=== PATIENT | male | born 1960 | race Caucasian/White ===

== ENCOUNTER 2016-11-16 14:33 | Inpatient (IN) | payer OTHER ==
[~2016-11-16] VITALS: Ht 154.9 cm; Wt 107.9 kg
[2016-11-19] MEDS ORDERED: ALBUAER3 INH (14:12)
[2016-11-19] MEDS ORDERED: MULT1TAB84 PO (14:12)
[2016-11-19] MEDS ORDERED: SYMB160A INH (14:12)
[2016-11-19] MEDS ORDERED: BACL10TA PO (14:12)
[2016-11-19] MEDS ORDERED: LISI10TA3 PO (14:12)
[2016-11-19] MEDS ORDERED: MIRT30TA PO (14:12)
[2016-11-19] MEDS ORDERED: OMEP40CA2 PO (14:12)
[2016-12-13] MEDS ORDERED: SIME1CHW11 PO (17:46)
[2016-12-13] MEDS ORDERED: CREON24 PO (17:46)
[2016-12-13] MEDS ORDERED: DILA2TAB2 PO (17:46)
[2016-12-13] MEDS ORDERED: DILA100C PO (17:46)
[2017-01-08] MEDS ORDERED: INSULIN HUMAN REGULAR 1,000 UNITS/10 ML VIAL SQ PRN (05:45)
[2017-01-08] MEDS ORDERED: CHLORHEXIDINE GLUCONATE 2 % 1 PACK (2 CLOTHS) TOPICAL PRN (05:45)
[2017-01-08] MEDS ORDERED: VANCOMYCIN 1000 MG/NS 250 ML (for <70 kg) IV SCH ×2 (05:45)
[2017-01-08] MEDS ORDERED: CHLORHEXIDINE GLUCONATE 4% SOLN 120 ML BTL TOPICAL SCH (05:45)
[2017-01-08] MEDS ORDERED: METOPROLOL TARTRATE 25 MG TAB PO PRN (05:45)
[2017-01-08] MEDS ORDERED: SODIUM CHLORID 0.9% 500 ML IV PRN (05:45)
[2017-01-08] MEDS ORDERED: ceFAZolin 2 GM PREMIX 50 ML IV SCH (05:45)
[2017-01-08] MEDS ORDERED: LACTATED RINGER'S 1000 ML IV PRN (05:45)
[2017-01-08] MEDS ORDERED: POVIDONE IODINE 5% (ANTISEPSIS KIT) 4 APPLICATIONS EACH NARE PRN (05:45)
[2017-01-08] MEDS ORDERED: ACET-703 PO (06:30)
[2017-01-08 06:33] VITALS: BP 116/79; PULSE 100; RESP 18; TEMP 97.9; O2SAT 96
[2017-01-08] MEDS ORDERED: GENTAMICIN SULFATE 80 MG/2 ML VIAL ONE (06:53)
[2017-01-08] MEDS ORDERED: DEXAMETHASONE SOD PHOS 4 MG/ML VIAL ONE (07:04)
[2017-01-08] MEDS ORDERED: ACETAMINOPHEN 1000 MG/100 ML VIAL IV ONE (07:04)
[2017-01-08] MEDS ORDERED: MIDAZOLAM HCL 2 MG/2 ML VIAL ONE (07:04)
[2017-01-08] MEDS ORDERED: FAMOTIDINE 20 MG/2 ML VIAL ONE (07:05)
[2017-01-08] MEDS ORDERED: SODIUM CHLORIDE 0.9% IV SCH (07:30)
[2017-01-08] MEDS ORDERED: TRANEXAMIC ACID IV SCH (07:30)
[2017-01-08] MEDS ORDERED: EXPAREL PERI-ARTICULAR INJECTION (TOTAL VOL. 60 ML) P-ARTICULR SCH ×2 (07:30)
[2017-01-08] MEDS ORDERED: ceFAZolin INJ 1,000 MG VIAL IV ONE (07:35)
[2017-01-08] MEDS ORDERED: NALOXONE HCL 0.4 MG/ML AMP IV PRN (09:30)
[2017-01-08] MEDS ORDERED: ACETAMINOPHEN/HYDROcodone 325 MG/10 MG TAB PO PRN (09:30)
[2017-01-08] MEDS ORDERED: Post-op Orders (for Pharmacy) MISC XX ONE (09:30)
[2017-01-08] MEDS ORDERED: ONDANSETRON HCL 4 MG/2 ML VIAL IVP PRN (09:30)
--- NOTE | 2017-01-08 09:32 | PD.OP ---
cc: Yousuf Miranda MD Operative Report Date of Surgery: January 08, 2017 Preoperative Diagnosis: Severe left hip osteoarthritis Postoperative Diagnosis: Procedure: Left total hip arthroplasty via anterior approach Anesthesia: Gen. Surgeon: Yousuf Miranda Butcher All Round(s): TL Cisneros PA-C The surgical procedure was assisted by my physician assistant basketball coach. My P.A. presence was necessary throughout this case for the manipulation and positioning of the surgical extremity. My P.A. was assisting me throughout the duration of this procedure. The skill set of a physician assistant basketball coach was medically necessary to complete this procedure. During the surgical case the salesperson surgical appliances was working at the back table and the physician assistant basketball coach was directly assisting me. Operation and Findings: PLAN OF ACTIVITY Weight bear as tolerated. DRAINS: 7-mm JAYANT drain. IMPLANTS USED DePuy Corail size [14] standard stem with a size [54] Friendly Gription cup and a [36+5] ceramic Biolox ceramic head. DETAILS OF PROCEDURE: This patient has a long history of left hip pain. Patient was found to have severe osteoarthritis of his left hip. The patient had radiographic evidence of joint space narrowing with [id number] arthritis and osteophytes around the acetabulum as well as the femoral head. There was also some cystic changes. The patient failed conservative treatment with pain medications, anti-inflammatories , physical therapy, assistive devices including a cane, as well as therapeutic injection of the hip. Patient's hip arthritis was limiting his ability to ambulate and perform activities of daily living. The patient wished to proceed with surgery and informed consent was obtained. Operative site was marked. I discussed both posterior approach and anterior approach with the patient and decision was made for anterior approach. Patient was brought to OR and placed on OR table. IV sedation and general anesthesia was administered by anesthesiologist. Patient positioned on a Shaye table and was given IV antibiotics. Time-out procedure was performed. The hip and thigh were prepped with alcohol followed by Hibiclens. The thigh was draped in the usual sterile fashion. Clean Air Suite was used for this procedure. The procedure began with a 5-inch incision over the anterolateral thigh. Subcutaneous tissue was dissected with Bovie. The fascia over the tensa fasciae latae was incised. Care was taken to avoid injury to the lateral femoral cutaneous nerve. The tensor muscle was retracted laterally. Sartorius was retracted medially. Retractors were now placed. The reflected head of the rectus is now elevated. A capsulotomy was performed over the anterior head capsule. Sutures were placed to help retract the capsule. At this point the femoral head and neck were identified. With soft tissue protected, oscillating saw was used to make a cut through the femoral neck, the femoral head was now removed. At this point attention was turned to preparation of the acetabulum. The labrum was excised. The acetabulum was sequentially reamed up to size [54]. A Friendly cup was now placed. Fluoroscopy was used to aid in identification of appropriate version. Cup was fully impacted and found to have excellent fit. Hole eliminator was now placed. The liner was now impacted into the cup. At this point the hip was externally rotated. A hook was placed around the proximal femur. The capsule was released off the lateral and medial femur. The hip was now extended and adducted. Retractors were placed around the proximal femur to allow for exposure. A box osteotome was used to remove the lateral cortex of the femoral neck. A broach was used to help lateralize the prosthesis. Canal finder was used to create a path down the canal. Next, the canal was sequentially broached up to size [14]. This was found to be an excellent fit. Calcar planer was placed. A standard head was placed, and the hip was reduced. The hip was found to have excellent stability with good range of motion. The leg lengths were measured under fluoroscopy and found to be equal compared to preoperatively. Trial broach was removed. The Corail stem was opened. Stem was fully impacted into the proximal femur in appropriate version. The femoral head was placed. The hip was again reduced. Fluoroscopy confirmed excellent alignment of prosthesis. The wound was thoroughly irrigated and capsule was closed with #1 Vicryl. The fascia over the tensor fasciae muscle was closed with #1 Vicryl, subcutaneous tissue was closed with 3-0 Vicryl and the skin was closed with stuart and Dermabond skin closure. The capsule layers were injected with a mixture of saline and bupivicaine. Dressings were applied. The patient was transferred to Recovery Room in stable condition. Yousuf Miranda MD January 08, 2017 09:32
[2017-01-08] MEDS ORDERED: ALBUTEROL SULFATE 90 MCG/ACT HFA 18 GM INHALER INH PRN (10:00)
[2017-01-08] MEDS ORDERED: fentaNYL CITRATE 250 MCG/5 ML AMP ONE (10:05)
[2017-01-08] MEDS ORDERED: *morphine SULFATE 8 MG/ML PERIprocedure ONLY ONE ×3 (10:05→10:41)
[2017-01-08] MEDS ORDERED: *HYDROmorphone PF 1 MG VIAL PERIprocedural Use ONLY ONE ×3 (10:24→11:18)
[2017-01-08] MEDS: KETOROLAC TROMETHAMINE 30 MG/ML (IVP) VIAL IV PUSH SCH ×2 (10:34→23:48)
[2017-01-08] MEDS ORDERED: SODIUM CHLORIDE 0.9% FLUSH 10 ML FLUSH IV FLUSH PRN (11:00)
[2017-01-08] MEDS: LACTATED RINGER'S 1000 ML INJ 1,000 ML IV SCH (11:00)
--- NOTE | 2017-01-08 11:18 | RADRPT ---
EXAM DATE/TIME: 01/08/2017 10:09 [facility] COMPARISON: No previous studies available for comparison. INDICATIONS : Post op left hip MEDICAL HISTORY : None. SURGICAL HISTORY : left hip ENCOUNTER: Initial ACUITY: 1 day PAIN SCORE: 10/10 LOCATION: Left hip FINDINGS: 4 views of the pelvis and left hip following recent total hip arthroplasty demonstrates a metallic ac etabular and proximal femur hardware in place. Skin stuart are present and there is soft tissue air, as expected. There is also mild right hip joint osteoarthritis. CONCLUSION: Expected changes are visualized following recent left total hip arthroplasty. Donnie Julio MD on January 08, 2017 at 11:15 Board Certified Radiologist. This report was verified electronically.
[2017-01-08] MEDS: ACETAMINOPHEN/HYDROcodone 325 MG/10 MG TAB PO PRN ×3 (11:44→23:49)
[2017-01-08] MEDS ORDERED: DO NOT ADM ANY ANTICOAGULANT DRUGS PRN (11:45)
[2017-01-08] MEDS ORDERED: ONDANSETRON HCL 4 MG/2 ML VIAL IV PUSH ONE (12:00)
[2017-01-08] MEDS ORDERED: NEOSTIGMINE 3 MG/3 ML SYR IV ONE (12:00)
[2017-01-08] MEDS ORDERED: ePHEDrine/NS 25 MG/5 ML SYR IV ONE (12:00)
[2017-01-08] MEDS ORDERED: LACTATED RINGER'S 1000 ML INJ 1,000 ML IV ONE (12:00)
[2017-01-08] MEDS ORDERED: PROPOFOL 200 MG/20 ML AMP IV ONE (12:00)
[2017-01-08] MEDS ORDERED: NORMOSOL R INJ 1,000 ML IV ONE (12:00)
[2017-01-08] MEDS ORDERED: PHENYLEPH/NS 1000 MCG/10 ML SYR IV ONE (12:00)
[2017-01-08] MEDS ORDERED: *MEPERIDINE 25 MG INJ VIAL PERIprocedural Use ONLY ONE (13:19)
--- NOTE | 2017-01-08 13:48 | RADRPT ---
EXAM DATE/TIME: 01/08/2017 07:44 [facility] COMPARISON: No previous studies available for comparison. INDICATIONS : Left total hip replacement. MEDICAL HISTORY : None. SURGICAL HISTORY : None. ENCOUNTER: Initial ACUITY: 1 day PAIN SCORE: Non-responsive. LOCATION: Left hip. FINDINGS: 3 spot fluoroscopic images of the left hip demonstrate hardware related to total hip arthroplasty. Sk in stuart are present. No unexpected finding is seen. CONCLUSION: Images document left hip hardware in place. No acute finding is seen. Donnie Julio MD on January 08, 2017 at 13:33 Board Certified Radiologist. This report was verified electronically.
[2017-01-08] MEDS: ceFAZolin 2 GM PREMIX 50 ML IV SCH ×2 (14:00→20:09)
[2017-01-08 14:25] VITALS: BP 100/61; PULSE 97; RESP 18; TEMP 95.9; O2SAT 96
[2017-01-08] MEDS: MORPHINE SULFATE 4 MG/ML INJ IV PUSH PRN ×3 (15:02→21:33)
[2017-01-08] MEDS: BACLOFEN 10 MG TAB PO SCH ×2 (15:02→20:10)
[2017-01-08] MEDS: LIPASE/PROTEASE/AMYLASE (24,000/76,000/120,000) CAP PO SCH ×2 (15:05→20:10)
--- NOTE | 2017-01-08 15:42 | EKG ---
Date Performed: 01/08/2017 Time Performed: 06:28:54 PTAGE: 56 years EKG: Sinus rhythm NORMAL ECG Compared to prior tracing no significant change PREVIOUS TRACING : 12/10/2016 05.12 DOCTOR: Prabhakar Rodriguez Interpretating Date/Time 01/08/2017 15:41:43
[2017-01-08 16:00] VITALS: BP 98/56; PULSE 107; RESP 19; TEMP 96.4; O2SAT 97
[2017-01-08] MEDS: VANCOMYCIN INJ 1,000 MG in SODIUM CHLOR 0.9% 250 ML INJ 250 ML IV SCH (17:27)
[2017-01-08 18:15] VITALS: BP 98/64
[2017-01-08 19:02] VITALS: BP 87/53; PULSE 91; RESP 17; TEMP 97.6; O2SAT 96
[2017-01-08] MEDS: SODIUM CHLORIDE 0.9% FLUSH 10 ML FLUSH IV FLUSH SCH (20:10)
[2017-01-08] MEDS: PHENYTOIN SODIUM 100 MG CAP PO SCH (20:10)
[2017-01-08] MEDS: MIRTAZAPINE 15 MG TAB PO SCH (20:10)
[2017-01-08] MEDS: BUDESONIDE-FORMOTEROL 160/4.5 MCG INHALER INH SCH (20:11)
[2017-01-09] VITALS (8 sets, daily range): BP systolic 92–125; BP diastolic 57–70; PULSE 84–100; RESP 16–18; TEMP 97.3–98.8; O2SAT 94–97
[2017-01-09] MEDS: MORPHINE SULFATE 4 MG/ML INJ IV PUSH PRN ×7 (01:00→23:27)
[2017-01-09] MEDS: ceFAZolin 2 GM PREMIX 50 ML IV SCH (02:06)
[2017-01-09] MEDS: LACTATED RINGER'S 1000 ML INJ 1,000 ML IV SCH ×3 (02:50→23:40)
[2017-01-09] MEDS: ACETAMINOPHEN/HYDROcodone 325 MG/10 MG TAB PO PRN ×3 (06:05→18:11)
[2017-01-09] MEDS: VANCOMYCIN INJ 1,000 MG in SODIUM CHLOR 0.9% 250 ML INJ 250 ML IV SCH (06:13)
--- NOTE | 2017-01-09 06:48 | PD.ORT.PN ---
Subjective Subjective Remarks Pain control. No new complaints. States that he is homeless at this point. Objective Vitals Vital Signs Date Time Temp Pulse Resp B/P Pulse Ox O2 Delivery O2 Flow Rate FiO2 01/09/17 04:14 97.4 90 17 107/57 97 01/09/17 00:15 97.5 99 16 94/59 97 01/08/17 21:10 21 01/08/17 19:02 97.6 91 17 87/53 96 01/08/17 18:15 98/64 01/08/17 16:00 96.4 107 19 98/56 97 01/08/17 14:25 95.9 97 18 100/61 96 01/08/17 14:15 91 21 96/58 95 Room Air 01/08/17 13:00 101 21 94/57 99 Room Air 01/08/17 12:00 97.0 85 18 101/61 100 Room Air 01/08/17 11:34 26 01/08/17 11:34 26 01/08/17 11:30 84 14 104/69 99 Room Air 01/08/17 11:00 93 17 114/73 96 Nasal Cannula 2 01/08/17 10:45 102 23 115/77 100 Nasal Cannula 2 01/08/17 10:30 103 29 114/71 96 Nasal Cannula 2 01/08/17 10:15 95 26 103/65 98 Nasal Cannula 2 01/08/17 09:58 97.6 108 28 103/66 95 Nasal Cannula 2 I/O 01/08/17 01/08/17 01/08/17 01/09/17 01/09/17 01/09/17 07:00 15:00 23:00 07:00 15:00 23:00 Intake Total 2100 ml 840 ml 960 ml Output Total 540 ml 250 ml 275 ml Balance 1560 ml 590 ml 685 ml Intake Oral 840 ml 960 ml Other 2100 ml Output Urine Total 290 ml 250 ml 275 ml Estimated Blood Loss 250 ml # Bowel Movements 0 Imaging Last 24 hours Impressions Hip and Pelvis X-Ray 01/08/17 09 Signed Impressions: Service Date/Time: Sunday, January 08, 2017 10:09 - CONCLUSION: Expected changes are visualized following recent left total hip arthroplasty. Donnie Julio MD Objective Remarks Left lower extremity: Clean dry dressings intact. Compartments soft. No pain with knee or ankle range of motion. Distally intact sensation good capillary refills. Strong dorsiflexion plantar flexion of foot Assessment & Plan Assessment and Plan Left total hip arthroplasty POD 1 Physical therapy weightbearing as tolerated twice daily Daily dressing changes beginning POD 2 with Xeroform and Primapore Case management for rehabilitation placement Lovenox Incentive spirometry SCDs and John Wheatley Jr. January 09, 2017 06:48
[2017-01-09] MEDS ORDERED: HYDR-3366 PO (06:51)
[2017-01-09] MEDS ORDERED: XARE10TA PO (06:51)
[2017-01-09] MEDS ORDERED: ERGO1CAP30 PO (06:52)
[2017-01-09] MEDS ORDERED: CALC1TAB87 PO (06:52)
[2017-01-09 07:23] LABS: HEMATOCRIT 26.5 % (39.0-51.0); REVIEW FLAG FINAL
[2017-01-09] MEDS: KETOROLAC TROMETHAMINE 30 MG/ML (IVP) VIAL IV PUSH SCH ×2 (10:06→23:27)
[2017-01-09] MEDS: MULTIVITAMINS/MINERALS THERAPEUTIC TAB PO SCH (10:07)
[2017-01-09] MEDS: PANTOPRAZOLE SOD 40 MG DELAYED RELEASE TAB PO SCH (10:07)
[2017-01-09] MEDS: BACLOFEN 10 MG TAB PO SCH ×3 (10:07→16:25)
[2017-01-09] MEDS: LISINOPRIL 10 MG TAB PO SCH (10:07)
[2017-01-09] MEDS: ENOXAPARIN SODIUM 40 MG/0.4 ML SYRINGE SQ SCH (10:07)
[2017-01-09] MEDS: LIPASE/PROTEASE/AMYLASE (24,000/76,000/120,000) CAP PO SCH ×3 (10:07→16:25)
[2017-01-09] MEDS: SODIUM CHLORIDE 0.9% FLUSH 10 ML FLUSH IV FLUSH SCH ×2 (10:07→21:45)
[2017-01-09] MEDS: BUDESONIDE-FORMOTEROL 160/4.5 MCG INHALER INH SCH ×2 (11:29→21:46)
[2017-01-09] MEDS: PHENYTOIN SODIUM 100 MG CAP PO SCH (21:45)
[2017-01-09] MEDS: MIRTAZAPINE 15 MG TAB PO SCH (21:45)
[2017-01-09] MEDS: DOCUSATE SODIUM 100 MG CAP PO SCH (21:45)
[2017-01-10] VITALS: BP 116/62; PULSE 94; RESP 17; TEMP 98.7; O2SAT 95
[2017-01-10] MEDS: ACETAMINOPHEN/HYDROcodone 325 MG/10 MG TAB PO PRN ×4 (00:38→18:22)
[2017-01-10] MEDS: MORPHINE SULFATE 4 MG/ML INJ IV PUSH PRN ×6 (03:16→22:54)
--- NOTE | 2017-01-10 07:05 | PD.ORT.PN ---
Subjective Subjective Remarks Pain control. No new complaints. States that he is homeless at this point. Objective Vitals Vital Signs Date Time Temp Pulse Resp B/P Pulse Ox O2 Delivery O2 Flow Rate FiO2 01/10/17 03:33 18 01/10/17 01:52 18 01/10/17 00:40 18 01/10/17 00:00 98.7 94 17 116/62 95 01/09/17 20:00 98.3 95 18 113/67 96 01/09/17 18:05 21 01/09/17 16:00 97.3 90 18 108/69 96 01/09/17 13:47 95 21 01/09/17 12:15 125/69 01/09/17 11:49 98.8 100 18 92/61 94 01/09/17 07:46 98.2 84 18 110/70 94 I/O 01/09/17 01/09/17 01/09/17 01/10/17 01/10/17 01/10/17 07:00 15:00 23:00 07:00 15:00 23:00 Intake Total 960 ml 2566 ml 240 ml 240 ml Output Total 275 ml 800 ml 800 ml Balance 685 ml 2566 ml -560 ml -560 ml Intake Oral 960 ml 720 ml 240 ml 240 ml IV Total 1846 ml Output Urine Total 275 ml 800 ml 800 ml # Voids 4 # Bowel Movements 0 0 0 Result Diagram: 01/09/17 0625 Imaging Last 24 hours Impressions Hip and Pelvis X-Ray 01/08/17 09 Signed Impressions: Service Date/Time: Sunday, January 08, 2017 10:09 - CONCLUSION: Expected changes are visualized following recent left total hip arthroplasty. Donnie Julio MD Objective Remarks Left lower extremity: Clean dry dressings intact. Compartments soft. No pain with knee or ankle range of motion. Distally intact sensation good capillary refills. Strong dorsiflexion plantar flexion of foot Assessment & Plan Assessment and Plan Left total hip arthroplasty POD 2 Physical therapy weightbearing as tolerated twice daily Daily dressing changes beginning POD 2 with Xeroform and Primapore Case management for rehabilitation placement Lovenox Incentive spirometry SCDs and LEATHA hall Follow-up appointment with Dr. Miranda or PA in 2 weeks John Ramesh Jr. January 10, 2017 07:05
[2017-01-10 07:51] VITALS: BP 129/82; PULSE 86; RESP 18; TEMP 96.4; O2SAT 100
[2017-01-10] MEDS: SODIUM CHLORIDE 0.9% FLUSH 10 ML FLUSH IV FLUSH SCH ×2 (08:38→19:41)
[2017-01-10] MEDS: PANTOPRAZOLE SOD 40 MG DELAYED RELEASE TAB PO SCH (08:38)
[2017-01-10] MEDS: MULTIVITAMINS/MINERALS THERAPEUTIC TAB PO SCH (08:38)
[2017-01-10] MEDS: LISINOPRIL 10 MG TAB PO SCH (08:38)
[2017-01-10] MEDS: LIPASE/PROTEASE/AMYLASE (24,000/76,000/120,000) CAP PO SCH ×3 (08:38→18:21)
[2017-01-10] MEDS: ENOXAPARIN SODIUM 40 MG/0.4 ML SYRINGE SQ SCH (08:38)
[2017-01-10] MEDS: BACLOFEN 10 MG TAB PO SCH ×3 (08:38→18:21)
[2017-01-10] MEDS: DOCUSATE SODIUM 100 MG CAP PO SCH ×2 (08:38→19:40)
[2017-01-10] MEDS: BUDESONIDE-FORMOTEROL 160/4.5 MCG INHALER INH SCH ×2 (08:39→19:41)
[2017-01-10 12:00] VITALS: BP 128/77; PULSE 90; RESP 18; TEMP 96.4; O2SAT 97
[2017-01-10] MEDS: LACTATED RINGER'S 1000 ML INJ 1,000 ML IV SCH (13:00)
[2017-01-10 16:00] VITALS: BP 99/69; PULSE 88; RESP 18; TEMP 97.4; O2SAT 95
[2017-01-10] MEDS: MIRTAZAPINE 15 MG TAB PO SCH (19:40)
[2017-01-10] MEDS: PHENYTOIN SODIUM 100 MG CAP PO SCH (19:40)
[2017-01-10 20:05] VITALS: BP 109/72; PULSE 96; RESP 16; TEMP 99.1; O2SAT 95
[2017-01-11 00:05] VITALS: BP 117/72; PULSE 93; RESP 16; TEMP 97.2; O2SAT 97
[2017-01-11] MEDS: ACETAMINOPHEN/HYDROcodone 325 MG/10 MG TAB PO PRN ×4 (00:50→18:14)
[2017-01-11] MEDS: LACTATED RINGER'S 1000 ML INJ 1,000 ML IV SCH ×3 (01:30→20:57)
[2017-01-11] MEDS: MORPHINE SULFATE 4 MG/ML INJ IV PUSH PRN ×2 (02:07→05:14)
--- NOTE | 2017-01-11 06:37 | PD.ORT.PN ---
Subjective Subjective Remarks Pain control. No new complaints. States that he is homeless at this point. Objective Vitals Vital Signs Date Time Temp Pulse Resp B/P Pulse Ox O2 Delivery O2 Flow Rate FiO2 01/11/17 00:05 97.2 93 16 117/72 97 01/10/17 20:05 99.1 96 16 109/72 95 01/10/17 16:00 97.4 88 18 99/69 95 01/10/17 12:00 96.4 90 18 128/77 97 01/10/17 07:51 96.4 86 18 129/82 100 I/O 01/10/17 01/10/17 01/10/17 01/11/17 01/11/17 01/11/17 07:00 15:00 23:00 07:00 15:00 23:00 Intake Total 240 ml 720 ml 720 ml Output Total 800 ml 201 ml Balance -560 ml 519 ml 720 ml Intake Oral 240 ml 720 ml 720 ml Output Urine Total 800 ml 200 ml Stool Total 1 ml # Voids 4 1 # Bowel Movements 0 0 Result Diagram: 01/09/17 06 Imaging Last 24 hours Impressions Hip and Pelvis X-Ray 01/08/17925 Signed Impressions: Service Date/Time: Sunday, January 08, 2017 10:09 - CONCLUSION: Expected changes are visualized following recent left total hip arthroplasty. Donnie Julio MD Objective Remarks Left lower extremity: Clean dry dressings intact. Compartments soft. No pain with knee or ankle range of motion. Distally intact sensation good capillary refills. Strong dorsiflexion plantar flexion of foot Assessment & Plan Assessment and Plan Left total hip arthroplasty POD 3 Physical therapy weightbearing as tolerated twice daily Daily dressing changes with Xeroform and Primapore No showers Case management for rehabilitation placement - clear for discharge if bed is available If transferred to [facility] patient needs to be accepted by [facility] Lovenox Incentive spirometry SCDs and LEATHA hall Follow-up appointment with Dr. Miranda or PA in 2 weeks John Ramesh Jr. January 11, 2017 06:37
[2017-01-11 08:00] VITALS: BP 123/80; PULSE 88; RESP 18; TEMP 97.1; O2SAT 95
[2017-01-11] MEDS: ENOXAPARIN SODIUM 40 MG/0.4 ML SYRINGE SQ SCH (08:28)
[2017-01-11] MEDS: LISINOPRIL 10 MG TAB PO SCH (08:28)
[2017-01-11] MEDS: MULTIVITAMINS/MINERALS THERAPEUTIC TAB PO SCH (08:29)
[2017-01-11] MEDS: LIPASE/PROTEASE/AMYLASE (24,000/76,000/120,000) CAP PO SCH ×3 (08:29→18:13)
[2017-01-11] MEDS: BACLOFEN 10 MG TAB PO SCH ×3 (08:29→18:13)
[2017-01-11] MEDS: SODIUM CHLORIDE 0.9% FLUSH 10 ML FLUSH IV FLUSH SCH ×2 (08:29→20:57)
[2017-01-11] MEDS: PANTOPRAZOLE SOD 40 MG DELAYED RELEASE TAB PO SCH (08:29)
[2017-01-11] MEDS: DOCUSATE SODIUM 100 MG CAP PO SCH ×2 (08:29→20:57)
[2017-01-11] MEDS: BUDESONIDE-FORMOTEROL 160/4.5 MCG INHALER INH SCH ×2 (08:31→20:57)
[2017-01-11 12:00] VITALS: BP 121/78; PULSE 90; RESP 18; TEMP 97.9; O2SAT 97
[2017-01-11 12:13] VITALS: O2SAT 95
[2017-01-11 16:00] VITALS: BP 135/81; PULSE 86; RESP 18; TEMP 96; O2SAT 98
[2017-01-11 20:01] VITALS: BP 116/64; PULSE 78; RESP 18; TEMP 96.7; O2SAT 98
[2017-01-11] MEDS: PHENYTOIN SODIUM 100 MG CAP PO SCH (20:57)
[2017-01-11] MEDS: MIRTAZAPINE 15 MG TAB PO SCH (20:57)
[2017-01-12] VITALS (7 sets, daily range): BP systolic 108–129; BP diastolic 71–78; PULSE 80–88; RESP 18–19; TEMP 96.9–98.2; O2SAT 93–96
[2017-01-12] MEDS: ACETAMINOPHEN/HYDROcodone 325 MG/10 MG TAB PO PRN ×4 (00:19→18:03)
--- NOTE | 2017-01-12 08:16 | PD.ORT.PN ---
Subjective Post Op Day #: 4 Subjective Remarks Patient sitting upright in bed. Admits he has successfully walked with walker. Left hip pain controlled. Awaiting placement. Objective Vitals Vital Signs Date Time Temp Pulse Resp B/P Pulse Ox O2 Delivery O2 Flow Rate FiO2 01/12/17 00:30 97.0 88 18 118/77 96 01/11/17 20:01 96.7 78 18 116/64 98 01/11/17 16:00 96.0 86 18 135/81 98 01/11/17 12:13 95 01/11/17 12:00 97.9 90 18 121/78 97 I/O 01/11/17 01/11/17 01/11/17 01/12/17 01/12/17 01/12/17 07:00 15:00 23:00 07:00 15:00 23:00 Intake Total 480 ml 1440 ml 720 ml Output Total 1025 ml 1900 ml 1450 ml Balance -545 ml -460 ml -730 ml Intake Oral 480 ml 1440 ml 720 ml Output Urine Total 1025 ml 1900 ml 1450 ml # Voids 1 2 # Bowel Movements 0 1 0 Result Diagram: 01/09/17624 Imaging Last 24 hours Impressions Hip and Pelvis X-Ray 01/08/17925 Signed Impressions: Service Date/Time: Sunday, January 08, 2017 10:09 - CONCLUSION: Expected changes are visualized following recent left total hip arthroplasty. Donnie Julio MD Objective Remarks Left lower extremity: Clean dry dressings intact. Compartments soft. No pain with knee or ankle range of motion. Distally intact sensation good capillary refills. Strong dorsiflexion plantar flexion of foot Assessment & Plan Ortho Post Op Day #: 4 Problem List: (1) Status post left hip replacement (2) Hypertension (3) COPD (chronic obstructive pulmonary disease) (4) HTN (hypertension) (5) Seizure disorder (6) Tobacco abuse (7) Pancreatitis Assessment and Plan Left total hip arthroplasty POD 4 Physical therapy weightbearing as tolerated twice daily Daily dressing changes with Xeroform and Primapore No showers Case management for rehabilitation placement - clear for discharge if bed is available If transferred to [facility] patient needs [facility] be accepted by [facility] Lovenox Incentive spirometry SCDs and LEATHA hall Follow-up appointment with Dr. Miranda or PA in 2 weeks Melanie Zhao January 12, 2017 08:16
[2017-01-12] MEDS: DOCUSATE SODIUM 100 MG CAP PO SCH ×2 (08:20→20:03)
[2017-01-12] MEDS: PANTOPRAZOLE SOD 40 MG DELAYED RELEASE TAB PO SCH (08:20)
[2017-01-12] MEDS: MULTIVITAMINS/MINERALS THERAPEUTIC TAB PO SCH (08:21)
[2017-01-12] MEDS: LISINOPRIL 10 MG TAB PO SCH (08:21)
[2017-01-12] MEDS: LIPASE/PROTEASE/AMYLASE (24,000/76,000/120,000) CAP PO SCH ×3 (08:21→18:02)
[2017-01-12] MEDS: ENOXAPARIN SODIUM 40 MG/0.4 ML SYRINGE SQ SCH (08:21)
[2017-01-12] MEDS: BACLOFEN 10 MG TAB PO SCH ×3 (08:21→18:02)
[2017-01-12] MEDS: BUDESONIDE-FORMOTEROL 160/4.5 MCG INHALER INH SCH ×2 (09:00→20:05)
[2017-01-12] MEDS: SODIUM CHLORIDE 0.9% FLUSH 10 ML FLUSH IV FLUSH SCH ×2 (09:00→20:04)
[2017-01-12] MEDS: LACTATED RINGER'S 1000 ML INJ 1,000 ML IV SCH (15:00)
[2017-01-12] MEDS: MIRTAZAPINE 15 MG TAB PO SCH (20:03)
[2017-01-12] MEDS: PHENYTOIN SODIUM 100 MG CAP PO SCH (20:04)
[2017-01-13] MEDS: ACETAMINOPHEN/HYDROcodone 325 MG/10 MG TAB PO PRN ×5 (00:04→23:57)
[2017-01-13] MEDS: LACTATED RINGER'S 1000 ML INJ 1,000 ML IV SCH ×2 (03:30→16:00)
--- NOTE | 2017-01-13 06:45 | PD.ORT.PN ---
Subjective Post Op Day #: 5 Subjective Remarks Patient sitting upright in bed. Admits he has successfully walked with walker. Left hip pain controlled. Awaiting placement. Objective Vitals Vital Signs Date Time Temp Pulse Resp B/P Pulse Ox O2 Delivery O2 Flow Rate FiO2 01/12/17 23:25 96.9 80 18 108/72 93 01/12/17 19:57 98.0 85 19 114/71 94 01/12/17 15:36 98.2 85 18 129/78 93 01/12/17 11:29 97.5 87 18 127/73 95 01/12/17 09:05 94 21 01/12/17 07:54 98.0 84 18 119/75 94 I/O 01/12/17 01/12/17 01/12/17 01/13/17 01/13/17 01/13/17 07:00 15:00 23:00 07:00 15:00 23:00 Intake Total 720 ml 1200 ml 720 ml 720 ml Output Total 1450 ml 1000 ml 1200 ml Balance -730 ml 1200 ml -280 ml -480 ml Intake Oral 720 ml 1200 ml 720 ml 720 ml Output Urine Total 1450 ml 1000 ml 1200 ml # Voids 6 # Bowel Movements 0 1 0 0 Result Diagram: 01/09/17 06 Imaging Last 24 hours Impressions Hip and Pelvis X-Ray 01/08/17925 Signed Impressions: Service Date/Time: Sunday, January 08, 2017 10:09 - CONCLUSION: Expected changes are visualized following recent left total hip arthroplasty. Donnie Julio MD Objective Remarks Left lower extremity: Clean dry dressings intact. Compartments soft. No pain with knee or ankle range of motion. Distally intact sensation good capillary refills. Strong dorsiflexion plantar flexion of foot Assessment & Plan Ortho Post Op Day #: 5 Problem List: (1) Status post left hip replacement (2) Hypertension (3) COPD (chronic obstructive pulmonary disease) (4) HTN (hypertension) (5) Seizure disorder (6) Tobacco abuse (7) Pancreatitis Assessment and Plan Left total hip arthroplasty POD 5 Physical therapy weightbearing as tolerated twice daily Daily dressing changes with Xeroform and Primapore No showers Case management for rehabilitation placement - clear for discharge if bed is available If transferred to [facility] patient needs to be accepted by [facility] Lovenox Incentive spirometry SCDs and LEATHA hall Follow-up appointment with Dr. Miranda or PA in 2 weeks Melanie Zhao January 13, 2017 06:45
[2017-01-13] MEDS: LIPASE/PROTEASE/AMYLASE (24,000/76,000/120,000) CAP PO SCH ×3 (07:15→18:00)
[2017-01-13] MEDS: LISINOPRIL 10 MG TAB PO SCH (07:15)
[2017-01-13] MEDS: BACLOFEN 10 MG TAB PO SCH ×3 (07:15→18:00)
[2017-01-13] MEDS: MULTIVITAMINS/MINERALS THERAPEUTIC TAB PO SCH (07:15)
[2017-01-13] MEDS: ENOXAPARIN SODIUM 40 MG/0.4 ML SYRINGE SQ SCH (07:16)
[2017-01-13] MEDS: DOCUSATE SODIUM 100 MG CAP PO SCH ×2 (07:16→20:27)
[2017-01-13] MEDS: PANTOPRAZOLE SOD 40 MG DELAYED RELEASE TAB PO SCH (07:16)
[2017-01-13 07:39] VITALS: BP 128/81; PULSE 82; RESP 18; TEMP 97; O2SAT 95
[2017-01-13] MEDS: BUDESONIDE-FORMOTEROL 160/4.5 MCG INHALER INH SCH ×2 (09:00→20:28)
[2017-01-13] MEDS: SODIUM CHLORIDE 0.9% FLUSH 10 ML FLUSH IV FLUSH SCH ×2 (09:00→20:28)
[2017-01-13 10:15] VITALS: O2SAT 93
[2017-01-13 11:40] VITALS: BP 121/65; PULSE 90; RESP 18; TEMP 97.8; O2SAT 96
[2017-01-13 15:44] VITALS: BP 125/85; PULSE 18; RESP 18; TEMP 96.8; O2SAT 95
[2017-01-13 19:00] VITALS: BP 120/71; PULSE 84; RESP 19; TEMP 97.7; O2SAT 93
[2017-01-13] MEDS: MIRTAZAPINE 15 MG TAB PO SCH (20:27)
[2017-01-13] MEDS: PHENYTOIN SODIUM 100 MG CAP PO SCH (20:27)
[2017-01-13] MEDS: MAGNESIUM HYDROXIDE SUSP 30 ML CUP PO SCH (20:29)
[2017-01-14] VITALS (7 sets, daily range): BP systolic 109–122; BP diastolic 65–81; PULSE 79–96; RESP 16–21; TEMP 96–97.8; O2SAT 93–97
[2017-01-14] MEDS: LACTATED RINGER'S 1000 ML INJ 1,000 ML IV SCH ×2 (04:30→17:00)
[2017-01-14] MEDS: ACETAMINOPHEN/HYDROcodone 325 MG/10 MG TAB PO PRN ×3 (06:04→18:16)
[2017-01-14] MEDS: SODIUM CHLORIDE 0.9% FLUSH 10 ML FLUSH IV FLUSH SCH ×2 (09:00→21:34)
[2017-01-14] MEDS: MAGNESIUM HYDROXIDE SUSP 30 ML CUP PO SCH ×2 (09:00→21:30)
[2017-01-14] MEDS: PANTOPRAZOLE SOD 40 MG DELAYED RELEASE TAB PO SCH (10:23)
[2017-01-14] MEDS: BACLOFEN 10 MG TAB PO SCH ×3 (10:23→18:15)
[2017-01-14] MEDS: LIPASE/PROTEASE/AMYLASE (24,000/76,000/120,000) CAP PO SCH ×3 (10:23→18:15)
[2017-01-14] MEDS: ENOXAPARIN SODIUM 40 MG/0.4 ML SYRINGE SQ SCH (10:24)
[2017-01-14] MEDS: DOCUSATE SODIUM 100 MG CAP PO SCH ×2 (10:24→21:33)
[2017-01-14] MEDS: MULTIVITAMINS/MINERALS THERAPEUTIC TAB PO SCH (10:24)
[2017-01-14] MEDS: LISINOPRIL 10 MG TAB PO SCH (10:24)
[2017-01-14] MEDS: BUDESONIDE-FORMOTEROL 160/4.5 MCG INHALER INH SCH ×2 (10:26→21:29)
[2017-01-14] MEDS: PHENYTOIN SODIUM 100 MG CAP PO SCH (21:33)
[2017-01-14] MEDS: MIRTAZAPINE 15 MG TAB PO SCH (21:34)
[2017-01-15] MEDS: ACETAMINOPHEN/HYDROcodone 325 MG/10 MG TAB PO PRN ×4 (00:10→18:01)
[2017-01-15] MEDS: LACTATED RINGER'S 1000 ML INJ 1,000 ML IV SCH ×2 (05:30→18:00)
--- NOTE | 2017-01-15 07:05 | PD.ORT.PN ---
Subjective Subjective Remarks Pain control. No new complaints. States that he is homeless at this point. Awaiting approval from [place] for rehabilitation options Objective Vitals Vital Signs Date Time Temp Pulse Resp B/P Pulse Ox O2 Delivery O2 Flow Rate FiO2 01/14/17 23:17 97.8 92 18 120/81 93 01/14/17 19:19 97.6 96 19 117/72 95 01/14/17 15:55 97.6 95 17 119/68 94 01/14/17 11:31 96.5 83 17 121/71 97 01/14/17 07:36 96.7 79 18 122/65 94 I/O 01/14/17 01/14/17 01/14/17 01/15/17 01/15/17 01/15/17 07:00 15:00 23:00 07:00 15:00 23:00 Intake Total 480 ml 500 ml 480 ml 720 ml Output Total 600 ml 600 ml 1100 ml Balance -120 ml 500 ml -120 ml -380 ml Intake Oral 480 ml 500 ml 480 ml 720 ml Output Urine Total 600 ml 600 ml 1100 ml # Voids 5 # Bowel Movements 0 0 0 Imaging Last 24 hours Impressions Hip and Pelvis X-Ray 01/08/17 09 Signed Impressions: Service Date/Time: Sunday, January 08, 2017 10:09 - CONCLUSION: Expected changes are visualized following recent left total hip arthroplasty. Donnie Julio MD Objective Remarks Left lower extremity: Clean dry dressings intact. Compartments soft. No pain with knee or ankle range of motion. Distally intact sensation good capillary refills. Strong dorsiflexion plantar flexion of foot Assessment & Plan Problem List: (1) Status post left hip replacement (2) Hypertension (3) COPD (chronic obstructive pulmonary disease) (4) HTN (hypertension) (5) Seizure disorder (6) Tobacco abuse (7) Pancreatitis Assessment and Plan Left total hip arthroplasty POD 7 Physical therapy weightbearing as tolerated twice daily Daily dressing changes with Xeroform and Primapore No showers Case management for rehabilitation placement - clear for discharge if bed is available If transferred to [facility] patient needs to be accepted by [facility] Lovenox Incentive spirometry SCDs and LEATHA hall Follow-up appointment with Dr. Miranda or PA in 2 weeks John Ramesh Jr. January 15, 2017 07:04
[2017-01-15 08:00] VITALS: BP 120/73; PULSE 75; RESP 16; TEMP 97.1; O2SAT 95
[2017-01-15] MEDS: LIPASE/PROTEASE/AMYLASE (24,000/76,000/120,000) CAP PO SCH ×3 (09:55→18:01)
[2017-01-15] MEDS: ENOXAPARIN SODIUM 40 MG/0.4 ML SYRINGE SQ SCH (09:55)
[2017-01-15] MEDS: DOCUSATE SODIUM 100 MG CAP PO SCH ×2 (09:56→20:20)
[2017-01-15] MEDS: LISINOPRIL 10 MG TAB PO SCH (09:56)
[2017-01-15] MEDS: SODIUM CHLORIDE 0.9% FLUSH 10 ML FLUSH IV FLUSH SCH ×2 (09:56→20:18)
[2017-01-15] MEDS: MULTIVITAMINS/MINERALS THERAPEUTIC TAB PO SCH (09:56)
[2017-01-15] MEDS: MAGNESIUM HYDROXIDE SUSP 30 ML CUP PO SCH ×2 (09:56→20:19)
[2017-01-15] MEDS: PANTOPRAZOLE SOD 40 MG DELAYED RELEASE TAB PO SCH (09:56)
[2017-01-15] MEDS: BACLOFEN 10 MG TAB PO SCH ×3 (09:56→18:01)
[2017-01-15] MEDS: BUDESONIDE-FORMOTEROL 160/4.5 MCG INHALER INH SCH ×2 (09:57→20:18)
[2017-01-15 11:53] VITALS: BP 117/71; PULSE 83; RESP 16; TEMP 97; O2SAT 96
[2017-01-15 16:00] VITALS: BP 111/76; PULSE 79; RESP 16; TEMP 97.5; O2SAT 98
[2017-01-15] MEDS: PHENYTOIN SODIUM 100 MG CAP PO SCH (20:18)
[2017-01-15] MEDS: MIRTAZAPINE 15 MG TAB PO SCH (20:20)
[2017-01-15 20:25] VITALS: BP 105/64; PULSE 88; RESP 17; TEMP 97.2; O2SAT 93
[2017-01-16] MEDS: ACETAMINOPHEN/HYDROcodone 325 MG/10 MG TAB PO PRN ×4 (00:20→18:22)
[2017-01-16 00:25] VITALS: BP 111/82; PULSE 84; RESP 16; TEMP 96.9; O2SAT 95
[2017-01-16 04:25] VITALS: BP 130/66; PULSE 106; RESP 16; TEMP 100.1; O2SAT 95
[2017-01-16] MEDS: LACTATED RINGER'S 1000 ML INJ 1,000 ML IV SCH ×2 (06:30→19:00)
--- NOTE | 2017-01-16 07:05 | PD.ORT.PN ---
Subjective Subjective Remarks Pain control. No new complaints. States that he is homeless at this point. Awaiting approval from [place] for rehabilitation options Objective Vitals Vital Signs Date Time Temp Pulse Resp B/P Pulse Ox O2 Delivery O2 Flow Rate FiO2 01/16/17 04:25 01/16/17 00:25 96.9 84 16 111/82 95 01/15/17 20:25 97.2 88 17 105/64 93 01/15/17 19:00 16 01/15/17 16:00 97.5 79 16 111/76 98 01/15/17 11:53 97.0 83 16 117/71 96 01/15/17 08:00 97.1 75 16 120/73 95 I/O 01/15/17 01/15/17 01/15/17 01/16/17 01/16/17 01/16/17 07:00 15:00 23:00 07:00 15:00 23:00 Intake Total 720 ml 480 ml 480 ml Output Total 1100 ml 1750 ml Balance -380 ml -1270 ml 480 ml Intake Oral 720 ml 480 ml 480 ml Output Urine Total 1100 ml 1750 ml # Voids 1 # Bowel Movements 0 1 0 Imaging Last 24 hours Impressions Hip and Pelvis X-Ray 01/08/17 0926 Signed Impressions: Service Date/Time: Sunday, January 08, 2017 10:09 - CONCLUSION: Expected changes are visualized following recent left total hip arthroplasty. Donnie Julio MD Objective Remarks Left lower extremity: Clean dry dressings intact. Compartments soft. No pain with knee or ankle range of motion. Distally intact sensation good capillary refills. Strong dorsiflexion plantar flexion of foot Assessment & Plan Problem List: (1) Status post left hip replacement (2) Hypertension (3) COPD (chronic obstructive pulmonary disease) (4) HTN (hypertension) (5) Seizure disorder (6) Tobacco abuse (7) Pancreatitis Assessment and Plan Left total hip arthroplasty POD 8 Physical therapy weightbearing as tolerated twice daily Daily dressing changes with Xeroform and Primapore No showers Transfer to [facility] to be accepted by [facility], we will plan on discharge from [facility] in approximately 10 days once incision is completely healed and patient is deemed safe by physical therapy Lovenox Incentive spirometry SCDs and LEATHA hall Follow-up appointment with Dr. Miranda or PA in 2 weeks John Ramesh Jr. January 16, 2017 07:05
[2017-01-16 08:22] VITALS: BP 109/69; PULSE 84; RESP 18; TEMP 97.4; O2SAT 96
[2017-01-16] MEDS: MULTIVITAMINS/MINERALS THERAPEUTIC TAB PO SCH (08:51)
[2017-01-16] MEDS: DOCUSATE SODIUM 100 MG CAP PO SCH ×2 (08:51→20:35)
[2017-01-16] MEDS: LIPASE/PROTEASE/AMYLASE (24,000/76,000/120,000) CAP PO SCH ×3 (08:51→18:22)
[2017-01-16] MEDS: PANTOPRAZOLE SOD 40 MG DELAYED RELEASE TAB PO SCH (08:51)
[2017-01-16] MEDS: LISINOPRIL 10 MG TAB PO SCH (08:52)
[2017-01-16] MEDS: SODIUM CHLORIDE 0.9% FLUSH 10 ML FLUSH IV FLUSH SCH ×2 (08:52→20:36)
[2017-01-16] MEDS: MAGNESIUM HYDROXIDE SUSP 30 ML CUP PO SCH ×2 (08:52→20:35)
[2017-01-16] MEDS: BACLOFEN 10 MG TAB PO SCH ×3 (08:52→18:23)
[2017-01-16] MEDS: ENOXAPARIN SODIUM 40 MG/0.4 ML SYRINGE SQ SCH (08:53)
[2017-01-16] MEDS: BUDESONIDE-FORMOTEROL 160/4.5 MCG INHALER INH SCH ×2 (08:53→20:34)
[2017-01-16 12:00] VITALS: BP 120/71; PULSE 80; RESP 16; TEMP 97.5; O2SAT 95
[2017-01-16 20:00] VITALS: BP 118/83; PULSE 85; RESP 19; TEMP 97.1; O2SAT 95
[2017-01-16] MEDS: MIRTAZAPINE 15 MG TAB PO SCH (20:35)
[2017-01-16] MEDS: PHENYTOIN SODIUM 100 MG CAP PO SCH (20:35)
[2017-01-17] MEDS: ACETAMINOPHEN/HYDROcodone 325 MG/10 MG TAB PO PRN ×4 (00:21→18:34)
[2017-01-17] MEDS: LACTATED RINGER'S 1000 ML INJ 1,000 ML IV SCH (07:30)
[2017-01-17 08:23] VITALS: BP 122/76; PULSE 110; RESP 18; TEMP 99; O2SAT 91
[2017-01-17] MEDS: SODIUM CHLORIDE 0.9% FLUSH 10 ML FLUSH IV FLUSH SCH (09:00)
[2017-01-17] MEDS: LIPASE/PROTEASE/AMYLASE (24,000/76,000/120,000) CAP PO SCH ×3 (09:24→16:30)
[2017-01-17] MEDS: PANTOPRAZOLE SOD 40 MG DELAYED RELEASE TAB PO SCH (09:24)
[2017-01-17] MEDS: DOCUSATE SODIUM 100 MG CAP PO SCH ×2 (09:24→20:59)
[2017-01-17] MEDS: LISINOPRIL 10 MG TAB PO SCH (09:24)
[2017-01-17] MEDS: MULTIVITAMINS/MINERALS THERAPEUTIC TAB PO SCH (09:24)
[2017-01-17] MEDS: ENOXAPARIN SODIUM 40 MG/0.4 ML SYRINGE SQ SCH (09:24)
[2017-01-17] MEDS: BACLOFEN 10 MG TAB PO SCH ×3 (09:24→16:30)
[2017-01-17] MEDS: MAGNESIUM HYDROXIDE SUSP 30 ML CUP PO SCH ×2 (09:24→20:57)
[2017-01-17] MEDS: BUDESONIDE-FORMOTEROL 160/4.5 MCG INHALER INH SCH ×2 (09:25→20:56)
--- NOTE | 2017-01-17 11:14 | HHI.PR ---
Subjective Remarks Follow-up for left total hip arthroplasty. Took over care of patient from orthopedics. Patient is apparently homeless and was unable to be discharged. Patient asks if his pain medication can be every 4 hours rather than 6, but I informed the patient we need to wean him off of pain medication. Denies any shortness of breath. Objective Vitals Vital Signs Date Time Temp Pulse Resp B/P Pulse Ox O2 Delivery O2 Flow Rate FiO2 01/17/17 08:23 99.0 110 18 122/76 91 01/16/17 20:00 97.1 85 19 118/83 95 01/16/17 13:48 16 01/16/17 12:00 97.5 80 16 120/71 95 I/O 01/16/17 01/16/17 01/16/17 01/17/17 01/17/17 01/17/17 07:00 15:00 23:00 07:00 15:00 23:00 Intake Total 480 ml 360 ml 240 ml 100 ml Balance 480 ml 360 ml 240 ml 100 ml Intake Oral 480 ml 360 ml 240 ml 100 ml # Voids 2 3 2 # Bowel Movements 0 Imaging Last Impressions Hip and Pelvis X-Ray 01/08/17 0926 Signed Impressions: Service Date/Time: Sunday, January 08, 2017 10:09 - CONCLUSION: Expected changes are visualized following recent left total hip arthroplasty. Donnie Julio MD Hip X-Ray 01/08/17 0000 Signed Impressions: Service Date/Time: Sunday, January 08, 2017 07:44 - CONCLUSION: Images document left hip hardware in place. No acute finding is seen. Donnie Julio MD Objective Remarks GENERAL: Well-nourished, well-developed patient in no apparent distress. SKIN: Warm and dry. Bandage to left hip. No surrounding erythema. CARDIOVASCULAR: Regular rate and rhythm. RESPIRATORY: No accessory muscle use. Clear to auscultation. Breath sounds equal bilaterally. MUSCULOSKELETAL: 2+ DP pulses bilaterally. Trace edema over the left ankle. NEUROLOGICAL: Awake and alert. Motor grossly within normal limits. Normal speech. PSYCHIATRIC: Appropriate mood and affect; insight and judgment normal. Procedures 01/08/17: Left total hip arthroplasty via anterior approach Urinary Catheter: No Vascular Central Line Catheter: No A/P Assessment and Plan Left total hip arthroplasty: surgery 5/23 -Ortho following -PT weightbearing as tolerated twice daily -Daily dressing changes with Xeroform and Primapore -No showers -Per ortho plan on discharge in approximately 10 days once incision is completely healed and patient is deemed safe by physical therapy -Incentive spirometry -Follow-up appointment with Dr. Miranda or PA in 2 weeks Chronic medical problems include COPD, HTN, pancreatitis, and seizures: Continue home medications. DVT: Lovenox, TEDs/SCDs Discharge Planning Patient homeless; will discharge when cleared by ortho and PT Ann Chino Jan 17, 2017 11:14
[2017-01-17 20:00] VITALS: BP 100/76; PULSE 89; RESP 22; TEMP 96.8; O2SAT 94
[2017-01-17] MEDS: MIRTAZAPINE 15 MG TAB PO SCH (20:58)
[2017-01-17] MEDS: PHENYTOIN SODIUM 100 MG CAP PO SCH (21:00)
[2017-01-18] MEDS: ACETAMINOPHEN/HYDROcodone 325 MG/10 MG TAB PO PRN ×3 (00:36→13:09)
[2017-01-18 08:00] VITALS: BP 105/75; PULSE 78; RESP 20; TEMP 97.2; O2SAT 96
[2017-01-18] MEDS: DOCUSATE SODIUM 100 MG CAP PO SCH ×2 (09:15→20:08)
[2017-01-18] MEDS: PANTOPRAZOLE SOD 40 MG DELAYED RELEASE TAB PO SCH (09:15)
[2017-01-18] MEDS: BACLOFEN 10 MG TAB PO SCH ×3 (09:15→17:37)
[2017-01-18] MEDS: LIPASE/PROTEASE/AMYLASE (24,000/76,000/120,000) CAP PO SCH ×3 (09:15→17:37)
[2017-01-18] MEDS: MAGNESIUM HYDROXIDE SUSP 30 ML CUP PO SCH ×2 (09:15→20:09)
[2017-01-18] MEDS: LISINOPRIL 10 MG TAB PO SCH (09:15)
[2017-01-18] MEDS: ENOXAPARIN SODIUM 40 MG/0.4 ML SYRINGE SQ SCH (09:16)
[2017-01-18] MEDS: MULTIVITAMINS/MINERALS THERAPEUTIC TAB PO SCH (09:24)
[2017-01-18] MEDS: BUDESONIDE-FORMOTEROL 160/4.5 MCG INHALER INH SCH ×2 (09:27→21:24)
--- NOTE | 2017-01-18 11:06 | HHI.PR ---
Subjective Remarks Follow-up for left total hip arthroplasty. Patient has pain in his left hip, but also reports pain in his left lower leg which is new. Last BM was last night. Objective Vitals Vital Signs Date Time Temp Pulse Resp B/P Pulse Ox O2 Delivery O2 Flow Rate FiO2 01/18/17 08:00 97.2 78 20 105/75 96 01/17/17 20:00 96.8 89 22 100/76 94 I/O 01/17/17 01/17/17 01/17/17 01/18/17 01/18/17 01/18/17 07:00 15:00 23:00 07:00 15:00 23:00 Intake Total 240 ml 100 ml 1380 ml 480 ml Balance 240 ml 100 ml 1380 ml 480 ml Intake Oral 240 ml 100 ml 1380 ml 480 ml # Voids 2 6 2 # Bowel Movements 1 0 Objective Remarks GENERAL: Well-nourished, well-developed patient in no apparent distress. SKIN: Warm and dry. Bandage to left hip. No surrounding erythema. CARDIOVASCULAR: Regular rate and rhythm. RESPIRATORY: No accessory muscle use. Clear to auscultation. Breath sounds equal bilaterally. GASTROINTESTINAL: Abdomen soft, non-tender, non-distended. MUSCULOSKELETAL: "Sore" to palpation over Left lateral hip. No swelling of the L calf. Pitting edema medial left ankle. Tender over anterior left lower leg, muscles lateral to tibia. Left calf and popliteal area are non-tender. Negative Steven's sign on the left. 2+ DP pulses bilaterally. NEUROLOGICAL: Awake and alert. Motor grossly within normal limits. Normal speech. PSYCHIATRIC: Appropriate mood and affect; insight and judgment normal. Procedures 01/08/17: Left total hip arthroplasty via anterior approach Urinary Catheter: No Vascular Central Line Catheter: No A/P Assessment and Plan Aside from hemoglobin level on 01/09 patient has had no other labs since 12/25, labs reviewed in physical chart. Will obtain CBC as patient was anemic on 01/09. Will obtain BMP to check Cr level as patient is on Lovenox. Will check Dilantin level as patient has not had this performed during hospitalization. Left total hip arthroplasty: surgery 01/08 -Ortho following -PT weightbearing as tolerated twice daily -Daily dressing changes with Xeroform and Primapore -No showers -Per ortho plan on discharge in approximately 10 days once incision is completely healed and patient is deemed safe by physical therapy -Incentive spirometry -Follow-up appointment with Dr. Miranda or PA in 2 weeks -01/18: Patient has left lower leg pain today but it is anterior and muscular in nature. Already on Lovenox. Pitting dependent edema to left ankle. Patient advised to elevate the leg. Anemia: 8.9 on 01/09, likely related to surgery. Improved to 11.4 today. Chronic medical problems include COPD, HTN, pancreatitis, and seizures: Continue home medications. Dilantin level low today at 7.5. Discussed with Dr. Edward who advises administering 200 mg dose of Dilantin now; will repeat Dilantin level on 01/21/17. DVT: Cr normal. Continue Lovenox. TEDs/SCDs Discharge Planning Patient homeless; will discharge when cleared by ortho and PT Ann Chino Jan 18, 2017 11:06
[2017-01-18 11:37] LABS: HEMATOCRIT 32.7 % (39.0-51.0); MEAN CELL VOLUME 89.8 FL (80.0-100.0); MEAN CORPUSCULAR HEMOGLOBIN 31.3 PG (27.0-34.0); MEAN CORPUSCULAR HGB CONC 34.9 % (32.0-36.0); PLATELET COUNT 393 TH/MM3 (150-450); RED BLOOD COUNT 3.64 MIL/MM3 (4.50-5.90); RED CELL DISTRIBUTION WIDTH 13.7 % (11.6-17.2); REVIEW FLAG FINAL; WHITE BLOOD COUNT 9.6 TH/MM3 (4.0-11.0)
[2017-01-18 11:45] LABS: POTASSIUM 4.3 MEQ/L (3.5-5.1)
[2017-01-18 11:48] LABS: BICARBONATE 28.5 MEQ/L (21.0-32.0)
[2017-01-18] MEDS ORDERED: PHENYTOIN SODIUM 100 MG CAP PO ONE (16:45)
[2017-01-18 20:00] VITALS: BP 99/69; PULSE 82; RESP 18; TEMP 97.2; O2SAT 93
[2017-01-18] MEDS: PHENYTOIN SODIUM 100 MG CAP PO SCH (21:24)
[2017-01-18] MEDS: ACETAMINOPHEN/HYDROcodone 325 MG/7.5 MG TAB PO PRN (21:24)
[2017-01-18] MEDS: MIRTAZAPINE 15 MG TAB PO SCH (21:24)
[2017-01-19] MEDS: ACETAMINOPHEN/HYDROcodone 325 MG/7.5 MG TAB PO PRN (04:04)
[2017-01-19 08:00] VITALS: BP 111/84; PULSE 73; RESP 16; TEMP 97.2; O2SAT 97
[2017-01-19] MEDS: MAGNESIUM HYDROXIDE SUSP 30 ML CUP PO SCH ×2 (09:00→21:34)
[2017-01-19] MEDS: LIPASE/PROTEASE/AMYLASE (24,000/76,000/120,000) CAP PO SCH ×3 (09:17→17:23)
[2017-01-19] MEDS: ENOXAPARIN SODIUM 40 MG/0.4 ML SYRINGE SQ SCH (09:17)
[2017-01-19] MEDS: PANTOPRAZOLE SOD 40 MG DELAYED RELEASE TAB PO SCH (09:17)
[2017-01-19] MEDS: DOCUSATE SODIUM 100 MG CAP PO SCH ×2 (09:17→21:34)
[2017-01-19] MEDS: BACLOFEN 10 MG TAB PO SCH ×3 (09:17→17:23)
[2017-01-19] MEDS: MULTIVITAMINS/MINERALS THERAPEUTIC TAB PO SCH (09:17)
[2017-01-19] MEDS: LISINOPRIL 10 MG TAB PO SCH (09:17)
[2017-01-19] MEDS: BUDESONIDE-FORMOTEROL 160/4.5 MCG INHALER INH SCH ×2 (09:18→21:34)
[2017-01-19] MEDS: ACETAMINOPHEN/HYDROcodone 325 MG/10 MG TAB PO PRN ×3 (09:20→21:35)
--- NOTE | 2017-01-19 11:32 | HHI.PR ---
Subjective Remarks Follow-up status post left hip arthroplasty. Patient states his pain is a 5.5/ 10. Still admits to having pain in the left lower leg. Objective Vitals Vital Signs Date Time Temp Pulse Resp B/P Pulse Ox O2 Delivery O2 Flow Rate FiO2 01/19/17 08:00 97.2 73 16 111/84 97 01/19/17 08:00 97.2 73 16 111/84 97 01/19/17 05:04 18 01/18/17 20:00 97.2 82 18 99/69 93 I/O 01/18/17 01/18/17 01/18/17 01/19/17 01/19/17 01/19/17 07:00 15:00 23:00 07:00 15:00 23:00 Intake Total 480 ml 850 ml 480 ml 480 ml 200 ml Output Total 725 ml 550 ml Balance 480 ml 125 ml -70 ml 480 ml 200 ml Intake Oral 480 ml 850 ml 480 ml 480 ml 200 ml IV Total 0 ml Output Urine Total 725 ml 550 ml # Voids 2 2 2 # Bowel Movements 0 0 0 Result Diagram: 01/18/17 1110 01/18/17 1110 Objective Remarks GENERAL: Well-nourished, well-developed patient in no apparent distress. SKIN: Warm and dry. Bandage to left hip. No surrounding erythema. CARDIOVASCULAR: Regular rate and rhythm. RESPIRATORY: No accessory muscle use. Clear to auscultation. Breath sounds equal bilaterally. GASTROINTESTINAL: Abdomen soft, non-tender, non-distended. MUSCULOSKELETAL: Mildly tender to palpation over Left lateral hip. Pitting edema medial left ankle. Tender over anterior left lower leg, muscles lateral to tibia. Left calf and popliteal area are non-tender. Negative Steven's sign on the left. 2+ Left DP pulse. NEUROLOGICAL: Awake and alert. 5/5 plantar flexion and dorsiflexion bilaterally. Sensation grossly intact over bilateral lower legs. Normal speech. PSYCHIATRIC: Appropriate mood and affect; insight and judgment normal. Procedures 01/08/17: Left total hip arthroplasty via anterior approach Urinary Catheter: No Vascular Central Line Catheter: No A/P Assessment and Plan Left total hip arthroplasty: surgery 01/08 -Ortho following -PT weightbearing as tolerated twice daily -Daily dressing changes with Xeroform and Primapore -No showers -Per ortho plan on discharge in approximately 10 days once incision is completely healed and patient is deemed safe by physical therapy -Incentive spirometry -Follow-up appointment with Dr. Miranda or PA in 2 weeks -Patient has left lower leg pain but it is anterior and muscular in nature. L lower leg appears slightly larger than R and there is pitting edema to L ankle but no posterior lower leg pain present; likely all normal post-surgical changes. Already on prophylactic Lovenox. Patient advised to elevate the leg. Anemia: 8.9 on 01/09, likely related to surgery. Improved to 11.4 on 01/18. Chronic medical problems include COPD, HTN, pancreatitis, and seizures: Continue home medications. 01/18 Dilantin level low at 7.5. Administered extra 200 mg dose. Repeat Dilantin level on 01/21/17. DVT: Continue Lovenox. TEDs/SCDs Discharge Planning Patient homeless; will discharge when cleared by ortho and PT Ann Chino Jan 19, 2017 11:32
[2017-01-19 20:00] VITALS: BP 107/79; PULSE 81; RESP 19; TEMP 98.2; O2SAT 94
[2017-01-19] MEDS: PHENYTOIN SODIUM 100 MG CAP PO SCH (21:34)
[2017-01-19] MEDS: MIRTAZAPINE 15 MG TAB PO SCH (21:34)
[2017-01-20] MEDS: ACETAMINOPHEN/HYDROcodone 325 MG/10 MG TAB PO PRN ×4 (04:46→23:02)
[2017-01-20 08:00] VITALS: BP 123/84; PULSE 77; RESP 18; TEMP 97.7; O2SAT 95
[2017-01-20] MEDS: PANTOPRAZOLE SOD 40 MG DELAYED RELEASE TAB PO SCH (09:42)
[2017-01-20] MEDS: BACLOFEN 10 MG TAB PO SCH ×3 (09:42→16:59)
[2017-01-20] MEDS: ENOXAPARIN SODIUM 40 MG/0.4 ML SYRINGE SQ SCH (09:42)
[2017-01-20] MEDS: LIPASE/PROTEASE/AMYLASE (24,000/76,000/120,000) CAP PO SCH ×3 (09:42→16:59)
[2017-01-20] MEDS: MULTIVITAMINS/MINERALS THERAPEUTIC TAB PO SCH (09:42)
[2017-01-20] MEDS: LISINOPRIL 10 MG TAB PO SCH (09:42)
[2017-01-20] MEDS: MAGNESIUM HYDROXIDE SUSP 30 ML CUP PO SCH ×2 (09:42→21:51)
[2017-01-20] MEDS: DOCUSATE SODIUM 100 MG CAP PO SCH ×2 (09:43→21:50)
[2017-01-20] MEDS: BUDESONIDE-FORMOTEROL 160/4.5 MCG INHALER INH SCH ×2 (09:43→21:49)
--- NOTE | 2017-01-20 10:25 | HHI.PR ---
Subjective Remarks Follow-up status post left total hip arthroplasty. Left hip pain is a 5/10 currently. Again complains of pain over lateral aspect of anterior left lower leg. Patient had blood work yesterday and I informed him the anemia is likely related to his recent surgery, but [facility] prior to the [facility]. Labs in chart from 12/25/16 with a mildly decreased hemoglobin of 12.5. The patient states he is tired and this has been ongoing even prior to surgery. He denies any dizziness or shortness of breath. Denies fevers or chills. Objective Vitals Vital Signs Date Time Temp Pulse Resp B/P Pulse Ox O2 Delivery O2 Flow Rate FiO2 01/19/17 20:00 98.2 81 19 107/79 94 01/19/17 16:14 18 I/O 01/19/17 01/19/17 01/19/17 01/20/17 01/20/17 01/20/17 07:00 15:00 23:00 07:00 15:00 23:00 Intake Total 480 ml 700 ml 240 ml 360 ml Output Total 250 ml Balance 480 ml 450 ml 240 ml 360 ml Intake Oral 480 ml 700 ml 240 ml 360 ml Output Urine Total 250 ml # Voids 2 2 3 # Bowel Movements 0 Result Diagram: 01/18/17 1110 01/18/17 1110 Objective Remarks GENERAL: Well-nourished, well-developed patient in no apparent distress. SKIN: Warm and dry. Bandage to left hip; no surrounding erythema. CARDIOVASCULAR: Regular rate and rhythm. RESPIRATORY: No accessory muscle use. Clear to auscultation. Breath sounds equal bilaterally. GASTROINTESTINAL: Abdomen soft, non-tender, non-distended. MUSCULOSKELETAL: Pitting edema medial left ankle. Left calf is non-tender. 2+ B/ L DP pulses. NEUROLOGICAL: Awake and alert. 5/5 plantar flexion and dorsiflexion bilaterally. Sensation grossly intact over bilateral lower legs. Normal speech. PSYCHIATRIC: Appropriate mood and affect; insight and judgment normal. Procedures 01/08/17: Left total hip arthroplasty via anterior approach Urinary Catheter: No Vascular Central Line Catheter: No A/P Assessment and Plan Left total hip arthroplasty: surgery 01/08 -Ortho following -PT weightbearing as tolerated twice daily -Daily dressing changes with Xeroform and Primapore -No showers -Per ortho plan on discharge in approximately 10 days once incision is completely healed and patient is deemed safe by physical therapy -Incentive spirometry -Follow-up appointment with Dr. Miranda or PA in 2 weeks -Patient has left lower leg pain but it is anterior and extends from hip, likely related to the hip. Patient advised to elevate the leg. No left calf pain. -Pain control: Need to wean every few days prior to discharge. (Last adjusted on 01/18/17) [place] 15 mg q6h prn pain 6-10 [place] 7.5 mg q6h prn pain 3-5 Anemia: 8.9-->11.4. Hemoglobin 12.5 on 12/25/16. Patient admits to fatigue even prior to surgery. -Anemia panel ordered and reviewed by myself and Dr. Edward. Iron is mildly low at 55 but TIBC and ferritin are normal inconsistent with true iron deficiency. No need for supplementation. Anemia likely related to inflammation from recent surgery. Chronic medical problems include COPD, HTN, pancreatitis, and seizures: Continue home medications. 01/18 Dilantin level low at 7.5. Administered extra 200 mg dose. Repeat Dilantin level on 01/21/17. DVT: Continue Lovenox. TEDs/SCDs Discharge Planning Patient homeless; will discharge when cleared by ortho and PT Ann Chino Jan 20, 2017 10:25
[2017-01-20 12:11] LABS: TRANSFERRIN IRON PROFILE 213 MG/DL (200-360)
[2017-01-20 12:14] LABS: FERRITIN 132 NG/ML (26-388)
[2017-01-20 20:00] VITALS: BP 112/80; PULSE 83; RESP 19; TEMP 97.3; O2SAT 95
[2017-01-20] MEDS: PHENYTOIN SODIUM 100 MG CAP PO SCH (21:50)
[2017-01-20] MEDS: MIRTAZAPINE 15 MG TAB PO SCH (21:50)
[2017-01-21] MEDS: ACETAMINOPHEN/HYDROcodone 325 MG/10 MG TAB PO PRN ×4 (05:06→23:16)
--- NOTE | 2017-01-21 08:38 | RADHPO ---
EXAM DATE/TIME: 01/21/2017 07:56 [facility] COMPARISON: HIP LEFT LATERAL ONLY W AP PELVIS, January 08, 2017, 10:09. INDICATIONS : Left hip pain MEDICAL HISTORY : None. SURGICAL HISTORY : Left total hip replacement ENCOUNTER: Subsequent ACUITY: 2 weeks PAIN SCORE: 8/10 LOCATION: Left Hip FINDINGS: The patient is post left hip arthroplasty. Orthopedic hardware is in excellent position. There degenerative changes within the right hip. The osseous structures are otherwise intact. CONCLUSION: 1. Arthroplasty on the left. Hardware appears well-positioned. Rip Andrade MD on January 21, 2017 at 8:35 Board Certified Radiologist. This report was verified electronically.
[2017-01-21 08:55] VITALS: BP 123/88; PULSE 70; RESP 19; TEMP 97.7; O2SAT 95
[2017-01-21] MEDS: LIPASE/PROTEASE/AMYLASE (24,000/76,000/120,000) CAP PO SCH ×3 (09:00→17:22)
[2017-01-21] MEDS: BACLOFEN 10 MG TAB PO SCH ×3 (09:30→17:22)
[2017-01-21] MEDS: MULTIVITAMINS/MINERALS THERAPEUTIC TAB PO SCH (09:30)
[2017-01-21] MEDS: BUDESONIDE-FORMOTEROL 160/4.5 MCG INHALER INH SCH ×2 (09:30→20:42)
[2017-01-21] MEDS: DOCUSATE SODIUM 100 MG CAP PO SCH ×2 (09:30→20:41)
[2017-01-21] MEDS: PANTOPRAZOLE SOD 40 MG DELAYED RELEASE TAB PO SCH (09:30)
[2017-01-21] MEDS: MAGNESIUM HYDROXIDE SUSP 30 ML CUP PO SCH ×2 (09:30→20:40)
[2017-01-21] MEDS: LISINOPRIL 10 MG TAB PO SCH (09:30)
[2017-01-21] MEDS: ENOXAPARIN SODIUM 40 MG/0.4 ML SYRINGE SQ SCH (09:31)
--- NOTE | 2017-01-21 10:50 | HHI.PR ---
Subjective Remarks Follow-up status post left total hip arthroplasty. Still has pain in the anterior left lower leg. Denies SOB. Objective Vitals Vital Signs Date Time Temp Pulse Resp B/P Pulse Ox O2 Delivery O2 Flow Rate FiO2 01/21/17 08:55 97.7 70 19 123/88 95 01/20/17 20:00 97.3 83 19 112/80 95 I/O 01/20/17 01/20/17 01/20/17 01/21/17 01/21/17 01/21/17 07:00 15:00 23:00 07:00 15:00 23:00 Intake Total 360 ml 840 ml 240 ml 100 ml Balance 360 ml 840 ml 240 ml 100 ml Intake Oral 360 ml 840 ml 240 ml 100 ml # Voids 3 5 2 Result Diagram: 01/18/17 1110 01/18/17 1110 Objective Remarks GENERAL: Well-nourished, well-developed patient in no apparent distress. CARDIOVASCULAR: Regular rate and rhythm. RESPIRATORY: No accessory muscle use. Clear to auscultation. Breath sounds equal bilaterally. MUSCULOSKELETAL: 2+ B/L DP pulses. Edema has improved over L ankle, only trace at most. No left calf pain. NEUROLOGICAL: Awake and alert. 5/5 plantar flexion and dorsiflexion bilaterally. Normal speech. PSYCHIATRIC: Appropriate mood and affect; insight and judgment normal. Procedures 01/08/17: Left total hip arthroplasty via anterior approach Urinary Catheter: No Vascular Central Line Catheter: No A/P Assessment and Plan Left total hip arthroplasty: surgery 01/08 -Ortho following -PT weightbearing as tolerated twice daily -Daily dressing changes with Xeroform and Primapore -No showers -Per ortho plan on discharge in approximately 10 days once incision is completely healed and patient is deemed safe by physical therapy -Incentive spirometry -Follow-up appointment with Dr. Miranda or PA in 2 weeks -Pain control: Need to wean every few days prior to discharge. (Last adjusted on 01/18/17) [place] 15 mg q6h prn pain 6-10 [place] 7.5 mg q6h prn pain 3-5 -6/5: Ortho ordered new hip/pelvis x-rays today. Patient continues to have left lower leg pain but it is anterior and extends from hip, likely related to the hip. No left calf pain. Left ankle swelling has improved. Anemia: 8.9-->11.4. Hemoglobin 12.5 on 12/25/16. Patient admits to fatigue even prior to surgery. -Anemia panel reviewed. Discussed with Dr. Edward. Iron is mildly low at 55 but TIBC and ferritin are normal inconsistent with true iron deficiency. No need for supplementation. Anemia likely related to inflammation from recent surgery. Chronic medical problems include COPD, HTN, pancreatitis, and seizures: Continue home medications. 01/18 Dilantin level low at 7.5. Administered extra 200 mg dose. Repeat Dilantin level on 01/21/17. DVT: Continue Lovenox. TEDs/SCDs Discharge Planning Patient homeless; will discharge when cleared by ortho and PT Ann Chino Jan 21, 2017 10:50
[2017-01-21 20:00] VITALS: BP 111/72; PULSE 86; RESP 18; TEMP 96.2; O2SAT 95
[2017-01-21] MEDS: MIRTAZAPINE 15 MG TAB PO SCH (20:40)
[2017-01-21] MEDS: PHENYTOIN SODIUM 100 MG CAP PO SCH (20:40)
[2017-01-22] MEDS: ACETAMINOPHEN/HYDROcodone 325 MG/10 MG TAB PO PRN ×2 (05:24→11:47)
[2017-01-22 08:00] VITALS: BP 116/84; PULSE 80; RESP 18; TEMP 98; O2SAT 96
[2017-01-22] MEDS: MAGNESIUM HYDROXIDE SUSP 30 ML CUP PO SCH ×2 (09:00→20:28)
[2017-01-22] MEDS: DOCUSATE SODIUM 100 MG CAP PO SCH ×2 (09:33→20:27)
[2017-01-22] MEDS: ENOXAPARIN SODIUM 40 MG/0.4 ML SYRINGE SQ SCH (09:34)
[2017-01-22] MEDS: LIPASE/PROTEASE/AMYLASE (24,000/76,000/120,000) CAP PO SCH ×3 (09:34→15:57)
[2017-01-22] MEDS: LISINOPRIL 10 MG TAB PO SCH (09:34)
[2017-01-22] MEDS: MULTIVITAMINS/MINERALS THERAPEUTIC TAB PO SCH (09:34)
[2017-01-22] MEDS: BACLOFEN 10 MG TAB PO SCH ×3 (09:34→15:57)
[2017-01-22] MEDS: PANTOPRAZOLE SOD 40 MG DELAYED RELEASE TAB PO SCH (09:34)
[2017-01-22] MEDS: BUDESONIDE-FORMOTEROL 160/4.5 MCG INHALER INH SCH ×2 (09:36→20:25)
--- NOTE | 2017-01-22 13:38 | PD.ORT.PN ---
Subjective Subjective Remarks POD 14 s/p left Anterior TRINA doing well. pain controlled. improving. ambulating with therapy and walker Objective Vitals Vital Signs Date Time Temp Pulse Resp B/P Pulse Ox O2 Delivery O2 Flow Rate FiO2 01/22/17 08:00 98.0 80 18 116/84 96 01/21/17 20:00 96.2 86 18 111/72 95 I/O 01/21/17 01/21/17 01/21/17 01/22/17 01/22/17 01/22/17 07:00 15:00 23:00 07:00 15:00 23:00 Intake Total 240 ml 100 ml 480 ml 480 ml Balance 240 ml 100 ml 480 ml 480 ml Intake Oral 240 ml 100 ml 480 ml 480 ml # Voids 2 2 2 # Bowel Movements 0 0 Result Diagram: 01/18/17 1110 01/18/17 1110 Imaging Last 24 hours Impressions Hip and Pelvis X-Ray 01/08/17 0926 Signed Impressions: Service Date/Time: Sunday, January 08, 2017 10:09 - CONCLUSION: Expected changes are visualized following recent left total hip arthroplasty. Donnie Julio MD Objective Remarks Left lower extremity: Clean dry dressings intact. incision visualized. clean and dry. mild erythema and staple irritation. no drainage. no purulence. neg mary. NVI distally Assessment & Plan Problem List: (1) Status post left hip replacement (2) Hypertension (3) COPD (chronic obstructive pulmonary disease) (4) HTN (hypertension) (5) Seizure disorder (6) Tobacco abuse (7) Pancreatitis Assessment and Plan 1) Left total hip arthroplasty POD 14 Physical therapy weightbearing as tolerated twice daily Daily dressing changes with Xeroform and Primapore DC stuart left hip today no showers keep dry and covered x 4 days, then open to air Ortho clear for discharge home in 4 days once incision completely healed f/u with Ben or VANNESSA in 2-3 weeks Mynor Donahue Jan 22, 2017 13:38
--- NOTE | 2017-01-22 14:24 | HHI.PR ---
Subjective Remarks Patient seen and examined for follow-up on left hip replacement. Patient originally presented to hospital for elective left hip replacement. Prior to surgery he did not inform the orthopedic physician that he is now homeless. Patient was transferred to [place] for continued management. Patient does live in [facility] and safety of wound infection was a concern. Patient did have stuart removed today. And could plan discharge as early as Saturday if incision is healed. This was discussed with orthopedic Objective Vitals Vital Signs Date Time Temp Pulse Resp B/P Pulse Ox O2 Delivery O2 Flow Rate FiO2 01/22/17 08:00 98.0 80 18 116/84 96 01/21/17 20:00 96.2 86 18 111/72 95 I/O 01/21/17 01/21/17 01/21/17 01/22/17 01/22/17 01/22/17 07:00 15:00 23:00 07:00 15:00 23:00 Intake Total 240 ml 100 ml 480 ml 480 ml Balance 240 ml 100 ml 480 ml 480 ml Intake Oral 240 ml 100 ml 480 ml 480 ml # Voids 2 2 2 # Bowel Movements 0 0 Result Diagram: 01/18/17 1110 01/18/17 1110 Objective Remarks GENERAL: Well-developed, well-nourished, in no acute distress. alert and orientated HEENT: Head is normocephalic without any lesions or masses noted. Facial features are symmetric. Eyes: Extraocular muscles are intact. Conjunctivae were clear. NECK: Supple without any masses. Trachea midline no deviation. No JVD, CARDIAC: Regular rhythm, regular rate. S1/S2 are heard. No murmurs gallops or rubs. LUNGS: Clear to auscultation bilaterally. No wheeze, rhonchi or rales. No use of accessory muscles on inspiration or expiration. ABDOMEN: Soft, nontender. Nondistended. Bowel sounds heard in all 4 quadrants. No organomegaly or masses. Negative rebound, negative guarding EXTREMITIES: No edema, pulses are equal bilaterally. No cyanosis or clubbing NEUROLOGY: Mood and affect appear appropriate. Cranial nerves II through XII grossly intact. Moving all extremities, speech is clear Procedures 01/08/17: Left total hip arthroplasty via anterior approach Urinary Catheter: No Vascular Central Line Catheter: No A/P Assessment and Plan Left total hip arthroplasty, elective: surgery 01/08 Orthopedic following the patient and recommended removal of stuart today PT weightbearing as tolerated twice daily Follow-up appointment with Dr. Miranda or PA in 2 weeks Pain control: Need to wean every few days prior to discharge. [place] 7.5 mg q6h prn pain 6-10 [place] 5 mg q6h prn pain 3-5 Anemia: Hemoglobin was low on initial testing, however improved without transfusion, could have been laboratory error Iron studies show mild decrease iron level, however normal ferritin History of seizures Dilantin level 8.5 We'll need to continue follow Dilantin level, ordered albumin/total protein for corrected Dilantin level History of pancreatitis Pancreatic enzymes have been continued Chronic obstructive pulmonary disease Ventolin inhaler has been continued Symbicort inhaler has been continued Hypertension Blood pressure stable DVT: Continue Lovenox. TEDs/SCDs Discharge Planning Discharge home per case management, orthopedic said patient can possibly discharge as early as 01/26/17 Shin Mcghee Jan 22, 2017 14:24
[2017-01-22] MEDS: ACETAMINOPHEN/HYDROcodone 325 MG/7.5 MG TAB PO PRN ×2 (18:06→23:59)
[2017-01-22 20:00] VITALS: BP_SYST 78; PULSE 87; RESP 18; TEMP 97.8; O2SAT 96
[2017-01-22] MEDS: MIRTAZAPINE 15 MG TAB PO SCH (20:26)
[2017-01-22] MEDS: PHENYTOIN SODIUM 100 MG CAP PO SCH (20:28)
[2017-01-23 05:56] LABS: CHLORIDE 105 MEQ/L (98-107); POTASSIUM 4.1 MEQ/L (3.5-5.1); SODIUM (NA) 139 MEQ/L (136-145)
[2017-01-23] MEDS: ACETAMINOPHEN/HYDROcodone 325 MG/7.5 MG TAB PO PRN ×2 (06:04→17:29)
[2017-01-23 06:05] LABS: ANION GAP 7 MEQ/L (5-15); BICARBONATE 26.8 MEQ/L (21.0-32.0); BLOOD UREA NITROGEN 15 MG/DL (7-18)
[2017-01-23 06:08] LABS: ALT (GPT) 31 U/L (12-78); AST (GOT) 17 U/L (15-37); GLOMERULAR FILTRATION RATE 137 ML/MIN (>89); TOTAL BILIRUBIN ADULT 0.1 MG/DL (0.2-1.0)
[2017-01-23 06:11] LABS: ALKALINE PHOSPHATASE 157 U/L (45-117)
[2017-01-23 08:44] VITALS: BP 126/86; PULSE 79; RESP 18; TEMP 96.4; O2SAT 97
[2017-01-23] MEDS: MAGNESIUM HYDROXIDE SUSP 30 ML CUP PO SCH ×2 (09:00→20:22)
[2017-01-23] MEDS: BUDESONIDE-FORMOTEROL 160/4.5 MCG INHALER INH SCH ×2 (09:13→20:21)
[2017-01-23] MEDS: LIPASE/PROTEASE/AMYLASE (24,000/76,000/120,000) CAP PO SCH ×3 (09:14→17:28)
[2017-01-23] MEDS: DOCUSATE SODIUM 100 MG CAP PO SCH ×2 (09:14→20:22)
[2017-01-23] MEDS: BACLOFEN 10 MG TAB PO SCH ×3 (09:14→17:28)
[2017-01-23] MEDS: LISINOPRIL 10 MG TAB PO SCH (09:15)
[2017-01-23] MEDS: PANTOPRAZOLE SOD 40 MG DELAYED RELEASE TAB PO SCH (09:15)
[2017-01-23] MEDS: MULTIVITAMINS/MINERALS THERAPEUTIC TAB PO SCH (09:15)
[2017-01-23] MEDS: ENOXAPARIN SODIUM 40 MG/0.4 ML SYRINGE SQ SCH (09:15)
--- NOTE | 2017-01-23 11:25 | HHI.PR ---
Subjective Remarks Patient seen and examined today for follow-up on hip replacement. Patient resting carefully in bed. Denies any new complaints. Objective Vitals Vital Signs Date Time Temp Pulse Resp B/P Pulse Ox O2 Delivery O2 Flow Rate FiO2 01/23/17 08:44 96.4 79 18 126/86 97 01/23/17 00:59 16 01/22/17 20:00 97.8 87 18 78/ 96 I/O 01/22/17 01/22/17 01/22/17 01/23/17 01/23/17 01/23/17 07:00 15:00 23:00 07:00 15:00 23:00 Intake Total 480 ml 480 ml 480 ml Output Total 500 ml Balance 480 ml -500 ml 480 ml 480 ml Intake Oral 480 ml 480 ml 480 ml Output Urine Total 500 ml # Voids 2 2 2 # Bowel Movements 0 0 0 Result Diagram: 01/23/17 0513 Objective Remarks GENERAL: Well-developed, well-nourished, in no acute distress. alert and orientated HEENT: Head is normocephalic without any lesions or masses noted. Facial features are symmetric. Eyes: Extraocular muscles are intact. Conjunctivae were clear. NECK: Supple without any masses. Trachea midline no deviation. No JVD, CARDIAC: Regular rhythm, regular rate. S1/S2 are heard. No murmurs gallops or rubs. LUNGS: Clear to auscultation bilaterally. No wheeze, rhonchi or rales. No use of accessory muscles on inspiration or expiration. ABDOMEN: Soft, nontender. Nondistended. Bowel sounds heard in all 4 quadrants. No organomegaly or masses. Negative rebound, negative guarding EXTREMITIES: No edema, pulses are equal bilaterally. No cyanosis or clubbing NEUROLOGY: Mood and affect appear appropriate. Cranial nerves II through XII grossly intact. Moving all extremities, speech is clear Procedures 01/08/17: Left total hip arthroplasty via anterior approach Urinary Catheter: No Vascular Central Line Catheter: No A/P Assessment and Plan Left total hip arthroplasty, elective: surgery 01/08 Orthopedic following the patient and recommended removal of stuart today and possible discharge as early as 01/26/17 PT weightbearing as tolerated twice daily Follow-up appointment with Dr. Miranda or PA in 2 weeks Pain control: Need to wean every few days prior to discharge. [place] 7.5 mg q6h prn pain 6-10 [place] 5 mg q6h prn pain 3-5 Anemia: Hemoglobin was low on initial testing, however improved without transfusion, could have been laboratory error Iron studies show mild decrease iron level, however normal ferritin History of seizures Dilantin level 8.5 We'll need to continue follow Dilantin level, ordered albumin/total protein for corrected Dilantin level History of pancreatitis Pancreatic enzymes have been continued Chronic obstructive pulmonary disease Ventolin inhaler has been continued Symbicort inhaler has been continued Hypertension Blood pressure stable DVT: Continue Lovenox. TEDs/SCDs Discharge Planning Discharge home per case management, orthopedic said patient can possibly discharge as early as 01/26/17 Shin Mcghee Jan 23, 2017 11:25
[2017-01-23] MEDS: oxyCODONE/ACETAMINOPHEN 5 MG/325 MG TAB PO PRN (12:23)
[2017-01-23 20:00] VITALS: BP 108/74; PULSE 88; RESP 21; TEMP 97.6; O2SAT 94
[2017-01-23] MEDS: PHENYTOIN SODIUM 100 MG CAP PO SCH (20:21)
[2017-01-23] MEDS: MIRTAZAPINE 15 MG TAB PO SCH (20:22)
[2017-01-24] MEDS: ACETAMINOPHEN/HYDROcodone 325 MG/7.5 MG TAB PO PRN ×2 (00:48→06:39)
[2017-01-24 08:00] VITALS: BP 121/87; PULSE 82; RESP 18; TEMP 97.2; O2SAT 96
[2017-01-24] MEDS: BACLOFEN 10 MG TAB PO SCH ×3 (08:44→18:26)
[2017-01-24] MEDS: LIPASE/PROTEASE/AMYLASE (24,000/76,000/120,000) CAP PO SCH ×3 (08:44→18:26)
[2017-01-24] MEDS: BUDESONIDE-FORMOTEROL 160/4.5 MCG INHALER INH SCH ×2 (08:44→20:20)
[2017-01-24] MEDS: DOCUSATE SODIUM 100 MG CAP PO SCH ×2 (08:44→20:17)
[2017-01-24] MEDS: LISINOPRIL 10 MG TAB PO SCH (08:45)
[2017-01-24] MEDS: PANTOPRAZOLE SOD 40 MG DELAYED RELEASE TAB PO SCH (08:45)
[2017-01-24] MEDS: MAGNESIUM HYDROXIDE SUSP 30 ML CUP PO SCH (08:45)
[2017-01-24] MEDS: ENOXAPARIN SODIUM 40 MG/0.4 ML SYRINGE SQ SCH (08:45)
[2017-01-24] MEDS: MULTIVITAMINS/MINERALS THERAPEUTIC TAB PO SCH (08:45)
--- NOTE | 2017-01-24 10:09 | HHI.PR ---
Subjective Remarks Patient seen and examined today on left hip replacement. Patient is doing well today. Patient denies any new complaints. No change in clinical status. Objective Vitals Vital Signs Date Time Temp Pulse Resp B/P Pulse Ox O2 Delivery O2 Flow Rate FiO2 01/24/17 08:00 97.2 82 18 121/87 96 01/24/17 07:40 18 01/23/17 20:00 97.6 88 21 108/74 94 I/O 01/23/17 01/23/17 01/23/17 01/24/17 01/24/17 01/24/17 07:00 15:00 23:00 07:00 15:00 23:00 Intake Total 480 ml 990 ml 240 ml Balance 480 ml 990 ml 240 ml Intake Oral 480 ml 990 ml 240 ml # Voids 2 5 2 # Bowel Movements 0 1 Result Diagram: 01/23/17 0513 Objective Remarks GENERAL: Well-developed, well-nourished, in no acute distress. alert and orientated HEENT: Head is normocephalic without any lesions or masses noted. Facial features are symmetric. Eyes: Extraocular muscles are intact. Conjunctivae were clear. NECK: Supple without any masses. Trachea midline no deviation. No JVD, CARDIAC: Regular rhythm, regular rate. S1/S2 are heard. No murmurs gallops or rubs. LUNGS: Clear to auscultation bilaterally. No wheeze, rhonchi or rales. No use of accessory muscles on inspiration or expiration. ABDOMEN: Soft, nontender. Nondistended. Bowel sounds heard in all 4 quadrants. No organomegaly or masses. Negative rebound, negative guarding EXTREMITIES: No edema, pulses are equal bilaterally. No cyanosis or clubbing NEUROLOGY: Mood and affect appear appropriate. Cranial nerves II through XII grossly intact. Moving all extremities, speech is clear Procedures 01/08/17: Left total hip arthroplasty via anterior approach Urinary Catheter: No Vascular Central Line Catheter: No A/P Assessment and Plan Left total hip arthroplasty, elective: surgery 01/08 Orthopedic following patient and recommended removal of tsuart today and possible discharge as early as 01/26/17 PT weightbearing as tolerated twice daily Follow-up appointment with Dr. Miranda or PA in 2 weeks Pain control: Need to wean every few days prior to discharge. [place] 5 mg q6h prn pain Anemia: Stable Hemoglobin was low on initial testing, however improved without transfusion, could have been laboratory error Iron studies show mild decrease iron level, however normal ferritin History of seizures Dilantin level 9.9, protein corrected Dilantin level 12.7 History of pancreatitis Pancreatic enzymes have been continued Chronic obstructive pulmonary disease Ventolin inhaler has been continued Symbicort inhaler has been continued Hypertension Blood pressure stable DVT: Continue Lovenox. TEDs/SCDs Discharge Planning Discharge planning per case management, orthopedic said patient can possibly discharge as early as 01/26/17. Shin Mcghee Jan 24, 2017 10:08
[2017-01-24] MEDS ORDERED: ONDANSETRON ODT 4 MG TAB PO PRN (10:15)
[2017-01-24] MEDS ORDERED: MAGNESIUM HYDROXIDE SUSP 30 ML CUP PO PRN (10:15)
[2017-01-24] MEDS ORDERED: ACETAMINOPHEN 325 MG TAB PO PRN (10:15)
[2017-01-24] MEDS: oxyCODONE/ACETAMINOPHEN 5 MG/325 MG TAB PO PRN ×2 (12:22→18:26)
[2017-01-24 20:00] VITALS: BP 99/71; PULSE 82; RESP 18; TEMP 97.4; O2SAT 93
[2017-01-24] MEDS: MIRTAZAPINE 15 MG TAB PO SCH (20:17)
[2017-01-24] MEDS: PHENYTOIN SODIUM 100 MG CAP PO SCH (20:20)
[2017-01-25] MEDS: oxyCODONE/ACETAMINOPHEN 5 MG/325 MG TAB PO PRN ×4 (00:08→18:52)
[2017-01-25 08:00] VITALS: BP 126/86; PULSE 86; RESP 16; TEMP 96.9; O2SAT 97
--- NOTE | 2017-01-25 09:14 | HHI.PR ---
Subjective Remarks Patient seen and examined today. He states that he still has some mild numbness around his incision site. Patient was counseled that this is likely normal and feeling may return 6-12 months. If continues to worsen patient will need to follow-up with orthopedic for further evaluation. Objective Vitals Vital Signs Date Time Temp Pulse Resp B/P Pulse Ox O2 Delivery O2 Flow Rate FiO2 01/25/17 01:08 16 01/24/17 20:00 97.4 82 18 99/71 93 I/O 01/24/17 01/24/17 01/24/17 01/25/17 01/25/17 01/25/17 07:00 15:00 23:00 07:00 15:00 23:00 Intake Total 640 ml 480 ml 460 ml Balance 640 ml 480 ml 460 ml Intake Oral 640 ml 480 ml 460 ml # Voids 4 2 2 # Bowel Movements 0 0 Result Diagram: 01/23/17 0513 Objective Remarks GENERAL: Well-developed, well-nourished, in no acute distress. alert and orientated HEENT: Head is normocephalic without any lesions or masses noted. Facial features are symmetric. Eyes: Extraocular muscles are intact. Conjunctivae were clear. NECK: Supple without any masses. Trachea midline no deviation. No JVD, CARDIAC: Regular rhythm, regular rate. S1/S2 are heard. No murmurs gallops or rubs. LUNGS: Clear to auscultation bilaterally. No wheeze, rhonchi or rales. No use of accessory muscles on inspiration or expiration. ABDOMEN: Soft, nontender. Nondistended. Bowel sounds heard in all 4 quadrants. No organomegaly or masses. Negative rebound, negative guarding EXTREMITIES: No edema, pulses are equal bilaterally. No cyanosis or clubbing NEUROLOGY: Mood and affect appear appropriate. Cranial nerves II through XII grossly intact. Moving all extremities, speech is clear LEFT HIP. Incision site is healing fine and there are no open areas or signs of infection. Incision has completely adhesed Procedures 01/08/17: Left total hip arthroplasty via anterior approach Urinary Catheter: No Vascular Central Line Catheter: No A/P Assessment and Plan Left total hip arthroplasty, elective: surgery 01/08 Orthopedic following patient and recommended removal of stuart today and possible discharge as early as 01/26/17 PT weightbearing as tolerated twice daily Follow-up appointment with Dr. Miranda or PA in 2 weeks Pain control: Need to wean every few days prior to discharge. [place] 5 mg q6h prn pain Anemia: Stable Hemoglobin was low on initial testing, however improved without transfusion, could have been laboratory error Iron studies show mild decrease iron level, however normal ferritin History of seizures Dilantin level 9.9, protein corrected Dilantin level 12.7 History of pancreatitis Pancreatic enzymes have been continued Chronic obstructive pulmonary disease Ventolin inhaler has been continued Symbicort inhaler has been continued Hypertension Blood pressure stable DVT: Continue Lovenox. TEDs/SCDs Discharge Planning Discharge planning per case management, orthopedic said patient can possibly discharge as early as 01/26/17. Shin Mcghee Jan 25, 2017 09:14
--- NOTE | 2017-01-25 09:22 | HHI.DCPOC ---
Discharge Care Plan Diagnosis: (1) Status post left hip replacement Goals to Promote Your Health * To prevent worsening of your condition and complications * To maintain your health at the optimal level Directions to Meet Your Goals Take your medications as prescribed Follow your dietary instruction Follow activity as directed Keep your appointments as scheduled Take your immunizations and boosters as scheduled If your symptoms worsen call your PCP, if no PCP go to Urgent Care Center or Emergency Room Smoking is Dangerous to Your Health. Avoid second hand smoke Call the 24-hour hour crisis hotline for domestic abuse at Shin Mcghee Jan 25, 2017 09:22
[2017-01-25] MEDS: PANTOPRAZOLE SOD 40 MG DELAYED RELEASE TAB PO SCH (09:45)
[2017-01-25] MEDS: LIPASE/PROTEASE/AMYLASE (24,000/76,000/120,000) CAP PO SCH ×3 (09:45→18:47)
[2017-01-25] MEDS: LISINOPRIL 10 MG TAB PO SCH (09:45)
[2017-01-25] MEDS: BUDESONIDE-FORMOTEROL 160/4.5 MCG INHALER INH SCH ×2 (09:45→23:48)
[2017-01-25] MEDS: DOCUSATE SODIUM 100 MG CAP PO SCH ×2 (09:45→23:47)
[2017-01-25] MEDS: BACLOFEN 10 MG TAB PO SCH ×3 (09:46→18:47)
[2017-01-25] MEDS: MULTIVITAMINS/MINERALS THERAPEUTIC TAB PO SCH (09:46)
[2017-01-25] MEDS: ENOXAPARIN SODIUM 40 MG/0.4 ML SYRINGE SQ SCH (09:48)
[2017-01-25 20:00] VITALS: BP 119/75; PULSE 90; RESP 19; TEMP 97.4; O2SAT 97
[2017-01-25] MEDS: MIRTAZAPINE 15 MG TAB PO SCH (23:47)
[2017-01-25] MEDS: PHENYTOIN SODIUM 100 MG CAP PO SCH (23:48)
[2017-01-26] MEDS: oxyCODONE/ACETAMINOPHEN 5 MG/325 MG TAB PO PRN ×3 (00:38→12:32)
[2017-01-26 08:00] VITALS: BP 119/86; PULSE 84; RESP 20; TEMP 97.2; O2SAT 94
[2017-01-26] MEDS: LIPASE/PROTEASE/AMYLASE (24,000/76,000/120,000) CAP PO SCH ×2 (08:27→12:31)
[2017-01-26] MEDS: MULTIVITAMINS/MINERALS THERAPEUTIC TAB PO SCH (08:28)
[2017-01-26] MEDS: PANTOPRAZOLE SOD 40 MG DELAYED RELEASE TAB PO SCH (08:28)
[2017-01-26] MEDS: LISINOPRIL 10 MG TAB PO SCH (08:28)
[2017-01-26] MEDS: BACLOFEN 10 MG TAB PO SCH ×2 (08:28→12:31)
[2017-01-26] MEDS: DOCUSATE SODIUM 100 MG CAP PO SCH (08:28)
[2017-01-26] MEDS: BUDESONIDE-FORMOTEROL 160/4.5 MCG INHALER INH SCH (08:28)
[2017-01-26] MEDS: ENOXAPARIN SODIUM 40 MG/0.4 ML SYRINGE SQ SCH (08:30)
--- NOTE | 2017-01-26 09:04 | HHI.DS ---
Discharge Summary Admission Date January 08, 2017 at 05:23 Discharge Date: Jan 26, 2017 Admitting Diagnosis Left hip pain, degenerative changes (1) Status post left hip replacement ICD Code: Z96.642 (2) Hypertension ICD Code: I10 (3) HTN (hypertension) ICD Code: I10 (4) Seizure disorder ICD Code: G40.909 Procedures 01/08/17: Left total hip arthroplasty via anterior approach Brief History - From Admission 56 year-old male who originally admitted under orthopedic service for elective left hip replacement CBC/BMP: 01/23/17 0513 Imaging Last Impressions Hip and Pelvis X-Ray 01/21/17 0000 Signed Impressions: Service Date/Time: Saturday, January 21, 2017 07:56 - CONCLUSION: 1. Arthroplasty on the left. Hardware appears well-positioned. Rip Andrade MD Hip X-Ray 01/08/17 0000 Signed Impressions: Service Date/Time: Sunday, January 08, 2017 07:44 - CONCLUSION: Images document left hip hardware in place. No acute finding is seen. Donnie Julio MD PE at Discharge GENERAL: Well-developed, well-nourished, in no acute distress. alert and orientated HEENT: Head is normocephalic without any lesions or masses noted. Facial features are symmetric. Eyes: Extraocular muscles are intact. Conjunctivae were clear. NECK: Supple without any masses. Trachea midline no deviation. No JVD, CARDIAC: Regular rhythm, regular rate. S1/S2 are heard. No murmurs gallops or rubs. LUNGS: Clear to auscultation bilaterally. No wheeze, rhonchi or rales. No use of accessory muscles on inspiration or expiration. ABDOMEN: Soft, nontender. Nondistended. Bowel sounds heard in all 4 quadrants. No organomegaly or masses. Negative rebound, negative guarding EXTREMITIES: No edema, pulses are equal bilaterally. No cyanosis or clubbing NEUROLOGY: Mood and affect appear appropriate. Cranial nerves II through XII grossly intact. Moving all extremities, speech is clear LEFT HIP. Incision site is healing fine and there are no open areas or signs of infection. Incision has completely adhesed Hospital Course 56 year-old male who originally came in to the hospital for elective left hip replacement. Apparently immediately prior to procedure, patient became homeless and did not have a safe discharge after procedure. Patient was monitored in the hospital with physical therapy, orthopedic, anticoagulation. Orthopedic want patients stay in the hospital until wound was completely closed and healed. Patient is doing well at this time, wound has completely healed without any signs of opening or infection. Orthopedic has indicated patient is safe for discharge. Will plan discharge accordingly. Pt Condition on Discharge: Stable Discharge Disposition: Discharge Home Discharge Time: > 30 minutes Discharge Instructions DIET: Follow Instructions for: As Tolerated, No Restrictions Activities you can perform: Regular-No Restrictions Follow up Referrals: Orthopedics - 2 Weeks @ [facility] with Yousuf Contreras MD New Medications: Calcium Carbonate-Cholecalciferol (Calcium 600 with Vitamin D) 600-400 mg-Unit Tab 1 TAB PO DAILY Calcium Supplement #60 Ref 2 TAB Ergocalciferol (Ergocalciferol) 50,000 Unit Cap 57388 UNITS PO Q7D Nutritional Supplement #7 Ref 0 CAP Hydrocodone-Acetaminophen ([place]) 10-325 Mg Tab 1 TAB PO Q4H PRN PAIN #40 Ref 0 TAB Rivaroxaban (Xarelto) 10 Mg Tab 10 MG PO DAILY Blood Clot Prevention #21 Ref 0 TAB Walker with Front Wheels (Walker with Front Wheels) 1 Mis Mis 1 EA .ROUTE DIRECTED #1 Ref 0 EA Continued Medications: Acetaminophen (Tylenol Extra Strength) 500 Mg Tab 1000 MG PO Q6H PRN PAIN SCALE 1 TO 10 Ref 0 TAB Albuterol 8.5 GM Inh (Proair Hfa 8.5 GM Inh) 90 Mcg/Act Aer 2 PUFF INH Q6H 108 mcg/actuation PRN SHORTNESS OF BREATH #1 Ref 0 INHALER Baclofen (Baclofen) 10 Mg Tab 10 MG PO TID Muscle Spasm Ref 0 TAB Budesonide-Formoterol Inh (Symbicort Inh) 160-4.5 Mcg/Act Aero 2 PUFF INH Q12HR #1 Ref 0 INHALER Lisinopril (Lisinopril) 10 Mg Tab 10 MG PO DAILY #30 Ref 0 TAB Mirtazapine (Mirtazapine) 30 Mg Tab 30 MG PO HS Depression Control #30 Ref 0 TAB Multiple Vitamins W/ Minerals (Multivitamin Adults) 1 Tab 1 TAB PO DAILY Nutritional Supplement Ref 0 TAB Omeprazole (Omeprazole) 40 Mg Cap 40 MG PO DAILY #30 Ref 0 CAP Pancrelipase (Creon) 24,000-76,000-120,000 Units Cap 1 CAP PO TID pancreatic enzymes #93 CAP Phenytoin Extended (Dilantin) 100 Mg Cap 500 MG PO HS Control Seizures #30 CAP Shin Mcghee Jan 26, 2017 09:04
[2017-01-26] MEDS ORDERED: WALKER WHEELS/F1 MIS (10:20)
== END 2017-01-26 13:45 | disposition home or self-care (01) | DRG 470 ==
LOC: HSDI 01-08 05:23 → N06A 01-08 14:53 → PH5A 01-16 17:30
PROVIDERS: ADMIT Internal Medicine; ATTEND Internal Medicine
PROC: 0SRB04Z Replacement of Left Hip Joint with Ceramic on Polyethylene Synthetic Substitute, Open Approach (ICD-10-PCS; principal; 2017-01-08 07:16)
DX: M16.12 Unilateral primary osteoarthritis, left hip (principal); K86.1 Other chronic pancreatitis; I10 Essential (primary) hypertension; J44.9 Chronic obstructive pulmonary disease, unspecified; G40.909 Epilepsy, unspecified, not intractable, without status epilepticus; K21.9 Gastro-esophageal reflux disease without esophagitis; D64.9 Anemia, unspecified; R60.0 Localized edema; F32.9 Major depressive disorder, single episode, unspecified; Z59.0 Homelessness; Z72.0 Tobacco use
CPT/HCPCS: 73501; 73502; 76000; 80048; 80053; 80185; 82728; 83540; 83550; 85014; 85018; 85027; 86850; 86900; 86901; 93005; C1776; C9290; J0131; J0690; J1100; J1170; J1580; J1650; J1885; J2175; J2250; J2270; J2370; J2405; J2710; J3010; J3370; J7050; J7120

== ENCOUNTER → 2016-11-19 | Outpatient (CLI) | payer OTHER ==
[~2016-11-19] MED LIST: ACET-703 PO; ALBU8I INH; ALBUAER3 INH; BACL10TA PO; CALC1TAB87 PO; CEFT500T3 PO; CLEO300C2 PO; CREON24 PO; DILA100C PO; DILA2TAB2 PO; ERGO1CAP30 PO; FOLI1 PO; FOLI1TAB4 PO; HYDR-3366 PO; LISI-360 PO; LISI10TA3 PO; MIRT30TA PO; MULT1TAB84 PO; NAPR500T PO; OMEP40CA2 PO; PHEN100 PO; PRIL40CA PO; SIME1CHW11 PO; SYMB160A INH; THERM PO; THIA100T PO; TRAZ50TA4 PO; WALKER WHEELS/F1 MIS; XARE10TA PO
== END ==
LOC: CPRE 09:01
PROVIDERS: ATTEND Orthopaedic Surgery Orthopaedic Trauma
DX: M79.609 Pain in unspecified limb (principal)

== ENCOUNTER 2016-12-05 08:39 | Inpatient (IN) | payer OTHER ==
[~2016-12-05] VITALS: Ht 185.4 cm; Wt 110.0 kg
[~2016-12-05 08:39] MED LIST changes: -ACET-703 PO; -ALBU8I INH; -CALC1TAB87 PO; -CEFT500T3 PO; -CLEO300C2 PO; -CREON24 PO; -DILA2TAB2 PO; -ERGO1CAP30 PO; -FOLI1 PO; -HYDR-3366 PO; -LISI-360 PO; -NAPR500T PO; -PHEN100 PO; -PRIL40CA PO; -SIME1CHW11 PO; -THERM PO; -TRAZ50TA4 PO; -WALKER WHEELS/F1 MIS; -XARE10TA PO
[2016-12-05 08:47] VITALS: BP 132/82; PULSE 104; RESP 20; TEMP 98.6; O2SAT 96
[2016-12-05] MEDS ORDERED: SODIUM CHLOR 0.9% 1000 ML INJ 1,000 ML IV SCH (08:58)
[2016-12-05] MEDS ORDERED: SODIUM CHLORIDE 0.9% FLUSH 10 ML FLUSH IV FLUSH PRN ×2 (09:00→13:00)
[2016-12-05] MEDS ORDERED: MORPHINE SULFATE 4 MG/ML INJ IV PUSH ONE ×2 (09:00→13:00)
[2016-12-05] MEDS ORDERED: ONDANSETRON HCL 4 MG/2 ML VIAL IVP ONE (09:00)
[2016-12-05] MEDS ORDERED: FAMOTIDINE 20 MG/2 ML VIAL IV PUSH ONE (09:00)
[2016-12-05 09:25] LABS: AUTOMATED NEUTROPHIL # 13.3 TH/MM3 (1.8-7.7); BASOPHIL % 0.2 % (0.0-2.0); EOSINOPHIL # 0.1 TH/MM3 (0-0.4); EOSINOPHIL % 0.5 % (0.0-4.0); HEMO FLAGS DIFF FINAL; LYMPHOCYTE # 0.9 TH/MM3 (1.0-4.8); MEAN CELL VOLUME 90.2 FL (80.0-100.0); MEAN CORPUSCULAR HEMOGLOBIN 31.1 PG (27.0-34.0); MEAN CORPUSCULAR HGB CONC 34.5 % (32.0-36.0); MONO % 7.8 % (0.0-8.0); NEUT % 85.5 % (16.0-70.0); PLATELET COUNT 251 TH/MM3 (150-450); RED BLOOD COUNT 4.21 MIL/MM3 (4.50-5.90); RED CELL DISTRIBUTION WIDTH 13.5 % (11.6-17.2); WHITE BLOOD COUNT 15.6 TH/MM3 (4.0-11.0)
[2016-12-05 09:32] LABS: PROTHROMBIN TIME - PATIENT 10.6 SEC (9.8-11.6)
--- NOTE | 2016-12-05 09:34 | PD ---
HPI Chief Complaint: Abdominal Pain Time Seen by Provider: 08:49 Travel History International Travel<30 days: No Contact w/Intl Traveler<30days: No Traveled to known affect area: No History of Present Illness HPI Patient is a 56-year-old male who presents to emergency room with complaints of abdominal pain. Patient reports that he has been having increased abdominal pain since yesterday morning, reports that the pain is in his epigastrium, reports that he is having increased nausea, vomiting and diarrhea with symptoms. Patient reports that he had history of pancreatitis about 3 years ago , reports that his symptoms feel exactly the same as when he was diagnosed and hospitalized with pancreatitis for a few days. Patient reports that he does use alcohol, reports that he has not used alcohol in a week. Patient endorsed to nursing that he drinks " a few beers per day." Patient is unsure why he was diagnosed with pancreatitis 3 years ago. Patient with no fevers or chills. Patient with no chest pain or shortness breath at this time. PFSH Past Medical History Anxiety: Yes Cancer: No Cardiovascular Problems: Yes COPD: Yes Diabetes: No Diminished Hearing: Yes ([place] RIGHT EAR) Endocrine: No Gastrointestinal Disorders: Yes Genitourinary: No Hepatitis: Yes (HEP C NOT ACTIVE PER PT) Hiatal Hernia: No Hypertension: Yes Immune Disorder: No Implanted Vascular Access Dvce: Yes Musculoskeletal: No Neurologic: Yes Psychiatric: Yes Reproductive: No Respiratory: Yes (COPD) Seizures: Yes Thyroid Disease: No Ulcer: Yes Past Surgical History AICD: No Body Medical Devices: CLIPS IN BRAIN Joint Replacement: No Neurologic Surgery: Yes (CLIP IN R SIDE HEAD FOR ANEURYSM) Pacemaker: No Other Surgery: Yes (BRAIN SURGERY) Social History Alcohol Use: Yes ("A FEW BEERS DAILY") Tobacco Use: Yes (1 PPD) Substance Use: No Allergies-Medications (Allergen,Severity, Reaction): Coded Allergies: MRI PRECAUTION (Verified Adverse Reaction, Severe, ANEURYSM CLIP, 11/19/16) DR HENRY VERIFIED ANEURYSM CLIP Reported Meds & Prescriptions Reported Meds & Active Scripts Active Reported Mirtazapine 30 Mg Tab 30 Mg PO HS Dilantin (Phenytoin Extended) 100 Mg Cap 400 Mg PO HS Omeprazole 40 Mg Cap 40 Mg PO DAILY Multivitamin Adults (Multiple Vitamins W/ Minerals) 1 Tab 1 Tab PO DAILY Lisinopril 10 Mg Tab 10 Mg PO DAILY Symbicort Inh (Budesonide/Formoterol Fumarate) 160-4.5 Mcg/Act Aero 2 Puff INH Q12HR Baclofen 10 Mg Tab 5 Mg PO TID Proair Hfa 8.5 GM Inh (Albuterol Sulfate) 90 Mcg/Act Aer 2 Puff INH Q6H PRN 108 mcg/actuation Review of Systems General / Constitutional: No: Fever, Chills Eyes: No: Visual changes HENT: No: Headaches Cardiovascular: No: Chest Pain or Discomfort Respiratory: No: Shortness of Breath Gastrointestinal: Positive: Nausea, Vomiting, Diarrhea, Abdominal Pain Genitourinary: No: Dysuria Musculoskeletal: No: Pain Skin: No Rash Neurologic: No: Weakness Psychiatric: No: Depression Endocrine: No: Polydipsia Hematologic/Lymphatic: No: Easy Bruising Physical Exam Narrative GENERAL: Moderate distress SKIN: Focused skin assessment warm/dry. HEAD: Atraumatic. Normocephalic. EYES: Pupils equal and round. No scleral icterus. No injection or drainage. ENT: No nasal bleeding or discharge. Mucous membranes pink and moist. NECK: Trachea midline. No JVD. CARDIOVASCULAR: Regular rate and rhythm. No murmur appreciated. RESPIRATORY: No accessory muscle use. Clear to auscultation. Breath sounds equal bilaterally. GASTROINTESTINAL: Abdomen soft, patient with increased tenderness in the epigastrium, patient has rebound and guarding on exam MUSCULOSKELETAL: No obvious deformities. No clubbing. No cyanosis. No edema. NEUROLOGICAL: Awake and alert. . Normal speech. PSYCHIATRIC: Appropriate mood and affect; insight and judgment normal. Data Data Last Documented VS Vital Signs Date Time Temp Pulse Resp B/P Pulse Ox O2 Delivery O2 Flow Rate FiO2 12/05/16 08:47 98.6 104 20 132/82 96 Orders Complete Blood Count With Diff (12/05/16 08:58) Comprehensive Metabolic Panel (12/05/16 08:58) Lipase (12/05/16 08:58) Prothrombin Time / Inr (Pt) (12/05/16 08:58) Act Partial Throm Time (Ptt) (12/05/16 08:58) Urinalysis - C+S If Indicated (12/05/16 08:58) Iv Access Insert/Monitor (12/05/16 08:58) Ecg Monitoring (12/05/16 08:58) Oximetry (12/05/16 08:58) NPO (12/05/16 08:58) Morphine Inj (Morphine Inj) (12/05/16 09:00) Ondansetron Inj (Zofran Inj) (12/05/16 09:00) Sodium Chlor 0.9% 1000 Ml Inj (Ns 1000 M (12/05/16 08:58) Sodium Chloride 0.9% Flush (Ns Flush) (12/05/16 09:00) Chest, Single Ap (12/05/16 08:58) Famotidine Inj (Pepcid Inj) (12/05/16 09:00) Valproic Acid (Depakene) (12/05/16 08:58) Ct Abd/Pel W Iv Contrast(Rout) (12/05/16 10:46) Iohexol 350 Inj (Omnipaque 350 Inj) (12/05/16 11:51) Baclofen (Lioresal) (12/05/16 13:00) Budeson-Formot 160-4.5 Mg Inh (Symbicort (12/05/16 21:00) Lisinopril (Prinivil) (12/06/16 09:00) Mirtazapine (Remeron) (12/05/16 21:00) Phenytoin (Dilantin) (12/05/16 21:00) Admit Order (Ed Use Only) (12/05/16 12:57) Morphine Inj (Morphine Inj) (12/05/16 13:00) Labs Laboratory Tests Test 12/05/16 12/05/16 09:05 10:45 White Blood Count 15.6 TH/MM3 Red Blood Count 4.21 MIL/MM3 Hemoglobin 13.1 GM/DL Hematocrit 38.0 % Mean Corpuscular Volume 90.2 FL Mean Corpuscular Hemoglobin 31.1 PG Mean Corpuscular Hemoglobin 34.5 % Concent Red Cell Distribution Width 13.5 % Platelet Count 251 TH/MM3 Mean Platelet Volume 9.3 FL Neutrophils (%) (Auto) 85.5 % Lymphocytes (%) (Auto) 6.0 % Monocytes (%) (Auto) 7.8 % Eosinophils (%) (Auto) 0.5 % Basophils (%) (Auto) 0.2 % Neutrophils # (Auto) 13.3 TH/MM3 Lymphocytes # (Auto) 0.9 TH/MM3 Monocytes # (Auto) 1.2 TH/MM3 Eosinophils # (Auto) 0.1 TH/MM3 Basophils # (Auto) 0.0 TH/MM3 CBC Comment DIFF FINAL Differential Comment Prothrombin Time 10.6 SEC Prothromb Time International 1.0 RATIO Ratio Activated Partial 31.4 SEC Thromboplast Time Sodium Level 131 MEQ/L Potassium Level 4.2 MEQ/L Chloride Level 99 MEQ/L Carbon Dioxide Level 23.0 MEQ/L Anion Gap 9 MEQ/L Blood Urea Nitrogen 7 MG/DL Creatinine 0.71 MG/DL Estimat Glomerular Filtration 115 ML/MIN Rate Random Glucose 105 MG/DL Calcium Level 9.0 MG/DL Total Bilirubin 0.5 MG/DL Aspartate Amino Transf 16 U/L (AST/SGOT) Alanine Aminotransferase 22 U/L (ALT/SGPT) Alkaline Phosphatase 136 U/L Total Protein 7.4 GM/DL Albumin 3.6 GM/DL Lipase 457 U/L Valproic Acid (Depakene) Level 5 MCG/ML Urine Color YELLOW Urine Turbidity CLEAR Urine pH 6.5 Urine Specific [place] 1.024 Urine Protein NEG mg/dL Urine Glucose (UA) NEG mg/dL Urine Ketones TRACE mg/dL Urine Occult Blood NEG Urine Nitrite NEG Urine Bilirubin NEG Urine Urobilinogen LESS THAN 2.0 MG/DL Urine Leukocyte Esterase NEG Urine RBC LESS THAN 1 /hpf Urine WBC LESS THAN 1 /hpf Urine Squamous Epithelial <1 /hpf Cells Urine Hyaline Casts 1 /lpf Microscopic Urinalysis Comment CULT NOT INDICATED MDM Medical Decision Making Medical Screen Exam Complete: Yes Emergency Medical Condition: Yes Interpretation(s) Vital Signs Date Time Temp Pulse Resp B/P Pulse Ox O2 Delivery O2 Flow Rate FiO2 12/05/16 08:47 98.6 104 20 132/82 96 Differential Diagnosis Acute pancreatitis, cholecystitis, gastroenteritis, gastritis, ACS Narrative Course Patient is a 56-year-old male who presents to emergency room with complaints of abdominal pain. Patient has had history of pancreatitis and was diagnosed with a 3 years ago, patient reports that symptoms feel exactly the same as in the past when he was diagnosed with this. On exam, patient is tender to his epigastrium. Plan to obtain labs including lipase, CT of the abdomen and pelvis ordered to evaluate the pancreas. We'll hydrate patient and administer IV pain medications. Laboratory Tests Test 12/05/16 12/05/16 09:05 10:45 White Blood Count 15.6 TH/MM3 (4.0-11.0) Red Blood Count 4.21 MIL/MM3 (4.50-5.90) Hemoglobin 13.1 GM/DL (13.0-17.0) Hematocrit 38.0 % (39.0-51.0) Mean Corpuscular Volume 90.2 FL (80.0-100.0) Mean Corpuscular Hemoglobin 31.1 PG (27.0-34.0) Mean Corpuscular Hemoglobin 34.5 % Concent (32.0-36.0) Red Cell Distribution Width 13.5 % (11.6-17.2) Platelet Count 251 TH/MM3 (150-450) Mean Platelet Volume 9.3 FL (7.0-11.0) Neutrophils (%) (Auto) 85.5 % (16.0-70.0) Lymphocytes (%) (Auto) 6.0 % (9.0-44.0) Monocytes (%) (Auto) 7.8 % (0.0-8.0) Eosinophils (%) (Auto) 0.5 % (0.0-4.0) Basophils (%) (Auto) 0.2 % (0.0-2.0) Neutrophils # (Auto) 13.3 TH/MM3 (1.8-7.7) Lymphocytes # (Auto) 0.9 TH/MM3 (1.0-4.8) Monocytes # (Auto) 1.2 TH/MM3 (0-0.9) Eosinophils # (Auto) 0.1 TH/MM3 (0-0.4) Basophils # (Auto) 0.0 TH/MM3 (0-0.2) CBC Comment DIFF FINAL Differential Comment Prothrombin Time 10.6 SEC (9.8-11.6) Prothromb Time International 1.0 RATIO Ratio Activated Partial 31.4 SEC Thromboplast Time (24.3-30.1) Sodium Level 131 MEQ/L (136-145) Potassium Level 4.2 MEQ/L (3.5-5.1) Chloride Level 99 MEQ/L (98-107) Carbon Dioxide Level 23.0 MEQ/L (21.0-32.0) Anion Gap 9 MEQ/L (5-15) Blood Urea Nitrogen 7 MG/DL (7-18) Creatinine 0.71 MG/DL (0.60-1.30) Estimat Glomerular Filtration 115 ML/MIN Rate (>89) Random Glucose 105 MG/DL (74-106) Calcium Level 9.0 MG/DL (8.5-10.1) Total Bilirubin 0.5 MG/DL (0.2-1.0) Aspartate Amino Transf 16 U/L (15-37) (AST/SGOT) Alanine Aminotransferase 22 U/L (12-78) (ALT/SGPT) Alkaline Phosphatase 136 U/L (45-117) Total Protein 7.4 GM/DL (6.4-8.2) Albumin 3.6 GM/DL (3.4-5.0) Lipase 457 U/L (73-393) Valproic Acid (Depakene) Level 5 MCG/ML (50-100) Urine Color YELLOW (YELLW/STRAW) Urine Turbidity CLEAR (CLEAR) Urine pH 6.5 (5.0-8.5) Urine Specific [place] 1.024 (1.002-1.035) Urine Protein NEG mg/dL (NEG-TRACE) Urine Glucose (UA) NEG mg/dL (NEG) Urine Ketones TRACE mg/dL (NEG) Urine Occult Blood NEG (NEG) Urine Nitrite NEG (NEG) Urine Bilirubin NEG (NEG) Urine Urobilinogen LESS THAN 2.0 MG/DL (LESS THAN 2.0) Urine Leukocyte Esterase NEG (NEG) Urine RBC LESS THAN 1 /hpf (0-3) Urine WBC LESS THAN 1 /hpf (0-5) Urine Squamous Epithelial <1 /hpf (0-5) Cells Urine Hyaline Casts 1 /lpf (RARE) Microscopic Urinalysis Comment CULT NOT INDICATED Last Impressions Abdomen/Pelvis CT 12/05/16 1046 Signed Impressions: Service Date/Time: Monday, December 05, 2016 11:33 - CONCLUSION: 1. CT findings characteristic of chronic pancreatitis with multiple pancreatic head calcifications and prominence of the pancreatic duct. 2. In addition, there are peripancreatic inflammatory changes around the tail of the pancreas extending up towards the gastric fundus characteristic of a superimposed acute pancreatitis. 3. A 2.9 cm left inguinal hernia which only contains fat. 4. Appendix is identified and is radiographically normal. 5. Bibasilar atelectasis/fibrosis. Jayy Hyatt MD Chest X-Ray 12/05/16 [id number] Signed Impressions: Service Date/Time: Monday, December 05, 2016 09:32 - CONCLUSION: Minimal new air space disease right base. Pranay Andrade MD FACR all studies and findings were reviewed with patient in detail. Patient reports severe pain - will remedicate. Case reviewed with Dr. Hernandez who accepts pt to service Diagnosis Primary Impression: Pancreatitis Qualified Code: K85.90 - Acute pancreatitis, unspecified complication status, unspecified pancreatitis type Additional Impressions: Hyponatremia Subtherapeutic serum dilantin level Admitting Information Admitting Physician Requests: Observation Gi Abreu DO Dec 05, 2016 09:34
[2016-12-05 09:35] LABS: APTT (PATIENT) 31.4 SEC (24.3-30.1)
--- NOTE | 2016-12-05 10:05 | RADRPT ---
EXAM DATE/TIME: 12/05/2016 09:32 [facility] COMPARISON: CHEST SINGLE AP, June 25, 2015, 14:00. INDICATIONS : Abdomen pain. MEDICAL HISTORY : Pancreatitis. Chronic obstructive pulmonary disease. SURGICAL HISTORY : None. ENCOUNTER: Initial ACUITY: 1 day PAIN SCORE: Non-responsive. LOCATION: Bilateral cranial FINDINGS: Minimal new air space disease is present in the right base. The left lung is clear. The heart and pu lmonary vascularity are normal. The portion of the bony skeleton visualized is unremarkable. CONCLUSION: Minimal new air space disease right base. Pranay Andrade MD FACR on December 05, 2016 at 9:56 Board Certified Radiologist. This report was verified electronically.
[2016-12-05 10:14] LABS: ALKALINE PHOSPHATASE 136 U/L (45-117); ALT (GPT) 22 U/L (12-78); ANION GAP 9 MEQ/L (5-15); AST (GOT) 16 U/L (15-37); BLOOD UREA NITROGEN 7 MG/DL (7-18); CHLORIDE 99 MEQ/L (98-107); GLOMERULAR FILTRATION RATE 115 ML/MIN (>89); SODIUM (NA) 131 MEQ/L (136-145); TOTAL BILIRUBIN ADULT 0.5 MG/DL (0.2-1.0)
[2016-12-05 10:18] LABS: POTASSIUM 4.2 MEQ/L (3.5-5.1)
[2016-12-05 11:11] LABS: BLOOD, URINE NEG (NEG); GLUCOSE,URINE NEG (NEG); HYALINE CAST, URINE 1 /lpf (RARE); KETONE, URINE TRACE mg/dL (NEG); NITRITE,URINE NEG (NEG); PH, URINE 6.5 (5.0-8.5); SQUAMOUS EPITHELIAL CELL URINE <1 /hpf (0-5); URINE COLOR YELLOW (YELLW/STRAW)
[2016-12-05 11:12] LABS: COMMENT (UR) CULT NOT INDICATED; CULTURE IF INDICATED CULT NOT INDICATED
[2016-12-05] MEDS ORDERED: IOHEXOL 350 MG/ML 10 ML VIAL (for RAD DIAG) IV ONE (11:51)
--- NOTE | 2016-12-05 12:24 | RADRPT ---
EXAM DATE/TIME: 12/05/2016 11:33 [facility] COMPARISON: CT ABDOMEN & PELVIS W CONTRAST, October 29, 2014, 2:25. INDICATIONS : Epigastric pain starting yesterday. IV CONTRAST: 95 cc Omnipaque 350 (iohexol) IV ORAL CONTRAST: No oral contrast ingested. RADIATION DOSE: 12.99 CTDIvol (mGy) MEDICAL HISTORY : Cardiovascular disease. Pancreatitis. Hypertension.Hep c SURGICAL HISTORY : Craniotomy. ENCOUNTER: Initial ACUITY: 1 day PAIN SCALE: 9/10 LOCATION: Abdomen TECHNIQUE: Volumetric scanning of the abdomen and pelvis was performed. Using automated exposure control and ad justment of the mA and/or kV according to patient size, radiation dose was kept as low as reasonably achievable to obtain optimal diagnostic quality images. FINDINGS: LOWER LUNGS: Bibasilar atelectasis/scarring. No confluent infiltrate LIVER: Stable punctate hyperdensity in the right hepatic lobe is nonspecific but probably represents a cyst. There is no dilation of the biliary tree. No calcified gallstones. SPLEEN: Normal size without lesion. PANCREAS: Calcifications of the pancreatic head are characteristic of chronic pancreatitis. There is also promi nence of the pancreatic duct measuring 8 mm in diameter. There is some peripancreatic inflammatory ch anges predominantly around the tail and extending up the along the fundus of the stomach suggesting a n acute component. KIDNEYS: Normal in size and shape. There is no mass, stone or hydronephrosis. ADRENAL GLANDS: Within normal limits. VASCULAR: There is no aortic aneurysm. BOWEL/MESENTERY: The stomach, small bowel, and colon demonstrate no acute abnormality. There is no free intraperitone al air or fluid. Appendix is identified and is radiographically normal. ABDOMINAL WALL: Within normal limits. RETROPERITONEUM: There is no lymphadenopathy. BLADDER: No wall thickening or mass. REPRODUCTIVE: Within normal limits. INGUINAL: 2.9 cm left inguinal hernia only contains fat. MUSCULOSKELETAL: Dextrorotoscoliosis of the thoracolumbar spine. CONCLUSION: 1. CT findings characteristic of chronic pancreatitis with multiple pancreatic head calcifications an d prominence of the pancreatic duct. 2. In addition, there are peripancreatic inflammatory changes around the tail of the pancreas extendi ng up towards the gastric fundus characteristic of a superimposed acute pancreatitis. 3. A 2.9 cm left inguinal hernia which only contains fat. 4. Appendix is identified and is radiographically normal. 5. Bibasilar atelectasis/fibrosis. Jayy Hyatt MD on December 05, 2016 at 12:15 Board Certified Radiologist. This report was verified electronically.
[2016-12-05] MEDS ORDERED: ENOXAPARIN SODIUM 40 MG/0.4 ML SYRINGE SQ SCH (13:00)
[2016-12-05] MEDS ORDERED: ACETAMINOPHEN 325 MG TAB PO PRN (13:00)
[2016-12-05] MEDS ORDERED: BISACODYL 10 MG SUPP RECTAL PRN (13:00)
[2016-12-05] MEDS ORDERED: NALOXONE HCL 0.4 MG/ML AMP IV PRN (13:00)
--- NOTE | 2016-12-05 13:10 | HHI.HP ---
[facility] Service [facility] Primary Care Physician [facility] Admission Diagnosis acute pancreatitis Diagnoses: Chief Complaint: Abdominal pain Travel History International Travel<30 Days: No Contact w/Intl Traveler <30 Da: No Traveled to Known Affected Are: No History of Present Illness This is a pleasant 56 y/o Male who came to ER with Abdominal pain, that started transactional attorney yesterday, started on Epigastric area associated with nausea, and vomit and diarrhea, He had pancreatitis 3 years ago , the symptoms exactly like on that moment, recent admission with the same diagnosis some days ago, she abuse alcohol, but states is not been using alcohol for the last one week, Patient endorsed to nursing that he drinks " a few beers per day." Patient is unsure why he was diagnosed with pancreatitis 3 years ago. Patient with no fevers or chills. Patient with no chest pain or shortness breath at this time. the patient has Seizure disorder Depression, Hypertension, history of Brain aneurysm, COPD, Recurrent Pancreatitis. He started with Epigastric pain yesterday morning, radiated to the back, 8/10 in intensity, like Stabbing sensation, associated with Nausea and vomit. Review of Systems Gastrointestinal: COMPLAINS OF: Abdominal pain, Nausea, Vomiting Past Family Social History Past Medical History Anxiety CAD COPD Right ear Hypoacusis Hepatitis C no active as per PCP Hypertension Seizure disorder GERD Past Surgical History Clips in the Brain due to aneurysm Brain surgery Reported Medications Reported Meds & Active Scripts Active Reported Mirtazapine 30 Mg Tab 30 Mg PO HS Dilantin (Phenytoin Extended) 100 Mg Cap 400 Mg PO HS Omeprazole 40 Mg Cap 40 Mg PO DAILY Multivitamin Adults (Multiple Vitamins W/ Minerals) 1 Tab 1 Tab PO DAILY Lisinopril 10 Mg Tab 10 Mg PO DAILY Symbicort Inh (Budesonide/Formoterol Fumarate) 160-4.5 Mcg/Act Aero 2 Puff INH Q12HR Baclofen 10 Mg Tab 5 Mg PO TID Proair Hfa 8.5 GM Inh (Albuterol Sulfate) 90 Mcg/Act Aer 2 Puff INH Q6H PRN 108 mcg/actuation Allergies: Coded Allergies: MRI PRECAUTION (Verified Adverse Reaction, Severe, ANEURYSM CLIP, 11/19/16) DR HENRY VERIFIED ANEURYSM CLIP Active Ordered Medications Current Medications Medications (Trade) Dose Ordered Sig/Mariya Route Start Time Stop Time Status Last Admin (NS Flush) 2 ml UNSCH PRN IV FLUSH 12/05/16 09:00 Family History Mother- passed from lung cancer Dad- diabetes and heart issues Social History Lives alone Beer on daily basis Tobacco dependence one Pack per day. Physical Exam Vital Signs Vital Signs Date Time Temp Pulse Resp B/P Pulse Ox O2 Delivery O2 Flow Rate FiO2 12/05/16 08:47 98.6 104 20 132/82 96 Physical Exam GENERAL: No acute distress. SKIN: Focused skin assessment warm/dry. HEAD: Atraumatic. Normocephalic. EYES: Pupils equal and round. No scleral icterus. No injection or drainage. ENT: No nasal bleeding or discharge. Mucous membranes pink and moist. NECK: Trachea midline. No JVD. CARDIOVASCULAR: Regular rate and rhythm. No murmur appreciated. RESPIRATORY: No accessory muscle use. Clear to auscultation. Breath sounds equal bilaterally. GASTROINTESTINAL: Abdomen soft, patient with increased tenderness in the epigastrium, No rebound tenderness MUSCULOSKELETAL: No obvious deformities. No clubbing. No cyanosis. No edema. NEUROLOGICAL: Awake and alert. . Normal speech. PSYCHIATRIC: Appropriate mood and affect; insight and judgment normal. Laboratory Laboratory Tests Test 12/05/16 12/05/16 09:05 10:45 White Blood Count 15.6 Red Blood Count 4.21 Hemoglobin 13.1 Hematocrit 38.0 Mean Corpuscular Volume 90.2 Mean Corpuscular Hemoglobin 31.1 Mean Corpuscular Hemoglobin 34.5 Concent Red Cell Distribution Width 13.5 Platelet Count 251 Mean Platelet Volume 9.3 Neutrophils (%) (Auto) 85.5 Lymphocytes (%) (Auto) 6.0 Monocytes (%) (Auto) 7.8 Eosinophils (%) (Auto) 0.5 Basophils (%) (Auto) 0.2 Neutrophils # (Auto) 13.3 Lymphocytes # (Auto) 0.9 Monocytes # (Auto) 1.2 Eosinophils # (Auto) 0.1 Basophils # (Auto) 0.0 CBC Comment DIFF FINAL Differential Comment Prothrombin Time 10.6 Prothromb Time International 1.0 Ratio Activated Partial 31.4 Thromboplast Time Sodium Level 131 Potassium Level 4.2 Chloride Level 99 Carbon Dioxide Level 23.0 Anion Gap 9 Blood Urea Nitrogen 7 Creatinine 0.71 Estimat Glomerular Filtration 115 Rate Random Glucose 105 Calcium Level 9.0 Total Bilirubin 0.5 Aspartate Amino Transf 16 (AST/SGOT) Alanine Aminotransferase 22 (ALT/SGPT) Alkaline Phosphatase 136 Total Protein 7.4 Albumin 3.6 Lipase 457 Valproic Acid (Depakene) Level 5 Urine Color YELLOW Urine Turbidity CLEAR Urine pH 6.5 Urine Specific [place] 1.024 Urine Protein NEG Urine Glucose (UA) NEG Urine Ketones TRACE Urine Occult Blood NEG Urine Nitrite NEG Urine Bilirubin NEG Urine Urobilinogen LESS THAN 2.0 Urine Leukocyte Esterase NEG Urine RBC LESS THAN 1 Urine WBC LESS THAN 1 Urine Squamous Epithelial <1 Cells Urine Hyaline Casts 1 Microscopic Urinalysis Comment CULT NOT INDICATED Result Diagram: 12/05/1690412/05/16904 Imaging Last Impressions Abdomen/Pelvis CT 12/05/16 1046 Signed Impressions: Service Date/Time: Monday, December 05, 2016 11:33 - CONCLUSION: 1. CT findings characteristic of chronic pancreatitis with multiple pancreatic head calcifications and prominence of the pancreatic duct. 2. In addition, there are peripancreatic inflammatory changes around the tail of the pancreas extending up towards the gastric fundus characteristic of a superimposed acute pancreatitis. 3. A 2.9 cm left inguinal hernia which only contains fat. 4. Appendix is identified and is radiographically normal. 5. Bibasilar atelectasis/fibrosis. Jayy Hyatt MD Chest X-Ray 12/05/16 0858 Signed Impressions: Service Date/Time: Monday, December 05, 2016 09:32 - CONCLUSION: Minimal new air space disease right base. Pranay Andrade MD FACR Assessment and Plan Assessment and Plan 1. Recurrent pancreatitis following Lipase levels, Gastric protection, GI specialist consult 2. Seizure disorder, Subtherapeutic Dilantin level, continue Ativan PRN for Seizures, Telemetry, Continue Dilantin 400 mg daily 3. Hyponatremia probable [place] 4. Hypertension to continue home medicines 5. COPD to continue Bronchodilator, Mucolytic and incentive spirometry 6. Tobacco dependence strongly recommended to stop smoking 7. Alcohol abuse the patient states he is not drinking beer from the last one week. 8. Hepatitis C by history not on any medicine. DVT prophylaxis: bilat SCDs Discussed with Emergency Medicine specialist Doctor Gi Abreu Code Status Full Code. Discussed Condition With Patient and ER specialist. Physician Certification 2 Midnight Certification Type: Admission for Inpatient Services Order for Inpatient Services The services are ordered in accordance with Medicare regulations or non- Medicare payer requirements, as applicable. In the case of services not specified as inpatient-only, they are appropriately provided as inpatient services in accordance with the 2-midnight benchmark. Estimated LOS (days): 3 days is the estimated time the patient will need to remain in the hospital, assuming treatment plan goals are met and no additional complications. Post-Hospital Plan: Not yet determined Jermaine Mora MD Dec 05, 2016 13:10
[2016-12-05] MEDS ORDERED: HYDROmorphone HCL PF 1 MG/ML VIAL IV PUSH PRN (14:00)
[2016-12-05 14:19] VITALS: BP 139/75; PULSE 94; RESP 18; O2SAT 94
[2016-12-05] MEDS: SODIUM CHLOR 0.9% 1000 ML INJ 1,000 ML IV SCH ×2 (14:35→21:53)
[2016-12-05] MEDS: DOCUSATE SODIUM 100 MG CAP PO SCH ×2 (14:36→20:01)
[2016-12-05] MEDS: BACLOFEN 10 MG TAB PO SCH ×2 (14:36→16:00)
[2016-12-05] MEDS: PANTOPRAZOLE SODIUM 40 MG VIAL IV PUSH SCH (14:37)
[2016-12-05 15:00] VITALS: BP 140/95; PULSE 94; RESP 20; TEMP 97.8; O2SAT 97
[2016-12-05] MEDS: RESP: ALBUTEROL 2.5 MG/IPRATROPIUM 0.5 MG NEB (SCH) NEB ×2 (15:50→19:12)
[2016-12-05 16:56] LABS: CREATINE KINASE 60 U/L (39-308)
--- NOTE | 2016-12-05 16:59 | PD.CONS ---
HPI History of Present Illness This is a 56 year old male patient with a hx of pancreatitis who came to the ER for evaluation of abdominal pain, nausea, vomiting. He has had one prior episode of pancreatitis back in October of 2014. The etiology at that time was unclear and he underwent evaluation ERCP with sphincterotomy, balloon extraction and biopsy (11/01/14)----> gastritis, thickened duodenal fold, bulging ampulla, dilated common bile duct. Pathology with duodenal mucosa with no significant histopathologic abnormalities, ampulla with cauterized mucosa with hypervascularity and mild vascular congestion of the lamina propria. Adenomatous change is not identified. He reports that since that time, he has had a few minor episodes at home where he thought he was coming down with pancreatitis again, but he was able to take clear liquids and his symptoms would improve. He reports that about 2 days ago, he started having severe epigastric pain described as a sharp pain that radiated to his umbilicus, bilateral sides, and around to his back. The pain has been constant, but varies in intensity. He has associated nausea and vomiting with bilious material and reports that he had a couple of liquid stools a few days ago, but no melena and has not had any further episodes. He does drink ETOH, usually 1- 2 beers a week, but states he has not had any for 1.5 weeks. He denies any new medications or herbal supplements. He has a hx of an aneurysm that he had clipped and therefore cannot have an MRI. However, lfts are normal other than elevated alkaline phosphatase at 136. His lipase is 457. Abdomen/Pelvis CT ()----> 1. CT findings characteristic of chronic pancreatitis with multiple pancreatic head calcifications and prominence of the pancreatic duct. 2. In addition, there are peripancreatic inflammatory changes around the tail of the pancreas extending up towards the gastric fundus characteristic of a superimposed acute pancreatitis. 3. A 2.9 cm left inguinal hernia which only contains fat. 4. Appendix is identified and is radiographically normal. 5. Bibasilar atelectasis/fibrosis. He denies any liver disease and states that at one point, someone thought he had hepatitis c, but then he was told that he did not actually have an active infection. (Nelda Liu) PFSH Past Medical History Anxiety CAD COPD Pancreatitis Hypertension Seizure disorder GERD Gastritis Past Surgical History Clips in the Brain due to aneurysm Brain surgery ERCP with sphincterotomy, balloon extraction, biopsy (Nelda Liu) Coded Allergies: MRI PRECAUTION (Verified Adverse Reaction, Severe, ANEURYSM CLIP, 11/19/16) DR HENRY VERIFIED ANEURYSM CLIP Medications Allergies Coded Allergies Type Severity Reaction Last Updated Verified MRI PRECAUTION Adverse Reaction Severe ANEURYSM CLIP 11/19/16 Yes Active Scripts Medications Dose Route/Sig Days Date Category Dose Instructions Mirtazapine 30 Mg Tab 30 Mg PO HS 11/19/16 Reported Dilantin (Phenytoin Extended) 100 Mg Cap 400 Mg PO HS 11/19/16 Reported Omeprazole 40 Mg Cap 40 Mg PO DAILY 11/19/16 Reported Multivitamin Adults (Multiple Vitamins W/ Minerals) 1 Tab 1 Tab PO DAILY 11/19/16 Reported Lisinopril 10 Mg Tab 10 Mg PO DAILY 11/19/16 Reported Symbicort Inh (Budesonide/Formoterol Fumarate) 160-4.5 Mcg/Act Aero 2 Puff INH Q12HR 11/19/16 Reported Baclofen 10 Mg Tab 5 Mg PO TID 11/19/16 Reported Proair Hfa 8.5 GM Inh (Albuterol Sulfate) 90 Mcg/Act Aer 2 Puff INH Q6H PRN 11/19/16 Reported 108 mcg/actuation Family History Mother- passed from lung cancer Dad- diabetes and heart issues Social History According to EMR, beer on daily basis. Pt tells me he takes 1-2 beers per day, none x 1.5 weeks. Smokes 1PPD. (Nelda Liu) Review of Systems Constitutional: COMPLAINS OF: Fatigue, DENIES: Fever, Chills Respiratory: DENIES: Cough Cardiovascular: DENIES: Chest pain Gastrointestinal: COMPLAINS OF: Abdominal pain, Diarrhea (one or two liquid stools a few days ago), Nausea, Vomiting, Heartburn, DENIES: Black stools, Bloody stools, Constipation, Hematemesis Musculoskeletal: COMPLAINS OF: Back pain Integumentary: DENIES: Abnormal pigmentation, Jaundice Hematologic/lymphatic: DENIES: Bruising Neurologic: DENIES: Headache Psychiatric: DENIES: Confusion (Nelda Liu) GI Exam Vitals I&O Vital Signs Date Time Temp Pulse Resp B/P Pulse Ox O2 Delivery O2 Flow Rate FiO2 12/05/16 15:00 97.8 94 20 140/95 97 12/05/16 14:19 94 18 139/75 94 Room Air 12/05/16 08:47 98.6 104 20 132/82 96 Imaging Last Impressions Abdomen/Pelvis CT 12/05/16 1046 Signed Impressions: Service Date/Time: Monday, December 05, 2016 11:33 - CONCLUSION: 1. CT findings characteristic of chronic pancreatitis with multiple pancreatic head calcifications and prominence of the pancreatic duct. 2. In addition, there are peripancreatic inflammatory changes around the tail of the pancreas extending up towards the gastric fundus characteristic of a superimposed acute pancreatitis. 3. A 2.9 cm left inguinal hernia which only contains fat. 4. Appendix is identified and is radiographically normal. 5. Bibasilar atelectasis/fibrosis. Jayy Hyatt MD Chest X-Ray 12/05/16 0858 Signed Impressions: Service Date/Time: Monday, December 05, 2016 09:32 - CONCLUSION: Minimal new air space disease right base. Pranay Andrade MD FACR Laboratory Test 12/05/16 12/05/16 09:05 10:45 White Blood Count 15.6 TH/MM3 Red Blood Count 4.21 MIL/MM3 Hemoglobin 13.1 GM/DL Hematocrit 38.0 % Mean Corpuscular Volume 90.2 FL Mean Corpuscular Hemoglobin 31.1 PG Mean Corpuscular Hemoglobin 34.5 % Concent Red Cell Distribution Width 13.5 % Platelet Count 251 TH/MM3 Mean Platelet Volume 9.3 FL Neutrophils (%) (Auto) 85.5 % Lymphocytes (%) (Auto) 6.0 % Monocytes (%) (Auto) 7.8 % Eosinophils (%) (Auto) 0.5 % Basophils (%) (Auto) 0.2 % Neutrophils # (Auto) 13.3 TH/MM3 Lymphocytes # (Auto) 0.9 TH/MM3 Monocytes # (Auto) 1.2 TH/MM3 Eosinophils # (Auto) 0.1 TH/MM3 Basophils # (Auto) 0.0 TH/MM3 CBC Comment DIFF FINAL Differential Comment Prothrombin Time 10.6 SEC Prothromb Time International 1.0 RATIO Ratio Activated Partial 31.4 SEC Thromboplast Time Sodium Level 131 MEQ/L Potassium Level 4.2 MEQ/L Chloride Level 99 MEQ/L Carbon Dioxide Level 23.0 MEQ/L Anion Gap 9 MEQ/L Blood Urea Nitrogen 7 MG/DL Creatinine 0.71 MG/DL Estimat Glomerular Filtration 115 ML/MIN Rate Random Glucose 105 MG/DL Calcium Level 9.0 MG/DL Total Bilirubin 0.5 MG/DL Aspartate Amino Transf 16 U/L (AST/SGOT) Alanine Aminotransferase 22 U/L (ALT/SGPT) Alkaline Phosphatase 136 U/L Total Protein 7.4 GM/DL Albumin 3.6 GM/DL Lipase 457 U/L Valproic Acid (Depakene) Level 5 MCG/ML Urine Color YELLOW Urine Turbidity CLEAR Urine pH 6.5 Urine Specific [place] 1.024 Urine Protein NEG mg/dL Urine Glucose (UA) NEG mg/dL Urine Ketones TRACE mg/dL Urine Occult Blood NEG Urine Nitrite NEG Urine Bilirubin NEG Urine Urobilinogen LESS THAN 2.0 MG/DL Urine Leukocyte Esterase NEG Urine RBC LESS THAN 1 /hpf Urine WBC LESS THAN 1 /hpf Urine Squamous Epithelial <1 /hpf Cells Urine Hyaline Casts 1 /lpf Microscopic Urinalysis Comment CULT NOT INDICATED Physical Examination HEENT: Normocephalic; atraumatic; no jaundice. CHEST: CTA CARDIAC: RRR. ABDOMEN: Soft, nondistended, mid/epigastric/ruq/luq tenderness; no hepatosplenomegaly; bowel sounds are present in all four quadrants. EXTREMITIES: No clubbing, cyanosis, or edema. SKIN: Normal; no rash; no jaundice. FLOWER PICKER: No focal deficits; alert and oriented times three. (Nelda Liu [place]) Assessment and Plan Plan ASSESSMENT: - Acute on chronic pancreatitis. One prior episode of pancreatitis in 2014, unclear etiology at that time. 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 S/P ERCP with sphincterotomy, balloon extraction and biopsy (11/01/14)----> gastritis, thickened duodenal fold, bulging ampulla, dilated common bile duct. Pathology with duodenal mucosa with no significant histopathologic abnormalities, ampulla with cauterized mucosa with hypervascularity and mild vascular congestion of the lamina propria. Adenomatous change is not identified. He reports that since that time, he has had a few minor episodes at home where he thought he was coming down with pancreatitis again, but he was able to take clear liquids and his symptoms would improve. Abdominal pain with n/v began 2 days ago. He does drink ETOH, usually 1-2 beers a week, but states he has not had any for 1.5 weeks. Of note, in EMR, it states he is a daily drinker. He denies any new medications or herbal supplements. Of note, he is on lisinopril. Lipase is 457. T. Bili 0.5, AST 16, ALT 22, Alk Phosph 136. Abdomen/Pelvis CT (12/05/16)---- > 1. CT findings characteristic of chronic pancreatitis with multiple pancreatic head calcifications and prominence of the pancreatic duct. 2. In addition, there are peripancreatic inflammatory changes around the tail of the pancreas extending up towards the gastric fundus characteristic of a superimposed acute pancreatitis. 3. A 2.9 cm left inguinal hernia which only contains fat. 4. Appendix is identified and is radiographically normal. 5. Bibasilar atelectasis/fibrosis. NPO. IVF. PPI. Suspect this may be related to ETOH. Consider IgG 4 level depending on how he does over the next day. - Leukocytosis. Likely related to above. WBC 15.6. - Hyponatremia. Na+ 131. ? More etoh use than he admits to. - CAD, COPD, HTN, Sz d/o per primary PLAN: - NPO except ice chips - Protonix - IVF - Monitor labs - Supportive care - Of note, unable to have MRCP secondary to aneurysm clipping - Further recommendations to follow based on results of above - Pt seen and examined by Dr. Villela and myself and this note is written on his behalf (Nelda Liu) Physician Comments agree with above (Lulú Villela MD) Nelda Liu Dec 05, 2016 16:59 Lulú Villela MD Dec 05, 2016 18:38
[2016-12-05] MEDS: NICOTINE 14 MG/24 HR PATCH T-DERMAL SCH (19:01)
[2016-12-05] MEDS: HYDROmorphone HCL PF 1 MG/ML VIAL IV PUSH PRN ×2 (19:01→21:53)
[2016-12-05 20:00] VITALS: BP 134/75; PULSE 100; RESP 18; TEMP 98.8; O2SAT 94
[2016-12-05] MEDS: guaiFENesin E.R. 600 MG TAB PO SCH (20:05)
[2016-12-05] MEDS: PHENYTOIN SODIUM 100 MG CAP PO SCH (20:05)
[2016-12-05] MEDS: MIRTAZAPINE 15 MG TAB PO SCH (20:05)
[2016-12-05] MEDS: SODIUM CHLORIDE 0.9% FLUSH 10 ML FLUSH IV FLUSH SCH (20:05)
[2016-12-05] MEDS: REMOVE OLD PATCH T-DERMAL SCH (20:07)
[2016-12-05] MEDS: BUDESONIDE-FORMOTEROL 160/4.5 MCG INHALER INH SCH (20:21)
[2016-12-06] MEDS: ONDANSETRON HCL 4 MG/2 ML VIAL IVP PRN ×2 (00:38→23:14)
[2016-12-06] MEDS: HYDROmorphone HCL PF 1 MG/ML VIAL IV PUSH PRN ×7 (00:38→23:19)
[2016-12-06 00:40] VITALS: BP 148/83; PULSE 107; RESP 18; TEMP 99.3; O2SAT 94
[2016-12-06] MEDS: RESP: ALBUTEROL 2.5 MG/IPRATROPIUM 0.5 MG NEB (SCH) NEB ×6 (02:28→19:55)
[2016-12-06] MEDS: SODIUM CHLOR 0.9% 1000 ML INJ 1,000 ML IV SCH ×2 (03:56→21:52)
[2016-12-06 04:00] VITALS: BP 139/80; PULSE 106; RESP 18; TEMP 98.9; O2SAT 96
[2016-12-06 08:00] VITALS: BP 140/75; PULSE 79; RESP 16; TEMP 99.8; O2SAT 94
[2016-12-06 08:53] LABS: AUTOMATED NEUTROPHIL # 12.7 TH/MM3 (1.8-7.7); BASOPHIL # 0.1 TH/MM3 (0-0.2); BASOPHIL % 0.5 % (0.0-2.0); EOSINOPHIL % 0.1 % (0.0-4.0); HEMATOCRIT 32.5 % (39.0-51.0); HEMO FLAGS DIFF FINAL; LYMPHOCYTE # 1.2 TH/MM3 (1.0-4.8); MEAN CELL VOLUME 90.9 FL (80.0-100.0); MEAN CORPUSCULAR HEMOGLOBIN 31.2 PG (27.0-34.0); MEAN CORPUSCULAR HGB CONC 34.3 % (32.0-36.0); NEUT % 83.4 % (16.0-70.0); PLATELET COUNT 234 TH/MM3 (150-450); RED BLOOD COUNT 3.57 MIL/MM3 (4.50-5.90); RED CELL DISTRIBUTION WIDTH 13.6 % (11.6-17.2); WHITE BLOOD COUNT 15.2 TH/MM3 (4.0-11.0)
[2016-12-06] MEDS: SODIUM CHLORIDE 0.9% FLUSH 10 ML FLUSH IV FLUSH SCH ×2 (09:00→20:01)
[2016-12-06 09:19] LABS: ALKALINE PHOSPHATASE 109 U/L (45-117); ALT (GPT) 15 U/L (12-78); ANION GAP 10 MEQ/L (5-15); AST (GOT) 9 U/L (15-37); BICARBONATE 24.6 MEQ/L (21.0-32.0); BLOOD UREA NITROGEN 7 MG/DL (7-18); CHLORIDE 98 MEQ/L (98-107); GLOMERULAR FILTRATION RATE 113 ML/MIN (>89); POTASSIUM 3.6 MEQ/L (3.5-5.1); SODIUM (NA) 133 MEQ/L (136-145); TOTAL BILIRUBIN ADULT 0.5 MG/DL (0.2-1.0)
[2016-12-06] MEDS: guaiFENesin E.R. 600 MG TAB PO SCH ×2 (10:21→20:01)
[2016-12-06] MEDS: DOCUSATE SODIUM 100 MG CAP PO SCH ×2 (10:22→20:01)
[2016-12-06] MEDS: BACLOFEN 10 MG TAB PO SCH ×4 (10:22→17:09)
[2016-12-06] MEDS: LISINOPRIL 10 MG TAB PO SCH (10:22)
[2016-12-06] MEDS: NICOTINE 14 MG/24 HR PATCH T-DERMAL SCH (10:38)
[2016-12-06] MEDS: PANTOPRAZOLE SODIUM 40 MG VIAL IV PUSH SCH (10:38)
[2016-12-06] MEDS: BUDESONIDE-FORMOTEROL 160/4.5 MCG INHALER INH SCH ×2 (10:40→21:00)
[2016-12-06 12:00] VITALS: BP 104/65; PULSE 105; RESP 16; TEMP 99.5; O2SAT 95
--- NOTE | 2016-12-06 13:07 | HHI.PR ---
Subjective Remarks This is a pleasant 56 y/o Male who came to ER with Abdominal pain, that started bi tester yesterday, started on Epigastric area associated with nausea, and vomit and diarrhea, He had pancreatitis 3 years ago , the symptoms exactly like on that moment, recent admission with the same diagnosis some days ago, she abuse alcohol, but states is not been using alcohol for the last one week, Patient endorsed to nursing that he drinks " a few beers per day." Patient is unsure why he was diagnosed with pancreatitis 3 years ago. Patient with no fevers or chills. Patient with no chest pain or shortness breath at this time. the patient has Seizure disorder Depression, Hypertension, history of Brain aneurysm, COPD, Recurrent Pancreatitis. He started with Epigastric pain yesterday morning, radiated to the back, 8/10 in intensity, like Stabbing sensation, associated with Nausea and vomit. 12/06: Seen in his bedroom and discussed with nurse Miss Ruth whyte, also discussed with GI [employer]ER [employer] VICE PRESIDENT Miss Nelda Liu No Nausea, vomit or diarrhea, continue with abdominal pain. Objective Vital Signs Date Time Temp Pulse Resp B/P Pulse Ox O2 Delivery O2 Flow Rate FiO2 12/06/16 08:00 99.8 79 16 140/75 94 12/06/16 04:00 98.9 106 18 139/80 96 12/06/16 00:40 99.3 107 18 148/83 94 12/05/16 20:00 98.8 100 18 134/75 94 12/05/16 15:00 97.8 94 20 140/95 97 12/05/16 14:19 94 18 139/75 94 Room Air I/O 12/05/16 12/05/16 12/05/16 12/06/16 12/06/16 12/06/16 07:00 15:00 23:00 07:00 15:00 23:00 Output Total 500 ml 200 ml Balance -500 ml -200 ml Output Urine Total 500 ml 200 ml Result Diagram: 12/06/16 0745 12/06/16 0745 Imaging Last Impressions Abdomen/Pelvis CT 12/05/16 1046 Signed Impressions: Service Date/Time: Monday, December 05, 2016 11:33 - CONCLUSION: 1. CT findings characteristic of chronic pancreatitis with multiple pancreatic head calcifications and prominence of the pancreatic duct. 2. In addition, there are peripancreatic inflammatory changes around the tail of the pancreas extending up towards the gastric fundus characteristic of a superimposed acute pancreatitis. 3. A 2.9 cm left inguinal hernia which only contains fat. 4. Appendix is identified and is radiographically normal. 5. Bibasilar atelectasis/fibrosis. Jayy Hyatt MD Chest X-Ray 12/05/16 0858 Signed Impressions: Service Date/Time: Monday, December 05, 2016 09:32 - CONCLUSION: Minimal new air space disease right base. Pranay Andrade MD FACR Procedures No procedures done Other Results Laboratory Tests Test 12/05/16 12/05/16 12/06/16 09:05 10:45 07:45 Prothrombin Time 10.6 SEC Prothromb Time International 1.0 RATIO Ratio Activated Partial 31.4 SEC Thromboplast Time Total Creatine Kinase 60 U/L Troponin I LESS THAN 0.02 NG/ML Valproic Acid (Depakene) Level 5 MCG/ML Urine Color YELLOW Urine Turbidity CLEAR Urine pH 6.5 Urine Specific [place] 1.024 Urine Protein NEG mg/dL Urine Glucose (UA) NEG mg/dL Urine Ketones TRACE mg/dL Urine Occult Blood NEG Urine Nitrite NEG Urine Bilirubin NEG Urine Urobilinogen LESS THAN 2.0 MG/DL Urine Leukocyte Esterase NEG Urine RBC LESS THAN 1 /hpf Urine WBC LESS THAN 1 /hpf Urine Squamous Epithelial <1 /hpf Cells Urine Hyaline Casts 1 /lpf Microscopic Urinalysis Comment CULT NOT INDICATED White Blood Count 15.2 TH/MM3 Red Blood Count 3.57 MIL/MM3 Hemoglobin 11.1 GM/DL Hematocrit 32.5 % Mean Corpuscular Volume 90.9 FL Mean Corpuscular Hemoglobin 31.2 PG Mean Corpuscular Hemoglobin 34.3 % Concent Red Cell Distribution Width 13.6 % Platelet Count 234 TH/MM3 Mean Platelet Volume 9.3 FL Neutrophils (%) (Auto) 83.4 % Lymphocytes (%) (Auto) 8.0 % Monocytes (%) (Auto) 8.0 % Eosinophils (%) (Auto) 0.1 % Basophils (%) (Auto) 0.5 % Neutrophils # (Auto) 12.7 TH/MM3 Lymphocytes # (Auto) 1.2 TH/MM3 Monocytes # (Auto) 1.2 TH/MM3 Eosinophils # (Auto) 0.0 TH/MM3 Basophils # (Auto) 0.1 TH/MM3 CBC Comment DIFF FINAL Differential Comment Sodium Level 133 MEQ/L Potassium Level 3.6 MEQ/L Chloride Level 98 MEQ/L Carbon Dioxide Level 24.6 MEQ/L Anion Gap 10 MEQ/L Blood Urea Nitrogen 7 MG/DL Creatinine 0.72 MG/DL Estimat Glomerular Filtration 113 ML/MIN Rate Random Glucose 112 MG/DL Calcium Level 8.4 MG/DL Total Bilirubin 0.5 MG/DL Aspartate Amino Transf 9 U/L (AST/SGOT) Alanine Aminotransferase 15 U/L (ALT/SGPT) Alkaline Phosphatase 109 U/L Total Protein 6.6 GM/DL Albumin 2.9 GM/DL Lipase 260 U/L Objective Remarks GENERAL: No acute distress. SKIN: Focused skin assessment warm/dry. HEAD: Atraumatic. Normocephalic. EYES: Pupils equal and round. No scleral icterus. No injection or drainage. ENT: No nasal bleeding or discharge. Mucous membranes pink and moist. NECK: Trachea midline. No JVD. CARDIOVASCULAR: Regular rate and rhythm. No murmur appreciated. RESPIRATORY: No accessory muscle use. Clear to auscultation. Breath sounds equal bilaterally. GASTROINTESTINAL: Abdomen soft, patient with increased tenderness in the epigastrium, No rebound tenderness MUSCULOSKELETAL: No obvious deformities. No clubbing. No cyanosis. No edema. NEUROLOGICAL: Awake and alert. . Normal speech. PSYCHIATRIC: Appropriate mood and affect; insight and judgment normal. Medications and IVs Current Medications Medications (Trade) Dose Ordered Sig/Mariya Route Start Time Stop Time Status Last Admin (Lioresal) 5 mg TID PO 12/05/16 13:00 12/06/16 10:22 (Symbicort 160-4.5 Inh) 2 puff Q12HR INH 12/05/16 21:00 12/06/16 10:40 (Prinivil) 10 mg DAILY PO 12/06/16 09:00 12/06/16 10:22 (Remeron) 30 mg HS PO 12/05/16 21:00 12/05/16 20:05 Phenytoin 400 mg 400 mg HS PO 12/05/16 21:00 12/05/16 20:05 (NS 1000 ml Inj) 1,000 ml @ 125 mls/hr Q8H IV 12/05/16 12:55 12/06/16 03:56 (NS Flush) 2 ml UNSCH PRN IV FLUSH 12/05/16 13:00 (NS Flush) 2 ml BID IV FLUSH 12/05/16 21:00 (Tylenol) 650 mg Q4H PRN PO 12/05/16 13:00 (Zofran Inj) 4 mg Q6H PRN IVP 12/05/16 13:00 12/06/16 00:38 (Dulcolax Supp) 10 mg DAILY PRN RECTAL 12/05/16 13:00 (Colace) 100 mg Q12HR PO 12/05/16 13:00 12/06/16 10:22 (Narcan Inj) 0.4 mg UNSCH PRN IV 12/05/16 13:00 (Protonix Inj) 40 mg DAILY IV PUSH 12/05/16 13:30 12/06/16 10:38 (Mucinex Er) 600 mg BID PO 12/05/16 21:00 12/06/16 10:21 (Dilaudid Pf Inj) 0.5 mg Q3H PRN IV PUSH 12/05/16 19:00 12/06/16 10:21 (Habitrol 14 Mg Patch.24 Hr) 1 patch DAILY T-DERMAL 12/05/16 18:00 12/06/16 10:38 Miscellaneous Information 1 HS T-DERMAL 12/05/16 21:00 12/05/16 20:07 A/P Assessment and Plan 1. Recurrent pancreatitis following Lipase levels, Gastric protection, GI specialist following recommended to start liquid diet, continue present care with IV fluids, pain medicine. Improving condition. 2. Seizure disorder, Subtherapeutic Dilantin level, continue Ativan PRN for Seizures, Telemetry, Continue Dilantin 400 mg daily 3. Hyponatremia probable [place] 4. Hypertension to continue home medicines 5. COPD to continue Bronchodilator, Mucolytic and incentive spirometry 6. Tobacco dependence strongly recommended to stop smoking 7. Alcohol abuse the patient states he is not drinking beer from the last one week. 8. Hepatitis C by history not on any medicine. DVT prophylaxis: bilat SCDs Code Status Full Code. Discussed Condition With Patient, Nurse Miss Miranda and GI specialist [employer] SE[employer] VICE PRESIDENT Miss Nelda Liu Discharge Planning Expected in one to two days. Jermaine Mora MD Dec 06, 2016 13:06
--- NOTE | 2016-12-06 13:52 | HHI.GIFU ---
Subjective Remarks Resting in bed. Continues to have abdominal pain, feels more bloated and feels like he could move his bowels or pass some flatus, his abdominal pain would improve. Tolerating ice chips. Objective Vitals I&O Vital Signs Date Time Temp Pulse Resp B/P Pulse Ox O2 Delivery O2 Flow Rate FiO2 12/06/16 08:00 99.8 79 16 140/75 94 12/06/16 04:00 98.9 106 18 139/80 96 12/06/16 00:40 99.3 107 18 148/83 94 12/05/16 20:00 98.8 100 18 134/75 94 12/05/16 15:00 97.8 94 20 140/95 97 12/05/16 14:19 94 18 139/75 94 Room Air I/O 12/05/16 12/05/16 12/05/16 12/06/16 12/06/16 12/06/16 07:00 15:00 23:00 07:00 15:00 23:00 Output Total 500 ml 200 ml Balance -500 ml -200 ml Output Urine Total 500 ml 200 ml Laboratory Laboratory Tests Test 12/06/16 07:45 White Blood Count 15.2 Red Blood Count 3.57 Hemoglobin 11.1 Hematocrit 32.5 Mean Corpuscular Volume 90.9 Mean Corpuscular Hemoglobin 31.2 Mean Corpuscular Hemoglobin 34.3 Concent Red Cell Distribution Width 13.6 Platelet Count 234 Mean Platelet Volume 9.3 Neutrophils (%) (Auto) 83.4 Lymphocytes (%) (Auto) 8.0 Monocytes (%) (Auto) 8.0 Eosinophils (%) (Auto) 0.1 Basophils (%) (Auto) 0.5 Neutrophils # (Auto) 12.7 Lymphocytes # (Auto) 1.2 Monocytes # (Auto) 1.2 Eosinophils # (Auto) 0.0 Basophils # (Auto) 0.1 CBC Comment DIFF FINAL Differential Comment Sodium Level 133 Potassium Level 3.6 Chloride Level 98 Carbon Dioxide Level 24.6 Anion Gap 10 Blood Urea Nitrogen 7 Creatinine 0.72 Estimat Glomerular Filtration 113 Rate Random Glucose 112 Calcium Level 8.4 Total Bilirubin 0.5 Aspartate Amino Transf 9 (AST/SGOT) Alanine Aminotransferase 15 (ALT/SGPT) Alkaline Phosphatase 109 Total Protein 6.6 Albumin 2.9 Lipase 260 Imaging Last Impressions Abdomen/Pelvis CT 12/05/16 1046 Signed Impressions: Service Date/Time: Monday, December 05, 2016 11:33 - CONCLUSION: 1. CT findings characteristic of chronic pancreatitis with multiple pancreatic head calcifications and prominence of the pancreatic duct. 2. In addition, there are peripancreatic inflammatory changes around the tail of the pancreas extending up towards the gastric fundus characteristic of a superimposed acute pancreatitis. 3. A 2.9 cm left inguinal hernia which only contains fat. 4. Appendix is identified and is radiographically normal. 5. Bibasilar atelectasis/fibrosis. Jayy Hyatt MD Chest X-Ray 12/05/16 0858 Signed Impressions: Service Date/Time: Monday, December 05, 2016 09:32 - CONCLUSION: Minimal new air space disease right base. Pranay Andrade MD FACR Physical Exam HEENT: Normocephalic; atraumatic; no jaundice. CHEST: CTA CARDIAC: RRR ABDOMEN: Soft, bloated, mild diffuse tenderness; no hepatosplenomegaly; bowel sounds are present in all four quadrants. EXTREMITIES: No clubbing, cyanosis, or edema. SKIN: Normal; no rash; no jaundice. [place]: No focal deficits; alert and oriented times three. Assessment and Plan Plan ASSESSMENT: - Acute on chronic pancreatitis. One prior episode of pancreatitis in 2014, unclear etiology at that time. 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 S/P ERCP with sphincterotomy, balloon extraction and biopsy (11/01/14)----> gastritis, thickened duodenal fold, bulging ampulla, dilated common bile duct. Pathology with duodenal mucosa with no significant histopathologic abnormalities, ampulla with cauterized mucosa with hypervascularity and mild vascular congestion of the lamina propria. Adenomatous change is not identified. He reports that since that time, he has had a few minor episodes at home where he thought he was coming down with pancreatitis again, but he was able to take clear liquids and his symptoms would improve. Abdominal pain with n/v began 2 days ago. He does drink ETOH, usually 1-2 beers a week, but states he has not had any for 1.5 weeks. Of note, in EMR, it states he is a daily drinker. He denies any new medications or herbal supplements. Of note, he is on lisinopril. Abdomen/Pelvis CT (12/05/16)----> 1. CT findings characteristic of chronic pancreatitis with multiple pancreatic head calcifications and prominence of the pancreatic duct. 2. In addition, there are peripancreatic inflammatory changes around the tail of the pancreas extending up towards the gastric fundus characteristic of a superimposed acute pancreatitis. 3. A 2.9 cm left inguinal hernia which only contains fat. 4. Appendix is identified and is radiographically normal. 5. Bibasilar atelectasis/fibrosis. Suspect this may be related to ETOH. Lipase 260. LFTs stable. Continues to have bloating/abdominal pain, but feels this is more related to the bloating and that if he could pass flatus or move his bowels, he feels that his abdominal pain would improve. Tolerating ice chips. Will advance to clear liquids. Trial of simethicone, Lactulose. - Constipation, bloating. Lactulose. - Leukocytosis. Likely related to above. WBC 15.2. - Hyponatremia. Na+ 133. ? More etoh use than he admits to. - CAD, COPD, HTN, Sz d/o per primary PLAN: - Clear liquids - Protonix - IVF - Add Simethicone - Add Lactulose - Monitor labs - Supportive care - Of note, unable to have MRCP secondary to aneurysm clipping - Further recommendations to follow based on results of above - Pt seen and examined by Dr. Villela and myself and this note is written on his behalf Nelda Liu Dec 06, 2016 13:52
[2016-12-06] MEDS: SIMETHICONE 125 MG CHEWABLE TAB PO SCH ×2 (14:00→18:53)
[2016-12-06] MEDS ORDERED: POTASSIUM CHLOR 20 MEQ PREMIX 100 ML IV ONE (15:15)
[2016-12-06 16:00] VITALS: BP 114/70; PULSE 103; RESP 16; TEMP 99.7; O2SAT 93
[2016-12-06] MEDS: LACTULOSE SYRUP 20 GM/30 ML CUP PO SCH (17:08)
[2016-12-06] MEDS ORDERED: LIPASE/PROTEASE/AMYLASE (24,000/76,000/120,000) CAP PO ONE (18:30)
[2016-12-06] MEDS ORDERED: MAGNESIUM HYDROXIDE SUSP 30 ML CUP PO ONE (18:30)
[2016-12-06 20:00] VITALS: BP 126/82; PULSE 104; RESP 20; TEMP 98.2; O2SAT 95
[2016-12-06] MEDS: MIRTAZAPINE 15 MG TAB PO SCH (20:02)
[2016-12-06] MEDS: PHENYTOIN SODIUM 100 MG CAP PO SCH (20:02)
[2016-12-06] MEDS: REMOVE OLD PATCH T-DERMAL SCH (21:00)
[2016-12-07] VITALS (8 sets, daily range): BP systolic 107–126; BP diastolic 70–86; PULSE 99–112; RESP 16–20; TEMP 98.7–101.4; O2SAT 93–95
[2016-12-07] MEDS: HYDROmorphone HCL PF 1 MG/ML VIAL IV PUSH PRN ×6 (02:23→21:00)
[2016-12-07] MEDS: RESP: ALBUTEROL 2.5 MG/IPRATROPIUM 0.5 MG NEB (SCH) NEB ×6 (04:00→20:00)
[2016-12-07] MEDS: SIMETHICONE 125 MG CHEWABLE TAB PO SCH ×3 (05:39→22:00)
[2016-12-07] MEDS: SODIUM CHLOR 0.9% 1000 ML INJ 1,000 ML IV SCH ×3 (08:59→20:55)
[2016-12-07] MEDS: BUDESONIDE-FORMOTEROL 160/4.5 MCG INHALER INH SCH (09:00)
[2016-12-07] MEDS: guaiFENesin E.R. 600 MG TAB PO SCH ×2 (09:00→21:00)
[2016-12-07] MEDS: SODIUM CHLORIDE 0.9% FLUSH 10 ML FLUSH IV FLUSH SCH ×2 (09:00→21:05)
--- NOTE | 2016-12-07 09:45 | HHI.GIFU ---
Subjective Remarks Resting in bed. States that he had worsening pain, more in RUQ last night. He did have a bowel movement, but states this was just black liquid. His bloating has improved, but he does not want to eat anything because he states he is afraid that his pain will return. Never had an endoscopy. Objective Vitals I&O Vital Signs Date Time Temp Pulse Resp B/P Pulse Ox O2 Delivery O2 Flow Rate FiO2 12/07/16 06:34 20 12/07/16 05:00 99.5 100 18 107/70 93 12/07/16 02:00 19 12/07/16 01:47 99.4 12/07/16 00:30 101.4 12/07/16 00:00 101.3 112 20 122/74 93 12/06/16 20:00 98.2 104 20 126/82 95 12/06/16 16:00 99.7 103 16 114/70 93 12/06/16 16:00 99.7 103 16 114/70 93 12/06/16 12:00 99.5 105 16 104/65 95 I/O 12/06/16 12/06/16 12/06/16 12/07/16 12/07/16 12/07/16 07:00 15:00 23:00 07:00 15:00 23:00 Intake Total 0 ml 880 ml 1193 ml Output Total 200 ml 300 ml 200 ml 1260 ml Balance -200 ml -300 ml 680 ml -67 ml Intake Oral 0 ml 480 ml IV Total 880 ml 713 ml Output Urine Total 200 ml 300 ml 200 ml 1260 ml # Bowel Movements 0 1 Imaging Last Impressions Abdomen/Pelvis CT 12/05/16 1046 Signed Impressions: Service Date/Time: Monday, December 05, 2016 11:33 - CONCLUSION: 1. CT findings characteristic of chronic pancreatitis with multiple pancreatic head calcifications and prominence of the pancreatic duct. 2. In addition, there are peripancreatic inflammatory changes around the tail of the pancreas extending up towards the gastric fundus characteristic of a superimposed acute pancreatitis. 3. A 2.9 cm left inguinal hernia which only contains fat. 4. Appendix is identified and is radiographically normal. 5. Bibasilar atelectasis/fibrosis. Jayy Hyatt MD Chest X-Ray 12/05/16 0858 Signed Impressions: Service Date/Time: Monday, December 05, 2016 09:32 - CONCLUSION: Minimal new air space disease right base. Pranay Andrade MD FACR Physical Exam HEENT: Normocephalic; atraumatic; no jaundice. CHEST: CTA CARDIAC: RRR ABDOMEN: Soft, bloated, moderate RUQ tenderness; no hepatosplenomegaly; bowel sounds are present in all four quadrants. EXTREMITIES: No clubbing, cyanosis, or edema. SKIN: Normal; no rash; no jaundice. MANAGER GREEN: No focal deficits; alert and oriented times three. Assessment and Plan Plan ASSESSMENT: - Acute on chronic pancreatitis. One prior episode of pancreatitis in 2014, unclear etiology at that time. 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 S/P ERCP with sphincterotomy, balloon extraction and biopsy (11/01/14)----> gastritis, thickened duodenal fold, bulging ampulla, dilated common bile duct. Pathology with duodenal mucosa with no significant histopathologic abnormalities, ampulla with cauterized mucosa with hypervascularity and mild vascular congestion of the lamina propria. Adenomatous change is not identified. He reports that since that time, he has had a few minor episodes at home where he thought he was coming down with pancreatitis again, but he was able to take clear liquids and his symptoms would improve. Abdominal pain with n/v began 2 days ago. He does drink ETOH, usually 1-2 beers a week, but states he has not had any for 1.5 weeks. Of note, in EMR, it states he is a daily drinker. He denies any new medications or herbal supplements. Of note, he is on lisinopril. Abdomen/Pelvis CT (12/05/16)----> 1. CT findings characteristic of chronic pancreatitis with multiple pancreatic head calcifications and prominence of the pancreatic duct. 2. In addition, there are peripancreatic inflammatory changes around the tail of the pancreas extending up towards the gastric fundus characteristic of a superimposed acute pancreatitis. 3. A 2.9 cm left inguinal hernia which only contains fat. 4. Appendix is identified and is radiographically normal. 5. Bibasilar atelectasis/fibrosis. Suspect this may be related to ETOH. He had worsening pain last night after taking laxative and states that he passed a large amount of black liquid. He is now afraid to eat, because he states the pain was so bad last night. Will get lipase, cbc, cmp and schedule for EGD/HIDA today. - Constipation, bloating. Lactulose. + BM - Leukocytosis. Likely related to above. - Hyponatremia. ? More etoh use than he admits to. - CAD, COPD, HTN, Sz d/o per primary PLAN: - Plan for egd today - Obtain consents - NPO - CBC, CMP, Lipase - HIDA scan - Protonix - IVF - Cont. Simethicone - Cont. Lactulose - Monitor labs - Supportive care - Of note, unable to have MRCP secondary to aneurysm clipping - Further recommendations to follow based on results of above - Pt seen and examined by Dr. Villela and myself and this note is written on his behalf Nelda Liu Dec 07, 2016 09:45
[2016-12-07] MEDS: NICOTINE 14 MG/24 HR PATCH T-DERMAL SCH (11:42)
[2016-12-07] MEDS: LACTULOSE SYRUP 20 GM/30 ML CUP PO SCH (11:42)
[2016-12-07] MEDS: LISINOPRIL 10 MG TAB PO SCH (11:43)
[2016-12-07] MEDS: DOCUSATE SODIUM 100 MG CAP PO SCH ×2 (11:43→21:00)
[2016-12-07] MEDS: BACLOFEN 10 MG TAB PO SCH ×3 (11:43→17:54)
[2016-12-07] MEDS: PANTOPRAZOLE SODIUM 40 MG VIAL IV PUSH SCH (11:44)
[2016-12-07 12:35] LABS: AUTOMATED NEUTROPHIL # 10.1 TH/MM3 (1.8-7.7); BASOPHIL # 0.1 TH/MM3 (0-0.2); BASOPHIL % 0.8 % (0.0-2.0); EOSINOPHIL # 0.1 TH/MM3 (0-0.4); EOSINOPHIL % 0.7 % (0.0-4.0); HEMATOCRIT 33.5 % (39.0-51.0); HEMO FLAGS DIFF FINAL; LYMPH % 10.8 % (9.0-44.0); LYMPHOCYTE # 1.4 TH/MM3 (1.0-4.8); MEAN CELL VOLUME 92.6 FL (80.0-100.0); MEAN CORPUSCULAR HEMOGLOBIN 30.7 PG (27.0-34.0); MEAN CORPUSCULAR HGB CONC 33.2 % (32.0-36.0); MONO % 7.8 % (0.0-8.0); NEUT % 79.9 % (16.0-70.0); PLATELET COUNT 207 TH/MM3 (150-450); RED BLOOD COUNT 3.62 MIL/MM3 (4.50-5.90); RED CELL DISTRIBUTION WIDTH 13.6 % (11.6-17.2); WHITE BLOOD COUNT 12.6 TH/MM3 (4.0-11.0)
--- NOTE | 2016-12-07 13:04 | RADRPT ---
EXAM DATE/TIME: 12/07/2016 10:10 [place] COMPARISON: No previous studies available for comparison. INDICATIONS : Abdominal pain. Pancreatitis. DOSE: 4.2 mCi Tc99m Mebrofenin IV MEDICAL HISTORY : Hypertension. Chronic obstructive pulmonary disease. SURGICAL HISTORY : Clip in right side of head. ENCOUNTER: Initial ACUITY: 1 day PAIN SCALE: 2/10 LOCATION: Bilateral Abdomen. TECHNIQUE: Following the intravenous administration of radiotracer, dynamic sequential images were performed wit h continuous acquisition. FINDINGS: HEPATIC KINETICS: There is prompt uptake of radiotracer in the liver. No focal defects are seen. There is normal rate of washout from the hepatic parenchyma. BILIARY CLEARANCE: Activity is first seen in the extrahepatic biliary system at 15 minutes. There is normal excretion i nto the small bowel. GALLBLADDER: Activity is first seen in the gallbladder at 30 minutes. Common bile duct kinetics are normal and th ere is no evidence of biliary obstruction. BILIARY ENTRIC REFLUX: Single episode identified. CONCLUSION: 1. Single episode of biliary enteric reflux. 2. Otherwise negative with no scintigraphic evidence of acute cholecystitis. Jayy Hyatt MD on December 07, 2016 at 12:58 Board Certified Radiologist. This report was verified electronically.
[2016-12-07 13:07] LABS: ALKALINE PHOSPHATASE 110 U/L (45-117); ALT (GPT) 15 U/L (12-78); ANION GAP 7 MEQ/L (5-15); AST (GOT) 8 U/L (15-37); BICARBONATE 25.7 MEQ/L (21.0-32.0); BLOOD UREA NITROGEN 5 MG/DL (7-18); CHLORIDE 99 MEQ/L (98-107); GLOMERULAR FILTRATION RATE 132 ML/MIN (>89); POTASSIUM 3.5 MEQ/L (3.5-5.1); SODIUM (NA) 132 MEQ/L (136-145); TOTAL BILIRUBIN ADULT 0.5 MG/DL (0.2-1.0)
[2016-12-07] MEDS ORDERED: PROPOFOL 200 MG/20 ML AMP IV ONE (14:02)
--- NOTE | 2016-12-07 14:09 | GIPROC ---
[facility] [address] [facility]. [facility], [address] EGD PROCEDURE REPORT EXAM DATE: 12/07/2016 PATIENT NAME: Frankie Elam MR #: [id number] BIRTHDATE: 1960 ATTENDING: Lulú Villela MD ORDER #: [id number] POWER MANAGER: Eduardo Valentin and Mich Evangelista STATUS: inpatient INDICATIONS: The patient is a 56 yr old male here for an EGD due to abdominal pain, nausea, melena PROCEDURE PERFORMED: EGD w/ biopsy MEDICATIONS: None and Per Anesthesia. TOPICAL ANESTHETIC: none CONSENT: The patient understands the risks and benefits of the procedure and understands that these risks include, but are not limited to: sedation, allergic reaction, infection, perforation and/or bleeding. Alternative means of evaluation and treatment include, among others: physical exam, x-rays, and/or surgical intervention. The patient elects to proceed with this endoscopic procedure. medical equipment was checked for proper function. Hand hygiene and appropriate measures for infection prevention was taken. After the risks, benefits and alternatives of the procedure were thoroughly explained, Informed consent was verified, confirmed and timeout was successfully executed by the treatment team. The patient was anesthetized with topical anesthesia and the Pentax EG-[id number] endoscope was introduced through the mouth and advanced to the second portion of the duodenum. Retroflexed views revealed no abnormalities The gastroscope was then slowly withdrawn and removed. Gastritis antrum-biopsy external compression stomach fundus. ADVERSE EVENTS: There were no complications. IMPRESSIONS: 1. Gastritis antrum-biopsy external compression stomach fundus 2. Retroflexed views revealed no abnormalities RECOMMENDATIONS: 1. Await biopsy results. Biopsy results will not be ready for 7-10 days. If you don't hear from us in two weeks, call our office for biopsy results. 2. Anti-reflux regimen 3. Start PPI 4. Avoid NSAIDS PATIENT CONDITION: stable DISPOSITION: Inpatient REPEAT EXAM: EGD pending biopsy results Lulú Villela MD eSigned: Lulú Villela MD 12/07/2016 2:08 PM cc: PATIENT NAME: Frankie Elam MR#: [id number]
[2016-12-07] MEDS ORDERED: *RESP: ALBUTEROL 2.5 MG/3 ML NEB (PRN) PERIprocedural Use ONLY NEB ONE (14:28)
[2016-12-07] MEDS ORDERED: DO NOT ADM ANY ANTICOAGULANT DRUGS PRN (14:28)
[2016-12-07] MEDS ORDERED: *morphine SULFATE 8 MG/ML PERIprocedure ONLY ONE (14:29)
[2016-12-07] MEDS ORDERED: fentaNYL CITRATE 250 MCG/5 ML AMP ONE (15:39)
[2016-12-07] MEDS ORDERED: MORPHINE SULFATE 4 MG/ML INJ ONE (15:40)
--- NOTE | 2016-12-07 17:15 | HHI.PR ---
Subjective Remarks This is a pleasant 56 y/o Male who came to ER with Abdominal pain, that started massage coordinator yesterday, started on Epigastric area associated with nausea, and vomit and diarrhea, He had pancreatitis 3 years ago , the symptoms exactly like on that moment, recent admission with the same diagnosis some days ago, she abuse alcohol, but states is not been using alcohol for the last one week, Patient endorsed to nursing that he drinks " a few beers per day." Patient is unsure why he was diagnosed with pancreatitis 3 years ago. Patient with no fevers or chills. Patient with no chest pain or shortness breath at this time. the patient has Seizure disorder Depression, Hypertension, history of Brain aneurysm, COPD, Recurrent Pancreatitis. He started with Epigastric pain yesterday morning, radiated to the back, 8/10 in intensity, like Stabbing sensation, associated with Nausea and vomit. 12/06: Seen in his bedroom and discussed with nurse Miss Ruth whyte, also discussed with GI ELECTRICIAN BUS Miss Nelda Liu No Nausea, vomit or diarrhea, continue with abdominal pain. 12/07: Status post EGD, in his bedroom, no nausea, vomit or diarrhea, improving condition, will need to continue PPIs. Objective Vital Signs Date Time Temp Pulse Resp B/P Pulse Ox O2 Delivery O2 Flow Rate FiO2 12/07/16 14:47 106 16 122/79 93 Nasal Cannula 2 12/07/16 14:30 104 16 122/85 96 Nasal Cannula 2 12/07/16 14:20 99.9 101 18 122/81 94 Nasal Cannula 4 12/07/16 12:00 98.7 99 16 126/86 95 12/07/16 08:00 98.9 103 16 125/86 94 12/07/16 06:34 20 12/07/16 05:00 99.5 100 18 107/70 93 12/07/16 02:00 19 12/07/16 01:47 99.4 12/07/16 00:30 101.4 12/07/16 00:00 101.3 112 20 122/74 93 12/06/16 20:00 98.2 104 20 126/82 95 I/O 12/06/16 12/06/16 12/06/16 12/07/16 12/07/16 12/07/16 07:00 15:00 23:00 07:00 15:00 23:00 Intake Total 0 ml 880 ml 1193 ml 900 ml 125 ml Output Total 200 ml 300 ml 200 ml 1260 ml 0 ml Balance -200 ml -300 ml 680 ml -67 ml 900 ml 125 ml Intake Oral 0 ml 480 ml IV Total 880 ml 713 ml 125 ml Other 900 ml Output Urine Total 200 ml 300 ml 200 ml 1260 ml 0 ml Estimated Blood Loss 0 ml # Bowel Movements 0 1 Result Diagram: 12/07/16 1210 12/07/16 1210 Imaging Last Impressions Hepatobiliary Scan Nuclear Medicine 12/07/16 0000 Signed Impressions: Service Date/Time: Wednesday, December 07, 2016 10:10 - CONCLUSION: 1. Single episode of biliary enteric reflux. 2. Otherwise negative with no scintigraphic evidence of acute cholecystitis. Jayy Hyatt MD Abdomen/Pelvis CT 12/05/16 1046 Signed Impressions: Service Date/Time: Monday, December 05, 2016 11:33 - CONCLUSION: 1. CT findings characteristic of chronic pancreatitis with multiple pancreatic head calcifications and prominence of the pancreatic duct. 2. In addition, there are peripancreatic inflammatory changes around the tail of the pancreas extending up towards the gastric fundus characteristic of a superimposed acute pancreatitis. 3. A 2.9 cm left inguinal hernia which only contains fat. 4. Appendix is identified and is radiographically normal. 5. Bibasilar atelectasis/fibrosis. Jayy Hyatt MD Chest X-Ray 12/05/16 0858 Signed Impressions: Service Date/Time: Monday, December 05, 2016 09:32 - CONCLUSION: Minimal new air space disease right base. Pranay Andrade MD FACR Procedures No procedures done Other Results Laboratory Tests Test 12/05/16 12/05/16 12/07/16 09:05 10:45 12:10 Prothrombin Time 10.6 SEC Prothromb Time International 1.0 RATIO Ratio Activated Partial 31.4 SEC Thromboplast Time Total Creatine Kinase 60 U/L Troponin I LESS THAN 0.02 NG/ML Valproic Acid (Depakene) Level 5 MCG/ML Urine Color YELLOW Urine Turbidity CLEAR Urine pH 6.5 Urine Specific [place] 1.024 Urine Protein NEG mg/dL Urine Glucose (UA) NEG mg/dL Urine Ketones TRACE mg/dL Urine Occult Blood NEG Urine Nitrite NEG Urine Bilirubin NEG Urine Urobilinogen LESS THAN 2.0 MG/DL Urine Leukocyte Esterase NEG Urine RBC LESS THAN 1 /hpf Urine WBC LESS THAN 1 /hpf Urine Squamous Epithelial <1 /hpf Cells Urine Hyaline Casts 1 /lpf Microscopic Urinalysis Comment CULT NOT INDICATED White Blood Count 12.6 TH/MM3 Red Blood Count 3.62 MIL/MM3 Hemoglobin 11.1 GM/DL Hematocrit 33.5 % Mean Corpuscular Volume 92.6 FL Mean Corpuscular Hemoglobin 30.7 PG Mean Corpuscular Hemoglobin 33.2 % Concent Red Cell Distribution Width 13.6 % Platelet Count 207 TH/MM3 Mean Platelet Volume 9.0 FL Neutrophils (%) (Auto) 79.9 % Lymphocytes (%) (Auto) 10.8 % Monocytes (%) (Auto) 7.8 % Eosinophils (%) (Auto) 0.7 % Basophils (%) (Auto) 0.8 % Neutrophils # (Auto) 10.1 TH/MM3 Lymphocytes # (Auto) 1.4 TH/MM3 Monocytes # (Auto) 1.0 TH/MM3 Eosinophils # (Auto) 0.1 TH/MM3 Basophils # (Auto) 0.1 TH/MM3 CBC Comment DIFF FINAL Differential Comment Sodium Level 132 MEQ/L Potassium Level 3.5 MEQ/L Chloride Level 99 MEQ/L Carbon Dioxide Level 25.7 MEQ/L Anion Gap 7 MEQ/L Blood Urea Nitrogen 5 MG/DL Creatinine 0.63 MG/DL Estimat Glomerular Filtration 132 ML/MIN Rate Random Glucose 110 MG/DL Calcium Level 8.7 MG/DL Total Bilirubin 0.5 MG/DL Aspartate Amino Transf 8 U/L (AST/SGOT) Alanine Aminotransferase 15 U/L (ALT/SGPT) Alkaline Phosphatase 110 U/L Total Protein 7.0 GM/DL Albumin 2.9 GM/DL Lipase 300 U/L Objective Remarks GENERAL: No acute distress. SKIN: Focused skin assessment warm/dry. HEAD: Atraumatic. Normocephalic. EYES: Pupils equal and round. No scleral icterus. No injection or drainage. ENT: No nasal bleeding or discharge. Mucous membranes pink and moist. NECK: Trachea midline. No JVD. CARDIOVASCULAR: Regular rate and rhythm. No murmur appreciated. RESPIRATORY: No accessory muscle use. Clear to auscultation. Breath sounds equal bilaterally. GASTROINTESTINAL: Abdomen soft, patient with increased tenderness in the epigastrium, No rebound tenderness MUSCULOSKELETAL: No obvious deformities. No clubbing. No cyanosis. No edema. NEUROLOGICAL: Awake and alert. . Normal speech. PSYCHIATRIC: Appropriate mood and affect; insight and judgment normal. Medications and IVs Current Medications Medications (Trade) Dose Ordered Sig/Mariya Route Start Time Stop Time Status Last Admin (Lioresal) 5 mg TID PO 12/05/16 13:00 12/07/16 11:43 (Symbicort 160-4.5 Inh) 2 puff Q12HR INH 12/05/16 21:00 12/07/16 09:00 (Prinivil) 10 mg DAILY PO 12/06/16 09:00 12/07/16 11:43 (Remeron) 30 mg HS PO 12/05/16 21:00 12/06/16 20:02 Phenytoin 400 mg 400 mg HS PO 12/05/16 21:00 12/06/16 20:02 (NS 1000 ml Inj) 1,000 ml @ 125 mls/hr Q8H IV 12/05/16 12:55 12/07/16 08:59 (NS Flush) 2 ml UNSCH PRN IV FLUSH 12/05/16 13:00 (NS Flush) 2 ml BID IV FLUSH 12/05/16 21:00 12/06/16 20:01 (Tylenol) 650 mg Q4H PRN PO 12/05/16 13:00 12/07/16 00:29 (Zofran Inj) 4 mg Q6H PRN IVP 12/05/16 13:00 12/06/16 23:14 (Dulcolax Supp) 10 mg DAILY PRN RECTAL 12/05/16 13:00 (Colace) 100 mg Q12HR PO 12/05/16 13:00 12/07/16 11:43 (Narcan Inj) 0.4 mg UNSCH PRN IV 12/05/16 13:00 (Protonix Inj) 40 mg DAILY IV PUSH 12/05/16 13:30 12/07/16 11:44 (Mucinex Er) 600 mg BID PO 12/05/16 21:00 12/06/16 20:01 (Dilaudid Pf Inj) 0.5 mg Q3H PRN IV PUSH 12/05/16 19:00 12/07/16 15:09 (Habitrol 14 Mg Patch.24 Hr) 1 patch DAILY T-DERMAL 12/05/16 18:00 12/07/16 11:42 Miscellaneous Information 1 HS T-DERMAL 12/05/16 21:00 12/06/16 21:00 (Lactulose Liq) 30 ml DAILY PO 12/06/16 14:00 12/07/16 11:42 (Phazyme Chew) 125 mg Q8HR PO 12/06/16 14:00 12/06/16 18:53 Miscellaneous Information ALL NURSING DEPARTME... UNSCH PRN .XX 12/07/16 14:28 12/08/16 14:27 A/P Assessment and Plan 1. Recurrent pancreatitis following Lipase levels, Gastric protection, GI specialist following recommended to start liquid diet, continue present care with IV fluids, pain medicine. Improving condition. status post EGD and found Gastritis. 2. Seizure disorder, Subtherapeutic Dilantin level, continue Ativan PRN for Seizures, Telemetry, Continue Dilantin 400 mg daily 3. Hyponatremia probable [place]. 4. Hypertension to continue home medicines 5. COPD to continue Bronchodilator, Mucolytic and incentive spirometry 6. Tobacco dependence strongly recommended to stop smoking 7. Alcohol abuse the patient states he is not drinking beer from the last one week. 8. Hepatitis C by history not on any medicine. 9. hypokalemia replaced and following. DVT prophylaxis: bilat SCDs Code Status Full Code. Discussed Condition With Patient Discharge Planning Expected for tomorrow. Jermaine Mora MD Dec 07, 2016 17:15
[2016-12-07] MEDS ORDERED: POTASSIUM CHLORIDE 20 MEQ CONTROLLED RELEASE TAB PO ONE (18:00)
[2016-12-07] MEDS: REMOVE OLD PATCH T-DERMAL SCH (21:00)
[2016-12-07] MEDS: PHENYTOIN SODIUM 100 MG CAP PO SCH (21:02)
[2016-12-07] MEDS: MIRTAZAPINE 15 MG TAB PO SCH (21:03)
[2016-12-08] VITALS (7 sets, daily range): BP systolic 106–139; BP diastolic 74–86; PULSE 88–107; RESP 16–19; TEMP 96.2–99.8; O2SAT 92–97
[2016-12-08] MEDS: RESP: ALBUTEROL 2.5 MG/IPRATROPIUM 0.5 MG NEB (SCH) NEB ×6 (00:08→20:56)
[2016-12-08] MEDS: HYDROmorphone HCL PF 1 MG/ML VIAL IV PUSH PRN ×8 (00:12→22:31)
[2016-12-08] MEDS: BUDESONIDE-FORMOTEROL 160/4.5 MCG INHALER INH SCH ×3 (00:14→20:43)
[2016-12-08] MEDS: SIMETHICONE 125 MG CHEWABLE TAB PO SCH ×3 (07:41→22:00)
[2016-12-08 08:08] LABS: POTASSIUM 3.4 MEQ/L (3.5-5.1)
--- NOTE | 2016-12-08 08:30 | HHI.PR ---
Subjective Remarks This is a pleasant 56 y/o Male who came to ER with Abdominal pain, that started polarity tester yesterday, started on Epigastric area associated with nausea, and vomit and diarrhea, He had pancreatitis 3 years ago , the symptoms exactly like on that moment, recent admission with the same diagnosis some days ago, she abuse alcohol, but states is not been using alcohol for the last one week, Patient endorsed to nursing that he drinks " a few beers per day." Patient is unsure why he was diagnosed with pancreatitis 3 years ago. Patient with no fevers or chills. Patient with no chest pain or shortness breath at this time. the patient has Seizure disorder Depression, Hypertension, history of Brain aneurysm, COPD, Recurrent Pancreatitis. He started with Epigastric pain yesterday morning, radiated to the back, 8/10 in intensity, like Stabbing sensation, associated with Nausea and vomit. 12/06: Seen in his bedroom and discussed with nurse Miss Ruth whyte, also discussed with GI [employer] MANAGER Miss Nelda Liu No Nausea, vomit or diarrhea, continue with abdominal pain. 12/07: Status post EGD, in his bedroom, no nausea, vomit or diarrhea, improving condition, will need to continue PPIs. 12/08: has low grade fever, no Nausea, vomit or diarrhea, continue with abdominal discomfort, added broad spectrum antibiotics. the only source positive until now for fever is a probable pulmonary infiltrate asked for new CXR found pathology on both bases. Objective Vital Signs Date Time Temp Pulse Resp B/P Pulse Ox O2 Delivery O2 Flow Rate FiO2 12/08/16 07:50 19 12/08/16 05:00 99.7 92 18 106/75 93 12/08/16 01:00 98.9 88 17 126/79 93 12/07/16 20:00 100.0 105 18 116/72 93 12/07/16 16:00 100.1 103 16 117/76 93 12/07/16 14:47 106 16 122/79 93 Nasal Cannula 2 12/07/16 14:30 104 16 122/85 96 Nasal Cannula 2 12/07/16 14:20 99.9 101 18 122/81 94 Nasal Cannula 4 12/07/16 12:00 98.7 99 16 126/86 95 I/O 12/07/16 12/07/16 12/07/16 12/08/16 4/22/17 4/22/17 07:00 15:00 23:00 07:00 15:00 23:00 Intake Total 1193 ml 900 ml 365 ml 2362 ml Output Total 1260 ml 0 ml Balance -67 ml 900 ml 365 ml 2362 ml Intake Oral 480 ml 240 ml IV Total 713 ml 125 ml 2362 ml Other 900 ml Output Urine Total 1260 ml 0 ml Estimated Blood Loss 0 ml # Bowel Movements 1 Result Diagram: 12/07/16 1210 12/08/16 0705 Imaging Last Impressions Hepatobiliary Scan Nuclear Medicine 12/07/16 0000 Signed Impressions: Service Date/Time: Wednesday, December 07, 2016 10:10 - CONCLUSION: 1. Single episode of biliary enteric reflux. 2. Otherwise negative with no scintigraphic evidence of acute cholecystitis. Jayy Hyatt MD Abdomen/Pelvis CT 12/05/16 1046 Signed Impressions: Service Date/Time: Monday, December 05, 2016 11:33 - CONCLUSION: 1. CT findings characteristic of chronic pancreatitis with multiple pancreatic head calcifications and prominence of the pancreatic duct. 2. In addition, there are peripancreatic inflammatory changes around the tail of the pancreas extending up towards the gastric fundus characteristic of a superimposed acute pancreatitis. 3. A 2.9 cm left inguinal hernia which only contains fat. 4. Appendix is identified and is radiographically normal. 5. Bibasilar atelectasis/fibrosis. Jayy Hyatt MD Chest X-Ray 12/05/16 0858 Signed Impressions: Service Date/Time: Monday, December 05, 2016 09:32 - CONCLUSION: Minimal new air space disease right base. Pranay Andrade MD FACR Procedures No procedures done Other Results Laboratory Tests Test 12/05/16 12/05/16 12/07/16 12/08/16 09:05 10:45 12:10 07:05 Prothrombin Time 10.6 SEC Prothromb Time International 1.0 RATIO Ratio Activated Partial 31.4 SEC Thromboplast Time Total Creatine Kinase 60 U/L Troponin I LESS THAN 0.02 NG/ML Valproic Acid (Depakene) Level 5 MCG/ML Urine Color YELLOW Urine Turbidity CLEAR Urine pH 6.5 Urine Specific [place] 1.024 Urine Protein NEG mg/dL Urine Glucose (UA) NEG mg/dL Urine Ketones TRACE mg/dL Urine Occult Blood NEG Urine Nitrite NEG Urine Bilirubin NEG Urine Urobilinogen LESS THAN 2.0 MG/DL Urine Leukocyte Esterase NEG Urine RBC LESS THAN 1 /hpf Urine WBC LESS THAN 1 /hpf Urine Squamous Epithelial <1 /hpf Cells Urine Hyaline Casts 1 /lpf Microscopic Urinalysis Comment CULT NOT INDICATED White Blood Count 12.6 TH/MM3 Red Blood Count 3.62 MIL/MM3 Hemoglobin 11.1 GM/DL Hematocrit 33.5 % Mean Corpuscular Volume 92.6 FL Mean Corpuscular Hemoglobin 30.7 PG Mean Corpuscular Hemoglobin 33.2 % Concent Red Cell Distribution Width 13.6 % Platelet Count 207 TH/MM3 Mean Platelet Volume 9.0 FL Neutrophils (%) (Auto) 79.9 % Lymphocytes (%) (Auto) 10.8 % Monocytes (%) (Auto) 7.8 % Eosinophils (%) (Auto) 0.7 % Basophils (%) (Auto) 0.8 % Neutrophils # (Auto) 10.1 TH/MM3 Lymphocytes # (Auto) 1.4 TH/MM3 Monocytes # (Auto) 1.0 TH/MM3 Eosinophils # (Auto) 0.1 TH/MM3 Basophils # (Auto) 0.1 TH/MM3 CBC Comment DIFF FINAL Differential Comment Sodium Level 132 MEQ/L Chloride Level 99 MEQ/L Carbon Dioxide Level 25.7 MEQ/L Anion Gap 7 MEQ/L Blood Urea Nitrogen 5 MG/DL Creatinine 0.63 MG/DL Estimat Glomerular Filtration 132 ML/MIN Rate Random Glucose 110 MG/DL Calcium Level 8.7 MG/DL Total Bilirubin 0.5 MG/DL Aspartate Amino Transf 8 U/L (AST/SGOT) Alanine Aminotransferase 15 U/L (ALT/SGPT) Alkaline Phosphatase 110 U/L Total Protein 7.0 GM/DL Albumin 2.9 GM/DL Lipase 300 U/L Potassium Level 3.4 MEQ/L Magnesium Level 2.0 MG/DL Objective Remarks GENERAL: No acute distress. SKIN: Focused skin assessment warm/dry. HEAD: Atraumatic. Normocephalic. EYES: Pupils equal and round. No scleral icterus. No injection or drainage. ENT: No nasal bleeding or discharge. Mucous membranes pink and moist. NECK: Trachea midline. No JVD. CARDIOVASCULAR: Regular rate and rhythm. No murmur appreciated. RESPIRATORY: No accessory muscle use. Clear to auscultation. Breath sounds equal bilaterally. GASTROINTESTINAL: Abdomen soft, patient with increased tenderness in the epigastrium, No rebound tenderness MUSCULOSKELETAL: No obvious deformities. No clubbing. No cyanosis. No edema. NEUROLOGICAL: Awake and alert. . Normal speech. PSYCHIATRIC: Appropriate mood and affect; insight and judgment normal. Medications and IVs Current Medications Medications (Trade) Dose Ordered Sig/Mariya Route Start Time Stop Time Status Last Admin (Lioresal) 5 mg TID PO 12/05/16 13:00 12/07/16 17:54 (Symbicort 160-4.5 Inh) 2 puff Q12HR INH 12/05/16 21:00 12/08/16 00:14 (Prinivil) 10 mg DAILY PO 12/06/16 09:00 12/07/16 11:43 (Remeron) 30 mg HS PO 12/05/16 21:00 12/07/16 21:03 Phenytoin 400 mg 400 mg HS PO 12/05/16 21:00 12/07/16 21:02 (NS 1000 ml Inj) 1,000 ml @ 125 mls/hr Q8H IV 12/05/16 12:55 12/07/16 20:55 (NS Flush) 2 ml UNSCH PRN IV FLUSH 12/05/16 13:00 (NS Flush) 2 ml BID IV FLUSH 12/05/16 21:00 12/07/16 21:05 (Tylenol) 650 mg Q4H PRN PO 12/05/16 13:00 12/07/16 00:29 (Zofran Inj) 4 mg Q6H PRN IVP 12/05/16 13:00 12/06/16 23:14 (Dulcolax Supp) 10 mg DAILY PRN RECTAL 12/05/16 13:00 (Colace) 100 mg Q12HR PO 12/05/16 13:00 12/07/16 11:43 (Narcan Inj) 0.4 mg UNSCH PRN IV 12/05/16 13:00 (Protonix Inj) 40 mg DAILY IV PUSH 12/05/16 13:30 12/07/16 11:44 (Mucinex Er) 600 mg BID PO 12/05/16 21:00 12/06/16 20:01 (Dilaudid Pf Inj) 0.5 mg Q3H PRN IV PUSH 12/05/16 19:00 12/08/16 06:09 (Habitrol 14 Mg Patch.24 Hr) 1 patch DAILY T-DERMAL 12/05/16 18:00 12/07/16 11:42 Miscellaneous Information 1 HS T-DERMAL 12/05/16 21:00 12/07/16 21:00 (Lactulose Liq) 30 ml DAILY PO 12/06/16 14:00 12/07/16 11:42 (Phazyme Chew) 125 mg Q8HR PO 12/06/16 14:00 12/06/16 18:53 Miscellaneous Information ALL NURSING DEPARTME... UNSCH PRN .XX 12/07/16 14:28 12/08/16 14:27 (Creon [id number]) 1 cap TID PO 12/08/16 09:00 A/P Assessment and Plan 1. Recurrent pancreatitis following Lipase levels, Gastric protection, GI specialist following recommended to start liquid diet, continue present care with IV fluids, pain medicine. Improving condition. status post EGD and found Gastritis. 2. Seizure disorder, Subtherapeutic Dilantin level, continue Ativan PRN for Seizures, Telemetry, Continue Dilantin 400 mg daily 3. Hyponatremia probable Potomania. 4. Hypertension to continue home medicines 5. COPD to continue Bronchodilator, Mucolytic and incentive spirometry 6. Tobacco dependence strongly recommended to stop smoking 7. Alcohol abuse the patient states he is not drinking beer from the last one week. 8. Hepatitis C by history not on any medicine. 9. hypokalemia replaced and following. 10. Fever added Empiric management with Ceftriaxone and Azithromycin he came with bilateral infiltrate but his WBC is been stable, new CXR showed persistent bases infiltrate following blood cultures. DVT prophylaxis: bilat SCDs Code Status Full Code. Discussed Condition With Patient Discharge Planning Expected on the next two to three days. Jemraine Mora MD Dec 08, 2016 08:30
--- NOTE | 2016-12-08 09:09 | RADRPT ---
EXAM DATE/TIME: 12/08/2016 08:55 [facility] COMPARISON: CHEST PA & LAT, December 06, 2014, 16:18. INDICATIONS : Evaluate for pneumonia. Patient complains of cough and shortness of breath. MEDICAL HISTORY : Chronic obstructive pulmonary disease. SURGICAL HISTORY : None. ENCOUNTER: Subsequent ACUITY: 4 - 6 days PAIN SCORE: 0/10 LOCATION: chest FINDINGS: The heart size is normal. There is some mild increased interstitial markings at the bases. The aerati on of the lungs is improving when compared to the prior exam. No significant effusion is seen. There is a healed left rib fracture. CONCLUSION: Persistent but improving interstitial disease at the bases. Donnie Macias MD on December 08, 2016 at 9:02 Board Certified Radiologist. This report was verified electronically.
[2016-12-08] MEDS: DOCUSATE SODIUM 100 MG CAP PO SCH ×2 (09:15→20:43)
[2016-12-08] MEDS: LISINOPRIL 10 MG TAB PO SCH (09:24)
[2016-12-08] MEDS: BACLOFEN 10 MG TAB PO SCH ×3 (09:24→18:17)
[2016-12-08] MEDS: guaiFENesin E.R. 600 MG TAB PO SCH ×2 (09:24→20:42)
[2016-12-08] MEDS: LACTULOSE SYRUP 20 GM/30 ML CUP PO SCH (09:25)
[2016-12-08] MEDS: NICOTINE 14 MG/24 HR PATCH T-DERMAL SCH (09:26)
[2016-12-08] MEDS: PANTOPRAZOLE SODIUM 40 MG VIAL IV PUSH SCH (09:26)
[2016-12-08] MEDS: SODIUM CHLORIDE 0.9% FLUSH 10 ML FLUSH IV FLUSH SCH ×2 (09:26→20:40)
[2016-12-08] MEDS: LIPASE/PROTEASE/AMYLASE (24,000/76,000/120,000) CAP PO SCH ×3 (09:30→18:17)
[2016-12-08] MEDS: AZITHROMYCIN INJ 500 MG in SODIUM CHLOR 0.9% 250 ML INJ 250 ML IV SCH (09:40)
[2016-12-08] MEDS ORDERED: cefTRIAXone INJ 1,000 MG in SODIUM CHLORIDE 0.9% INJ 100 ML IV SCH (10:00)
[2016-12-08] MEDS ORDERED: POTASSIUM CHLORIDE 20 MEQ CONTROLLED RELEASE TAB PO ONE ×2 (13:45→16:00)
--- NOTE | 2016-12-08 15:41 | HHI.GIFU ---
GI Follow-up Note Consult Follow-up Subjective: Patient laying in bed comfortably, loose stools-he was taking laxatives.Pain better, would like diet advanced.EGD results discussed with him - will need eus next week. Objective: PHYSICAL EXAMINATION: Vitals signs stable No fever Vital Signs Date Time Temp Pulse Resp B/P Pulse Ox O2 Delivery O2 Flow Rate FiO2 12/08/16 12:00 97.4 107 16 129/81 92 12/08/16 08:39 94 21 12/08/16 08:00 99.8 95 16 135/85 95 12/08/16 07:50 19 HEENT: Pupils round and reactive to light; normocephalic; atraumatic; no jaundice. Throat is clear. NECK: Neck is supple, no JVD, no lymphadenopathy. CHEST: Chest is clear to auscultation and percussion. CARDIAC: Regular rate and rhythm with no murmur gallop or rubs. ABDOMEN: Soft, nondistended, nontender; no hepatosplenomegaly; bowel sounds are present in all four quadrants. EXTREMITIES: No clubbing, cyanosis, or edema. SKIN: Normal; no rash; no jaundice. SATURATION DIVER: No focal deficits; alert and oriented times three. Available Data (labs, X- Rays, Procedues) : Laboratory Tests Test 12/07/16 12/08/16 12/08/16 12:10 07:05 09:56 White Blood Count 12.6 TH/MM3 Red Blood Count 3.62 MIL/MM3 Hemoglobin 11.1 GM/DL Hematocrit 33.5 % Mean Corpuscular Volume 92.6 FL Mean Corpuscular Hemoglobin 30.7 PG Mean Corpuscular Hemoglobin 33.2 % Concent Red Cell Distribution Width 13.6 % Platelet Count 207 TH/MM3 Mean Platelet Volume 9.0 FL Neutrophils (%) (Auto) 79.9 % Lymphocytes (%) (Auto) 10.8 % Monocytes (%) (Auto) 7.8 % Eosinophils (%) (Auto) 0.7 % Basophils (%) (Auto) 0.8 % Neutrophils # (Auto) 10.1 TH/MM3 Lymphocytes # (Auto) 1.4 TH/MM3 Monocytes # (Auto) 1.0 TH/MM3 Eosinophils # (Auto) 0.1 TH/MM3 Basophils # (Auto) 0.1 TH/MM3 CBC Comment DIFF FINAL Differential Comment Sodium Level 132 MEQ/L Potassium Level 3.5 MEQ/L 3.4 MEQ/L Chloride Level 99 MEQ/L Carbon Dioxide Level 25.7 MEQ/L Anion Gap 7 MEQ/L Blood Urea Nitrogen 5 MG/DL Creatinine 0.63 MG/DL Estimat Glomerular Filtration 132 ML/MIN Rate Random Glucose 110 MG/DL Calcium Level 8.7 MG/DL Total Bilirubin 0.5 MG/DL Aspartate Amino Transf 8 U/L (AST/SGOT) Alanine Aminotransferase 15 U/L (ALT/SGPT) Alkaline Phosphatase 110 U/L Total Protein 7.0 GM/DL Albumin 2.9 GM/DL Lipase 300 U/L Magnesium Level 2.0 MG/DL Carcinoembryonic Antigen 2.5 NG/ML CA 19-9 Antigen 1.6 U/ML ASSESSMENT/PLAN: acute exacerbation of chronic pancreatitis abnormal looking pancreas, pancreatic duct , external compression in stomach- will need eus loose stools-patient on lactulose/stool softener-we will stop lactulose low grade fever Recommendations start Creon with meals low fat diet eus next week stool c diff avoid etoh It was a pleasure seeing Frankie Elam. Thank you for this consult. Entered by: Lulú Haro MD Dec 08, 2016 15:41
[2016-12-08] MEDS: SODIUM CHLOR 0.9% 1000 ML INJ 1,000 ML IV SCH ×2 (16:01→21:00)
[2016-12-08] MEDS: MIRTAZAPINE 15 MG TAB PO SCH (20:40)
[2016-12-08] MEDS: PHENYTOIN SODIUM 100 MG CAP PO SCH (20:40)
[2016-12-08] MEDS: REMOVE OLD PATCH T-DERMAL SCH (20:44)
[2016-12-09] VITALS: BP 155/87; PULSE 84; RESP 18; TEMP 96.7; O2SAT 97
[2016-12-09] MEDS: HYDROmorphone HCL PF 1 MG/ML VIAL IV PUSH PRN ×4 (01:38→11:48)
[2016-12-09 04:00] VITALS: BP 138/91; PULSE 81; RESP 18; TEMP 96.8; O2SAT 97
[2016-12-09] MEDS: SIMETHICONE 125 MG CHEWABLE TAB PO SCH ×3 (05:17→22:06)
[2016-12-09 07:24] LABS: BASOPHIL # 0.1 TH/MM3 (0-0.2); BASOPHIL % 0.7 % (0.0-2.0); EOSINOPHIL # 0.4 TH/MM3 (0-0.4); EOSINOPHIL % 5.1 % (0.0-4.0); HEMATOCRIT 27.7 % (39.0-51.0); HEMO FLAGS DIFF FINAL; LYMPH % 14.5 % (9.0-44.0); LYMPHOCYTE # 1.1 TH/MM3 (1.0-4.8); MEAN CELL VOLUME 91.6 FL (80.0-100.0); MEAN CORPUSCULAR HGB CONC 34.9 % (32.0-36.0); MONO % 11.1 % (0.0-8.0); NEUT % 68.6 % (16.0-70.0); PLATELET COUNT 258 TH/MM3 (150-450); RED BLOOD COUNT 3.03 MIL/MM3 (4.50-5.90); WHITE BLOOD COUNT 7.3 TH/MM3 (4.0-11.0)
[2016-12-09 07:50] LABS: BICARBONATE 22.6 MEQ/L (21.0-32.0); MAGNESIUM 2.1 MG/DL (1.5-2.5); POTASSIUM 3.6 MEQ/L (3.5-5.1)
[2016-12-09 08:00] VITALS: BP 163/94; PULSE 91; RESP 16; TEMP 97.4; O2SAT 95
[2016-12-09] MEDS: RESP: ALBUTEROL 2.5 MG/IPRATROPIUM 0.5 MG NEB (SCH) NEB ×4 (08:00→15:56)
[2016-12-09] MEDS: LIPASE/PROTEASE/AMYLASE (24,000/76,000/120,000) CAP PO SCH ×3 (08:11→17:20)
[2016-12-09] MEDS: guaiFENesin E.R. 600 MG TAB PO SCH ×2 (08:11→22:05)
[2016-12-09] MEDS: BACLOFEN 10 MG TAB PO SCH ×3 (08:11→17:21)
[2016-12-09] MEDS: DOCUSATE SODIUM 100 MG CAP PO SCH ×2 (08:11→21:00)
[2016-12-09] MEDS: LISINOPRIL 10 MG TAB PO SCH (08:11)
[2016-12-09] MEDS: NICOTINE 14 MG/24 HR PATCH T-DERMAL SCH (08:11)
[2016-12-09] MEDS: AZITHROMYCIN INJ 500 MG in SODIUM CHLOR 0.9% 250 ML INJ 250 ML IV SCH (08:12)
[2016-12-09] MEDS: PANTOPRAZOLE SODIUM 40 MG VIAL IV PUSH SCH (08:12)
[2016-12-09] MEDS: SODIUM CHLORIDE 0.9% FLUSH 10 ML FLUSH IV FLUSH SCH ×2 (08:19→22:07)
[2016-12-09] MEDS: BUDESONIDE-FORMOTEROL 160/4.5 MCG INHALER INH SCH ×2 (08:19→22:07)
--- NOTE | 2016-12-09 08:32 | HHI.PR ---
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 Patient with no fevers or chills. Patient with no chest pain or shortness breath at this time. the patient has Seizure disorder Depression, Hypertension, history of Brain aneurysm, COPD, Recurrent Pancreatitis. He started with Epigastric pain yesterday morning, radiated to the back, 8/10 in intensity, like Stabbing sensation, associated with Nausea and vomit. 12/06: Seen in his bedroom and discussed with nurse Miss Ruth whyte, also discussed with GI COLOR BLENDER Miss Nelda Liu. 12/07: Status post EGD, in his bedroom, will need to continue PPIs. 12/08: Low grade fever, started on Empiric antibiotics, he only probable source may be related to lung infiltrates, new CXR found pathology on Both bases. 12/09: Stable No nausea, vomit or diarrhea, he states had some loose stools, as per GI specialist recommended to get a C Diff test at this time he is improving and formed stool now but sample taken, in standing position, continue with Abdominal discomfort. Objective Vital Signs Date Time Temp Pulse Resp B/P Pulse Ox O2 Delivery O2 Flow Rate FiO2 12/09/16 05:27 19 12/09/16 04:00 96.8 81 18 138/91 97 12/09/16 00:00 96.7 84 18 155/87 97 12/08/16 20:00 96.2 93 19 139/74 97 12/08/16 16:00 98.6 104 18 139/86 93 12/08/16 12:00 97.4 107 16 129/81 92 12/08/16 08:39 94 21 I/O 12/08/16 12/08/16 12/08/16 12/09/16 12/09/16 12/09/16 07:00 15:00 23:00 07:00 15:00 23:00 Intake Total 2362 ml 1754 ml 1435 ml 480 ml Output Total 600 ml Balance 2362 ml 1754 ml 1435 ml -120 ml Intake Oral 840 ml 480 ml 480 ml IV Total 2362 ml 914 ml 955 ml Output Urine Total 600 ml # Voids 2 2 # Bowel Movements 1 0 0 Result Diagram: 12/09/16 0625 12/09/16 0625 Imaging Last Impressions Chest X-Ray 12/08/16 0000 Signed Impressions: Service Date/Time: Thursday, December 08, 2016 08:55 - CONCLUSION: Persistent but improving interstitial disease at the bases. Donnie Macias MD Hepatobiliary Scan Nuclear Medicine 12/07/16 0000 Signed Impressions: Service Date/Time: Wednesday, December 07, 2016 10:10 - CONCLUSION: 1. Single episode of biliary enteric reflux. 2. Otherwise negative with no scintigraphic evidence of acute cholecystitis. Jayy Hyatt MD Abdomen/Pelvis CT 12/05/16 1046 Signed Impressions: Service Date/Time: Monday, December 05, 2016 11:33 - CONCLUSION: 1. CT findings characteristic of chronic pancreatitis with multiple pancreatic head calcifications and prominence of the pancreatic duct. 2. In addition, there are peripancreatic inflammatory changes around the tail of the pancreas extending up towards the gastric fundus characteristic of a superimposed acute pancreatitis. 3. A 2.9 cm left inguinal hernia which only contains fat. 4. Appendix is identified and is radiographically normal. 5. Bibasilar atelectasis/fibrosis. Jayy Hyatt MD Procedures No procedures done Other Results Laboratory Tests Test 12/05/16 12/05/16 12/07/16 12/08/16 09:05 10:45 12:10 09:56 Prothrombin Time 10.6 SEC Prothromb Time International 1.0 RATIO Ratio Activated Partial 31.4 SEC Thromboplast Time Total Creatine Kinase 60 U/L Troponin I LESS THAN 0.02 NG/ML Valproic Acid (Depakene) Level 5 MCG/ML Urine Color YELLOW Urine Turbidity CLEAR Urine pH 6.5 Urine Specific [place] 1.024 Urine Protein NEG mg/dL Urine Glucose (UA) NEG mg/dL Urine Ketones TRACE mg/dL Urine Occult Blood NEG Urine Nitrite NEG Urine Bilirubin NEG Urine Urobilinogen LESS THAN 2.0 MG/DL Urine Leukocyte Esterase NEG Urine RBC LESS THAN 1 /hpf Urine WBC LESS THAN 1 /hpf Urine Squamous Epithelial <1 /hpf Cells Urine Hyaline Casts 1 /lpf Microscopic Urinalysis Comment CULT NOT INDICATED Total Bilirubin 0.5 MG/DL Aspartate Amino Transf 8 U/L (AST/SGOT) Alanine Aminotransferase 15 U/L (ALT/SGPT) Alkaline Phosphatase 110 U/L Total Protein 7.0 GM/DL Albumin 2.9 GM/DL Lipase 300 U/L Carcinoembryonic Antigen 2.5 NG/ML CA 19-9 Antigen 1.6 U/ML Test 12/09/16 06:25 White Blood Count 7.3 TH/MM3 Red Blood Count 3.03 MIL/MM3 Hemoglobin 9.7 GM/DL Hematocrit 27.7 % Mean Corpuscular Volume 91.6 FL Mean Corpuscular Hemoglobin 32.0 PG Mean Corpuscular Hemoglobin 34.9 % Concent Red Cell Distribution Width 14.0 % Platelet Count 258 TH/MM3 Mean Platelet Volume 9.0 FL Neutrophils (%) (Auto) 68.6 % Lymphocytes (%) (Auto) 14.5 % Monocytes (%) (Auto) 11.1 % Eosinophils (%) (Auto) 5.1 % Basophils (%) (Auto) 0.7 % Neutrophils # (Auto) 5.0 TH/MM3 Lymphocytes # (Auto) 1.1 TH/MM3 Monocytes # (Auto) 0.8 TH/MM3 Eosinophils # (Auto) 0.4 TH/MM3 Basophils # (Auto) 0.1 TH/MM3 CBC Comment DIFF FINAL Differential Comment Sodium Level 138 MEQ/L Potassium Level 3.6 MEQ/L Chloride Level 107 MEQ/L Carbon Dioxide Level 22.6 MEQ/L Anion Gap 8 MEQ/L Blood Urea Nitrogen 3 MG/DL Creatinine 0.58 MG/DL Estimat Glomerular Filtration 145 ML/MIN Rate Random Glucose 107 MG/DL Calcium Level 8.4 MG/DL Phosphorus Level 2.9 MG/DL Magnesium Level 2.1 MG/DL Objective Remarks GENERAL: No acute distress. SKIN: Focused skin assessment warm/dry. HEAD: Atraumatic. Normocephalic. EYES: Pupils equal and round. No scleral icterus. No injection or drainage. ENT: No nasal bleeding or discharge. Mucous membranes pink and moist. NECK: Trachea midline. No JVD. CARDIOVASCULAR: Regular rate and rhythm. No murmur appreciated. RESPIRATORY: No accessory muscle use. Clear to auscultation. Breath sounds equal bilaterally. GASTROINTESTINAL: Abdomen soft, patient with increased tenderness in the epigastrium, No rebound tenderness MUSCULOSKELETAL: No obvious deformities. No clubbing. No cyanosis. No edema. NEUROLOGICAL: Awake and alert. . Normal speech. PSYCHIATRIC: Appropriate mood and affect; insight and judgment normal. Medications and IVs Current Medications Medications (Trade) Dose Ordered Sig/Mariya Route Start Time Stop Time Status Last Admin (Lioresal) 5 mg TID PO 12/05/16 13:00 12/09/16 08:11 (Symbicort 160-4.5 Inh) 2 puff Q12HR INH 12/05/16 21:00 12/09/16 08:19 (Prinivil) 10 mg DAILY PO 12/06/16 09:00 12/09/16 08:11 (Remeron) 30 mg HS PO 12/05/16 21:00 12/08/16 20:40 Phenytoin 400 mg 400 mg HS PO 12/05/16 21:00 12/08/16 20:40 (NS 1000 ml Inj) 1,000 ml @ 125 mls/hr Q8H IV 12/05/16 12:55 12/08/16 21:00 (NS Flush) 2 ml UNSCH PRN IV FLUSH 12/05/16 13:00 (NS Flush) 2 ml BID IV FLUSH 12/05/16 21:00 12/08/16 20:40 (Tylenol) 650 mg Q4H PRN PO 12/05/16 13:00 12/07/16 00:29 (Zofran Inj) 4 mg Q6H PRN IVP 12/05/16 13:00 12/06/16 23:14 (Dulcolax Supp) 10 mg DAILY PRN RECTAL 12/05/16 13:00 (Colace) 100 mg Q12HR PO 12/05/16 13:00 12/09/16 08:11 (Narcan Inj) 0.4 mg UNSCH PRN IV 12/05/16 13:00 (Protonix Inj) 40 mg DAILY IV PUSH 12/05/16 13:30 12/09/16 08:12 (Mucinex Er) 600 mg BID PO 12/05/16 21:00 12/09/16 08:11 (Dilaudid Pf Inj) 0.5 mg Q3H PRN IV PUSH 12/05/16 19:00 12/09/16 08:12 (Habitrol 14 Mg Patch.24 Hr) 1 patch DAILY T-DERMAL 12/05/16 18:00 12/09/16 08:11 Miscellaneous Information 1 HS T-DERMAL 12/05/16 21:00 12/08/16 20:44 (Phazyme Chew) 125 mg Q8HR PO 12/06/16 14:00 12/08/16 12:53 Amylase/Lipase/ Protease 1 cap 1 cap TID PO 12/08/16 09:00 12/09/16 08:11 Azithromycin 500 mg/Sodium Chloride 250 ml @ 250 mls/hr Q24H IV 12/08/16 09:00 12/09/16 08:12 (Rocephin Inj/NS Inj) 100 ml @ 200 mls/hr Q24H IV 12/09/16 13:00 A/P Assessment and Plan 1. Recurrent pancreatitis following Lipase levels, Gastric protection, GI specialist following recommended to start liquid diet, continue present care with IV fluids, pain medicine. Improving condition. status post EGD and found Gastritis. 2. Seizure disorder, Subtherapeutic Dilantin level, continue Ativan PRN for Seizures, Telemetry, Continue Dilantin 400 mg daily 3. Hyponatremia probable Potomania. Improved 4. Hypertension to continue home medicines 5. COPD to continue Bronchodilator, Mucolytic and incentive spirometry 6. Tobacco dependence strongly recommended to stop smoking 7. Alcohol abuse the patient states he is not drinking beer from the last one week. 8. Hepatitis C by history not on any medicine. 9. hypokalemia replaced 10. Fever added Empiric management with Ceftriaxone and Azithromycin he came with bilateral infiltrate but his WBC is been stable, new CXR showed persistent bases infiltrate following blood cultures. Improved Leukocytosis improved. DVT prophylaxis: bilat SCDs Pain medicines to by mouth Code Status Full Code. Discussed Condition With Patient Discharge Planning Expected for tomorrow in am Jermaine Mora MD Dec 09, 2016 08:32
[2016-12-09] MEDS ORDERED: POTASSIUM CHLORIDE 20 MEQ CONTROLLED RELEASE TAB PO ONE (09:00)
[2016-12-09] MEDS: SODIUM CHLOR 0.9% 1000 ML INJ 1,000 ML IV SCH ×2 (11:45→22:06)
[2016-12-09 12:00] VITALS: BP 139/86; PULSE 86; RESP 18; TEMP 98; O2SAT 94
[2016-12-09] MEDS: cefTRIAXone INJ 1,000 MG in SODIUM CHLORIDE 0.9% INJ 100 ML IV SCH (12:00)
--- NOTE | 2016-12-09 12:49 | HHI.GIFU ---
Subjective Remarks Pt reports that his abdominal pain is improving. He is tolerating soft diet and would like to advance. He had a BM this morning which was loose/mushy brown stool (Gi Issa ) Objective Vitals I&O Vital Signs Date Time Temp Pulse Resp B/P Pulse Ox O2 Delivery O2 Flow Rate FiO2 12/09/16 08:00 97.4 91 16 163/94 95 12/09/16 05:27 19 12/09/16 04:00 96.8 81 18 138/91 97 12/09/16 00:00 96.7 84 18 155/87 97 12/08/16 20:00 96.2 93 19 139/74 97 12/08/16 16:00 98.6 104 18 139/86 93 I/O 12/08/16 12/08/16 12/08/16 12/09/16 12/09/16 12/09/16 07:00 15:00 23:00 07:00 15:00 23:00 Intake Total 2362 ml 1754 ml 1435 ml 480 ml 240 ml Output Total 600 ml Balance 2362 ml 1754 ml 1435 ml -120 ml 240 ml Intake Oral 840 ml 480 ml 480 ml 240 ml IV Total 2362 ml 914 ml 955 ml Output Urine Total 600 ml # Voids 2 2 # Bowel Movements 1 0 0 Laboratory Laboratory Tests Test 12/09/16 06:25 White Blood Count 7.3 Red Blood Count 3.03 Hemoglobin 9.7 Hematocrit 27.7 Mean Corpuscular Volume 91.6 Mean Corpuscular Hemoglobin 32.0 Mean Corpuscular Hemoglobin 34.9 Concent Red Cell Distribution Width 14.0 Platelet Count 258 Mean Platelet Volume 9.0 Neutrophils (%) (Auto) 68.6 Lymphocytes (%) (Auto) 14.5 Monocytes (%) (Auto) 11.1 Eosinophils (%) (Auto) 5.1 Basophils (%) (Auto) 0.7 Neutrophils # (Auto) 5.0 Lymphocytes # (Auto) 1.1 Monocytes # (Auto) 0.8 Eosinophils # (Auto) 0.4 Basophils # (Auto) 0.1 CBC Comment DIFF FINAL Differential Comment Sodium Level 138 Potassium Level 3.6 Chloride Level 107 Carbon Dioxide Level 22.6 Anion Gap 8 Blood Urea Nitrogen 3 Creatinine 0.58 Estimat Glomerular Filtration 145 Rate Random Glucose 107 Calcium Level 8.4 Phosphorus Level 2.9 Magnesium Level 2.1 Date/Time Procedure Status Source Growth 12/08/16 10:00 Aerobic Blood Culture - Preliminary Resulted Blood Peripheral NO GROWTH IN 1 DAY 12/08/16 10:00 Anaerobic Blood Culture - Preliminary Resulted Blood Peripheral NO GROWTH IN 1 DAY Imaging Last Impressions Chest X-Ray 12/08/16 0000 Signed Impressions: Service Date/Time: Thursday, December 08, 2016 08:55 - CONCLUSION: Persistent but improving interstitial disease at the bases. Donnie Macias MD Hepatobiliary Scan Nuclear Medicine 12/07/16 0000 Signed Impressions: Service Date/Time: Wednesday, December 07, 2016 10:10 - CONCLUSION: 1. Single episode of biliary enteric reflux. 2. Otherwise negative with no scintigraphic evidence of acute cholecystitis. Jayy Hyatt MD Abdomen/Pelvis CT 12/05/16 1046 Signed Impressions: Service Date/Time: Monday, December 05, 2016 11:33 - CONCLUSION: 1. CT findings characteristic of chronic pancreatitis with multiple pancreatic head calcifications and prominence of the pancreatic duct. 2. In addition, there are peripancreatic inflammatory changes around the tail of the pancreas extending up towards the gastric fundus characteristic of a superimposed acute pancreatitis. 3. A 2.9 cm left inguinal hernia which only contains fat. 4. Appendix is identified and is radiographically normal. 5. Bibasilar atelectasis/fibrosis. Jayy Hyatt MD Physical Exam HEENT: Normocephalic; atraumatic; no jaundice. CHEST: CTA CARDIAC: RRR ABDOMEN: +BS, soft, bloated, mild RUQ tenderness EXTREMITIES: No clubbing, cyanosis, or edema. SKIN: Normal; no rash; no jaundice. LEATHER SCRAPER: No focal deficits; alert and oriented times three. (Gi Issa) Assessment and Plan Plan ASSESSMENT: - Acute on chronic pancreatitis. One prior episode of pancreatitis in 2014, unclear etiology at that time. 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 S/P ERCP with sphincterotomy, balloon extraction and biopsy (11/01/14)----> gastritis, thickened duodenal fold, bulging ampulla, dilated common bile duct. Pathology with duodenal mucosa with no significant histopathologic abnormalities, ampulla with cauterized mucosa with hypervascularity and mild vascular congestion of the lamina propria. Adenomatous change is not identified. He reports that since that time, he has had a few minor episodes at home where he thought he was coming down with pancreatitis again, but he was able to take clear liquids and his symptoms would improve. Abdominal pain with n/v began 2 days ago. He does drink ETOH, usually 1-2 beers a week, but states he has not had any for 1.5 weeks. Of note, in EMR, it states he is a daily drinker. He denies any new medications or herbal supplements. Of note, he is on lisinopril. Abdomen/Pelvis CT (12/05/16)----> 1. CT findings characteristic of chronic pancreatitis with multiple pancreatic head calcifications and prominence of the pancreatic duct. 2. In addition, there are peripancreatic inflammatory changes around the tail of the pancreas extending up towards the gastric fundus characteristic of a superimposed acute pancreatitis. 3. A 2.9 cm left inguinal hernia which only contains fat. 4. Appendix is identified and is radiographically normal. 5. Bibasilar atelectasis/fibrosis. Suspect this may be related to ETOH. EGD on 12/07/16 -- > Gastritis and external compression stomach fundus. HIDA Scan (12/07/16) --> Single episode of biliary enteric reflux. Otherwise negative with no scintigraphic evidence of acute cholecystitis. - Constipation, bloating. Resolved. - Leukocytosis. Likely related to above. - Hyponatremia. ? More etoh use than he admits to. - CAD, COPD, HTN, Sz d/o per primary PLAN: - Pt will need evaluation with EGD/EUS for further investigation of external compression of the stomach noted on EGD, we will plan for this for tomorrow - Advance to low fat diet as tolerated - NPO after MN except meds - Protonix - Cont. 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 Villela and myself and this note is written on her behalf (Gi Issa) Physician Comments seen, examined agree with above (Lulú Villela MD) Gi Issa Dec 09, 2016 12:49 Lulú Villela MD Dec 09, 2016 15:24
[2016-12-09 12:50] LABS: C. DIFF EPI 027 PRESUMPTIVE NEGATIVE (NEGATIVE); C. DIFF TOXIN PCR NEGATIVE (NEGATIVE)
[2016-12-09 16:00] VITALS: BP 138/93; PULSE 91; RESP 16; TEMP 97.6; O2SAT 95
[2016-12-09 19:33] VITALS: BP 153/96; PULSE 97; RESP 16; TEMP 99.1; O2SAT 98
[2016-12-09] MEDS: MIRTAZAPINE 15 MG TAB PO SCH (22:05)
[2016-12-09] MEDS: PHENYTOIN SODIUM 100 MG CAP PO SCH (22:05)
[2016-12-09] MEDS: REMOVE OLD PATCH T-DERMAL SCH (22:08)
[2016-12-10] VITALS (7 sets, daily range): BP systolic 132–166; BP diastolic 77–97; PULSE 83–88; RESP 18–20; TEMP 97–98.8; O2SAT 94–96
[2016-12-10] MEDS ORDERED: LACTATED RINGER'S 1000 ML IV PRN (02:45)
[2016-12-10] MEDS ORDERED: CHLORHEXIDINE GLUCONATE 2 % 1 PACK (2 CLOTHS) TOPICAL PRN (02:45)
[2016-12-10] MEDS ORDERED: POVIDONE IODINE 5% (ANTISEPSIS KIT) 4 APPLICATIONS EACH NARE PRN (02:45)
[2016-12-10] MEDS: SIMETHICONE 125 MG CHEWABLE TAB PO SCH ×3 (06:00→22:00)
[2016-12-10] MEDS: LIPASE/PROTEASE/AMYLASE (24,000/76,000/120,000) CAP PO SCH ×3 (07:46→17:46)
[2016-12-10] MEDS: NICOTINE 14 MG/24 HR PATCH T-DERMAL SCH (08:46)
[2016-12-10] MEDS: guaiFENesin E.R. 600 MG TAB PO SCH ×2 (09:00→22:28)
[2016-12-10 09:28] LABS: AUTOMATED NEUTROPHIL # 6.6 TH/MM3 (1.8-7.7); BASOPHIL # 0.1 TH/MM3 (0-0.2); BASOPHIL % 1.2 % (0.0-2.0); EOSINOPHIL # 0.4 TH/MM3 (0-0.4); HEMATOCRIT 30.7 % (39.0-51.0); HEMO FLAGS DIFF FINAL; LYMPHOCYTE # 1.5 TH/MM3 (1.0-4.8); MEAN CELL VOLUME 90.5 FL (80.0-100.0); MEAN CORPUSCULAR HEMOGLOBIN 31.7 PG (27.0-34.0); MONO % 9.9 % (0.0-8.0); NEUT % 68.9 % (16.0-70.0); PLATELET COUNT 325 TH/MM3 (150-450); RED BLOOD COUNT 3.39 MIL/MM3 (4.50-5.90); RED CELL DISTRIBUTION WIDTH 13.7 % (11.6-17.2); WHITE BLOOD COUNT 9.6 TH/MM3 (4.0-11.0)
[2016-12-10] MEDS: BUDESONIDE-FORMOTEROL 160/4.5 MCG INHALER INH SCH ×2 (09:41→22:34)
[2016-12-10] MEDS: PANTOPRAZOLE SODIUM 40 MG VIAL IV PUSH SCH (09:43)
[2016-12-10] MEDS: LISINOPRIL 10 MG TAB PO SCH (09:44)
[2016-12-10] MEDS: DOCUSATE SODIUM 100 MG CAP PO SCH ×2 (09:44→22:28)
[2016-12-10] MEDS: BACLOFEN 10 MG TAB PO SCH ×4 (09:44→20:02)
[2016-12-10] MEDS: AZITHROMYCIN INJ 500 MG in SODIUM CHLOR 0.9% 250 ML INJ 250 ML IV SCH (09:45)
[2016-12-10] MEDS: SODIUM CHLORIDE 0.9% FLUSH 10 ML FLUSH IV FLUSH SCH ×2 (09:49→22:36)
[2016-12-10] MEDS: SODIUM CHLOR 0.9% 1000 ML INJ 1,000 ML IV SCH ×2 (09:50→18:49)
[2016-12-10 10:07] LABS: MAGNESIUM 2.1 MG/DL (1.5-2.5); POTASSIUM 3.6 MEQ/L (3.5-5.1)
[2016-12-10] MEDS ORDERED: ePHEDrine/NS 25 MG/5 ML SYR IV ONE (12:00)
[2016-12-10] MEDS ORDERED: ONDANSETRON HCL 4 MG/2 ML VIAL IV PUSH ONE (12:00)
[2016-12-10] MEDS ORDERED: NEOSTIGMINE 3 MG/3 ML SYR IV ONE (12:00)
[2016-12-10] MEDS ORDERED: HYDROmorphone HCL 2 MG TAB PO PRN (12:15)
[2016-12-10] MEDS ORDERED: HYDROmorphone HCL PF 1 MG/ML VIAL IV PUSH ONE (12:15)
[2016-12-10] MEDS: HYDROmorphone HCL 4 MG TAB PO PRN ×3 (12:33→20:01)
[2016-12-10] MEDS: cefTRIAXone INJ 1,000 MG in SODIUM CHLORIDE 0.9% INJ 100 ML IV SCH (12:33)
--- NOTE | 2016-12-10 14:28 | EKG ---
Date Performed: 12/10/2016 Time Performed: 05:12:06 PTAGE: 56 years EKG: Sinus rhythm , rate 93 Normal ECG Compared to prior tracing no significant change PREVIOUS TRACING : 06/25/2015 14.06 DOCTOR: Clayton Farias Interpretating Date/Time 12/10/2016 14:25:18
--- NOTE | 2016-12-10 18:13 | HHI.PR ---
Subjective Remarks Patient seen this morning around 11 AM. He says that abdominal pain is worsened , not controlled on current by mouth regimen. Denies any chest pain or shortness of breath. Objective Vital Signs Date Time Temp Pulse Resp B/P Pulse Ox O2 Delivery O2 Flow Rate FiO2 12/10/16 16:00 98.8 83 18 160/90 95 12/10/16 12:00 98.2 88 18 149/94 94 12/10/16 08:00 98.4 86 18 157/91 94 12/10/16 04:37 97.9 88 18 166/97 94 12/10/16 00:00 98.6 86 18 132/77 94 12/09/16 19:33 99.1 97 16 153/96 98 I/O 12/09/16 12/09/16 12/09/16 12/10/16 12/10/16 12/10/16 07:00 15:00 23:00 07:00 15:00 23:00 Intake Total 480 ml 2544 ml 240 ml 1465 ml 250 ml Output Total 600 ml Balance -120 ml 2544 ml 240 ml 1465 ml 250 ml Intake Oral 480 ml 1200 ml 240 ml IV Total 1344 ml 1465 ml 250 ml Output Urine Total 600 ml # Voids 4 2 # Bowel Movements 0 1 0 Result Diagram: 12/10/16 0903 12/10/16902 Objective Remarks GENERAL: patient lying in bed. Appears uncomfortable. Alert and oriented 3. SKIN: Warm and dry. HEAD: Normocephalic. EYES: No scleral icterus. No injection or drainage. NECK: Supple, trachea midline. No JVD. CARDIOVASCULAR: Regular rate and rhythm without murmurs, gallops, or rubs. RESPIRATORY: Breath sounds equal bilaterally. No accessory muscle use. GASTROINTESTINAL: Abdomen soft, epigastric tenderness. No rebound or guarding. MUSCULOSKELETAL: No cyanosis, or edema. BACK: Nontender without obvious deformity. No CVA tenderness. A/P Assessment and Plan //Recurrent pancreatitis following Lipase levels, Gastric protection, GI specialist following recommended to start liquid diet, continue present care with IV fluids, pain medicine. Improving condition. status post EGD and found Gastritis. -12/10. Pain worsened. Increase by mouth pain regimen. Continue supportive care. Appreciate GI assistance. //Seizure disorder -Patient is on Dilantin, however valproic acid level was checked and low on admission continue Ativan PRN for Seizures, -Telemetry, Continue Dilantin 400 mg daily //Hyponatremia probable Potomania. Improved. Continue to monitor. //Hypertension. Blood pressure acceptable. Continue to monitor. //COPD -cont Bronchodilator, Mucolytic and incentive spirometry //Tobacco dependence- -cessation counseling provided. Strongly recommend discontinuation. //Alcohol abuse -Has not been drinking since last week. 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 Monitor.. -Consult case hardener from all discharge plan. //Hepatitis C by history. Not on treatment. GI following. Appreciate assistance. //hypokalemia. Improved after replacement. Monitor. //Fever added Empiric management with Ceftriaxone and Azithromycin he came with bilateral infiltrate but his WBC is been stable, new CXR showed persistent bases infiltrate following blood cultures. Improved Leukocytosis improved. DVT prophylaxis: bilat SCDs Discharge Planning continued pain. Patient will need GI clearance Anish Leslie MD Dec 10, 2016 18:12
[2016-12-10] MEDS ORDERED: DO NOT ADM ANY ANTICOAGULANT DRUGS PRN (18:40)
[2016-12-10] MEDS ORDERED: fentaNYL CITRATE 250 MCG/5 ML AMP ONE (18:49)
[2016-12-10] MEDS ORDERED: PROPOFOL 200 MG/20 ML AMP IV ONE (19:05)
--- NOTE | 2016-12-10 19:05 | PD.PROCEDR ---
GI Procedure REFERRING PHYSICIAN Dr. Hernandez PROCEDURE PERFORMED EUS with FNA INDICATION FOR PROCEDURE Abnormal pancreas PROCEDURE: The procedure, risks and benefits were discussed with Mr. Elam and informed consent was obtained. Anesthesia sedated him with Diprivan. He was placed in the left lateral decubitus position. EUS: The Pentax videoscope was introduced through the oropharynx and advanced to the second portion of the duodenum under direct visualization. FINDINGS: Initially I used the radial endoscopic ultrasound then the linear the patient was noted to have a developing pseudocyst in the tail of the pancreas the pancreatic body appeared to be unremarkable overall with a normal pancreatic duct the pancreatic head appeared to be somewhat irregular isoechoic with calcifications but slightly inhomogeneous and so the linear EUS was used for FNA of the pancreatic head with good tissue return no lymphadenopathy was noted no distinct mass was seen in the common bile duct was unremarkable and free of filling defects ESTIMATED BLOOD LOSS: None SPECIMENS REMOVED: Pancreatic head COMPLICATIONS: None IMPRESSION: Irregular pancreatic head Developing pseudocyst at the tail the pancreas PLAN: Await FNA Continue supportive care Bernardino Bull MD Dec 10, 2016 19:05
[2016-12-10] MEDS ORDERED: *morphine SULFATE 8 MG/ML PERIprocedure ONLY ONE (19:23)
[2016-12-10] MEDS: PHENYTOIN SODIUM 100 MG CAP PO SCH (22:28)
[2016-12-10] MEDS: MIRTAZAPINE 15 MG TAB PO SCH (22:29)
[2016-12-10] MEDS: REMOVE OLD PATCH T-DERMAL SCH (22:36)
[2016-12-11] VITALS (7 sets, daily range): BP systolic 126–157; BP diastolic 80–99; PULSE 90–103; RESP 16–18; TEMP 97–99.3; O2SAT 93–96
[2016-12-11] MEDS: HYDROmorphone HCL 4 MG TAB PO PRN ×6 (00:08→20:24)
[2016-12-11] MEDS: SODIUM CHLOR 0.9% 1000 ML INJ 1,000 ML IV SCH ×2 (03:05→14:41)
[2016-12-11] MEDS: SIMETHICONE 125 MG CHEWABLE TAB PO SCH ×3 (05:50→21:43)
[2016-12-11 07:23] LABS: HEMATOCRIT 31.9 % (39.0-51.0); MEAN CELL VOLUME 91.2 FL (80.0-100.0); MEAN CORPUSCULAR HEMOGLOBIN 30.6 PG (27.0-34.0); MEAN CORPUSCULAR HGB CONC 33.5 % (32.0-36.0); PLATELET COUNT 307 TH/MM3 (150-450); REVIEW FLAG FINAL
[2016-12-11 07:56] LABS: ALT (GPT) 50 U/L (12-78); ANION GAP 8 MEQ/L (5-15); AST (GOT) 22 U/L (15-37); BICARBONATE 25.9 MEQ/L (21.0-32.0); BLOOD UREA NITROGEN 5 MG/DL (7-18); CHLORIDE 100 MEQ/L (98-107); GLOMERULAR FILTRATION RATE 154 ML/MIN (>89); POTASSIUM 3.6 MEQ/L (3.5-5.1); SODIUM (NA) 134 MEQ/L (136-145)
[2016-12-11 07:58] LABS: ALKALINE PHOSPHATASE 100 U/L (45-117); TOTAL BILIRUBIN ADULT 0.3 MG/DL (0.2-1.0)
[2016-12-11] MEDS: BUDESONIDE-FORMOTEROL 160/4.5 MCG INHALER INH SCH ×2 (08:39→20:26)
[2016-12-11] MEDS: DOCUSATE SODIUM 100 MG CAP PO SCH ×2 (08:40→20:25)
[2016-12-11] MEDS: BACLOFEN 10 MG TAB PO SCH ×3 (08:40→16:54)
[2016-12-11] MEDS: NICOTINE 14 MG/24 HR PATCH T-DERMAL SCH (08:41)
[2016-12-11] MEDS: LISINOPRIL 10 MG TAB PO SCH (08:41)
[2016-12-11] MEDS: PANTOPRAZOLE SODIUM 40 MG VIAL IV PUSH SCH (08:43)
[2016-12-11] MEDS: AZITHROMYCIN INJ 500 MG in SODIUM CHLOR 0.9% 250 ML INJ 250 ML IV SCH (08:43)
[2016-12-11] MEDS: LIPASE/PROTEASE/AMYLASE (24,000/76,000/120,000) CAP PO SCH ×3 (09:00→18:00)
[2016-12-11] MEDS: guaiFENesin E.R. 600 MG TAB PO SCH ×2 (09:00→20:24)
[2016-12-11] MEDS: SODIUM CHLORIDE 0.9% FLUSH 10 ML FLUSH IV FLUSH SCH ×2 (09:00→20:26)
[2016-12-11] MEDS: cefTRIAXone INJ 1,000 MG in SODIUM CHLORIDE 0.9% INJ 100 ML IV SCH (12:40)
--- NOTE | 2016-12-11 14:42 | HHI.PR ---
Subjective Remarks Patient seen this morning around 10 AM. He says that pain continues unchanged. No nausea this morning. Reports constipation. Objective Vital Signs Date Time Temp Pulse Resp B/P Pulse Ox O2 Delivery O2 Flow Rate FiO2 12/11/16 12:00 97.3 90 18 156/96 95 12/11/16 08:50 95 12/11/16 08:00 97.8 92 18 154/95 95 12/11/16 04:00 97.0 97 18 138/90 94 12/11/16 00:00 99.0 95 18 151/94 93 12/10/16 21:42 96 Nasal Cannula 2.00 12/10/16 20:00 97.0 88 20 152/95 96 12/10/16 19:30 97.1 78 18 171/98 95 Nasal Cannula 2 12/10/16 19:15 82 18 179/87 97 Nasal Cannula 2 12/10/16 19:00 80 18 170/97 95 Nasal Cannula 2 12/10/16 18:45 76 18 153/92 95 Nasal Cannula 2 12/10/16 18:40 98.0 86 18 162/93 93 Nasal Cannula 2 12/10/16 16:00 98.8 83 18 160/90 95 I/O 12/10/16 12/10/16 12/10/16 12/11/16 12/11/16 12/11/16 07:00 15:00 23:00 07:00 15:00 23:00 Intake Total 1465 ml 250 ml 1485 ml 480 ml 480 ml Output Total 400 ml Balance 1465 ml 250 ml 1485 ml 80 ml 480 ml Intake Oral 0 ml 480 ml 480 ml IV Total 1465 ml 250 ml 485 ml Other 1000 ml Output Urine Total 400 ml # Voids 4 3 Result Diagram: 12/11/1618 12/11/1618 Objective Remarks GENERAL: patient lying in bed. Appears uncomfortable again. Alert and oriented 3. SKIN: Warm and dry. HEAD: Normocephalic. EYES: No scleral icterus. No injection or drainage. NECK: Supple, trachea midline. No JVD. CARDIOVASCULAR: Regular rate and rhythm without murmurs, gallops, or rubs. RESPIRATORY: Breath sounds equal bilaterally. No accessory muscle use. GASTROINTESTINAL: Abdomen soft. Epigastric tenderness has resolved. Resonant abdomen. No rebound or guarding. MUSCULOSKELETAL: No cyanosis, or edema. BACK: Nontender without obvious deformity. No CVA tenderness. A/P Assessment and Plan //Recurrent pancreatitis following Lipase levels, Gastric protection, GI specialist following recommended to start liquid diet, continue present care with IV fluids, pain medicine. Improving condition. status post EGD and found Gastritis. -12/10. Pain worsened. Increase by mouth pain regimen. Continue supportive care. Appreciate GI assistance. -12/11 status post fine-needle aspiration of pancreatic pseudocyst. Await results. Appreciate GI assistance. //Seizure disorder -Patient is on Dilantin, however valproic acid level was checked and low on admission continue Ativan PRN for Seizures, -12/11. Dilantin level 5. Continue Dilantin 400 mg daily and continue to monitor closely. //Hyponatremia probable Potomania. Improved. Continue to monitor. //Hypertension. Blood pressure acceptable. Continue to monitor. //COPD -cont Bronchodilator, Mucolytic and incentive spirometry //Tobacco dependence- -cessation counseling provided. Strongly recommend discontinuation. //Alcohol abuse -Has not been drinking since last week. 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 Monitor.. -Consult caseworker intake from all discharge plan. //Hepatitis C by history. Not on treatment. GI following. Appreciate assistance. //hypokalemia. Improved after replacement. Monitor. //Sepsis on admission. Fever. Tachycardia. Chest x-ray with airspace disease in the right lung. Improving. //Pneumonia on admission. Improving. Continue antibiotics for pneumonia,started on 12/08.. -Consider that this could be aspiration pneumonia and urinary recent vomiting, however clinically improving, and Repeat chest x-ray improved. DVT prophylaxis: bilat SCDs Discharge Planning continued pain. Patient will need GI clearance Anish Leslie MD Dec 11, 2016 14:42
--- NOTE | 2016-12-11 14:57 | HHI.GIFU ---
Subjective Remarks Pt laying in bed. C/o of pain right side like when he came in, says is unchanged from before and 03/28. No n/v, diarrhea. (Ana Lilia Hull) Objective Vitals I&O Vital Signs Date Time Temp Pulse Resp B/P Pulse Ox O2 Delivery O2 Flow Rate FiO2 12/11/16 12:00 97.3 90 18 156/96 95 12/11/16 08:50 95 12/11/16 08:00 97.8 92 18 154/95 95 12/11/16 04:00 97.0 97 18 138/90 94 12/11/16 00:00 99.0 95 18 151/94 93 12/10/16 21:42 96 Nasal Cannula 2.00 12/10/16 20:00 97.0 88 20 152/95 96 12/10/16 19:30 97.1 78 18 171/98 95 Nasal Cannula 2 12/10/16 19:15 82 18 179/87 97 Nasal Cannula 2 12/10/16 19:00 80 18 170/97 95 Nasal Cannula 2 12/10/16 18:45 76 18 153/92 95 Nasal Cannula 2 12/10/16 18:40 98.0 86 18 162/93 93 Nasal Cannula 2 12/10/16 16:00 98.8 83 18 160/90 95 I/O 12/10/16 12/10/16 12/10/16 12/11/16 12/11/16 12/11/16 07:00 15:00 23:00 07:00 15:00 23:00 Intake Total 1465 ml 250 ml 1485 ml 480 ml 480 ml Output Total 400 ml Balance 1465 ml 250 ml 1485 ml 80 ml 480 ml Intake Oral 0 ml 480 ml 480 ml IV Total 1465 ml 250 ml 485 ml Other 1000 ml Output Urine Total 400 ml # Voids 4 3 Laboratory Laboratory Tests Test 12/11/16 06:18 White Blood Count 11.0 Red Blood Count 3.50 Hemoglobin 10.7 Hematocrit 31.9 Mean Corpuscular Volume 91.2 Mean Corpuscular Hemoglobin 30.6 Mean Corpuscular Hemoglobin 33.5 Concent Red Cell Distribution Width 14.0 Platelet Count 307 Mean Platelet Volume 9.0 Sodium Level 134 Potassium Level 3.6 Chloride Level 100 Carbon Dioxide Level 25.9 Anion Gap 8 Blood Urea Nitrogen 5 Creatinine 0.55 Estimat Glomerular Filtration 154 Rate Random Glucose 114 Calcium Level 8.9 Total Bilirubin 0.3 Aspartate Amino Transf 22 (AST/SGOT) Alanine Aminotransferase 50 (ALT/SGPT) Alkaline Phosphatase 100 Total Protein 6.7 Albumin 2.6 Date/Time Procedure Status Source Growth 12/08/16 10:00 Aerobic Blood Culture - Preliminary Resulted Blood Peripheral NO GROWTH IN 3 DAYS 12/08/16 10:00 Anaerobic Blood Culture - Preliminary Resulted Blood Peripheral NO GROWTH IN 3 DAYS Imaging Last Impressions Chest X-Ray 12/08/16 0000 Signed Impressions: Service Date/Time: Thursday, December 08, 2016 08:55 - CONCLUSION: Persistent but improving interstitial disease at the bases. Donnie Macias MD Hepatobiliary Scan Nuclear Medicine 12/07/16 0000 Signed Impressions: Service Date/Time: Wednesday, December 07, 2016 10:10 - CONCLUSION: 1. Single episode of biliary enteric reflux. 2. Otherwise negative with no scintigraphic evidence of acute cholecystitis. Jayy Hyatt MD Abdomen/Pelvis CT 12/05/16 1046 Signed Impressions: Service Date/Time: Monday, December 05, 2016 11:33 - CONCLUSION: 1. CT findings characteristic of chronic pancreatitis with multiple pancreatic head calcifications and prominence of the pancreatic duct. 2. In addition, there are peripancreatic inflammatory changes around the tail of the pancreas extending up towards the gastric fundus characteristic of a superimposed acute pancreatitis. 3. A 2.9 cm left inguinal hernia which only contains fat. 4. Appendix is identified and is radiographically normal. 5. Bibasilar atelectasis/fibrosis. Jayy Hyatt MD Physical Exam HEENT: Normocephalic; atraumatic; no jaundice. CHEST: CTA CARDIAC: RRR ABDOMEN: +BS, soft, bloated, diffuse TTP EXTREMITIES: No clubbing, cyanosis, or edema. SKIN: Normal; no rash; no jaundice. [employer] SUPERINTENDENT: No focal deficits; alert and oriented times three. (Ana Lilia Hull MANAGER APPLICATION) Assessment and Plan Plan ASSESSMENT: - Acute on chronic pancreatitis. One prior episode of pancreatitis in 2014, unclear etiology at that time. 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 S/P ERCP with sphincterotomy, balloon extraction and biopsy (11/01/14)----> gastritis, thickened duodenal fold, bulging ampulla, dilated common bile duct. Pathology with duodenal mucosa with no significant histopathologic abnormalities, ampulla with cauterized mucosa with hypervascularity and mild vascular congestion of the lamina propria. Adenomatous change is not identified. He reports that since that time, he has had a few minor episodes at home where he thought he was coming down with pancreatitis again, but he was able to take clear liquids and his symptoms would improve. Abdominal pain with n/v began 2 days ago. He does drink ETOH, usually 1-2 beers a week, but states he has not had any for 1.5 weeks. Of note, in EMR, it states he is a daily drinker. He denies any new medications or herbal supplements. Of note, he is on lisinopril. Abdomen/Pelvis CT (12/05/16)----> 1. CT findings characteristic of chronic pancreatitis with multiple pancreatic head calcifications and prominence of the pancreatic duct. 2. In addition, there are peripancreatic inflammatory changes around the tail of the pancreas extending up towards the gastric fundus characteristic of a superimposed acute pancreatitis. 3. A 2.9 cm left inguinal hernia which only contains fat. 4. Appendix is identified and is radiographically normal. 5. Bibasilar atelectasis/fibrosis. Suspect this may be related to ETOH. EGD on 12/07/16 -- > Gastritis and external compression stomach fundus. HIDA Scan (12/07/16) --> Single episode of biliary enteric reflux. Otherwise negative with no scintigraphic evidence of acute cholecystitis. EUS W/ FNA (12/10/16) irregular pancreatic head, developing psuedocyst at the tail of pancreas. FNA pending - Constipation, bloating. Resolved. - Leukocytosis. Likely related to above. - Hyponatremia. ? More etoh use than he admits to. - CAD, COPD, HTN, Sz d/o per primary PLAN: - clear liquids for now - await results FNA pancreatic head - Protonix - Cont. 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 Bull and myself and this note is written on his behalf (Ana Lilia Hull MANAGER APPLICATION) Physician Comments Patient seen and examined Agree with above Continue with current supportive care Monitor labs Await pathology (Bernardino Bull MD) Ana Lilia Hull Dec 11, 2016 14:57 Bernardino Bull MD Dec 11, 2016 21:08
[2016-12-11] MEDS: ONDANSETRON HCL 4 MG/2 ML VIAL IVP PRN (16:35)
[2016-12-11] MEDS: PHENYTOIN SODIUM 100 MG CAP PO SCH (20:25)
[2016-12-11] MEDS: MIRTAZAPINE 15 MG TAB PO SCH (20:25)
[2016-12-11] MEDS: REMOVE OLD PATCH T-DERMAL SCH (20:27)
[2016-12-11] MEDS: DOCUSATE SODIUM 50 MG/SENNA 8.6 MG TAB PO PRN (20:31)
[2016-12-12] VITALS (7 sets, daily range): BP systolic 114–154; BP diastolic 69–93; PULSE 91–109; RESP 15–18; TEMP 97.5–100; O2SAT 92–95
[2016-12-12] MEDS: HYDROmorphone HCL 4 MG TAB PO PRN ×6 (00:29→20:20)
[2016-12-12] MEDS: SODIUM CHLOR 0.9% 1000 ML INJ 1,000 ML IV SCH ×3 (00:30→20:33)
[2016-12-12] MEDS: ONDANSETRON HCL 4 MG/2 ML VIAL IVP PRN ×2 (00:34→07:27)
[2016-12-12] MEDS ORDERED: ALBUTEROL SULFATE 90 MCG/ACT HFA 18 GM INHALER INH PRN (05:00)
[2016-12-12] MEDS: SIMETHICONE 125 MG CHEWABLE TAB PO SCH ×3 (05:26→20:19)
[2016-12-12] MEDS: BACLOFEN 10 MG TAB PO SCH ×3 (08:21→17:36)
[2016-12-12] MEDS: PANTOPRAZOLE SODIUM 40 MG VIAL IV PUSH SCH (08:21)
[2016-12-12] MEDS: DOCUSATE SODIUM 50 MG/SENNA 8.6 MG TAB PO PRN (08:21)
[2016-12-12] MEDS: NICOTINE 14 MG/24 HR PATCH T-DERMAL SCH (08:21)
[2016-12-12] MEDS: DOCUSATE SODIUM 100 MG CAP PO SCH ×2 (08:21→20:19)
[2016-12-12] MEDS: LISINOPRIL 10 MG TAB PO SCH (08:21)
[2016-12-12] MEDS: BUDESONIDE-FORMOTEROL 160/4.5 MCG INHALER INH SCH ×2 (08:22→20:32)
[2016-12-12] MEDS: AZITHROMYCIN INJ 500 MG in SODIUM CHLOR 0.9% 250 ML INJ 250 ML IV SCH (08:22)
[2016-12-12] MEDS: SODIUM CHLORIDE 0.9% FLUSH 10 ML FLUSH IV FLUSH SCH ×2 (08:24→20:21)
[2016-12-12] MEDS: LIPASE/PROTEASE/AMYLASE (24,000/76,000/120,000) CAP PO SCH ×3 (08:40→17:36)
[2016-12-12] MEDS: guaiFENesin E.R. 600 MG TAB PO SCH ×2 (08:41→20:25)
[2016-12-12] MEDS: METOCLOPRAMIDE HCL 10 MG/2 ML VIAL IV PUSH PRN ×2 (11:56→20:18)
[2016-12-12] MEDS: LACTULOSE SYRUP 20 GM/30 ML CUP PO PRN (11:56)
[2016-12-12] MEDS: cefTRIAXone INJ 1,000 MG in SODIUM CHLORIDE 0.9% INJ 100 ML IV SCH (11:57)
[2016-12-12] MEDS ORDERED: PHENYTOIN SODIUM 100 MG CAP PO STA (15:50)
--- NOTE | 2016-12-12 16:05 | HHI.GIFU ---
Subjective Remarks Pt laying in bed. Pain 8/10, unchanged. Said he had 1 x scant BM this morning. Said he is having nausea. NO vomiting. (Ana Lilia Hull) Objective Vitals I&O Vital Signs Date Time Temp Pulse Resp B/P Pulse Ox O2 Delivery O2 Flow Rate FiO2 12/12/16 12:00 99.4 91 18 114/69 92 12/12/16 08:16 95 21 12/12/16 08:00 98.6 100 15 132/85 93 12/12/16 04:00 99.5 101 18 150/90 94 12/12/16 00:00 99.6 102 18 154/93 95 12/11/16 20:00 99.3 94 16 126/80 96 I/O 12/11/16 12/11/16 12/11/16 12/12/16 12/12/16 12/12/16 07:00 15:00 23:00 07:00 15:00 23:00 Intake Total 480 ml 930 ml 1540 ml 610 ml 250 ml 720 ml Output Total 400 ml 700 ml 1175 ml Balance 80 ml 930 ml 840 ml -565 ml 250 ml 720 ml Intake Oral 480 ml 930 ml 0 ml 720 ml IV Total 1540 ml 610 ml 250 ml Output Urine Total 400 ml 700 ml 1175 ml # Voids 9 6 # Bowel Movements 0 1 Laboratory Laboratory Tests Test 12/12/16 05:46 Phenytoin (Dilantin) Level 4.8 Date/Time Procedure Status Source Growth 12/08/16 10:00 Aerobic Blood Culture - Preliminary Resulted Blood Peripheral NO GROWTH IN 4 DAYS 12/08/16 10:00 Anaerobic Blood Culture - Preliminary Resulted Blood Peripheral NO GROWTH IN 4 DAYS Imaging Last Impressions Chest X-Ray 12/08/16 0000 Signed Impressions: Service Date/Time: Thursday, December 08, 2016 08:55 - CONCLUSION: Persistent but improving interstitial disease at the bases. Donnie Macias MD Hepatobiliary Scan Nuclear Medicine 12/07/16 0000 Signed Impressions: Service Date/Time: Wednesday, December 07, 2016 10:10 - CONCLUSION: 1. Single episode of biliary enteric reflux. 2. Otherwise negative with no scintigraphic evidence of acute cholecystitis. Jayy Hyatt MD Abdomen/Pelvis CT 12/05/16 1046 Signed Impressions: Service Date/Time: Monday, December 05, 2016 11:33 - CONCLUSION: 1. CT findings characteristic of chronic pancreatitis with multiple pancreatic head calcifications and prominence of the pancreatic duct. 2. In addition, there are peripancreatic inflammatory changes around the tail of the pancreas extending up towards the gastric fundus characteristic of a superimposed acute pancreatitis. 3. A 2.9 cm left inguinal hernia which only contains fat. 4. Appendix is identified and is radiographically normal. 5. Bibasilar atelectasis/fibrosis. Jayy Hyatt MD Physical Exam HEENT: Normocephalic; atraumatic; no jaundice. CHEST: CTA CARDIAC: tachycardic, no murmurs or gallops ABDOMEN: +BS, soft, bloated, diffuse TTP EXTREMITIES: No clubbing, cyanosis, or edema. SKIN: Normal; no rash; no jaundice. DIRECTOR CPG: No focal deficits; alert and oriented times three. (Ana Lilia Hull [facility]) Assessment and Plan Plan ASSESSMENT: - Acute on chronic pancreatitis. One prior episode of pancreatitis in 2014, unclear etiology at that time. 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 S/P ERCP with sphincterotomy, balloon extraction and biopsy (11/01/14)----> gastritis, thickened duodenal fold, bulging ampulla, dilated common bile duct. Pathology with duodenal mucosa with no significant histopathologic abnormalities, ampulla with cauterized mucosa with hypervascularity and mild vascular congestion of the lamina propria. Adenomatous change is not identified. He reports that since that time, he has had a few minor episodes at home where he thought he was coming down with pancreatitis again, but he was able to take clear liquids and his symptoms would improve. Abdominal pain with n/v began 2 days ago. He does drink ETOH, usually 1-2 beers a week, but states he has not had any for 1.5 weeks. Of note, in EMR, it states he is a daily drinker. He denies any new medications or herbal supplements. Of note, he is on lisinopril. Abdomen/Pelvis CT (12/05/16)----> 1. CT findings characteristic of chronic pancreatitis with multiple pancreatic head calcifications and prominence of the pancreatic duct. 2. In addition, there are peripancreatic inflammatory changes around the tail of the pancreas extending up towards the gastric fundus characteristic of a superimposed acute pancreatitis. 3. A 2.9 cm left inguinal hernia which only contains fat. 4. Appendix is identified and is radiographically normal. 5. Bibasilar atelectasis/fibrosis. Suspect this may be related to ETOH. EGD on 12/07/16 -- > Gastritis and external compression stomach fundus. HIDA Scan (12/07/16) --> Single episode of biliary enteric reflux. Otherwise negative with no scintigraphic evidence of acute cholecystitis. EUS W/ FNA (12/10/16) irregular pancreatic head, developing psuedocyst at the tail of pancreas. FNA pending - Constipation, bloating. lactulose, stool softeners - Leukocytosis. Likely related to above. - Hyponatremia. ? More etoh use than he admits to. - CAD, COPD, HTN, Sz d/o per primary PLAN: - clear liquids for now - await results FNA pancreatic head - Protonix - Cont. 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 Bull and myself and this note is written on his behalf (Ana Lilia Hull) Physician Comments Patient seen and examined Agree with above Continue with current supportive care Monitor labs Await pathology (Bernardino Bull MD) Ana Lilia Hull Dec 12, 2016 16:05 Bernardino Bull MD Dec 12, 2016 21:46
--- NOTE | 2016-12-12 16:13 | HHI.PR ---
Subjective Remarks Follow-up pancreatitis. Improving pain scale of 8 out of 10. Still with nausea. Small bowel movement today. Discussed with RN Objective Vitals Vital Signs Date Time Temp Pulse Resp B/P Pulse Ox O2 Delivery O2 Flow Rate FiO2 12/12/16 16:00 97.5 109 18 148/80 95 12/12/16 12:00 99.4 91 18 114/69 92 12/12/16 08:16 95 21 12/12/16 08:00 98.6 100 15 132/85 93 12/12/16 04:00 99.5 101 18 150/90 94 12/12/16 00:00 99.6 102 18 154/93 95 12/11/16 20:00 99.3 94 16 126/80 96 I/O 12/11/16 12/11/16 12/11/16 12/12/16 12/12/16 12/12/16 07:00 15:00 23:00 07:00 15:00 23:00 Intake Total 480 ml 930 ml 1540 ml 610 ml 250 ml 720 ml Output Total 400 ml 700 ml 1175 ml Balance 80 ml 930 ml 840 ml -565 ml 250 ml 720 ml Intake Oral 480 ml 930 ml 0 ml 720 ml IV Total 1540 ml 610 ml 250 ml Output Urine Total 400 ml 700 ml 1175 ml # Voids 9 6 # Bowel Movements 0 1 Result Diagram: 12/11/16 0618 12/11/16 0618 Imaging Last Impressions Chest X-Ray 12/08/16 0000 Signed Impressions: Service Date/Time: Thursday, December 08, 2016 08:55 - CONCLUSION: Persistent but improving interstitial disease at the bases. Donnie Macias MD Hepatobiliary Scan Nuclear Medicine 12/07/16 0000 Signed Impressions: Service Date/Time: Wednesday, December 07, 2016 10:10 - CONCLUSION: 1. Single episode of biliary enteric reflux. 2. Otherwise negative with no scintigraphic evidence of acute cholecystitis. Jayy Hyatt MD Abdomen/Pelvis CT 12/05/16 1046 Signed Impressions: Service Date/Time: Monday, December 05, 2016 11:33 - CONCLUSION: 1. CT findings characteristic of chronic pancreatitis with multiple pancreatic head calcifications and prominence of the pancreatic duct. 2. In addition, there are peripancreatic inflammatory changes around the tail of the pancreas extending up towards the gastric fundus characteristic of a superimposed acute pancreatitis. 3. A 2.9 cm left inguinal hernia which only contains fat. 4. Appendix is identified and is radiographically normal. 5. Bibasilar atelectasis/fibrosis. Jayy Hyatt MD Objective Remarks GENERAL: patient lying in bed. Alert and oriented 3. SKIN: Warm and dry. HEAD: Normocephalic. EYES: No scleral icterus. No injection or drainage. NECK: Supple, trachea midline. No JVD. CARDIOVASCULAR: Regular rate and rhythm without murmurs, gallops, or rubs. RESPIRATORY: Breath sounds equal bilaterally. No accessory muscle use. GASTROINTESTINAL: Abdomen soft. Epigastric tenderness mild. No rebound or guarding. MUSCULOSKELETAL: No cyanosis, or edema. BACK: Nontender without obvious deformity. No CVA tenderness. Procedures EUS with FNA A/P Problem List: (1) Pancreatitis ICD Code: K85.90 Status: Acute Assessment and Plan //Recurrent pancreatitis following Lipase levels, Gastric protection, GI specialist following recommended to start liquid diet, continue present care with IV fluids, pain medicine. Improving condition. status post EGD and found Gastritis. -12/11 status post fine-needle aspiration of pancreatic pseudocyst. Await results. Appreciate GI assistance. //Seizure disorder -Patient is on Dilantin, however subtherapeutic. Reload with 100 mg and repeat level tomorrow continue Ativan PRN for Seizures, //Hyponatremia probable Potomania. Improved. Continue to monitor. //Hypertension. Blood pressure acceptable. Continue to monitor. //COPD -cont Bronchodilator, Mucolytic and incentive spirometry //Tobacco dependence- -cessation counseling provided. Strongly recommend discontinuation. //Alcohol abuse -Has not been drinking since last week. 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 Monitor. -Consult family caseworker from all discharge plan. //Hepatitis C by history. Not on treatment. GI following. Appreciate assistance. //hypokalemia. Improved after replacement. Monitor. //Sepsis on admission. Fever. Tachycardia. Chest x-ray with airspace disease in the right lung. Improving. //Pneumonia on admission. Improving. Continue antibiotics for pneumonia,started on 12/08. Discontinue Zithromax and consider switching to by mouth Ceftin in the morning. -Consider that this could be aspiration pneumonia and urinary recent vomiting, however clinically improving, and Repeat chest x-ray improved. DVT prophylaxis: bilat SCDs Problem Qualifiers (1) Pancreatitis: Qualified Code: K85.90 - Acute pancreatitis, unspecified complication status, unspecified pancreatitis type Roge Jimenez MD Dec 12, 2016 16:13
[2016-12-12] MEDS: MIRTAZAPINE 15 MG TAB PO SCH (20:19)
[2016-12-12] MEDS: PHENYTOIN SODIUM 100 MG CAP PO SCH (20:20)
[2016-12-12] MEDS: REMOVE OLD PATCH T-DERMAL SCH (20:26)
[2016-12-13] VITALS (8 sets, daily range): BP systolic 95–147; BP diastolic 55–90; PULSE 87–104; RESP 16–22; TEMP 97.4–100.4; O2SAT 92–99
[2016-12-13] MEDS: HYDROmorphone HCL 4 MG TAB PO PRN ×6 (00:22→21:22)
[2016-12-13] MEDS: SIMETHICONE 125 MG CHEWABLE TAB PO SCH ×3 (04:24→22:54)
[2016-12-13] MEDS: SODIUM CHLOR 0.9% 1000 ML INJ 1,000 ML IV SCH ×2 (04:34→17:20)
[2016-12-13] MEDS: BUDESONIDE-FORMOTEROL 160/4.5 MCG INHALER INH SCH ×2 (09:00→21:00)
[2016-12-13] MEDS: LISINOPRIL 10 MG TAB PO SCH (09:13)
[2016-12-13] MEDS: LIPASE/PROTEASE/AMYLASE (24,000/76,000/120,000) CAP PO SCH ×3 (09:13→17:15)
[2016-12-13] MEDS: PANTOPRAZOLE SODIUM 40 MG VIAL IV PUSH SCH (09:13)
[2016-12-13] MEDS: DOCUSATE SODIUM 50 MG/SENNA 8.6 MG TAB PO PRN (09:13)
[2016-12-13] MEDS: guaiFENesin E.R. 600 MG TAB PO SCH ×2 (09:13→21:00)
[2016-12-13] MEDS: DOCUSATE SODIUM 100 MG CAP PO SCH ×2 (09:13→21:00)
[2016-12-13] MEDS: BACLOFEN 10 MG TAB PO SCH ×3 (09:14→17:16)
[2016-12-13] MEDS: SODIUM CHLORIDE 0.9% FLUSH 10 ML FLUSH IV FLUSH SCH ×2 (09:14→21:23)
[2016-12-13] MEDS: NICOTINE 14 MG/24 HR PATCH T-DERMAL SCH (09:14)
[2016-12-13] MEDS ORDERED: PHENYTOIN SODIUM 100 MG CAP PO ONE (09:30)
[2016-12-13] MEDS: cefTRIAXone INJ 1,000 MG in SODIUM CHLORIDE 0.9% INJ 100 ML IV SCH (13:13)
[2016-12-13] MEDS: LACTULOSE SYRUP 20 GM/30 ML CUP PO PRN (13:18)
--- NOTE | 2016-12-13 17:42 | HHI.PR ---
Subjective Remarks Follow-up pancreatitis. Improving pain. He is passing gas no BM still on liquid diet. Discussed with RN Objective Vitals Vital Signs Date Time Temp Pulse Resp B/P Pulse Ox O2 Delivery O2 Flow Rate FiO2 12/13/16 17:14 99.4 12/13/16 16:49 100.4 91 16 138/85 93 12/13/16 12:52 99.2 87 16 134/82 94 12/13/16 08:13 99.1 90 16 122/83 92 12/13/16 05:28 16 12/13/16 05:19 97.8 97 16 137/79 94 12/13/16 02:26 100.1 97 18 147/90 93 12/12/16 20:27 100.0 102 18 140/83 92 I/O 12/12/16 12/12/16 12/12/16 12/13/16 12/13/16 12/13/16 07:00 15:00 23:00 07:00 15:00 23:00 Intake Total 610 ml 250 ml 720 ml 340 ml 1682 ml Output Total 1175 ml 200 ml Balance -565 ml 250 ml 720 ml 140 ml 1682 ml Intake Oral 0 ml 720 ml 340 ml 720 ml IV Total 610 ml 250 ml 962 ml Output Urine Total 1175 ml 200 ml # Voids 6 2 3 # Bowel Movements 1 0 Result Diagram: 12/11/16 0618 12/11/16 0618 Imaging Last Impressions Chest X-Ray 12/08/16 0000 Signed Impressions: Service Date/Time: Thursday, December 08, 2016 08:55 - CONCLUSION: Persistent but improving interstitial disease at the bases. Donnie Macias MD Hepatobiliary Scan Nuclear Medicine 12/07/16 0000 Signed Impressions: Service Date/Time: Wednesday, December 07, 2016 10:10 - CONCLUSION: 1. Single episode of biliary enteric reflux. 2. Otherwise negative with no scintigraphic evidence of acute cholecystitis. Jayy Hyatt MD Abdomen/Pelvis CT 12/05/16 1046 Signed Impressions: Service Date/Time: Monday, December 05, 2016 11:33 - CONCLUSION: 1. CT findings characteristic of chronic pancreatitis with multiple pancreatic head calcifications and prominence of the pancreatic duct. 2. In addition, there are peripancreatic inflammatory changes around the tail of the pancreas extending up towards the gastric fundus characteristic of a superimposed acute pancreatitis. 3. A 2.9 cm left inguinal hernia which only contains fat. 4. Appendix is identified and is radiographically normal. 5. Bibasilar atelectasis/fibrosis. Jayy Hyatt MD Objective Remarks GENERAL: patient lying in bed. Alert and oriented 3. SKIN: Warm and dry. HEAD: Normocephalic. EYES: No scleral icterus. No injection or drainage. NECK: Supple, trachea midline. No JVD. CARDIOVASCULAR: Regular rate and rhythm without murmurs, gallops, or rubs. RESPIRATORY: Breath sounds equal bilaterally. No accessory muscle use. GASTROINTESTINAL: Abdomen soft. Epigastric tenderness mild. No rebound or guarding. Nonfocal MUSCULOSKELETAL: No cyanosis, or edema. BACK: Nontender without obvious deformity. No CVA tenderness. Procedures EUS with FNA A/P Problem List: (1) Pancreatitis ICD Code: K85.90 Status: Acute Assessment and Plan //Recurrent pancreatitis following Lipase levels, Gastric protection, GI specialist following recommended to start liquid diet, continue present care with IV fluids, pain medicine. Improving condition. status post EGD and found Gastritis. Continue PPI -12/11 status post fine-needle aspiration of pancreatic pseudocyst. Await results. Appreciate GI assistance. //Seizure disorder -Patient is on Dilantin, however subtherapeutic. Reload with 500 mg and increase to 5 mg at bedtime and repeat level tomorrow continue Ativan PRN for Seizures, //Hyponatremia probable Potomania. Improved. Continue to monitor. //Hypertension. Blood pressure acceptable. Continue to monitor. //COPD -cont Bronchodilator, Mucolytic and incentive spirometry //Tobacco dependence- -cessation counseling provided. Strongly recommend discontinuation. //Alcohol abuse -Has not been drinking since last week. Does not appear to be going through withdrawal. Monitor. -Consult correctional counselor/case manager for discharge plan. //Hepatitis C by history. Not on treatment. GI following. Appreciate assistance. //hypokalemia. Improved after replacement. Monitor. //Sepsis on admission. Fever. Tachycardia. Chest x-ray with airspace disease in the right lung. Improving. //Pneumonia on admission. Improving. Continue antibiotics for pneumonia,started on 12/08. Discontinue Zithromax and switched to by mouth Ceftin until December 21 - Consider that this could be aspiration pneumonia and urinary recent vomiting, however clinically improving, and Repeat chest x-ray improved. - Patient with a low-grade temperature likely secondary to atelectasis. Clinically stable. Incentive spirometry DVT prophylaxis: bilat SCDs Discharge Planning Home when cleared by GI Problem Qualifiers (1) Pancreatitis: Qualified Code: K85.90 - Acute pancreatitis, unspecified complication status, unspecified pancreatitis type Roge Jimenez MD Dec 13, 2016 17:42
[2016-12-13] MEDS ORDERED: DILA100C PO (17:46)
[2016-12-13] MEDS ORDERED: DILA2TAB2 PO (17:46)
[2016-12-13] MEDS ORDERED: CREON24 PO (17:46)
[2016-12-13] MEDS ORDERED: CEFT500T3 PO (17:46)
[2016-12-13] MEDS ORDERED: SIME1CHW11 PO (17:46)
--- NOTE | 2016-12-13 17:47 | HHI.DCPOC ---
Discharge Care Plan Diagnosis: (1) Pancreatitis Your Health Problems Are: Difficulty with ADL Exercise Tolerance Goals to Promote Your Health * To prevent worsening of your condition and complications * To maintain your health at the optimal level Directions to Meet Your Goals Take your medications as prescribed Follow your dietary instruction Follow activity as directed Keep your appointments as scheduled Take your immunizations and boosters as scheduled If your symptoms worsen call your PCP, if no PCP go to Urgent Care Center or Emergency Room Smoking is Dangerous to Your Health. Avoid second hand smoke Call the 24-hour hour crisis hotline for domestic abuse at Roge Jimenez MD Dec 13, 2016 17:47
--- NOTE | 2016-12-13 18:18 | HHI.GIFU ---
Subjective Remarks Resting in bed. Still has some abdominal pain "6" on scale 0-6, but states he does feel this is betting better. Tolerating clears and would like this advanced. + Small bm yesterday. (Nelda iLu Elianataylor SHER) Objective Vitals I&O Vital Signs Date Time Temp Pulse Resp B/P Pulse Ox O2 Delivery O2 Flow Rate FiO2 12/13/16 17:14 99.4 12/13/16 16:49 100.4 91 16 138/85 93 12/13/16 12:52 99.2 87 16 134/82 94 12/13/16 08:13 99.1 90 16 122/83 92 12/13/16 05:28 16 12/13/16 05:19 97.8 97 16 137/79 94 12/13/16 02:26 100.1 97 18 147/90 93 12/12/16 20:27 100.0 102 18 140/83 92 I/O 12/12/16 12/12/16 12/12/16 12/13/16 12/13/16 12/13/16 07:00 15:00 23:00 07:00 15:00 23:00 Intake Total 610 ml 250 ml 720 ml 340 ml 1682 ml Output Total 1175 ml 200 ml Balance -565 ml 250 ml 720 ml 140 ml 1682 ml Intake Oral 0 ml 720 ml 340 ml 720 ml IV Total 610 ml 250 ml 962 ml Output Urine Total 1175 ml 200 ml # Voids 6 2 3 # Bowel Movements 1 0 Laboratory Laboratory Tests Test 12/13/16 05:50 Phenytoin (Dilantin) Level 6.9 Imaging Last Impressions Chest X-Ray 12/08/16 0000 Signed Impressions: Service Date/Time: Thursday, December 08, 2016 08:55 - CONCLUSION: Persistent but improving interstitial disease at the bases. Donnie Macias MD Hepatobiliary Scan Nuclear Medicine 12/07/16 0000 Signed Impressions: Service Date/Time: Wednesday, December 07, 2016 10:10 - CONCLUSION: 1. Single episode of biliary enteric reflux. 2. Otherwise negative with no scintigraphic evidence of acute cholecystitis. Jayy Hyatt MD Abdomen/Pelvis CT 12/05/16 1046 Signed Impressions: Service Date/Time: Monday, December 05, 2016 11:33 - CONCLUSION: 1. CT findings characteristic of chronic pancreatitis with multiple pancreatic head calcifications and prominence of the pancreatic duct. 2. In addition, there are peripancreatic inflammatory changes around the tail of the pancreas extending up towards the gastric fundus characteristic of a superimposed acute pancreatitis. 3. A 2.9 cm left inguinal hernia which only contains fat. 4. Appendix is identified and is radiographically normal. 5. Bibasilar atelectasis/fibrosis. Jayy Hyatt MD Physical Exam HEENT: Normocephalic; atraumatic; no jaundice. CHEST: CTA CARDIAC: RR ABDOMEN: +BS, soft, bloated, mild tenderness EXTREMITIES: No clubbing, cyanosis, or edema. SKIN: Normal; no rash; no jaundice. NAPHTHALENE OPERATOR: No focal deficits; alert and oriented times three. (Nelda Liu SENIOR TALENT ACQUISITION SPECIALIST) Assessment and Plan Plan ASSESSMENT: - Acute on chronic pancreatitis. One prior episode of pancreatitis in 2014, unclear etiology at that time. 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 S/P ERCP with sphincterotomy, balloon extraction and biopsy (11/01/14)----> gastritis, thickened duodenal fold, bulging ampulla, dilated common bile duct. Pathology with duodenal mucosa with no significant histopathologic abnormalities, ampulla with cauterized mucosa with hypervascularity and mild vascular congestion of the lamina propria. Adenomatous change is not identified. He reports that since that time, he has had a few minor episodes at home where he thought he was coming down with pancreatitis again, but he was able to take clear liquids and his symptoms would improve. Abdominal pain with n/v began 2 days ago. He does drink ETOH, usually 1-2 beers a week, but states he has not had any for 1.5 weeks. Of note, in EMR, it states he is a daily drinker. He denies any new medications or herbal supplements. Of note, he is on lisinopril. Abdomen/Pelvis CT (12/05/16)----> 1. CT findings characteristic of chronic pancreatitis with multiple pancreatic head calcifications and prominence of the pancreatic duct. 2. In addition, there are peripancreatic inflammatory changes around the tail of the pancreas extending up towards the gastric fundus characteristic of a superimposed acute pancreatitis. 3. A 2.9 cm left inguinal hernia which only contains fat. 4. Appendix is identified and is radiographically normal. 5. Bibasilar atelectasis/fibrosis. Suspect this may be related to ETOH. EGD on 12/07/16 -- > Gastritis and external compression stomach fundus. HIDA Scan (12/07/16) --> Single episode of biliary enteric reflux. Otherwise negative with no scintigraphic evidence of acute cholecystitis. EUS W/ FNA (12/10/16) irregular pancreatic head, developing pseudocyst at the tail of pancreas. FNA pending. Clear liquids, PPI. Still with abdominal pain, but improving. Would like diet advanced. - Constipation, bloating. lactulose, stool softeners, + BM yesterday - Leukocytosis. Improved. - Hyponatremia. ? More etoh use than he admits to. - CAD, COPD, HTN, Sz d/o per primary PLAN: - Full liquids - Await cytology - Cont. Protonix - Cont. Simethicone - Cont. 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 Bull and myself and this note is written on his behalf (Nelda Liu) Physician Comments Seen and examined Agree with above Continue with current supportive care Monitor labs Await cytology (Bernardino Bull MD) Nelda Liu Dec 13, 2016 18:18 Bernardino Bull MD Dec 13, 2016 21:55
[2016-12-13] MEDS ORDERED: PHENYTOIN SODIUM 100 MG CAP PO SCH (21:00)
[2016-12-13] MEDS: REMOVE OLD PATCH T-DERMAL SCH (21:00)
[2016-12-13] MEDS: CEFUROXIME AXETIL 500 MG TAB PO SCH (21:23)
[2016-12-13] MEDS: MIRTAZAPINE 15 MG TAB PO SCH (21:23)
[2016-12-13] MEDS: ONDANSETRON HCL 4 MG/2 ML VIAL IVP PRN (21:27)
[2016-12-14] VITALS: BP 118/75; PULSE 98; RESP 18; TEMP 99.2; O2SAT 93
[2016-12-14] MEDS: HYDROmorphone HCL 4 MG TAB PO PRN ×4 (01:23→13:32)
[2016-12-14 04:00] VITALS: BP 113/72; PULSE 91; RESP 17; TEMP 99; O2SAT 99
[2016-12-14] MEDS: SIMETHICONE 125 MG CHEWABLE TAB PO SCH ×2 (05:27→13:32)
[2016-12-14 08:20] VITALS: BP 129/85; PULSE 89; RESP 16; TEMP 99.3; O2SAT 91
[2016-12-14] MEDS ORDERED: PANTOPRAZOLE SOD 40 MG DELAYED RELEASE TAB PO SCH (09:00)
[2016-12-14] MEDS: DOCUSATE SODIUM 100 MG CAP PO SCH (09:29)
[2016-12-14] MEDS: CEFUROXIME AXETIL 500 MG TAB PO SCH (09:29)
[2016-12-14] MEDS: guaiFENesin E.R. 600 MG TAB PO SCH (09:29)
[2016-12-14] MEDS: NICOTINE 14 MG/24 HR PATCH T-DERMAL SCH (09:29)
[2016-12-14] MEDS: BACLOFEN 10 MG TAB PO SCH ×2 (09:29→13:32)
[2016-12-14] MEDS: LIPASE/PROTEASE/AMYLASE (24,000/76,000/120,000) CAP PO SCH ×2 (09:29→13:32)
[2016-12-14] MEDS: LISINOPRIL 10 MG TAB PO SCH (09:30)
[2016-12-14] MEDS: ONDANSETRON HCL 4 MG/2 ML VIAL IVP PRN (09:30)
[2016-12-14] MEDS: LACTULOSE SYRUP 20 GM/30 ML CUP PO PRN (09:30)
[2016-12-14] MEDS: SODIUM CHLORIDE 0.9% FLUSH 10 ML FLUSH IV FLUSH SCH (09:30)
[2016-12-14] MEDS: BUDESONIDE-FORMOTEROL 160/4.5 MCG INHALER INH SCH (09:31)
[2016-12-14] MEDS: SODIUM CHLOR 0.9% 1000 ML INJ 1,000 ML IV SCH (09:37)
[2016-12-14 12:00] VITALS: BP 121/80; PULSE 89; RESP 16; TEMP 98.5; O2SAT 94
--- NOTE | 2016-12-14 14:29 | HHI.PR ---
Subjective Remarks Follow-up pancreatitis. Tolerating full liquid diet. He wants to go home. Discussed with GI, advance to low-fat diet and DC home. Discussed with RN Objective Vitals Vital Signs Date Time Temp Pulse Resp B/P Pulse Ox O2 Delivery O2 Flow Rate FiO2 12/14/16 08:20 99.3 89 16 129/85 91 12/14/16 07:00 19 12/14/16 04:00 99.0 91 17 113/72 99 12/14/16 00:00 99.2 98 18 118/75 93 12/13/16 20:00 97.4 104 22 95/55 97 12/13/16 19:57 99 21 12/13/16 17:14 99.4 12/13/16 16:49 100.4 91 16 138/85 93 I/O 12/13/16 12/13/16 12/13/16 12/14/16 12/14/16 12/14/16 07:00 15:00 23:00 07:00 15:00 23:00 Intake Total 340 ml 1682 ml 1276 ml 847 ml Output Total 200 ml Balance 140 ml 1682 ml 1276 ml 847 ml Intake Oral 340 ml 720 ml 480 ml IV Total 962 ml 796 ml 847 ml Output Urine Total 200 ml # Voids 2 3 2 # Bowel Movements 0 Result Diagram: 12/11/16 0618 12/11/16 0618 Imaging Last Impressions Chest X-Ray 12/08/16 0000 Signed Impressions: Service Date/Time: Thursday, December 08, 2016 08:55 - CONCLUSION: Persistent but improving interstitial disease at the bases. Donnie Macias MD Hepatobiliary Scan Nuclear Medicine 12/07/16 0000 Signed Impressions: Service Date/Time: Wednesday, December 07, 2016 10:10 - CONCLUSION: 1. Single episode of biliary enteric reflux. 2. Otherwise negative with no scintigraphic evidence of acute cholecystitis. Jayy Hyatt MD Abdomen/Pelvis CT 12/05/16 1046 Signed Impressions: Service Date/Time: Monday, December 05, 2016 11:33 - CONCLUSION: 1. CT findings characteristic of chronic pancreatitis with multiple pancreatic head calcifications and prominence of the pancreatic duct. 2. In addition, there are peripancreatic inflammatory changes around the tail of the pancreas extending up towards the gastric fundus characteristic of a superimposed acute pancreatitis. 3. A 2.9 cm left inguinal hernia which only contains fat. 4. Appendix is identified and is radiographically normal. 5. Bibasilar atelectasis/fibrosis. Jayy Hyatt MD Objective Remarks GENERAL: patient lying in bed. Alert and oriented 3. SKIN: Warm and dry. HEAD: Normocephalic. EYES: No scleral icterus. No injection or drainage. NECK: Supple, trachea midline. No JVD. CARDIOVASCULAR: Regular rate and rhythm without murmurs, gallops, or rubs. RESPIRATORY: Breath sounds equal bilaterally. No accessory muscle use. GASTROINTESTINAL: Abdomen soft. Epigastric tenderness mild. No rebound or guarding. Nonfocal MUSCULOSKELETAL: No cyanosis, or edema. BACK: Nontender without obvious deformity. No CVA tenderness. Procedures EUS with FNA A/P Problem List: (1) Pancreatitis ICD Code: K85.90 Status: Acute Assessment and Plan //Recurrent pancreatitis following Lipase levels, Gastric protection, GI specialist following Improving advance to low-fat, discontinue IV fluids, continue pain medicine counseled regarding narcotics. Improving condition. status post EGD and found Gastritis. Continue PPI -12/11 status post fine-needle aspiration of pancreatic pseudocyst. Pathology negative for malignancy. Appreciate GI assistance. //Seizure disorder -Patient is on Dilantin, now therapeutic status post 500 mg loading and increasing dose to 500 mg at bedtime continue Ativan PRN for Seizures, //Hyponatremia probable Potomania. Improved. Continue to monitor. //Hypertension. Blood pressure acceptable. Continue to monitor. //COPD -cont Bronchodilator, Mucolytic and incentive spirometry //Tobacco dependence- -cessation counseling provided. Strongly recommend discontinuation. //Alcohol abuse -Has not been drinking since last week. Does not appear to be going through withdrawal. Monitor. -Consult case picker for discharge plan. //Hepatitis C by history. Not on treatment. GI following. Appreciate assistance. //hypokalemia. Improved after replacement. Monitor. //Sepsis on admission. Fever. Tachycardia. Chest x-ray with airspace disease in the right lung. Improving. //Pneumonia on admission. Improving. Continue antibiotics for pneumonia,started on 12/08. Discontinue Zithromax and switched to by mouth Ceftin until December 21 - Consider that this could be aspiration pneumonia and urinary recent vomiting, however clinically improving, and Repeat chest x-ray improved. - Patient with a low-grade temperature likely secondary to atelectasis. Clinically stable, no recurrence. Incentive spirometry DVT prophylaxis: bilat SCDs Discharge Planning Stable for discharge Problem Qualifiers (1) Pancreatitis: Qualified Code: K85.90 - Acute pancreatitis, unspecified complication status, unspecified pancreatitis type Roge Jimenez MD Dec 14, 2016 14:29
--- NOTE | 2016-12-14 14:32 | HHI.DS ---
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 Patient with no fevers or chills. Patient with no chest pain or shortness breath at this time. the patient has Seizure disorder Depression, Hypertension, history of Brain aneurysm, COPD, Recurrent Pancreatitis. He started with Epigastric pain yesterday morning, radiated to the back, 8/10 in intensity, like Stabbing sensation, associated with Nausea and vomit. CBC/BMP: 12/11/16 0618 12/11/16 0618 Significant Findings Laboratory Tests Test 12/12/16 12/13/16 05:46 05:50 Phenytoin (Dilantin) Level 4.8 MCG/ML 6.9 MCG/ML (10.0-20.0) (10.0-20.0) Imaging Last Impressions Chest X-Ray 12/08/16 0000 Signed Impressions: Service Date/Time: Thursday, December 08, 2016 08:55 - CONCLUSION: Persistent but improving interstitial disease at the bases. Donnie Macias MD Hepatobiliary Scan Nuclear Medicine 12/07/16 0000 Signed Impressions: Service Date/Time: Wednesday, December 07, 2016 10:10 - CONCLUSION: 1. Single episode of biliary enteric reflux. 2. Otherwise negative with no scintigraphic evidence of acute cholecystitis. Jayy Hyatt MD Abdomen/Pelvis CT 12/05/16 1046 Signed Impressions: Service Date/Time: Monday, December 05, 2016 11:33 - CONCLUSION: 1. CT findings characteristic of chronic pancreatitis with multiple pancreatic head calcifications and prominence of the pancreatic duct. 2. In addition, there are peripancreatic inflammatory changes around the tail of the pancreas extending up towards the gastric fundus characteristic of a superimposed acute pancreatitis. 3. A 2.9 cm left inguinal hernia which only contains fat. 4. Appendix is identified and is radiographically normal. 5. Bibasilar atelectasis/fibrosis. Jayy Hyatt MD PE at Discharge GENERAL: patient lying in bed. Alert and oriented 3. SKIN: Warm and dry. HEAD: Normocephalic. EYES: No scleral icterus. No injection or drainage. NECK: Supple, trachea midline. No JVD. CARDIOVASCULAR: Regular rate and rhythm without murmurs, gallops, or rubs. RESPIRATORY: Breath sounds equal bilaterally. No accessory muscle use. GASTROINTESTINAL: Abdomen soft. Epigastric tenderness mild. No rebound or guarding. Nonfocal MUSCULOSKELETAL: No cyanosis, or edema. BACK: Nontender without obvious deformity. No CVA tenderness. Hospital Course //Recurrent pancreatitis following Lipase levels, Gastric protection, GI specialist following Improving advance to low-fat, discontinue IV fluids, continue pain medicine counseled regarding narcotics. Improving condition. status post EGD and found Gastritis. Continue PPI -12/11 status post fine-needle aspiration of pancreatic pseudocyst. Pathology negative for malignancy. Appreciate GI assistance. //Seizure disorder -Patient is on Dilantin, now therapeutic status post 500 mg loading and increasing dose to 500 mg at bedtime continue Ativan PRN for Seizures, //Hyponatremia probable Potomania. Improved. Continue to monitor. //Hypertension. Blood pressure acceptable. Continue to monitor. //COPD -cont Bronchodilator, Mucolytic and incentive spirometry //Tobacco dependence- -cessation counseling provided. Strongly recommend discontinuation. //Alcohol abuse -Has not been drinking since last week. Does not appear to be going through withdrawal. Monitor. -Consult case fitter for discharge plan. //Hepatitis C by history. Not on treatment. GI following. Appreciate assistance. //hypokalemia. Improved after replacement. Monitor. //Sepsis on admission. Fever. Tachycardia. Chest x-ray with airspace disease in the right lung. Improving. //Pneumonia on admission. Improving. Continue antibiotics for pneumonia,started on 12/08. Discontinue Zithromax and switched to by mouth Ceftin until December 21 - Consider that this could be aspiration pneumonia and urinary recent vomiting, however clinically improving, and Repeat chest x-ray improved. - Patient with a low-grade temperature likely secondary to atelectasis. Clinically stable, no recurrence. Incentive spirometry DVT prophylaxis: bilat SCDs Pt Condition on Discharge: Stable Discharge Disposition: Discharge Home Discharge Time: > 30 minutes Discharge Instructions DIET: Follow Instructions for: Low Fat Diet Activities you can perform: Regular-No Restrictions Activities to Avoid: Driving Follow up Referrals: Gastroenterology - 1 Week PCP Follow-up - 1 Week New Medications: Cefuroxime (Ceftin) 500 Mg Tab 500 MG PO Q12HR Stop date 12/21/16 Infection #14 TAB Hydromorphone (Dilaudid) 2 Mg Tab 2 MG PO Q6HR PRN pain #28 TAB Pancrelipase (Creon) 24,000-76,000-120,000 Units Cap 1 CAP PO TID pancreatic enzymes #93 CAP Phenytoin Extended (Dilantin) 100 Mg Cap 500 MG PO HS Control Seizures #30 CAP Simethicone (Gas Relief Maximum Streng) 125 Mg Chw 125 MG PO Q8HR Bowel Management #90 EA Continued Medications: Albuterol 8.5 GM Inh (Proair Hfa 8.5 GM Inh) 90 Mcg/Act Aer 2 PUFF INH Q6H 108 mcg/actuation PRN SHORTNESS OF BREATH #1 Ref 0 INHALER Baclofen (Baclofen) 10 Mg Tab 5 MG PO TID Muscle Spasm Ref 0 TAB Budesonide-Formoterol Inh (Symbicort Inh) 160-4.5 Mcg/Act Aero 2 PUFF INH Q12HR #1 Ref 0 INHALER Lisinopril (Lisinopril) 10 Mg Tab 10 MG PO DAILY #30 Ref 0 TAB Mirtazapine (Mirtazapine) 30 Mg Tab 30 MG PO HS Depression Control #30 Ref 0 TAB Multiple Vitamins W/ Minerals (Multivitamin Adults) 1 Tab 1 TAB PO DAILY Nutritional Supplement Ref 0 TAB Omeprazole (Omeprazole) 40 Mg Cap 40 MG PO DAILY #30 Ref 0 CAP Roge Jimenez MD Dec 14, 2016 14:32
== END 2016-12-14 16:02 | disposition home or self-care (01) | DRG 871 ==
LOC: NEPC 08:39 → OBSVTOIN 12:58 → NEDA 12:58 → HOCB 14:47
PROVIDERS: ADMIT Internal Medicine; ATTEND Internal Medicine
PROC: BD49ZZZ Ultrasonography of Duodenum (ICD-10-PCS; 2016-12-10)
PROC: 0DB98ZX Excision of Duodenum, Via Natural or Artificial Opening Endoscopic, Diagnostic (ICD-10-PCS; principal; 2016-12-10 17:00)
DX: A41.9 Sepsis, unspecified organism (principal); K85.90 Acute pancreatitis without necrosis or infection, unspecified; J18.9 Pneumonia, unspecified organism; E87.1 Hypo-osmolality and hyponatremia; J44.0 Chronic obstructive pulmonary disease with (acute) lower respiratory infection; K86.1 Other chronic pancreatitis; J98.11 Atelectasis; I10 Essential (primary) hypertension; E87.6 Hypokalemia; G40.909 Epilepsy, unspecified, not intractable, without status epilepticus; I25.10 Atherosclerotic heart disease of native coronary artery without angina pectoris; K21.9 Gastro-esophageal reflux disease without esophagitis; K29.70 Gastritis, unspecified, without bleeding; K40.90 Unilateral inguinal hernia, without obstruction or gangrene, not specified as recurrent; K59.00 Constipation, unspecified; H91.90 Unspecified hearing loss, unspecified ear; F10.10 Alcohol abuse, uncomplicated; F17.210 Nicotine dependence, cigarettes, uncomplicated; R00.0 Tachycardia, unspecified
CPT/HCPCS: 43242; 71010; 71020; 74177; 78226; 80048; 80053; 80069; 80164; 80185; 81001; 82378; 82550; 83690; 83735; 84100; 84132; 84484; 85025; 85027; 85610; 85730; 86301; 87040; 87493; 88112; 88305; 88312; 93005; 94150; 94640; 94664; 96361; 96374; 96375; A9537; C9113; J0456; J0696; J1170; J2270; J2405; J2710; J2765; J3010; J3480; J7030; J7050; J7613; Q9967

== ENCOUNTER 2017-02-05 11:04 | Emergency (ER) | payer OTHER ==
[~2017-02-05] VITALS: Ht 188 cm; Wt 100.0 kg
[~2017-02-05 11:04] MED LIST changes: +ACET-703 PO; +CALC1TAB87 PO; +CREON24 PO; +ERGO1CAP30 PO; -FOLI1TAB4 PO; +HYDR-3366 PO; -THIA100T PO; +WALKER WHEELS/F1 MIS; +XARE10TA PO
[2017-02-05 11:06] VITALS: BP 175/84; PULSE 93; RESP 18; TEMP 97.9; O2SAT 97
--- NOTE | 2017-02-05 11:40 | PD ---
HPI Chief Complaint: Edema Time Seen by Provider: 11:35 Travel History International Travel<30 days: No Contact w/Intl Traveler<30days: No Traveled to known affect area: No History of Present Illness HPI 56-year-old male presents for evaluation of left lower extremity pain and swelling. Symptoms started this morning. Pain is an aching pain is constant, worse when ambulating. The patient underwent left total hip arthroplasty performed on January 08. He was discharged 10 days ago. Denies fevers or chills, chest pain or shortness of breath. Denies any trauma. No history of DVT or PE. No other complaints. The patient was prescribed xarelto however he reports that he was unable to obtain transportation to the [place] in order to get the prescription filled. PFSH Past Medical History Arthritis: Yes Anxiety: Yes Depression: Yes Cancer: No Cardiovascular Problems: Yes COPD: Yes Diabetes: No Diminished Hearing: Yes ([place] RIGHT EAR) Endocrine: No Gastrointestinal Disorders: Yes GERD: Yes (acid reflux) Genitourinary: No Hepatitis: Yes (HEP C NOT ACTIVE PER PT) Hiatal Hernia: No Hypertension: Yes Immune Disorder: No Implanted Vascular Access Dvce: Yes Musculoskeletal: Yes Neurologic: Yes Psychiatric: Yes Reproductive: No Respiratory: Yes (COPD) Seizures: Yes Thyroid Disease: No Ulcer: Yes Past Surgical History AICD: No Body Medical Devices: CLIPS IN BRAIN Joint Replacement: No Neurologic Surgery: Yes (CLIP IN R SIDE HEAD FOR ANEURYSM) Pacemaker: No Other Surgery: Yes (BRAIN SURGERY) Social History Alcohol Use: Yes ("A FEW BEERS DAILY") Tobacco Use: Yes (1 PPD) Substance Use: No Allergies-Medications (Allergen,Severity, Reaction): Coded Allergies: MRI PRECAUTION (Verified Adverse Reaction, Severe, ANEURYSM CLIP, 01/07/17) DR HENRY VERIFIED ANEURYSM CLIP Reported Meds & Prescriptions Reported Meds & Active Scripts Active Naproxen 500 Mg Tab 500 Mg PO BID 10 Days [place] (Hydrocodone-Acetaminophen) 10-325 Mg Tab 1 Tab PO Q4H PRN Dilantin (Phenytoin Extended) 100 Mg Cap 500 Mg PO HS Reported Mirtazapine 30 Mg Tab 30 Mg PO HS Omeprazole 40 Mg Cap 40 Mg PO DAILY Lisinopril 10 Mg Tab 10 Mg PO DAILY Symbicort Inh (Budesonide/Formoterol Fumarate) 160-4.5 Mcg/Act Aero 2 Puff INH Q12HR Baclofen 10 Mg Tab 10 Mg PO TID Proair Hfa 8.5 GM Inh (Albuterol Sulfate) 90 Mcg/Act Aer 2 Puff INH Q6H PRN 108 mcg/actuation Review of Systems Except as stated in HPI: all other systems reviewed are Neg Physical Exam Narrative GENERAL: Well developed well-nourished male in no acute distress SKIN: Warm and dry. HEAD: Atraumatic. Normocephalic. EYES: Pupils equal and round. No scleral icterus. No injection or drainage. ENT: No nasal bleeding or discharge. Mucous membranes pink and moist. NECK: Trachea midline. No JVD. CARDIOVASCULAR: Regular rate and rhythm. No murmur appreciated. RESPIRATORY: No accessory muscle use. Clear to auscultation. Breath sounds equal bilaterally. GASTROINTESTINAL: Abdomen soft, non-tender, nondistended. MUSCULOSKELETAL: 2+ left lower extremity tibial/pedal edema. Positive Homans. No erythema. 2+ dorsalis pedis pulses bilaterally. The postoperative surgical wound on the left hip has healed well. NEUROLOGICAL: Awake and alert. No obvious cranial nerve deficits. Motor grossly within normal limits. Normal speech. Data Data Last Documented VS Vital Signs Date Time Temp Pulse Resp B/P Pulse Ox O2 Delivery O2 Flow Rate FiO2 02/05/17 11:06 97.9 93 18 175/84 97 Orders Us Leg Venous Doppler (02/05/17 11:43) Complete Blood Count With Diff (02/05/17 11:43) Basic Metabolic Panel (Bmp) (02/05/17 11:43) Act Partial Throm Time (Ptt) (02/05/17 11:43) Prothrombin Time / Inr (Pt) (02/05/17 11:43) Iv Access Insert/Monitor (02/05/17 11:43) Valproic Acid (Depakene) (02/05/17 11:58) Labs Laboratory Tests Test 02/05/17 11:58 White Blood Count 6.6 TH/MM3 Red Blood Count 3.73 MIL/MM3 Hemoglobin 11.3 GM/DL Hematocrit 34.7 % Mean Corpuscular Volume 93.2 FL Mean Corpuscular Hemoglobin 30.5 PG Mean Corpuscular Hemoglobin 32.7 % Concent Red Cell Distribution Width 15.8 % Platelet Count 213 TH/MM3 Mean Platelet Volume 9.6 FL Neutrophils (%) (Auto) 58.4 % Lymphocytes (%) (Auto) 28.9 % Monocytes (%) (Auto) 8.8 % Eosinophils (%) (Auto) 3.7 % Basophils (%) (Auto) 0.2 % Neutrophils # (Auto) 3.9 TH/MM3 Lymphocytes # (Auto) 1.9 TH/MM3 Monocytes # (Auto) 0.6 TH/MM3 Eosinophils # (Auto) 0.2 TH/MM3 Basophils # (Auto) 0.0 TH/MM3 CBC Comment DIFF FINAL Differential Comment Prothrombin Time 10.2 SEC Prothromb Time International 0.9 RATIO Ratio Activated Partial 24.8 SEC Thromboplast Time Sodium Level 145 MEQ/L Potassium Level 3.7 MEQ/L Chloride Level 112 MEQ/L Carbon Dioxide Level 24.2 MEQ/L Anion Gap 9 MEQ/L Blood Urea Nitrogen 14 MG/DL Creatinine 0.71 MG/DL Estimat Glomerular Filtration 115 ML/MIN Rate Random Glucose 111 MG/DL Calcium Level 8.5 MG/DL Valproic Acid (Depakene) Level LESS THAN 3 MCG/ML MDM Medical Decision Making Medical Screen Exam Complete: Yes Emergency Medical Condition: Yes Medical Record Reviewed: Yes Differential Diagnosis DVT, dependent edema, cellulitis Narrative Course 56-year-old male with recent left hip arthroplasty presents for evaluation of 2 days of left lower extremity edema. Plan is for basic lab work, ultrasound of the left leg. Ultrasound revealed 1. No DVT in the left leg. 2. Small complex fluid collection left upper lateral thigh could be seroma or hematoma. Examination reveals no evidence of infectious process. This is likely a postoperative seroma. The patient was strongly encouraged to get his prescription for postoperative xarelto filled to prevent DVT. He will be discharged with a short course of naproxen for pain. Diagnosis Primary Impression: Edema of left lower extremity Additional Impression: Status post left hip replacement Additional Instructions: As discussed, obtain prescriptions for all of the medications that were recently prescribed including xarelto to prevent postoperative DVT formation. Follow-up with primary care physician. Return for any acutely new or worsening symptoms. Med/Other Pt SpecificInfo: Prescription(s) given Scripts Naproxen 500 Mg [id number] Mg PO BID 10 Days Ref 0 Prov:Nicole Zamarripa DO 02/05/17 Disposition: 01 DISCHARGE HOME Condition: Stable Edin Obrien Feb 05, 2017 11:40
[2017-02-05 12:11] LABS: AUTOMATED NEUTROPHIL # 3.9 TH/MM3 (1.8-7.7); BASOPHIL % 0.2 % (0.0-2.0); EOSINOPHIL # 0.2 TH/MM3 (0-0.4); EOSINOPHIL % 3.7 % (0.0-4.0); HEMATOCRIT 34.7 % (39.0-51.0); HEMO FLAGS DIFF FINAL; LYMPH % 28.9 % (9.0-44.0); LYMPHOCYTE # 1.9 TH/MM3 (1.0-4.8); MEAN CELL VOLUME 93.2 FL (80.0-100.0); MEAN CORPUSCULAR HEMOGLOBIN 30.5 PG (27.0-34.0); MEAN CORPUSCULAR HGB CONC 32.7 % (32.0-36.0); MONO % 8.8 % (0.0-8.0); NEUT % 58.4 % (16.0-70.0); PLATELET COUNT 213 TH/MM3 (150-450); RED BLOOD COUNT 3.73 MIL/MM3 (4.50-5.90); RED CELL DISTRIBUTION WIDTH 15.8 % (11.6-17.2); WHITE BLOOD COUNT 6.6 TH/MM3 (4.0-11.0)
[2017-02-05 12:18] LABS: APTT (PATIENT) 24.8 SEC (24.3-30.1); INTERNATIONAL NORMALIZED RATIO 0.9 RATIO; PROTHROMBIN TIME - PATIENT 10.2 SEC (9.8-11.6)
[2017-02-05 12:28] LABS: ANION GAP 9 MEQ/L (5-15); BICARBONATE 24.2 MEQ/L (21.0-32.0); BLOOD UREA NITROGEN 14 MG/DL (7-18); CHLORIDE 112 MEQ/L (98-107); GLOMERULAR FILTRATION RATE 115 ML/MIN (>89); POTASSIUM 3.7 MEQ/L (3.5-5.1); SODIUM (NA) 145 MEQ/L (136-145)
--- NOTE | 2017-02-05 13:08 | RADRPT ---
EXAM DATE/TIME: 02/05/2017 12:14 [facility] COMPARISON: No previous studies available for comparison. INDICATIONS : Left leg swelling. MEDICAL HISTORY : Hypertension. Chronic obstructive pulmonary disease. Hepatitis C. Pancreatitis. GERD. Arthritis. SURGICAL HISTORY : Aneurysm clicp in head. Left hip surgery. ENCOUNTER: Initial ACUITY: 1 day PAIN SCORE: 0/10 LOCATION: Bilateral leg. TECHNIQUE: Venous ultrasound of the leg was performed from the inguinal ligament to the proximal calf. Real-emily e, color Doppler and spectral tracing, compression and augmentation techniques were used. FINDINGS: There is normal compressibility of the deep venous system from the inguinal region to the proximal ca lf. No echogenic clot is seen in the lumen of the common femoral, femoral, popliteal, and posterior tibial veins. There is a normal response of the venous system to proximal and distal augmentation an d respiration. Small complex fluid collection in the soft tissues of the upper lateral thigh measures 3.3 x 4.5 cm. CONCLUSION: 1. No DVT in the left leg. 2. Small complex fluid collection left upper lateral thigh could be seroma or hematoma. Ulises Mclean MD on February 05, 2017 at 12:52 Board Certified Radiologist. This report was verified electronically.
[2017-02-05] MEDS ORDERED: NAPR500T PO (13:18)
== END 2017-02-05 13:42 | disposition home or self-care (01) ==
LOC: NEPE 11:04
DX: R60.0 Localized edema (principal); I10 Essential (primary) hypertension; H91.91 Unspecified hearing loss, right ear; F17.200 Nicotine dependence, unspecified, uncomplicated; Z96.642 Presence of left artificial hip joint; Z98.890 Other specified postprocedural states; Z87.39 Personal history of other diseases of the musculoskeletal system and connective tissue; Z86.59 Personal history of other mental and behavioral disorders; Z86.79 Personal history of other diseases of the circulatory system; Z87.09 Personal history of other diseases of the respiratory system; Z87.19 Personal history of other diseases of the digestive system; Z86.69 Personal history of other diseases of the nervous system and sense organs
CPT/HCPCS: 80048; 80164; 85025; 85610; 85730; 93971

== ENCOUNTER 2017-02-10 09:22 | Emergency (ER) | payer OTHER ==
[~2017-02-10] VITALS: Ht 182.9 cm; Wt 102.0 kg
[~2017-02-10 09:22] MED LIST changes: -ACET-703 PO; -CALC1TAB87 PO; -CREON24 PO; -ERGO1CAP30 PO; -MULT1TAB84 PO; +NAPR500T PO; -WALKER WHEELS/F1 MIS; -XARE10TA PO
[2017-02-10 09:36] VITALS: BP 168/89; PULSE 83; RESP 16; TEMP 98.4; O2SAT 99
--- NOTE | 2017-02-10 09:38 | PD ---
HPI Chief Complaint: SEIZURE Time Seen by Provider: 09:32 Travel History International Travel<30 days: No Contact w/Intl Traveler<30days: No History of Present Illness HPI PATIENT HAD TONIC CLONIC SZ DESCRIBED BY EMS, LASTED 30SEC, AND HAD AN APPROPRIATE POST ICTAL PHASE, PT IS A BIT CONFUSED AND ALL H/O OBTAINED FROM EMS AND RECORD REVIEW PFSH Past Medical History Arthritis: Yes Anxiety: Yes Depression: Yes Cancer: No Cardiovascular Problems: Yes COPD: Yes Diabetes: No Diminished Hearing: Yes ([place] RIGHT EAR) Endocrine: No Gastrointestinal Disorders: Yes GERD: Yes (acid reflux) Genitourinary: No Hepatitis: Yes (HEP C NOT ACTIVE PER PT) Hiatal Hernia: No Hypertension: Yes Immune Disorder: No Implanted Vascular Access Dvce: Yes Musculoskeletal: Yes Neurologic: Yes Psychiatric: Yes Reproductive: No Respiratory: Yes (COPD) Pancreatitis: Yes Seizures: Yes Thyroid Disease: No Ulcer: Yes Past Surgical History AICD: No Body Medical Devices: CLIPS IN BRAIN Joint Replacement: No Neurologic Surgery: Yes (CLIP IN R SIDE HEAD FOR ANEURYSM) Pacemaker: No Other Surgery: Yes (BRAIN SURGERY 1989) Social History Alcohol Use: Yes ("A FEW BEERS DAILY") Tobacco Use: Yes (1 PPD) Substance Use: No Allergies-Medications (Allergen,Severity, Reaction): Coded Allergies: MRI PRECAUTION (Verified Adverse Reaction, Severe, ANEURYSM CLIP, 02/10/17) DR HENRY VERIFIED ANEURYSM CLIP Reported Meds & Prescriptions Reported Meds & Active Scripts Active Naproxen 500 Mg Tab 500 Mg PO BID 10 Days [place] (Hydrocodone-Acetaminophen) 10-325 Mg Tab 1 Tab PO Q4H PRN Dilantin (Phenytoin Extended) 100 Mg Cap 500 Mg PO HS Reported Mirtazapine 30 Mg Tab 30 Mg PO HS Omeprazole 40 Mg Cap 40 Mg PO DAILY Lisinopril 10 Mg Tab 10 Mg PO DAILY Symbicort Inh (Budesonide/Formoterol Fumarate) 160-4.5 Mcg/Act Aero 2 Puff INH Q12HR Baclofen 10 Mg Tab 10 Mg PO TID Proair Hfa 8.5 GM Inh (Albuterol Sulfate) 90 Mcg/Act Aer 2 Puff INH Q6H PRN 108 mcg/actuation Review of Systems ROS Limitations: Other: (POST ICTAL) Physical Exam Narrative GENERAL: CONFUSED BUT NOT ACTIVELY SEIZING, PT IS DOING WELL, MAINTAINING AIRWAY. SKIN: Warm and dry. HEAD: Atraumatic. Normocephalic. EYES: Pupils equal and round. No scleral icterus. No injection or drainage. ENT: No nasal bleeding or discharge. Mucous membranes pink and moist. NECK: Trachea midline. No JVD. CARDIOVASCULAR: Regular rate and rhythm. RESPIRATORY: No accessory muscle use. Clear to auscultation. Breath sounds equal bilaterally. GASTROINTESTINAL: Abdomen soft, non-tender, nondistended. Hepatic and splenic margins not palpable. MUSCULOSKELETAL: Extremities without clubbing, cyanosis, or edema. No obvious deformities. NEUROLOGICAL: Awake and alert. No obvious cranial nerve deficits. Motor grossly within normal limits. Five out of 5 muscle strength in the arms and legs. Normal speech. PSYCHIATRIC: Appropriate mood and affect; insight and judgment normal. Data Data Last Documented VS Vital Signs Date Time Temp Pulse Resp B/P Pulse Ox O2 Delivery O2 Flow Rate FiO2 02/10/17 10:10 99 Nasal Cannula 2 02/10/17 09:36 98.4 83 16 168/89 Orders Complete Blood Count With Diff (02/10/17 09:46) Alcohol (Ethanol) (02/10/17 09:46) Phenytoin (Dilantin) (02/10/17 09:46) Electrocardiogram (02/10/17 ) Ct Brain W/O Iv Contrast(Rout) (02/10/17 ) Blood Glucose (02/10/17 09:46) Ecg Monitoring (02/10/17 09:46) Iv Access Insert/Monitor (02/10/17 09:46) Oximetry (02/10/17 09:46) Comprehensive Metabolic Panel (02/10/17 09:46) Sodium Chloride 0.9% Flush (Ns Flush) (02/10/17 10:00) Potassium Chloride (Kcl) (02/10/17 10:45) Phenytoin Inj (Dilantin Inj) (02/10/17 10:45) Labs Laboratory Tests Test 02/10/17 10:00 White Blood Count 10.7 TH/MM3 Red Blood Count 3.75 MIL/MM3 Hemoglobin 11.6 GM/DL Hematocrit 34.6 % Mean Corpuscular Volume 92.1 FL Mean Corpuscular Hemoglobin 31.0 PG Mean Corpuscular Hemoglobin 33.6 % Concent Red Cell Distribution Width 15.3 % Platelet Count 224 TH/MM3 Mean Platelet Volume 10.0 FL Neutrophils (%) (Auto) 77.7 % Lymphocytes (%) (Auto) 12.1 % Monocytes (%) (Auto) 8.7 % Eosinophils (%) (Auto) 0.9 % Basophils (%) (Auto) 0.6 % Neutrophils # (Auto) 8.3 TH/MM3 Lymphocytes # (Auto) 1.3 TH/MM3 Monocytes # (Auto) 0.9 TH/MM3 Eosinophils # (Auto) 0.1 TH/MM3 Basophils # (Auto) 0.1 TH/MM3 CBC Comment DIFF FINAL Differential Comment Sodium Level 148 MEQ/L Potassium Level 3.1 MEQ/L Chloride Level 114 MEQ/L Carbon Dioxide Level 25.8 MEQ/L Anion Gap 8 MEQ/L Blood Urea Nitrogen 18 MG/DL Creatinine 0.77 MG/DL Estimat Glomerular Filtration 105 ML/MIN Rate Random Glucose 98 MG/DL Calcium Level 9.0 MG/DL Total Bilirubin 0.4 MG/DL Aspartate Amino Transf 28 U/L (AST/SGOT) Alanine Aminotransferase 32 U/L (ALT/SGPT) Alkaline Phosphatase 196 U/L Total Protein 7.6 GM/DL Albumin 3.8 GM/DL Phenytoin (Dilantin) Level 6.1 MCG/ML Ethyl Alcohol Level LESS THAN 3 MG/DL MDM Medical Decision Making Medical Screen Exam Complete: Yes Emergency Medical Condition: Yes Medical Record Reviewed: Yes Differential Diagnosis ICH V SUBTHERAPEUTIC SZ V ELECTROLYTE ABNL Narrative Course PT IS NOW A/O X4 WITH GCS 15 AND APPROPRIATE, TOLERATED PO. PT WAS FOUND TO HAVE HYPOKALEMIA WELL SUBTHERAPEUTIC LEVELS OF DILANTIN...PARTIAL LOADING WILL BE DONE WELL REPLACEMENT AND D/C AFTERWARDS Diagnosis Primary Impression: SEIZURE Additional Impressions: Subtherapeutic serum dilantin level HYPOKALEMIA Patient Instructions: General Instructions, Hypokalemia (ED), Recurrent Seizures in Adults (ED) Disposition: 01 DISCHARGE HOME Condition: Stable Pranav Nascimento MD Feb 10, 2017 09:38 Pranav Nascimento MD Feb 10, 2017 09:38
[2017-02-10] MEDS ORDERED: SODIUM CHLORIDE 0.9% FLUSH 10 ML FLUSH IVF PRN (10:00)
[2017-02-10 10:10] VITALS: O2SAT 99
[2017-02-10 10:23] LABS: AUTOMATED NEUTROPHIL # 8.3 TH/MM3 (1.8-7.7); BASOPHIL # 0.1 TH/MM3 (0-0.2); BASOPHIL % 0.6 % (0.0-2.0); EOSINOPHIL # 0.1 TH/MM3 (0-0.4); EOSINOPHIL % 0.9 % (0.0-4.0); HEMATOCRIT 34.6 % (39.0-51.0); HEMO FLAGS DIFF FINAL; LYMPH % 12.1 % (9.0-44.0); LYMPHOCYTE # 1.3 TH/MM3 (1.0-4.8); MEAN CELL VOLUME 92.1 FL (80.0-100.0); MEAN CORPUSCULAR HGB CONC 33.6 % (32.0-36.0); MONO % 8.7 % (0.0-8.0); NEUT % 77.7 % (16.0-70.0); PLATELET COUNT 224 TH/MM3 (150-450); RED BLOOD COUNT 3.75 MIL/MM3 (4.50-5.90); RED CELL DISTRIBUTION WIDTH 15.3 % (11.6-17.2); WHITE BLOOD COUNT 10.7 TH/MM3 (4.0-11.0)
[2017-02-10 10:36] LABS: ALT (GPT) 32 U/L (12-78); ANION GAP 8 MEQ/L (5-15); AST (GOT) 28 U/L (15-37); BICARBONATE 25.8 MEQ/L (21.0-32.0); BLOOD UREA NITROGEN 18 MG/DL (7-18); CHLORIDE 114 MEQ/L (98-107); GLOMERULAR FILTRATION RATE 105 ML/MIN (>89); POTASSIUM 3.1 MEQ/L (3.5-5.1); SODIUM (NA) 148 MEQ/L (136-145)
--- NOTE | 2017-02-10 10:37 | RADRPT ---
EXAM DATE/TIME: 02/10/2017 10:24 [facility] COMPARISON: CT BRAIN W/O CONTRAST, June 25, 2015, 17:27. INDICATIONS : Altered mental status, possible seizure today. RADIATION DOSE: 51.18 CTDIvol (mGy) MEDICAL HISTORY : Hypertension. Chronic obstructive pulmonary disease. SURGICAL HISTORY : anuerysm coil ENCOUNTER: Initial ACUITY: 1 day PAIN SCALE: Non-responsive LOCATION: Bilateral head TECHNIQUE: Multiple contiguous axial images were obtained of the head. Using automated exposure control and adj ustment of the mA and/or kV according to patient size, radiation dose was kept as low as reasonably a chievable to obtain optimal diagnostic quality images. DICOM format image data is available electro nically for review and comparison. FINDINGS: CEREBRUM: The ventricles are normal for age. No evidence of midline shift, mass lesion, hemorrhage or acute in farction. No extra-axial fluid collections are seen. 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 Patient status post previous aneurysm clipping on the right side. No significan t changes compared to the prior study from 2014. POSTERIOR FOSSA: The cerebellum and brainstem are intact. The 4th ventricle is midline. The cerebellopontine angle i s unremarkable. EXTRACRANIAL: The visualized portion of the orbits is intact. SKULL: The calvaria is intact. No evidence of skull fracture. CONCLUSION: 1. No acute intracranial hemorrhage. 2. Status post previous right aneurysm clipping. 3. No new or significant changes compared to 2014. Nir Nowak MD on February 10, 2017 at 10:33 Board Certified Radiologist. This report was verified electronically.
[2017-02-10 10:39] LABS: ALKALINE PHOSPHATASE 196 U/L (45-117); TOTAL BILIRUBIN ADULT 0.4 MG/DL (0.2-1.0)
[2017-02-10] MEDS ORDERED: PHENYTOIN INJ 250 MG/5 ML VIAL IV ONE (10:45)
[2017-02-10] MEDS ORDERED: POTASSIUM CHLORIDE 20 MEQ CONTROLLED RELEASE TAB PO ONE (10:45)
--- NOTE | 2017-02-10 12:08 | EKG ---
Date Performed: 02/10/2017 Time Performed: 09:35:34 PTAGE: 56 years EKG: Sinus rhythm NONSPECIFIC ST & T-WAVE ABNORMALITY Compared to previous tracing, nonspecific ST-T changes are sligh tly more prominant. BORDERLINE ECG PREVIOUS TRACING : 01/08/2017 06.28 DOCTOR: Jaren Caputo Interpretating Date/Time 02/10/2017 12:07:30
== END 2017-02-10 13:41 | disposition home or self-care (01) ==
LOC: NEPC 09:22
DX: R56.9 Unspecified convulsions (principal); E87.6 Hypokalemia; F17.200 Nicotine dependence, unspecified, uncomplicated
CPT/HCPCS: 70450; 80053; 80185; 80307; 85025; 93005; 96374; 99285; J1165

== ENCOUNTER 2017-03-23 12:03 | Inpatient (IN) | payer OTHER ==
[~2017-03-23] VITALS: Ht 182.9 cm; Wt 105.1 kg
[2017-03-23 12:08] VITALS: BP 152/89; PULSE 126; RESP 16; TEMP 97.4; O2SAT 96
[2017-03-23] MEDS ORDERED: ONDANSETRON HCL 4 MG/2 ML VIAL IVP ONE (12:15)
[2017-03-23] MEDS ORDERED: SODIUM CHLOR 0.9% 1000 ML INJ 1,000 ML IV SCH (12:15)
[2017-03-23] MEDS ORDERED: MORPHINE SULFATE 4 MG/ML INJ IV PUSH ONE (12:15)
[2017-03-23] MEDS ORDERED: SODIUM CHLORIDE 0.9% FLUSH 10 ML FLUSH IV FLUSH PRN ×3 (12:15→16:30)
[2017-03-23 12:16] VITALS: BP 152/89; PULSE 124; RESP 16; TEMP 97.7; O2SAT 97
--- NOTE | 2017-03-23 12:19 | PD ---
HPI Chief Complaint: Abdominal Pain Time Seen by Provider: 12:15 Travel History International Travel<30 days: No Contact w/Intl Traveler<30days: No Traveled to known affect area: No History of Present Illness HPI Is a 57-year-old man who presents to the emergency department complaining of abdominal pain, more on the lower right side, rating to the back and into the mid abdomen across the midline, ongoing for the past 5 days. She been constant. Decreased appetite. Said nausea and vomiting for the past 3 days. Over the past 3 days also be getting worse. Last bowel movement was 4 days ago , was soft and seem fairly normal to him. He is also little bit of dark urine since she's not been able to eat or drink as much. He does take NSAIDs regularly, taking the more since his pain started. Drink alcohol only occasionally. Is a history of pancreatitis, last had an episode about 5 months ago. He says a think it was from drinking alcohol but no one was sure. He also has a history of seizures, hypertension, COPD, and reflux. He is on a PPI. No history of GI bleed. History Past Medical History Narrative Medical History of pancreatitis History of seizures, related to an aneurysm several years ago, is on Keppra Hypertension COPD GERD, on a PPI Social History Alcohol Use: Yes ("A FEW BEERS DAILY") Tobacco Use: Yes (1 PPD) Allergies-Medications (Allergen,Severity, Reaction): Coded Allergies: MRI PRECAUTION (Verified Adverse Reaction, Severe, ANEURYSM CLIP, 03/23/17) DR HENRY VERIFIED ANEURYSM CLIP Reported Meds & Prescriptions Reported Meds & Active Scripts Active Naproxen 500 Mg Tab 500 Mg PO BID 10 Days Reported Keppra (Levetiracetam) 500 Mg Tab 500 Mg PO BID Lisinopril 40 Mg Tab 40 Mg PO DAILY Mirtazapine 30 Mg Tab 30 Mg PO HS Omeprazole 40 Mg Cap 40 Mg PO DAILY Symbicort Inh (Budesonide/Formoterol Fumarate) 160-4.5 Mcg/Act Aero 2 Puff INH Q12HR Baclofen 10 Mg Tab 10 Mg PO TID Proair Hfa 8.5 GM Inh (Albuterol Sulfate) 90 Mcg/Act Aer 2 Puff INH Q6H PRN 108 mcg/actuation Review of Systems Except as stated in HPI: all other systems reviewed are Neg Physical Exam Narrative GENERAL: Well-appearing 57-year-old man, no acute distress. SKIN: Focused skin assessment warm/dry. HEAD: Atraumatic. Normocephalic. EYES: Pupils equal and round. No scleral icterus. No injection or drainage. Conjunctiva appear little bit pale. ENT: No nasal bleeding or discharge. Mucous membranes pink and moist. NECK: Trachea midline. No JVD. CARDIOVASCULAR: Regular rate and rhythm. No murmur appreciated. RESPIRATORY: No accessory muscle use. Clear to auscultation. Breath sounds equal bilaterally. GASTROINTESTINAL: Abdomen is obese and soft. Mild right sided tenderness palpation. No rebound or guarding. No CVA tenderness to percussion. MUSCULOSKELETAL: No obvious deformities. No clubbing. No cyanosis. No edema. NEUROLOGICAL: Awake and alert. No obvious cranial nerve deficits. Motor grossly within normal limits. Normal speech. PSYCHIATRIC: Appropriate mood and affect; insight and judgment normal. Data Data Last Documented VS Vital Signs Date Time Temp Pulse Resp B/P Pulse Ox O2 Delivery O2 Flow Rate FiO2 03/23/17 14:46 102 19 142/78 97 Room Air 03/23/17 12:20 97.7 Orders Complete Blood Count With Diff (03/23/17 12:15) Comprehensive Metabolic Panel (03/23/17 12:15) Lipase (03/23/17 12:15) Urinalysis - C+S If Indicated (03/23/17 12:15) Ct Abd/Pel W Iv Contrast(Rout) (03/23/17 12:15) Iv Access Insert/Monitor (03/23/17 12:15) Ecg Monitoring (03/23/17 12:15) Oximetry (03/23/17 12:15) Morphine Inj (Morphine Inj) (03/23/17 12:15) Ondansetron Inj (Zofran Inj) (03/23/17 12:15) Sodium Chlor 0.9% 1000 Ml Inj (Ns 1000 M (03/23/17 12:15) Sodium Chloride 0.9% Flush (Ns Flush) (03/23/17 12:15) Electrocardiogram (03/23/17 12:15) Sodium Chlor 0.9% 1000 Ml Inj (Ns 1000 M (03/23/17 12:30) Iohexol 350 Inj (Omnipaque 350 Inj) (8/5/17 14:23) Labs Laboratory Tests Test 03/23/17 03/23/17 12:20 13:50 White Blood Count 18.6 TH/MM3 Red Blood Count 4.15 MIL/MM3 Hemoglobin 12.7 GM/DL Hematocrit 37.9 % Mean Corpuscular Volume 91.4 FL Mean Corpuscular Hemoglobin 30.7 PG Mean Corpuscular Hemoglobin 33.6 % Concent Red Cell Distribution Width 14.0 % Platelet Count 342 TH/MM3 Mean Platelet Volume 8.2 FL Neutrophils (%) (Auto) 87.1 % Lymphocytes (%) (Auto) 4.5 % Monocytes (%) (Auto) 7.7 % Eosinophils (%) (Auto) 0.6 % Basophils (%) (Auto) 0.1 % Neutrophils # (Auto) 16.2 TH/MM3 Lymphocytes # (Auto) 0.8 TH/MM3 Monocytes # (Auto) 1.4 TH/MM3 Eosinophils # (Auto) 0.1 TH/MM3 Basophils # (Auto) 0.0 TH/MM3 CBC Comment DIFF FINAL Differential Comment Sodium Level 127 MEQ/L Potassium Level 4.4 MEQ/L Chloride Level 92 MEQ/L Carbon Dioxide Level 24.3 MEQ/L Anion Gap 11 MEQ/L Blood Urea Nitrogen 5 MG/DL Creatinine 0.77 MG/DL Estimat Glomerular Filtration 104 ML/MIN Rate Random Glucose 107 MG/DL Calcium Level 9.6 MG/DL Total Bilirubin 0.5 MG/DL Aspartate Amino Transf 31 U/L (AST/SGOT) Alanine Aminotransferase 24 U/L (ALT/SGPT) Alkaline Phosphatase 154 U/L Total Protein 8.4 GM/DL Albumin 3.2 GM/DL Lipase 1278 U/L Urine Color ORANGE Urine Turbidity HAZY Urine pH 6.0 Urine Specific [place] 1.031 Urine Protein 100 mg/dL Urine Glucose (UA) NEG mg/dL Urine Ketones TRACE mg/dL Urine Occult Blood TRACE Urine Nitrite NEG Urine Bilirubin NEG Urine Urobilinogen 4.0 MG/DL Urine Leukocyte Esterase NEG Urine RBC 6 /hpf Urine WBC 6 /hpf Urine Transitional Epithelial <1 /hpf Cells Urine Hyaline Casts 29 /lpf Urine Mucus FEW /lpf Microscopic Urinalysis Comment CULT NOT INDICATED MDM Medical Decision Making Medical Screen Exam Complete: Yes Emergency Medical Condition: Yes Interpretation(s) My review of EKG: Sinus tachycardia at a rate of 116, normal axis, normal intervals, no acute ischemia. LABS: CBC remarkable for mild leukocytosis. Mild anemia. CMP remarkable for mildly elevated alkaline phosphatase, mildly elevated total protein Lipase 1278 Bilirubin total bit elevated CT abdomen and pelvis: Acute on chronic pancreatitis, multiloculated low Density mass appeared to the pancreatic head which most likely represents a pseudocyst. There is mass effect and possible partial thrombosis of the portal vein. Differential Diagnosis Pancreatitis, gastritis, appendicitis, renal lithiasis, UTI, obstruction, other Narrative Course Medical decision making Initial: 57 year woman presents to the emergency department complaining of abdominal pain, more right sided, ongoing for several days. No history of abdominal surgeries. His a history of pancreatitis. He looks a little bit pale. We'll check labs, CT, reassess. Diagnosis Primary Impression: Pancreatitis Admitting Information Admitting Physician Requests: Admit Juan Pablo Zayas MD Mar 23, 2017 12:19
[2017-03-23 12:20] VITALS: BP 136/84; PULSE 124; RESP 16; TEMP 97.7; O2SAT 97
[2017-03-23] MEDS ORDERED: SODIUM CHLOR 0.9% 1000 ML INJ 1,000 ML IV ONE (12:30)
[2017-03-23] MEDS ORDERED: LEVE500 PO (12:37)
[2017-03-23] MEDS ORDERED: LISI40TA PO (12:37)
[2017-03-23 12:45] LABS: AUTOMATED NEUTROPHIL # 16.2 TH/MM3 (1.8-7.7); BASOPHIL % 0.1 % (0.0-2.0); EOSINOPHIL # 0.1 TH/MM3 (0-0.4); EOSINOPHIL % 0.6 % (0.0-4.0); HEMATOCRIT 37.9 % (39.0-51.0); HEMO FLAGS DIFF FINAL; LYMPH % 4.5 % (9.0-44.0); LYMPHOCYTE # 0.8 TH/MM3 (1.0-4.8); MEAN CELL VOLUME 91.4 FL (80.0-100.0); MEAN CORPUSCULAR HEMOGLOBIN 30.7 PG (27.0-34.0); MEAN CORPUSCULAR HGB CONC 33.6 % (32.0-36.0); MONO % 7.7 % (0.0-8.0); NEUT % 87.1 % (16.0-70.0); PLATELET COUNT 342 TH/MM3 (150-450); RED BLOOD COUNT 4.15 MIL/MM3 (4.50-5.90); WHITE BLOOD COUNT 18.6 TH/MM3 (4.0-11.0)
[2017-03-23 13:05] LABS: ALKALINE PHOSPHATASE 154 U/L (45-117); TOTAL BILIRUBIN ADULT 0.5 MG/DL (0.2-1.0)
[2017-03-23 13:07] LABS: ALT (GPT) 24 U/L (12-78); ANION GAP 11 MEQ/L (5-15); AST (GOT) 31 U/L (15-37); BICARBONATE 24.3 MEQ/L (21.0-32.0); BLOOD UREA NITROGEN 5 MG/DL (7-18); CHLORIDE 92 MEQ/L (98-107); GLOMERULAR FILTRATION RATE 104 ML/MIN (>89); SODIUM (NA) 127 MEQ/L (136-145)
[2017-03-23 13:31] LABS: POTASSIUM 4.4 MEQ/L (3.5-5.1)
[2017-03-23 14:23] LABS: BLOOD, URINE TRACE (NEG); GLUCOSE,URINE NEG (NEG); HYALINE CAST, URINE 29 /lpf (RARE); KETONE, URINE TRACE mg/dL (NEG); MUCUS URINE FEW /lpf (OCC); NITRITE,URINE NEG (NEG); TRANSITIONAL EPI CELLS, URINE <1 /hpf; URINE COLOR ORANGE (YELLW/STRAW)
[2017-03-23] MEDS ORDERED: IOHEXOL 350 MG/ML 10 ML VIAL (for RAD DIAG) IV ONE (14:23)
[2017-03-23 14:24] LABS: COMMENT (UR) CULT NOT INDICATED; CULTURE IF INDICATED CULT NOT INDICATED
[2017-03-23 14:46] VITALS: BP 142/78; PULSE 102; RESP 19; O2SAT 97
--- NOTE | 2017-03-23 14:49 | RADRPT ---
EXAM DATE/TIME: 03/23/2017 14:19 [place] COMPARISON: CT ABDOMEN & PELVIS W CONTRAST, December 05, 2016, 11:33. CT ABDOMEN & PELVIS W CONTRAST, October 29 5, 2:25. INDICATIONS : Right lower quadrant pain, nausea and vomiting. IV CONTRAST: 92 cc Omnipaque 350 (iohexol) IV ORAL CONTRAST: No oral contrast ingested. RADIATION DOSE: 15.34 CTDIvol (mGy) MEDICAL HISTORY : Pancreatitis. Seizures. Chronic obstructive pulmonary disease. SURGICAL HISTORY : None. ENCOUNTER: Initial ACUITY: 4 - 6 days PAIN SCALE: 5/10 LOCATION: Right lower quadrant TECHNIQUE: Volumetric scanning of the abdomen and pelvis was performed. Using automated exposure control and ad justment of the mA and/or kV according to patient size, radiation dose was kept as low as reasonably achievable to obtain optimal diagnostic quality images. DICOM format image data is available electro nically for review and comparison. FINDINGS: LOWER LUNGS: The visualized lower lungs are clear. LIVER: Homogeneous density without lesion. There is no dilation of the biliary tree. No calcified gallston es. SPLEEN: Normal size without lesion. PANCREAS: Chronic pancreatitis changes are again noted with prominent calcifications of the head and uncinate p rocess. There superimposed mild pancreatic edema. There is mildly irregular distention of the pancrea tic duct, measures approximately 6 mm, similar to the prior CT. A vague low density masslike area jesus suring approximately 2.7 x 4.3 x 3.3 cm has developed superior to the pancreatic head in the tarah he patis which I believe is most likely a multiloculated pseudocyst. There is considerable mass effect a nd attenuation, possible partial thrombosis of the main portal vein, for example series 601 image 45. Splenic vein and superior mesenteric vein appear patent.. Tarah hepatis lymph nodes measuring up to 14 mm in greater short axis dimension are again noted. KIDNEYS: 15 mm cyst again seen right lower pole. No acute renal abnormality demonstrated. ADRENAL GLANDS: Within normal limits. VASCULAR: There is no aortic aneurysm. BOWEL/MESENTERY: The stomach, small bowel, and colon demonstrate no acute abnormality. There is no free intraperitone al air or fluid. Normal appendix. No free fluid. ABDOMINAL WALL: Within normal limits. RETROPERITONEUM: There is no lymphadenopathy. BLADDER: No wall thickening or mass. REPRODUCTIVE: Within normal limits. INGUINAL: Fat-containing left inguinal hernia again noted. MUSCULOSKELETAL: No acute bony abnormality demonstrated. CONCLUSION: 1. Acute on chronic pancreatitis. 2. Multiloculated, new low density mass superior to the pancreatic head which is most likely a pseudo cyst. There is mass effect and possible partial thrombosis on the portal vein. Donnie Merrill MD on March 23, 2017 at 14:36 Board Certified Radiologist. This report was verified electronically.
[2017-03-23] MEDS ORDERED: PROCHLORPERAZINE 25 MG SUPP RECTAL PRN (16:30)
[2017-03-23] MEDS ORDERED: ALBUTEROL SULFATE 90 MCG/ACT HFA 8 GM INHALER INH PRN (16:30)
[2017-03-23] MEDS ORDERED: BISACODYL 10 MG SUPP RECTAL PRN (16:30)
[2017-03-23] MEDS ORDERED: ZOLPIDEM TARTRATE 5 MG TAB PO PRN (16:30)
[2017-03-23] MEDS ORDERED: LACTULOSE SYRUP 20 GM/30 ML CUP PO PRN (16:30)
[2017-03-23] MEDS ORDERED: MORPHINE SULFATE 4 MG/ML INJ IV PRN ×2 (16:30)
[2017-03-23] MEDS ORDERED: NALOXONE HCL 0.4 MG/ML AMP IV PRN (16:30)
[2017-03-23] MEDS ORDERED: ONDANSETRON HCL 4 MG/2 ML VIAL IVP PRN (16:30)
[2017-03-23] MEDS ORDERED: SENNOSIDES 8.6 MG TAB PO PRN (16:30)
[2017-03-23] MEDS ORDERED: METOCLOPRAMIDE HCL 10 MG/2 ML VIAL IV PUSH PRN (16:30)
[2017-03-23] MEDS ORDERED: MAGNESIUM HYDROXIDE SUSP 30 ML CUP PO PRN (16:30)
[2017-03-23] MEDS: MORPHINE SULFATE 4 MG/ML INJ IV PRN ×3 (16:51→22:28)
[2017-03-23] MEDS: LACTATED RINGER'S 1000 ML INJ 1,000 ML IV SCH (16:52)
--- NOTE | 2017-03-23 17:26 | HHI.HP ---
[facility] Service [facility] Primary Care Physician [facility] Admission Diagnosis Acute on Chronic Pancreatitis Diagnoses: (1) Pancreatitis Diagnosis: Principal (2) Tobacco abuse Diagnosis: Secondary (3) GERD (gastroesophageal reflux disease) Diagnosis: Secondary (4) Seizure disorder Diagnosis: Secondary (5) HTN (hypertension) Diagnosis: Secondary (6) COPD (chronic obstructive pulmonary disease) (7) Status post left hip replacement Diagnosis: Secondary Chief Complaint: abdominal pain Travel History International Travel<30 Days: No Contact w/Intl Traveler <30 Da: No Traveled to Known Affected Are: No History of Present Illness Written by Qiana Calvillo, acting as scribe for Dr. Crews on 03/23/17 at 17:26. Mr. Elam is a 57-year-old male with a known medical history of hypertension, seizure history, COPD, GERD and pancreatitis who presented to the ED with complaints of abdominal pain. Patient states that has had right sided abdominal pain for the past 5 days, worsening over the last three. States the pain is constant, with its worse being a 10/10 on pain scale, radiates to his back and middle abdomen. States no relieving factors, tried multiple NSAIDs with short term relief. Patient has not ate anything for 4 days except for occasional water. Complaints of associated fevers, chills, nausea and vomiting and "cannot keep anything down". Patient denies frequent alcohol consumption, states he only has a few beers a month. Admits to quitting cigarettes over the past month with the help of a nicotine patch. Does admit to using cocaine last evening to help and try to relieve the pain, with little effect. Last bowel movement was four days ago, denies any diarrhea or hematochezia. Patient takes an occasional omeprazole whenever he suffers from heartburn. PCP is at the [facility] and last saw him 1 month ago. Patient was recently admitted for pancreatitis 5 months ago and a left hip replacement 3 months ago. Last colonoscopy was 3 years ago and per patient it was unremarkable. Review of Systems Constitutional: COMPLAINS OF: Diaphoretic episodes, Fatigue, Fever, Chills, Change in appetite, DENIES: Weight gain, Weight loss, Dizziness Endocrine: DENIES: Heat/cold intolerance, Polydipsia, Polyuria, Polyphagia Eyes: DENIES: Blurred vision, Diplopia, Eye inflammation, Eye pain, Vision loss , Photosensitivity Ears, nose, mouth, throat: DENIES: Tinnitus, Hearing loss, Vertigo, Nasal discharge, Oral lesions, Throat pain, Hoarseness, Running Nose, Epistaxis, Sinus Pain, Toothache Respiratory: COMPLAINS OF: Cough, DENIES: Apneas, Snoring, Wheezing, Hemoptysis Cardiovascular: DENIES: Chest pain, Palpitations, Syncope, Dyspnea on Exertion , PND, Lower Extremity Edema, Orthopnea Gastrointestinal: COMPLAINS OF: Abdominal pain, Constipation, Nausea, Vomiting , DENIES: Black stools, Bloody stools, Diarrhea Musculoskeletal: COMPLAINS OF: Back pain, DENIES: Joint pain, Muscle aches, Stiffness, Joint Swelling Integumentary: DENIES: Abnormal pigmentation Hematologic/lymphatic: DENIES: Bruising, Lymphadenopathy Immunologic/allergic: DENIES: Eczema, Urticaria Neurologic: COMPLAINS OF: Seizures, DENIES: Abnormal gait, Headache, Localized weakness, Paresthesias, Speech Problems, Tremor, Poor Balance Psychiatric: COMPLAINS OF: Anxiety, Mood changes, Depression, DENIES: Confusion, Hallucinations, Agitation, Suicidal Ideation, Homicidal Ideation, Delusions Except as stated in HPI: all other systems reviewed are Neg Past Family Social History Past Medical History Hypertension COPD GERD History of pancreatitis History of seizures, on Keppra History of chronic back pain History of tobacco abuse History of alcohol use in past Past Surgical History Left hip surgery 12/2016 Last colonoscopy 3 years ago, unremarkable per patient. Aneurysm clips in his head Reported Medications Reported Meds & Active Scripts Active Naproxen 500 Mg Tab 500 Mg PO BID 10 Days Reported Keppra (Levetiracetam) 500 Mg Tab 500 Mg PO BID Lisinopril 40 Mg Tab 40 Mg PO DAILY Mirtazapine 30 Mg Tab 30 Mg PO HS Omeprazole 40 Mg Cap 40 Mg PO DAILY Symbicort Inh (Budesonide/Formoterol Fumarate) 160-4.5 Mcg/Act Aero 2 Puff INH Q12HR Baclofen 10 Mg Tab 10 Mg PO TID Proair Hfa 8.5 GM Inh (Albuterol Sulfate) 90 Mcg/Act Aer 2 Puff INH Q6H PRN 108 mcg/actuation Allergies: Coded Allergies: MRI PRECAUTION (Verified Adverse Reaction, Severe, ANEURYSM CLIP, 03/23/17) DR HENRY VERIFIED ANEURYSM CLIP Active Ordered Medications Current Medications Medications (Trade) Dose Ordered Sig/Mariya Route Start Time Stop Time Status Last Admin (NS Flush) 2 ml UNSCH PRN IV FLUSH 03/23/17 16:30 (NS Flush) 2 ml BID IV FLUSH 03/23/17 21:00 (Zofran Inj) 4 mg Q6H PRN IVP 03/23/17 16:30 (Reglan Inj) 5 mg Q6H PRN IV PUSH 03/23/17 16:30 (Compazine Supp) 25 mg Q12H PRN RECTAL 03/23/17 16:30 (Ambien) 5 mg HS PRN PO 03/23/17 16:30 (Heparin Inj) 5,000 units Q8H SQ 03/23/17 22:00 (Morphine Inj) 4 mg Q3H PRN IV 03/23/17 16:30 03/23/17 16:51 (Morphine Inj) 4 mg Q1H PRN IV 03/23/17 16:30 (Morphine Inj) 4 mg Q3H PRN IV 03/23/17 16:30 (Narcan Inj) 0.4 mg UNSCH PRN IV 03/23/17 16:30 (Gayle-Colace) 1 tab BID PO 03/23/17 21:00 (Milk Of Magnesia Liq) 30 ml Q12H PRN PO 03/23/17 16:30 (Senokot) 17.2 mg Q12H PRN PO 03/23/17 16:30 (Dulcolax Supp) 10 mg DAILY PRN RECTAL 03/23/17 16:30 Lactulose 30 ml 30 ml DAILY PRN PO 03/23/17 16:30 Lactated Ringer's 1,000 ml @ 125 mls/hr Q8H IV 03/23/17 16:19 03/23/17 16:52 (Zosyn 4.5 Gm Premix) 100 ml @ 200 mls/hr Q6H IV 03/23/17 18:00 (Proair Hfa Inh) 2 puff Q6H PRN INH 03/23/17 16:30 (Lioresal) 10 mg TID PO 8/5/17 18:00 (Symbicort 160-4.5 Inh) 2 puff Q12HR INH 03/23/17 21:00 (Keppra) 500 mg BID PO 03/23/17 21:00 (Remeron) 30 mg HS PO 03/23/17 21:00 (Prinivil) 40 mg DAILY PO 03/24/17 09:00 (Protonix) 40 mg DAILY PO 03/24/17 09:00 Family History Mother of lung cancer. Father had diabetes and cardiovascular disease. Social History Patient admits to quitting smoking one month ago, down to 5 cigarettes per day, uses Nicotine patch. Admits to occasional alcohol use, roughly 3 per month. Does admit to one time use of cocaine last evening to relieve the abdominal pain he was experiencing. He states it did not help. Other than that he denies any illicit drug use. Physical Exam Vital Signs Vital Signs Date Time Temp Pulse Resp B/P Pulse Ox O2 Delivery O2 Flow Rate FiO2 03/23/17 14:46 102 19 142/78 97 Room Air 03/23/17 12:20 97.7 124 16 136/84 97 Room Air 03/23/17 12:16 97.7 124 16 152/89 97 Room Air 03/23/17 12:16 16 03/23/17 12:08 97.4 126 16 152/89 96 Physical Exam GENERAL: This is a well-nourished, well-developed patient, lying in bed in apparent distress secondary to abdominal pain. SKIN: No rashes, ecchymoses or lesions. Warm and dry. HEAD: Atraumatic. Normocephalic. Pupils equal round and reactive to light and accommodation. Extraocular motions intact. No scleral icterus. No injection or drainage. Nose without bleeding. Airway patent. Tongue is midline poor dentition NECK: Trachea midline. No JVD. Supple. No obvious thyromegaly CARDIOVASCULAR: Tachycardia. No murmur appreciated. S1-S2 no S3 or S4 no heave no thrill no murmur no rubs no gallops. RESPIRATORY: Clear to auscultation. Breath sounds equal bilaterally. No wheezes , rales, or rhonchi. GASTROINTESTINAL: Abdomen soft, tender to palpation in right lower to middle quadrant. Bowel sounds active x 4q. no true rebound rigidity or guarding MUSCULOSKELETAL: Extremities without clubbing, cyanosis, or edema. No joint tenderness, effusion, or edema noted. NEUROLOGICAL: Awake and alert. Cranial nerves II through XII intact. Motor and sensory grossly within normal limits. Five out of 5 muscle strength in all muscle groups in upper extremity and lower extremity bilaterally. Normal speech. Deep tendon reflexes 2 out of 4 in upper extremity and lower extremity bilaterally Insight and judgment is good and his mood and behaviors are appropriate Laboratory Laboratory Tests Test 03/23/17 03/23/17 12:20 13:50 White Blood Count 18.6 Red Blood Count 4.15 Hemoglobin 12.7 Hematocrit 37.9 Mean Corpuscular Volume 91.4 Mean Corpuscular Hemoglobin 30.7 Mean Corpuscular Hemoglobin 33.6 Concent Red Cell Distribution Width 14.0 Platelet Count 342 Mean Platelet Volume 8.2 Neutrophils (%) (Auto) 87.1 Lymphocytes (%) (Auto) 4.5 Monocytes (%) (Auto) 7.7 Eosinophils (%) (Auto) 0.6 Basophils (%) (Auto) 0.1 Neutrophils # (Auto) 16.2 Lymphocytes # (Auto) 0.8 Monocytes # (Auto) 1.4 Eosinophils # (Auto) 0.1 Basophils # (Auto) 0.0 CBC Comment DIFF FINAL Differential Comment Sodium Level 127 Potassium Level 4.4 Chloride Level 92 Carbon Dioxide Level 24.3 Anion Gap 11 Blood Urea Nitrogen 5 Creatinine 0.77 Estimat Glomerular Filtration 104 Rate Random Glucose 107 Calcium Level 9.6 Total Bilirubin 0.5 Aspartate Amino Transf 31 (AST/SGOT) Alanine Aminotransferase 24 (ALT/SGPT) Alkaline Phosphatase 154 Total Protein 8.4 Albumin 3.2 Lipase 1278 Urine Color ORANGE Urine Turbidity HAZY Urine pH 6.0 Urine Specific [place] 1.031 Urine Protein 100 Urine Glucose (UA) NEG Urine Ketones TRACE Urine Occult Blood TRACE Urine Nitrite NEG Urine Bilirubin NEG Urine Urobilinogen 4.0 Urine Leukocyte Esterase NEG Urine RBC 6 Urine WBC 6 Urine Transitional Epithelial <1 Cells Urine Hyaline Casts 29 Urine Mucus FEW Microscopic Urinalysis Comment CULT NOT INDICATED Result Diagram: 03/23/17 1220 03/23/17 1220 Imaging Last Impressions Abdomen/Pelvis CT 03/23/17 1215 Signed Impressions: Service Date/Time: Thursday, March 23, 2017 14:19 - CONCLUSION: 1. Acute on chronic pancreatitis. 2. Multiloculated, new low density mass superior to the pancreatic head which is most likely a pseudocyst. There is mass effect and possible partial thrombosis on the portal vein. Donnie Merrill MD Septic Shock Reassessment Heart: Regular rate and rhythm Lungs: Clear Skin: Warm Peripheral Pulses: Bounding Right Radial Bounding Left Radial Bounding Right Popliteal Bounding Left Popliteal Bounding Right Dorsalis Pedis Bounding Left Dorsalis Pedis Bounding Right Posterior Tibial Bounding Left Posterior Tibial Capillary Refill: Brisk Assessment and Plan Problem List: (1) Pancreatitis ICD Code: K85.90 Status: Acute (2) Tobacco abuse ICD Code: Z72.0 Status: Chronic (3) GERD (gastroesophageal reflux disease) ICD Code: K21.9 Status: Chronic (4) Seizure disorder ICD Code: G40.909 Status: Chronic (5) HTN (hypertension) ICD Code: I10 Status: Chronic (6) COPD (chronic obstructive pulmonary disease) ICD Code: J44.9 Status: Chronic (7) Hypertension ICD Code: I10 Status: Chronic (8) Status post left hip replacement ICD Code: Z96.642 Status: Acute Assessment and Plan Mr. Elam is a 57-year-old male with a known medical history of hypertension, seizure history, COPD, GERD and pancreatitis who presented to the ED with complaints of abdominal pain. Patient states that has had right sided abdominal pain for the past 5 days. PCP is at the [facility] and last saw him 1 month ago. Patient was recently admitted for pancreatitis 5 months ago and a left hip replacement 3 months ago. Last colonoscopy was 3 years ago and per patient it was unremarkable. Acute on chronic pancreatitis: Abdomen/pelvis CT reviewed showing acute on chronic pancreatitis. Multiloculated. A new low density mass with most likely a pseudocyst. Mass effect and possible partial thrombosis on the portal vein. Keep NPO, rest bowel. Lipase 1278, amylase and triglyceride pending. Consult placed to GI, appreciate recommendations. Control pain, Morphine 4 mg IV PRN per pain scale. Hydrate, LR 125 ml/hr. Leukocytosis with elevated bands suspect secondary to pancreatitis: WBC 18.6 on presentation. Start Zosyn 4.5 g IV q6hr. Afebrile. Hypertension, chronic: Controlled. Continue home lisinopril. Monitor BP. Hyponatremia: Na 127 upon presentation. Will hydrate. Monitor. Repeat BMP in am. Follow. COPD: Continue home inhalers. Supplemental O2 as needed. History of seizures: Continue home Keppra. Monitor for seizures. GI Prophylaxis: Protonix. DVT prophylaxis: SCDs/Heparin. The exam, history, and the medical decision-making described in the above note were completed with the assistance of the mid-level provider. I reviewed and agree with the findings presented. I attest that I had a [id number] encounter with the patient on the same day, and personally performed and documented my assessment and findings in the medical record. Code Status Full code Discussed Condition With Discussed with nurse practitioner as well as with the ER physician and patient' s RN Multiple questions answered Patient concerned about pain control Physician Certification 2 Midnight Certification Type: Admission for Inpatient Services Order for Inpatient Services The services are ordered in accordance with Medicare regulations or non- Medicare payer requirements, as applicable. In the case of services not specified as inpatient-only, they are appropriately provided as inpatient services in accordance with the 2-midnight benchmark. Estimated LOS (days): 3 days is the estimated time the patient will need to remain in the hospital, assuming treatment plan goals are met and no additional complications. Post-Hospital Plan: Home Qiana Calvillo Mar 23, 2017 17:26 Pranay Crews DO Mar 23, 2017 18:14
[2017-03-23 17:30] VITALS: BP 151/82; PULSE 108; RESP 18; TEMP 100.5; O2SAT 97
[2017-03-23] MEDS: BACLOFEN 10 MG TAB PO SCH (18:41)
[2017-03-23 20:00] VITALS: BP 125/71; PULSE 110; RESP 20; TEMP 100.3; O2SAT 95
[2017-03-23] MEDS ORDERED: SODIUM CHLORIDE 0.9% FLUSH 10 ML FLUSH IV FLUSH SCH (21:00)
[2017-03-23] MEDS: BUDESONIDE-FORMOTEROL 160/4.5 MCG INHALER INH SCH (21:00)
[2017-03-23] MEDS: MIRTAZAPINE 15 MG TAB PO SCH (22:32)
[2017-03-23] MEDS: HEPARIN SODIUM - SQ 10,000 UNITS/ML VIAL SQ SCH (22:32)
[2017-03-23] MEDS: levETIRAcetam 500 MG TAB PO SCH (22:32)
[2017-03-23] MEDS: DOCUSATE SODIUM 50 MG/SENNA 8.6 MG TAB PO SCH (22:32)
[2017-03-23] MEDS: SODIUM CHLORIDE 0.9% FLUSH 10 ML FLUSH IV FLUSH SCH (22:32)
[2017-03-24] VITALS (7 sets, daily range): BP systolic 119–150; BP diastolic 67–83; PULSE 83–97; RESP 17–19; TEMP 97.6–99.4; O2SAT 94–99
[2017-03-24] MEDS: PIPERACIL-TAZO 4.5 GM PREMIX 100 ML IV SCH ×4 (00:11→18:49)
[2017-03-24] MEDS: LACTATED RINGER'S 1000 ML INJ 1,000 ML IV SCH ×2 (00:12→18:50)
[2017-03-24] MEDS: MORPHINE SULFATE 4 MG/ML INJ IV PRN ×7 (01:46→21:23)
[2017-03-24] MEDS: HEPARIN SODIUM - SQ 10,000 UNITS/ML VIAL SQ SCH ×3 (05:10→21:22)
[2017-03-24] MEDS: LISINOPRIL 20 MG TAB PO SCH (09:01)
[2017-03-24] MEDS: PANTOPRAZOLE SOD 40 MG DELAYED RELEASE TAB PO SCH (09:02)
[2017-03-24] MEDS: DOCUSATE SODIUM 50 MG/SENNA 8.6 MG TAB PO SCH ×2 (09:02→21:22)
[2017-03-24] MEDS: BACLOFEN 10 MG TAB PO SCH ×3 (09:02→18:50)
[2017-03-24] MEDS: BUDESONIDE-FORMOTEROL 160/4.5 MCG INHALER INH SCH ×2 (09:02→21:00)
[2017-03-24] MEDS: levETIRAcetam 500 MG TAB PO SCH ×2 (09:02→21:22)
[2017-03-24] MEDS: SODIUM CHLORIDE 0.9% FLUSH 10 ML FLUSH IV FLUSH SCH ×2 (09:03→21:00)
--- NOTE | 2017-03-24 09:48 | HHI.PR ---
Subjective Remarks Mr. Elam is a 57-year-old male with a known medical history of hypertension, seizure history, COPD, GERD and pancreatitis who presented to the ED with complaints of abdominal pain. Patient states that has had right sided abdominal pain for the past 5 days, worsening over the last three. States the pain is constant, with its worse being a 10/10 on pain scale, radiates to his back and middle abdomen. States no relieving factors, tried multiple NSAIDs with short term relief. Patient has not ate anything for 4 days except for occasional water. Complaints of associated fevers, chills, nausea and vomiting and "cannot keep anything down". Patient denies frequent alcohol consumption, states he only has a few beers a month. Admits to quitting cigarettes over the past month with the help of a nicotine patch. Does admit to using cocaine last evening to help and try to relieve the pain, with little effect. Last bowel movement was four days ago, denies any diarrhea or hematochezia. Patient takes an occasional omeprazole whenever he suffers from heartburn. [facility] and last saw him 1 month ago. Patient was recently admitted for pancreatitis 5 months ago and a left hip replacement 3 months ago. Last colonoscopy was 3 years ago and per patient it was unremarkable. 8-6 patient still complains of pain in the abdomen especially in the right side Have discussed with patient and RN We'll get a ultrasound of the abdomen as well as a HIDA scan with ejection fraction am labs are still pending We'll get repeat labs tomorrow Await GI evaluation Continue nothing by mouth Continue on Zosyn Objective Vitals Vital Signs Date Time Temp Pulse Resp B/P Pulse Ox O2 Delivery O2 Flow Rate FiO2 03/24/17 09:08 18 03/24/17 08:21 98.7 88 19 140/83 98 03/24/17 05:35 98.8 97 18 140/67 95 03/24/17 01:14 98.8 90 18 150/77 96 03/23/17 20:00 100.3 110 20 125/71 95 03/23/17 20:00 100.3 110 20 125/71 95 03/23/17 17:30 100.5 108 18 151/82 97 03/23/17 14:46 102 19 142/78 97 Room Air 03/23/17 12:20 97.7 124 16 136/84 97 Room Air 03/23/17 12:16 97.7 124 16 152/89 97 Room Air 03/23/17 12:16 16 03/23/17 12:08 97.4 126 16 152/89 96 I/O 03/23/17 03/23/17 03/23/17 03/24/17 03/24/17 03/24/17 07:00 15:00 23:00 07:00 15:00 23:00 Intake Total 2000 ml Output Total 100 ml 500 ml Balance 1900 ml -500 ml IV Total 2000 ml Output Urine Total 100 ml 500 ml # Voids 1 Result Diagram: 03/23/17 1220 03/23/17 1220 Other Results Laboratory Tests Test 03/23/17 03/23/17 12:20 13:50 White Blood Count 18.6 TH/MM3 Red Blood Count 4.15 MIL/MM3 Hemoglobin 12.7 GM/DL Hematocrit 37.9 % Mean Corpuscular Volume 91.4 FL Mean Corpuscular Hemoglobin 30.7 PG Mean Corpuscular Hemoglobin 33.6 % Concent Red Cell Distribution Width 14.0 % Platelet Count 342 TH/MM3 Mean Platelet Volume 8.2 FL Neutrophils (%) (Auto) 87.1 % Lymphocytes (%) (Auto) 4.5 % Monocytes (%) (Auto) 7.7 % Eosinophils (%) (Auto) 0.6 % Basophils (%) (Auto) 0.1 % Neutrophils # (Auto) 16.2 TH/MM3 Lymphocytes # (Auto) 0.8 TH/MM3 Monocytes # (Auto) 1.4 TH/MM3 Eosinophils # (Auto) 0.1 TH/MM3 Basophils # (Auto) 0.0 TH/MM3 CBC Comment DIFF FINAL Differential Comment Sodium Level 127 MEQ/L Potassium Level 4.4 MEQ/L Chloride Level 92 MEQ/L Carbon Dioxide Level 24.3 MEQ/L Anion Gap 11 MEQ/L Blood Urea Nitrogen 5 MG/DL Creatinine 0.77 MG/DL Estimat Glomerular Filtration 104 ML/MIN Rate Random Glucose 107 MG/DL Calcium Level 9.6 MG/DL Total Bilirubin 0.5 MG/DL Aspartate Amino Transf 31 U/L (AST/SGOT) Alanine Aminotransferase 24 U/L (ALT/SGPT) Alkaline Phosphatase 154 U/L Total Protein 8.4 GM/DL Albumin 3.2 GM/DL Triglycerides Level 98 MG/DL Lipase 1278 U/L Urine Color ORANGE Urine Turbidity HAZY Urine pH 6.0 Urine Specific Brave 1.031 Urine Protein 100 mg/dL Urine Glucose (UA) NEG mg/dL Urine Ketones TRACE mg/dL Urine Occult Blood TRACE Urine Nitrite NEG Urine Bilirubin NEG Urine Urobilinogen 4.0 MG/DL Urine Leukocyte Esterase NEG Urine RBC 6 /hpf Urine WBC 6 /hpf Urine Transitional Epithelial <1 /hpf Cells Urine Hyaline Casts 29 /lpf Urine Mucus FEW /lpf Microscopic Urinalysis Comment CULT NOT INDICATED Imaging Last Impressions Abdomen/Pelvis CT 03/23/17 1215 Signed Impressions: Service Date/Time: Thursday, March 23, 2017 14:19 - CONCLUSION: 1. Acute on chronic pancreatitis. 2. Multiloculated, new low density mass superior to the pancreatic head which is most likely a pseudocyst. There is mass effect and possible partial thrombosis on the portal vein. Donnie Merrill MD Objective Remarks GENERAL: This is a well-nourished, well-developed patient, lying in bed in apparent distress secondary to abdominal pain. SKIN: No rashes, ecchymoses or lesions. Warm and dry. HEAD: Atraumatic. Normocephalic. Pupils equal round and reactive to light and accommodation. Extraocular motions intact. No scleral icterus. No injection or drainage. Nose without bleeding. Airway patent. Tongue is midline poor dentition NECK: Trachea midline. No JVD. Supple. No obvious thyromegaly CARDIOVASCULAR: Tachycardia. No murmur appreciated. S1-S2 no S3 or S4 no heave no thrill no murmur no rubs no gallops. RESPIRATORY: Clear to auscultation. Breath sounds equal bilaterally. No wheezes , rales, or rhonchi. GASTROINTESTINAL: Abdomen soft, tender to palpation in right lower to middle quadrant. Bowel sounds active x 4q. no true rebound rigidity or guarding MUSCULOSKELETAL: Extremities without clubbing, cyanosis, or edema. No joint tenderness, effusion, or edema noted. NEUROLOGICAL: Awake and alert. Cranial nerves II through XII intact. Motor and sensory grossly within normal limits. Five out of 5 muscle strength in all muscle groups in upper extremity and lower extremity bilaterally. Normal speech. Deep tendon reflexes 2 out of 4 in upper extremity and lower extremity bilaterally Insight and judgment is good and his mood and behaviors are appropriate Medications and IVs Current Medications Morphine Sulfate (Morphine Inj) 4 mg ONCE ONCE IV PUSH Last administered on 12:24; Start 03/23/17 at 12:15; Stop 03/23/17 at 12:16; Status DC Ondansetron HCl 4 mg 4 mg ONCE ONCE IVP Last administered on 03/23/17 12:24; Start 03/23/17 at 12:15; Stop 03/23/17 at 12:16; Status DC Sodium Chloride (NS 1000 ml Inj) 1,000 ml @ 1,000 mls/hr Q1H IV Last administered on 03/23/17 12:24; Start 03/23/17 at 12:15; Stop 03/23/17 at 13:14; Status DC Sodium Chloride 2 ml 2 ml UNSCH PRN IV FLUSH FLUSH AFTER USING IV ACCESS; Start 03/23/17 at 12:15; Stop 03/23/17 at 16:40; Status DC Sodium Chloride (NS 1000 ml Inj) 1,000 ml @ 2,000 mls/hr Q30M ONCE IV Last administered on 03/23/17 12:25; Start 03/23/17 at 12:30; Stop 03/23/17 at 12:59; Status DC Iohexol (Omnipaque 350 Inj) 92 ml STK-MED ONCE IV Last administered on 14:23; Start 03/23/17 at 14:23; Stop 03/23/17 at 14:24; Status DC Sodium Chloride (NS Flush) 2 ml UNSCH PRN IV FLUSH FLUSH AFTER USING IV ACCESS ; Start 03/23/17 at 16:30 Sodium Chloride (NS Flush) 2 ml BID IV FLUSH Last administered on 03/24/17 09: 03; Start 03/23/17 at 21:00 Ondansetron HCl (Zofran Inj) 4 mg Q6H PRN IVP NAUSEA OR VOMITING; Start at 16:30 Metoclopramide HCl (Reglan Inj) 5 mg Q6H PRN IV PUSH NAUSEA OR VOMITING; Start 03/23/17 at 16:30 Prochlorperazine (Compazine Supp) 25 mg Q12H PRN RECTAL NAUSEA OR VOMITING; Start 03/23/17 at 16:30 Zolpidem Tartrate (Ambien) 5 mg HS PRN PO INSOMNIA; Start 03/23/17 at 16:30 Heparin Sodium (Porcine) (Heparin Inj) 5,000 units Q8H SQ Last administered on 03/24/17 05:10; Start 03/23/17 at 22:00 Morphine Sulfate (Morphine Inj) 4 mg Q3H PRN IV Pain 6-10;if unable to take PO Last administered on 03/24/17 09:01; Start 03/23/17 at 16:30 Morphine Sulfate (Morphine Inj) 4 mg Q1H PRN IV PAIN SCALE 7-10 (INTRACTABLE); Start 03/23/17 at 16:30 Morphine Sulfate (Morphine Inj) 4 mg Q3H PRN IV BREAKTHROUGH PAIN; Start at 16:30 Naloxone HCl (Narcan Inj) 0.4 mg UNSCH PRN IV SEE LABEL COMMENTS; Start at 16:30 Senna/Docusate Sodium (Gayle-Colace) 1 tab BID PO Last administered on 03/24/17 09:02; Start 03/23/17 at 21:00 Magnesium Hydroxide (Milk Of Magnesia Liq) 30 ml Q12H PRN PO MILD - MODERATE CONSTIPATION; Start 03/23/17 at 16:30 Sennosides (Senokot) 17.2 mg Q12H PRN PO MODERATE - SEVERE CONSTIPATION; Start 03/23/17 at 16:30 Bisacodyl (Dulcolax Supp) 10 mg DAILY PRN RECTAL SEVERE CONSITIPATION; Start at 16:30 Lactulose 30 ml 30 ml DAILY PRN PO SEVERE CONSITIPATION; Start 03/23/17 at 16:30 Lactated Ringer's (Lr 1000 ml Inj) 1,000 ml @ 125 mls/hr Q8H IV Last administered on 03/24/17 00:12; Start 03/23/17 at 16:19 Sodium Chloride (NS Flush) 2 ml UNSCH PRN IV FLUSH FLUSH AFTER USING IV ACCESS ; Start 03/23/17 at 16:30; Status UNV Sodium Chloride 2 ml 2 ml BID IV FLUSH ; Start 03/23/17 at 21:00; Status UNV Piperacillin Sod/ Tazobactam Sod (Zosyn 4.5 Gm Premix) 100 ml @ 200 mls/hr Q6H IV Last administered on 03/24/17 05:10; Start 03/23/17 at 18:00 Albuterol Sulfate (Proair Hfa Inh) 2 puff Q6H PRN INH SHORTNESS OF BREATH; Start 03/23/17 at 16:30 Baclofen (Lioresal) 10 mg TID PO Last administered on 03/24/17 09:02; Start 03/23/17 at 18:00 Budesonide/ Formoterol Fumarate (Symbicort 160-4.5 Inh) 2 puff Q12HR INH Last administered on 03/24/17 09:02; Start 03/23/17 at 21:00 Levetriacetam (Keppra) 500 mg BID PO Last administered on 03/24/17 09:02; Start 03/23/17 at 21:00 Mirtazapine (Remeron) 30 mg HS PO Last administered on 03/23/17 22:32; Start at 21:00 Lisinopril (Prinivil) 40 mg DAILY PO Last administered on 03/24/17 09:01; Start 03/24/17 at 09:00 Pantoprazole Sodium (Protonix) 40 mg DAILY PO Last administered on 03/24/17 09: 02; Start 03/24/17 at 09:00 Urinary Catheter: No Vascular Central Line Catheter: No A/P Problem List: (1) Pancreatitis ICD Code: K85.90 Status: Acute (2) Tobacco abuse ICD Code: Z72.0 Status: Chronic (3) GERD (gastroesophageal reflux disease) ICD Code: K21.9 Status: Chronic (4) Seizure disorder ICD Code: G40.909 Status: Chronic (5) HTN (hypertension) ICD Code: I10 Status: Chronic (6) COPD (chronic obstructive pulmonary disease) ICD Code: J44.9 Status: Chronic (7) Hypertension ICD Code: I10 Status: Chronic (8) Status post left hip replacement ICD Code: Z96.642 Status: Acute Assessment and Plan Mr. Elam is a 57-year-old male with a known medical history of hypertension, seizure history, COPD, GERD and pancreatitis who presented to the ED with complaints of abdominal pain. Patient states that has had right sided abdominal pain for the past 5 days. PCP is [facility] and last saw him 1 month ago. Patient was recently admitted for pancreatitis 5 months ago and a left hip replacement 3 months ago. Last colonoscopy was 3 years ago and per patient it was unremarkable. Acute on chronic pancreatitis: Abdomen/pelvis CT reviewed showing acute on chronic pancreatitis. Multiloculated. A new low density mass with most likely a pseudocyst. Mass effect and possible partial thrombosis on the portal vein. Keep NPO, rest bowel. Lipase 1278, amylase and triglyceride pending. Consult placed to GI, appreciate recommendations. Control pain, Morphine 4 mg IV PRN per pain scale. Hydrate, LR 125 ml/hr. Leukocytosis with elevated bands suspect secondary to pancreatitis: WBC 18.6 on presentation. Start Zosyn 4.5 g IV q6hr. Afebrile. Hypertension, chronic: Controlled. Continue home lisinopril. Monitor BP. Hyponatremia: Na 127 upon presentation. Will hydrate. Monitor. Repeat BMP in am. Follow. COPD: Continue home inhalers. Supplemental O2 as needed. History of seizures: Continue home Keppra. Monitor for seizures. GI Prophylaxis: Protonix. DVT prophylaxis: SCDs/Heparin. We will order a ultrasound of the abdomen as well as HIDA scan with ejection fraction A.m. labs Attending with pain control Pranay Crews DO Mar 24, 2017 09:48
[2017-03-24 12:40] LABS: AUTOMATED NEUTROPHIL # 9.1 TH/MM3 (1.8-7.7); BASOPHIL # 0.1 TH/MM3 (0-0.2); BASOPHIL % 0.6 % (0.0-2.0); EOSINOPHIL # 0.4 TH/MM3 (0-0.4); EOSINOPHIL % 2.9 % (0.0-4.0); HEMATOCRIT 31.9 % (39.0-51.0); LYMPH % 13.5 % (9.0-44.0); LYMPHOCYTE # 1.6 TH/MM3 (1.0-4.8); MEAN CELL VOLUME 92.4 FL (80.0-100.0); MEAN CORPUSCULAR HEMOGLOBIN 31.8 PG (27.0-34.0); MEAN CORPUSCULAR HGB CONC 34.4 % (32.0-36.0); MONO % 8.9 % (0.0-8.0); NEUT % 74.1 % (16.0-70.0); PLATELET COUNT 302 TH/MM3 (150-450); RED BLOOD COUNT 3.45 MIL/MM3 (4.50-5.90); RED CELL DISTRIBUTION WIDTH 14.2 % (11.6-17.2); WHITE BLOOD COUNT 12.2 TH/MM3 (4.0-11.0)
[2017-03-24 12:43] LABS: INTERNATIONAL NORMALIZED RATIO 1.1 RATIO; PROTHROMBIN TIME - PATIENT 12.5 SEC (9.8-11.6)
[2017-03-24 12:45] LABS: HEMO FLAGS AUTO DIFF
[2017-03-24 12:56] LABS: ALT (GPT) 21 U/L (12-78); AMYLASE 42 U/L (25-115); AST (GOT) 15 U/L (15-37); MAGNESIUM 2.1 MG/DL (1.5-2.5)
[2017-03-24 13:06] LABS: ALKALINE PHOSPHATASE 131 U/L (45-117); FREE T4 1.43 NG/DL (0.76-1.46); INDIRECT BILIRUBIN 0.2 MG/DL (0.0-0.8); TOTAL BILIRUBIN ADULT 0.3 MG/DL (0.2-1.0)
[2017-03-24] MEDS ORDERED: BISACODYL 10 MG SUPP RECTAL ONE (13:15)
[2017-03-24 13:29] LABS: HEMOGLOBIN A1a 1.1 %; HEMOGLOBIN A1b 1.6 %; HEMOGLOBIN Ao 85.1 %
[2017-03-24 13:36] LABS: BANDS 19 % (0-6); EOSINOPHILS 1 % (0-4); NEUTROPHIL # MANUAL DIFF 9.8 TH/MM3 (1.8-7.7); POLYS (SEG NEUTROPHILS) 61 % (16-70); WBC DIFF SAMPLE 100
[2017-03-24 13:37] LABS: PLATELET ESTIMATE SMEAR NORMAL (NORMAL); PLATELET MORPHOLOGY NORMAL (NORMAL); SCAN/DIFF FINAL DIFF MANUAL
--- NOTE | 2017-03-24 15:30 | PD.CONS ---
HPI History of Present Illness This is a 57 year old male who presented to the ED with c/o right sided abdominal pain for past 6 days, worsening over past 4 days. Rates pain at 10/10 at its worse with radiation to his back and middle of his abdomen. Reports nausea and vomiting and decreased appetite for past 4 days. Denies hematemesis. Last BM 4 days ago, normal, denies hematochezia or melena. Patient denies recent alcohol consumption ands states he only has a few beer in a month. Tried NSAIDs for pain relief with minimal relief. Also admits to using cocaine for pain relief with no relief. PMH significant for hypertension, seizures, COPD, GERD, and pancreatitis (last episode 5 months ago). Had colonoscopy 3 years ago , normal per patient. (Marcella Gregorio) PFSH Past Medical History Hypertension COPD GERD History of pancreatitis History of seizures, on Keppra History of chronic back pain History of tobacco abuse History of alcohol use in past Past Surgical History Left hip surgery 12/2016 Last colonoscopy 3 years ago, normal per patient Aneurysm clips in his head (Marcella Gregorio) Coded Allergies: MRI PRECAUTION (Verified Adverse Reaction, Severe, ANEURYSM CLIP, 03/23/17) DR HENRY VERIFIED ANEURYSM CLIP Medications Current Medications Medications (Trade) Dose Ordered Sig/Mariya Route PRN Reason Start Time Stop Time Status Last Admin Dose Admin Sodium Chloride (NS Flush) 2 ml UNSCH PRN IV FLUSH FLUSH AFTER USING IV ACCESS 03/23/17 16:30 Sodium Chloride (NS Flush) 2 ml BID IV FLUSH 03/23/17 21:00 03/24/17 09:03 Ondansetron HCl (Zofran Inj) 4 mg Q6H PRN IVP NAUSEA OR VOMITING 03/23/17 16:30 Metoclopramide HCl (Reglan Inj) 5 mg Q6H PRN IV PUSH NAUSEA OR VOMITING 03/23/17 16:30 Prochlorperazine (Compazine Supp) 25 mg Q12H PRN RECTAL NAUSEA OR VOMITING 03/23/17 16:30 Zolpidem Tartrate (Ambien) 5 mg HS PRN PO INSOMNIA 03/23/17 16:30 Heparin Sodium (Porcine) (Heparin Inj) 5,000 units Q8H SQ 03/23/17 22:00 03/24/17 05:10 Morphine Sulfate (Morphine Inj) 4 mg Q3H PRN IV Pain 6-10;if unable to take PO 03/23/17 16:30 03/24/17 12:02 Morphine Sulfate (Morphine Inj) 4 mg Q1H PRN IV PAIN SCALE 7-10 (INTRACTABLE) 03/23/17 16:30 Morphine Sulfate (Morphine Inj) 4 mg Q3H PRN IV BREAKTHROUGH PAIN 03/23/17 16:30 Naloxone HCl (Narcan Inj) 0.4 mg UNSCH PRN IV SEE LABEL COMMENTS 03/23/17 16:30 Senna/Docusate Sodium (Gayle-Colace) 1 tab BID PO 03/23/17 21:00 03/24/17 09:02 Magnesium Hydroxide (Milk Of David Peres) 30 ml Q12H PRN PO MILD - MODERATE CONSTIPATION 03/23/17 16:30 Sennosides (Senokot) 17.2 mg Q12H PRN PO MODERATE - SEVERE CONSTIPATION 03/23/17 16:30 Bisacodyl (Dulcolax Supp) 10 mg DAILY PRN RECTAL SEVERE CONSITIPATION 03/23/17 16:30 Lactulose 30 ml 30 ml DAILY PRN PO SEVERE CONSITIPATION 03/23/17 16:30 Lactated Ringer's 1,000 ml @ 125 mls/hr Q8H IV 03/23/17 16:19 03/24/17 00:12 Piperacillin Sod/ Tazobactam Sod (Zosyn 4.5 Gm Premix) 100 ml @ 200 mls/hr Q6H IV 03/23/17 18:00 03/24/17 12:01 Albuterol Sulfate (Proair Hfa Inh) 2 puff Q6H PRN INH SHORTNESS OF BREATH 03/23/17 16:30 Baclofen (Lioresal) 10 mg TID PO 03/23/17 18:00 03/24/17 12:01 Budesonide/ Formoterol Fumarate (Symbicort 160-4.5 Inh) 2 puff Q12HR INH 03/23/17 21:00 03/24/17 09:02 Levetriacetam (Keppra) 500 mg BID PO 03/23/17 21:00 03/24/17 09:02 Mirtazapine (Remeron) 30 mg HS PO 03/23/17 21:00 03/23/17 22:32 Lisinopril (Prinivil) 40 mg DAILY PO 03/24/17 09:00 03/24/17 09:01 Pantoprazole Sodium (Protonix) 40 mg DAILY PO 03/24/17 09:00 03/24/17 09:02 Family History Mother of lung cancer. Father had diabetes and cardiovascular disease. Social History Tobacco, trying to quit, now smoking 5 cigarettes per day, uses Nicotine patch ETOH, occasional, reports 3 drinks per month Illicit Drugs, admits to using cocaine last evening. (Marcella Gregorio ) Review of Systems Constitutional: COMPLAINS OF: Change in appetite, DENIES: Diaphoretic episodes , Fatigue, Fever, Weight gain, Weight loss, Chills, Dizziness, Night Sweats Endocrine: DENIES: Polydipsia, Polyuria Eyes: DENIES: Blurred vision, Photosensitivity, Double Vision Ears, nose, mouth, throat: DENIES: Hearing loss, Vertigo, Oral lesions, Throat pain, Hoarseness Respiratory: DENIES: Cough, Wheezing, Hemoptysis, Sputum production, Shortness of breath Cardiovascular: DENIES: Chest pain, Palpitations, Syncope, Lower Extremity Edema, Orthopnea, Claudication Gastrointestinal: COMPLAINS OF: Abdominal pain, Nausea, Vomiting, Swelling of Abdomen, DENIES: Black stools, Bloody stools, Constipation, Diarrhea, Difficulty Swallowing, Anorexia, Odynophagia, Heartburn, Hematemesis Genitourinary: DENIES: Urinary frequency, Urinary incontinence, Urgency, Hematuria, Dysuria, Nocturia Musculoskeletal: DENIES: Joint pain, Muscle aches, Stiffness, Joint Swelling, Back pain, Neck pain Integumentary: DENIES: Abnormal pigmentation, Nail changes, Pruritus, Rash, Jaundice Hematologic/lymphatic: DENIES: Bruising, Lymphadenopathy Immunologic/allergic: DENIES: Eczema, Urticaria Neurologic: DENIES: Abnormal gait, Headache, Localized weakness, Paresthesias Psychiatric: DENIES: Anxiety, Confusion, Mood changes, Depression, Agitation, Suicidal Ideation (Marcella Gregorio) GI Exam Vitals I&O Vital Signs Date Time Temp Pulse Resp B/P Pulse Ox O2 Delivery O2 Flow Rate FiO2 03/24/17 12:52 97.8 93 18 146/82 99 03/24/17 12:07 18 03/24/17 08:21 98.7 88 19 140/83 98 03/24/17 05:35 98.8 97 18 140/67 95 03/24/17 01:14 98.8 90 18 150/77 96 03/23/17 20:00 100.3 110 20 125/71 95 03/23/17 20:00 100.3 110 20 125/71 95 03/23/17 17:30 100.5 108 18 151/82 97 I/O 03/23/17 03/23/17 03/23/17 03/24/17 03/24/17 03/24/17 07:00 15:00 23:00 07:00 15:00 23:00 Intake Total 2000 ml Output Total 100 ml 500 ml Balance 1900 ml -500 ml IV Total 2000 ml Output Urine Total 100 ml 500 ml # Voids 1 Imaging Last Impressions Abdomen/Pelvis CT 03/23/17 1215 Signed Impressions: Service Date/Time: Thursday, March 23, 2017 14:19 - CONCLUSION: 1. Acute on chronic pancreatitis. 2. Multiloculated, new low density mass superior to the pancreatic head which is most likely a pseudocyst. There is mass effect and possible partial thrombosis on the portal vein. Donnie Merrill MD Laboratory Test 03/24/17 11:31 White Blood Count 12.2 TH/MM3 Red Blood Count 3.45 MIL/MM3 Hemoglobin 11.0 GM/DL Hematocrit 31.9 % Mean Corpuscular Volume 92.4 FL Mean Corpuscular Hemoglobin 31.8 PG Mean Corpuscular Hemoglobin 34.4 % Concent Red Cell Distribution Width 14.2 % Platelet Count 302 TH/MM3 Mean Platelet Volume 8.7 FL Neutrophils (%) (Auto) 74.1 % Lymphocytes (%) (Auto) 13.5 % Monocytes (%) (Auto) 8.9 % Eosinophils (%) (Auto) 2.9 % Basophils (%) (Auto) 0.6 % Neutrophils # (Auto) 9.1 TH/MM3 Lymphocytes # (Auto) 1.6 TH/MM3 Monocytes # (Auto) 1.1 TH/MM3 Eosinophils # (Auto) 0.4 TH/MM3 Basophils # (Auto) 0.1 TH/MM3 CBC Comment AUTO DIFF Differential Total Cells 100 Counted Neutrophils % (Manual) 61 % Band Neutrophils % 19 % Lymphocytes % 10 % Monocytes % 9 % Eosinophils % 1 % Neutrophils # (Manual) 9.8 TH/MM3 Differential Comment FINAL DIFF MANUAL Platelet Estimate NORMAL Platelet Morphology Comment NORMAL Red Cell Morphology Comment NORMAL Prothrombin Time 12.5 SEC Prothromb Time International 1.1 RATIO Ratio Hemoglobin A1c 5.5 % Phosphorus Level 3.2 MG/DL Magnesium Level 2.1 MG/DL Total Bilirubin 0.3 MG/DL Direct Bilirubin 0.1 MG/DL Indirect Bilirubin 0.2 MG/DL Aspartate Amino Transf 15 U/L (AST/SGOT) Alanine Aminotransferase 21 U/L (ALT/SGPT) Alkaline Phosphatase 131 U/L Total Protein 7.0 GM/DL Albumin 2.8 GM/DL Amylase Level 42 U/L Lipase 426 U/L Free Thyroxine 1.43 NG/DL Thyroid Stimulating Hormone 1.830 uIU/ML 3rd Gen Physical Examination HEENT: PERRLA; normocephalic; atraumatic; no jaundice. NECK: Neck is supple, no JVD, no lymphadenopathy. CHEST: CTA CARDIAC: RRR with no murmur gallop or rubs. ABDOMEN: Soft, TTP at R abdomen ; no hepatosplenomegaly; bowel sounds are present x 4 quadrants. EXTREMITIES: No clubbing, cyanosis, or edema. SKIN: Normal; no rash; no jaundice. MANAGER TAX: No focal deficits; alert and oriented x 3 (Marcella Gregorio) Assessment and Plan Plan ASSESSMENT Acute on chronic pancreatitis, Abdomen/Pelvis CT 03/23/17--1. Acute on chronic pancreatitis. 2. Multiloculated, new low density mass superior to the pancreatic head which is most likely a pseudocyst. There is mass effect and possible partial thrombosis on the portal vein. Lipase 1278 (8/5), 426 (8/6). Amylase 42 (8/6), Triglycerides 98 (8/5) US of Abdomen and HIDA scan ordered, pending results. Leukocytosis, suspect secondary to pancreatitis? WBC 18.6 on admission, 12.2 today. Zosyn. Afebrile. Hypertension, chronic, per attending COPD, per attending History of seizures: Jinppra. Per attending PLAN - NPO - IV fluids - Await results of US Abdomen and HIDA scan - Monitor labs - Supportive care - Further recommendations to follow based on results of above Patient seen and examined by and myself and this note is written on her behalf. (Marcella Gregorio) Physician Comments seen, examined agree with above us noted , no indication of portal vein thrombosis will need repeat eus (Lulú Villela MD) Marcella Gregorio Mar 24, 2017 15:30 Lulú Villela MD Mar 24, 2017 20:34
--- NOTE | 2017-03-24 16:18 | RADRPT ---
EXAM DATE/TIME: 03/24/2017 13:39 [facility] COMPARISON: CT ABDOMEN & PELVIS W CONTRAST, March 23, 2017, 14:19. INDICATIONS : Abdomen pain. MEDICAL HISTORY : Gastroesophageal reflux disease. Hypertension. Arthritis. COPD. Nausea. Vomiting. Ulcer. Pancreatitis . SURGICAL HISTORY : Aneurysm clip placed right side. Left hip surgery. ENCOUNTER: Initial ACUITY: 2 days PAIN SCORE: 7/10 LOCATION: Abdomen. MEASUREMENTS: LIVER: 20.1 cm length COMMON DUCT: 4 mm RIGHT KIDNEY: 11.3 x 5.8 x 6.8 cm LEFT KIDNEY: 12.0 x 7.2 x 6.6 cm SPLEEN: 9.7 cm length AORTA: 1.5cm maximal FINDINGS: LIVER: Enlarged and heterogeneous. No focal hepatic lesions seen. There is elevated flow velocity in the devante n portal vein. Flow direction is normal. COMMON DUCT: No intraluminal mass or stone visualized. GALLBLADDER: No sludge or stones seen. Gallbladder wall thickness upper limits of normal. No pericholecystic fluid . PANCREAS: Heterogeneous pancreatic parenchyma. 8mm duct. RIGHT KIDNEY: No hydronephrosis, stone or mass. LEFT KIDNEY: No hydronephrosis, stone or mass. SPLEEN: No focal lesion. AORTA: Non aneurysmal. IVC: Within normal limits. CONCLUSION: 1. Heterogeneous pancreas. Acute on chronic pancreatitis suspected on yesterday's CT. Both studies sh ow mild dilatation of the pancreatic duct. 2. Presumed pseudocyst in the norberto hepatis on yesterday's CT is not clearly seen on today's ultrasou nd. 3. Stenotic main portal vein but not thrombosed. 4. Enlarged and heterogeneous liver but no focal hepatic lesion. 5. No gallstones or evidence of cholecystitis. Donnie Merrill MD on March 24, 2017 at 16:13 Board Certified Radiologist. This report was verified electronically.
--- NOTE | 2017-03-24 17:38 | EKG ---
Date Performed: 03/23/2017 Time Performed: 12:17:26 PTAGE: 57 years EKG: SINUS TACHYCARDIA ABNORMAL RHYTHM ECG Compared to PREVIOUS TRACING , patient is now in a sinus tachycardia. PREVIOUS TRACIN02/10/2017 09 .35 DOCTOR: Prabhakar Rodriguez Interpretating Date/Time 03/24/2017 17:37:44
[2017-03-24] MEDS: MIRTAZAPINE 15 MG TAB PO SCH (21:22)
[2017-03-25] MEDS: LACTATED RINGER'S 1000 ML INJ 1,000 ML IV SCH ×3 (00:19→21:44)
[2017-03-25 00:30] VITALS: BP 135/72; PULSE 74; RESP 17; TEMP 97.5; O2SAT 96
[2017-03-25] MEDS: PIPERACIL-TAZO 4.5 GM PREMIX 100 ML IV SCH ×4 (00:44→18:17)
[2017-03-25] MEDS: MORPHINE SULFATE 4 MG/ML INJ IV PRN ×6 (00:49→21:38)
[2017-03-25 04:27] VITALS: BP 122/72; PULSE 75; RESP 17; TEMP 97.7; O2SAT 96
[2017-03-25] MEDS: HEPARIN SODIUM - SQ 10,000 UNITS/ML VIAL SQ SCH ×3 (05:22→21:37)
[2017-03-25 08:00] VITALS: BP 119/74; PULSE 70; RESP 17; TEMP 97.8; O2SAT 97
[2017-03-25] MEDS: BACLOFEN 10 MG TAB PO SCH ×3 (08:21→18:17)
[2017-03-25] MEDS: PANTOPRAZOLE SOD 40 MG DELAYED RELEASE TAB PO SCH (08:21)
[2017-03-25] MEDS: LISINOPRIL 20 MG TAB PO SCH (08:21)
[2017-03-25] MEDS: DOCUSATE SODIUM 50 MG/SENNA 8.6 MG TAB PO SCH ×2 (08:22→21:36)
[2017-03-25] MEDS: levETIRAcetam 500 MG TAB PO SCH ×2 (08:22→21:36)
[2017-03-25] MEDS: SODIUM CHLORIDE 0.9% FLUSH 10 ML FLUSH IV FLUSH SCH ×2 (08:22→21:36)
[2017-03-25] MEDS: BUDESONIDE-FORMOTEROL 160/4.5 MCG INHALER INH SCH ×2 (09:20→21:36)
--- NOTE | 2017-03-25 11:55 | RADRPT ---
EXAM DATE/TIME: 03/25/2017 08:40 [place] COMPARISON: BILIARY SCAN (HIDA), December 07, 2016, 10:10. INDICATIONS : Abdominal pain. DOSE: 4.4 mCi Tc99m Mebrofenin IV MEDICAL HISTORY : Hepatitis C. Chronic obstructive pulmonary disease. Gastroesophageal reflux disease. Hypertension. SURGICAL HISTORY : Left hip. ENCOUNTER: Initial ACUITY: 1 day PAIN SCALE: 4/10 LOCATION: Right upper quadrant TECHNIQUE: Following the intravenous administration of radiotracer, dynamic sequential images were performed wit h continuous acquisition. FINDINGS: HEPATIC KINETICS: There is prompt uptake of radiotracer in the liver. No focal defects are seen. There is normal rate of washout from the hepatic parenchyma. BILIARY CLEARANCE: Activity is first seen in the extrahepatic biliary system at 15 minutes. There is normal excretion i nto the small bowel. GALLBLADDER: Gallbladder is first seen at 35 minutes. BILIARY ENTRIC REFLUX: None observed. CONCLUSION: Delayed appearance to the gallbladder without evidence for cystic duct or common duct obstruction. Pranay Andrade MD FACR on March 25, 2017 at 11:52 Board Certified Radiologist. This report was verified electronically.
[2017-03-25 12:00] VITALS: BP 103/61; PULSE 87; RESP 17; TEMP 97.8; O2SAT 97
--- NOTE | 2017-03-25 13:29 | HHI.PR ---
Subjective Remarks Mr. Elam is a 57-year-old male with a known medical history of hypertension, seizure history, COPD, GERD and pancreatitis who presented to the ED with complaints of abdominal pain. Patient states that has had right sided abdominal pain for the past 5 days, worsening over the last three. States the pain is constant, with its worse being a 10/10 on pain scale, radiates to his back and middle abdomen. States no relieving factors, tried multiple NSAIDs with short term relief. Patient has not ate anything for 4 days except for occasional water. Complaints of associated fevers, chills, nausea and vomiting and "cannot keep anything down". Patient denies frequent alcohol consumption, states he only has a few beers a month. Admits to quitting cigarettes over the past month with the help of a nicotine patch. Does admit to using cocaine last evening to help and try to relieve the pain, with little effect. Last bowel movement was four days ago, denies any diarrhea or hematochezia. Patient takes an occasional omeprazole whenever he suffers from heartburn. [facility] and last saw him 1 month ago. Patient was recently admitted for pancreatitis 5 months ago and a left hip replacement 3 months ago. Last colonoscopy was 3 years ago and per patient it was unremarkable. 8-6 patient still complains of pain in the abdomen especially in the right side Have discussed with patient and RN We'll get a ultrasound of the abdomen as well as a HIDA scan with ejection fraction am labs are still pending We'll get repeat labs tomorrow Await GI evaluation Continue nothing by mouth Continue on Zosyn 8-7 has been seen by gastroenterology. Has undergone a HIDA scan as well as an ultrasound of the abdomen Wanting to eat We'll attempt a clear liquid diet if he has pain with it we will obviously stop it Objective Vitals Vital Signs Date Time Temp Pulse Resp B/P Pulse Ox O2 Delivery O2 Flow Rate FiO2 03/25/17 12:00 97.8 87 17 103/61 97 03/25/17 08:00 97.8 70 17 119/74 97 03/25/17 04:27 97.7 75 17 122/72 96 03/25/17 00:30 97.5 74 17 135/72 96 03/24/17 20:30 99.4 83 17 126/74 97 03/24/17 16:00 97.6 83 17 119/74 96 03/24/17 15:32 18 I/O 03/24/17 03/24/17 03/24/17 03/25/17 03/25/17 03/25/17 06:59 14:59 22:59 06:59 14:59 22:59 Intake Total 1033 ml Output Total 500 ml Balance -500 ml 1033 ml IV Total 1033 ml Output Urine Total 500 ml # Voids 4 # Bowel Movements 2 Result Diagram: 03/24/17 1131 03/23/17 1220 Other Results Labs are still pending Imaging Last Impressions Hepatobiliary Scan Nuclear Medicine 03/25/17 0000 Signed Impressions: Service Date/Time: Saturday, March 25, 2017 08:40 - CONCLUSION: Delayed appearance to the gallbladder without evidence for cystic duct or common duct obstruction. Pranay Andrade MD FACR Abdomen Ultrasound 03/24/17 0000 Signed Impressions: Service Date/Time: Friday, March 24, 2017 13:39 - CONCLUSION: 1. Heterogeneous pancreas. Acute on chronic pancreatitis suspected on yesterday's CT. Both studies show mild dilatation of the pancreatic duct. 2. Presumed pseudocyst in the norberto hepatis on yesterday's CT is not clearly seen on today's ultrasound. 3. Stenotic main portal vein but not thrombosed. 4. Enlarged and heterogeneous liver but no focal hepatic lesion. 5. No gallstones or evidence of cholecystitis. Donnie Merrill MD Abdomen/Pelvis CT 03/23/17 1215 Signed Impressions: Service Date/Time: Thursday, March 23, 2017 14:19 - CONCLUSION: 1. Acute on chronic pancreatitis. 2. Multiloculated, new low density mass superior to the pancreatic head which is most likely a pseudocyst. There is mass effect and possible partial thrombosis on the portal vein. Donnie Merrill MD Objective Remarks GENERAL: This is a well-nourished, well-developed patient, lying in bed in apparent distress secondary to abdominal pain. SKIN: No rashes, ecchymoses or lesions. Warm and dry. HEAD: Atraumatic. Normocephalic. Pupils equal round and reactive to light and accommodation. Extraocular motions intact. No scleral icterus. No injection or drainage. Nose without bleeding. Airway patent. Tongue is midline poor dentition NECK: Trachea midline. No JVD. Supple. No obvious thyromegaly CARDIOVASCULAR: Tachycardia. No murmur appreciated. S1-S2 no S3 or S4 no heave no thrill no murmur no rubs no gallops. RESPIRATORY: Clear to auscultation. Breath sounds equal bilaterally. No wheezes , rales, or rhonchi. GASTROINTESTINAL: Abdomen soft, tender to palpation in right lower to middle quadrant. Bowel sounds active x 4q. no true rebound rigidity or guarding MUSCULOSKELETAL: Extremities without clubbing, cyanosis, or edema. No joint tenderness, effusion, or edema noted. NEUROLOGICAL: Awake and alert. Cranial nerves II through XII intact. Motor and sensory grossly within normal limits. Five out of 5 muscle strength in all muscle groups in upper extremity and lower extremity bilaterally. Normal speech. Deep tendon reflexes 2 out of 4 in upper extremity and lower extremity bilaterally Insight and judgment is good and his mood and behaviors are appropriate Medications and IVs Current Medications Morphine Sulfate (Morphine Inj) 4 mg ONCE ONCE IV PUSH Last administered on 12:24; Start 03/23/17 at 12:15; Stop 03/23/17 at 12:16; Status DC Ondansetron HCl 4 mg 4 mg ONCE ONCE IVP Last administered on 03/23/17 12:24; Start 03/23/17 at 12:15; Stop 03/23/17 at 12:16; Status DC Sodium Chloride (NS 1000 ml Inj) 1,000 ml @ 1,000 mls/hr Q1H IV Last administered on 03/23/17 12:24; Start 03/23/17 at 12:15; Stop 03/23/17 at 13:14; Status DC Sodium Chloride 2 ml 2 ml UNSCH PRN IV FLUSH FLUSH AFTER USING IV ACCESS; Start 03/23/17 at 12:15; Stop 03/23/17 at 16:40; Status DC Sodium Chloride (NS 1000 ml Inj) 1,000 ml @ 2,000 mls/hr Q30M ONCE IV Last administered on 03/23/17 12:25; Start 03/23/17 at 12:30; Stop 03/23/17 at 12:59; Status DC Iohexol (Omnipaque 350 Inj) 92 ml STK-MED ONCE IV Last administered on 14:23; Start 03/23/17 at 14:23; Stop 03/23/17 at 14:24; Status DC Sodium Chloride (NS Flush) 2 ml UNSCH PRN IV FLUSH FLUSH AFTER USING IV ACCESS ; Start 03/23/17 at 16:30 Sodium Chloride (NS Flush) 2 ml BID IV FLUSH Last administered on 03/24/17 09: 03; Start 03/23/17 at 21:00 Ondansetron HCl (Zofran Inj) 4 mg Q6H PRN IVP NAUSEA OR VOMITING; Start at 16:30 Metoclopramide HCl (Reglan Inj) 5 mg Q6H PRN IV PUSH NAUSEA OR VOMITING; Start 03/23/17 at 16:30 Prochlorperazine (Compazine Supp) 25 mg Q12H PRN RECTAL NAUSEA OR VOMITING; Start 03/23/17 at 16:30 Zolpidem Tartrate (Ambien) 5 mg HS PRN PO INSOMNIA; Start 03/23/17 at 16:30 Heparin Sodium (Porcine) (Heparin Inj) 5,000 units Q8H SQ Last administered on 03/25/17 05:22; Start 03/23/17 at 22:00 Morphine Sulfate (Morphine Inj) 4 mg Q3H PRN IV Pain 6-10;if unable to take PO Last administered on 03/25/17 10:45; Start 03/23/17 at 16:30 Morphine Sulfate (Morphine Inj) 4 mg Q1H PRN IV PAIN SCALE 7-10 (INTRACTABLE); Start 03/23/17 at 16:30 Morphine Sulfate (Morphine Inj) 4 mg Q3H PRN IV BREAKTHROUGH PAIN; Start at 16:30 Naloxone HCl (Narcan Inj) 0.4 mg UNSCH PRN IV SEE LABEL COMMENTS; Start at 16:30 Senna/Docusate Sodium (Gayle-Colace) 1 tab BID PO Last administered on 03/24/17 21:22; Start 03/23/17 at 21:00 Magnesium Hydroxide (Milk Of Magnesia Liq) 30 ml Q12H PRN PO MILD - MODERATE CONSTIPATION; Start 03/23/17 at 16:30 Sennosides (Senokot) 17.2 mg Q12H PRN PO MODERATE - SEVERE CONSTIPATION; Start 03/23/17 at 16:30 Bisacodyl (Dulcolax Supp) 10 mg DAILY PRN RECTAL SEVERE CONSITIPATION; Start at 16:30 Lactulose 30 ml 30 ml DAILY PRN PO SEVERE CONSITIPATION; Start 03/23/17 at 16:30 Lactated Ringer's (Lr 1000 ml Inj) 1,000 ml @ 125 mls/hr Q8H IV Last administered on 03/24/17 18:50; Start 03/23/17 at 16:19 Sodium Chloride (NS Flush) 2 ml UNSCH PRN IV FLUSH FLUSH AFTER USING IV ACCESS ; Start 03/23/17 at 16:30; Status UNV Sodium Chloride 2 ml 2 ml BID IV FLUSH ; Start 03/23/17 at 21:00; Status UNV Piperacillin Sod/ Tazobactam Sod (Zosyn 4.5 Gm Premix) 100 ml @ 200 mls/hr Q6H IV Last administered on 03/25/17 05:22; Start 03/23/17 at 18:00 Albuterol Sulfate (Proair Hfa Inh) 2 puff Q6H PRN INH SHORTNESS OF BREATH; Start 03/23/17 at 16:30 Baclofen (Lioresal) 10 mg TID PO Last administered on 03/25/17 08:21; Start 03/23/17 at 18:00 Budesonide/ Formoterol Fumarate (Symbicort 160-4.5 Inh) 2 puff Q12HR INH Last administered on 03/24/17 09:02; Start 03/23/17 at 21:00 Levetriacetam (Keppra) 500 mg BID PO Last administered on 03/25/17 08:22; Start 03/23/17 at 21:00 Mirtazapine (Remeron) 30 mg HS PO Last administered on 03/24/17 21:22; Start at 21:00 Lisinopril (Prinivil) 40 mg DAILY PO Last administered on 03/25/17 08:21; Start 03/24/17 at 09:00 Pantoprazole Sodium (Protonix) 40 mg DAILY PO Last administered on 03/25/17 08: 21; Start 03/24/17 at 09:00 Bisacodyl (Dulcolax Supp) 10 mg ONCE ONCE RECTAL Last administered on t 15:23; Start 03/24/17 at 13:15; Stop 03/24/17 at 13:16; Status DC Urinary Catheter: No Vascular Central Line Catheter: No A/P Problem List: (1) Pancreatitis ICD Code: K85.90 Status: Acute (2) Tobacco abuse ICD Code: Z72.0 Status: Chronic (3) GERD (gastroesophageal reflux disease) ICD Code: K21.9 Status: Chronic (4) Seizure disorder ICD Code: G40.909 Status: Chronic (5) HTN (hypertension) ICD Code: I10 Status: Chronic (6) COPD (chronic obstructive pulmonary disease) ICD Code: J44.9 Status: Chronic (7) Hypertension ICD Code: I10 Status: Chronic (8) Status post left hip replacement ICD Code: Z96.642 Status: Acute Assessment and Plan Mr. Elam is a 57-year-old male with a known medical history of hypertension, seizure history, COPD, GERD and pancreatitis who presented to the ED with complaints of abdominal pain. Patient states that has had right sided abdominal pain for the past 5 days. [facility] and last saw him 1 month ago. Patient was recently admitted for pancreatitis 5 months ago and a left hip replacement 3 months ago. Last colonoscopy was 3 years ago and per patient it was unremarkable. Acute on chronic pancreatitis: Abdomen/pelvis CT reviewed showing acute on chronic pancreatitis. Multiloculated. A new low density mass with most likely a pseudocyst. Mass effect and possible partial thrombosis on the portal vein. Keep NPO, rest bowel. Lipase 1278, amylase and triglyceride pending. Consult placed to GI, appreciate recommendations. Control pain, Morphine 4 mg IV PRN per pain scale. Hydrate, LR 125 ml/hr. Leukocytosis with elevated bands suspect secondary to pancreatitis: WBC 18.6 on presentation. Start Zosyn 4.5 g IV q6hr. Afebrile. Hypertension, chronic: Controlled. Continue home lisinopril. Monitor BP. Hyponatremia: Na 127 upon presentation. Will hydrate. Monitor. Repeat BMP in am. Follow. Low improvement COPD: Continue home inhalers. Supplemental O2 as needed. History of seizures: Continue home Keppra. Monitor for seizures. GI Prophylaxis: Protonix. DVT prophylaxis: SCDs/Heparin. We will order a ultrasound of the abdomen as well as HIDA scan with ejection fraction A.m. labs Continue current pain control Tried to advance diet to clear liquids even though he still having pain and see how that goes Discussed with patient and RN Pranay Crews DO Mar 25, 2017 13:29
[2017-03-25 16:00] VITALS: BP 144/71; PULSE 75; RESP 17; TEMP 98.1; O2SAT 96
[2017-03-25 16:00] LABS: INTERNATIONAL NORMALIZED RATIO 1.1 RATIO; PROTHROMBIN TIME - PATIENT 11.9 SEC (9.8-11.6)
[2017-03-25 16:04] LABS: AUTOMATED NEUTROPHIL # 3.6 TH/MM3 (1.8-7.7); BASOPHIL # 0.1 TH/MM3 (0-0.2); EOSINOPHIL # 0.5 TH/MM3 (0-0.4); EOSINOPHIL % 7.9 % (0.0-4.0); HEMATOCRIT 31.2 % (39.0-51.0); LYMPH % 30.7 % (9.0-44.0); LYMPHOCYTE # 2.1 TH/MM3 (1.0-4.8); MEAN CELL VOLUME 91.4 FL (80.0-100.0); MEAN CORPUSCULAR HEMOGLOBIN 32.9 PG (27.0-34.0); MONO % 8.2 % (0.0-8.0); NEUT % 52.2 % (16.0-70.0); PLATELET COUNT 317 TH/MM3 (150-450); RED BLOOD COUNT 3.42 MIL/MM3 (4.50-5.90); RED CELL DISTRIBUTION WIDTH 14.6 % (11.6-17.2); WHITE BLOOD COUNT 6.8 TH/MM3 (4.0-11.0)
[2017-03-25 16:12] LABS: ALT (GPT) 27 U/L (12-78); AMYLASE 40 U/L (25-115); ANION GAP 7 MEQ/L (5-15); AST (GOT) 24 U/L (15-37); BICARBONATE 27.3 MEQ/L (21.0-32.0); BLOOD UREA NITROGEN 3 MG/DL (7-18); CHLORIDE 101 MEQ/L (98-107); GLOMERULAR FILTRATION RATE 134 ML/MIN (>89); MAGNESIUM 2.3 MG/DL (1.5-2.5); POTASSIUM 3.9 MEQ/L (3.5-5.1); SODIUM (NA) 135 MEQ/L (136-145)
[2017-03-25 16:24] LABS: ALKALINE PHOSPHATASE 114 U/L (45-117); TOTAL BILIRUBIN ADULT 0.2 MG/DL (0.2-1.0)
[2017-03-25 16:27] LABS: HEMO FLAGS AUTO DIFF
[2017-03-25 17:13] LABS: BANDS 7 % (0-6); BASOPHILS 3 % (0-2); EOSINOPHILS 6 % (0-4); METAMYELOCYTES 4 % (0-1); NEUTROPHIL # MANUAL DIFF 4.3 TH/MM3 (1.8-7.7); PLATELET ESTIMATE SMEAR NORMAL (NORMAL); PLATELET MORPHOLOGY NORMAL (NORMAL); POLYS (SEG NEUTROPHILS) 52 % (16-70); SCAN/DIFF FINAL DIFF MANUAL; WBC DIFF SAMPLE 100
--- NOTE | 2017-03-25 18:16 | HHI.GIFU ---
Subjective Remarks Resting in bed. Abdominal pain slightly improved. Requesting diet to be advanced from clear liquids. No vomiting. Objective Vitals I&O Vital Signs Date Time Temp Pulse Resp B/P Pulse Ox O2 Delivery O2 Flow Rate FiO2 03/25/17 16:00 98.1 75 17 144/71 96 03/25/17 12:00 97.8 87 17 103/61 97 03/25/17 08:00 97.8 70 17 119/74 97 03/25/17 04:27 97.7 75 17 122/72 96 03/25/17 00:30 97.5 74 17 135/72 96 03/24/17 20:30 99.4 83 17 126/74 97 I/O 03/24/17 03/24/17 03/24/17 03/25/17 03/25/17 03/25/17 07:00 15:00 23:00 07:00 15:00 23:00 Intake Total 1033 ml Output Total 500 ml 1550 ml Balance -500 ml 1033 ml -1550 ml IV Total 1033 ml Output Urine Total 500 ml 1550 ml # Voids 4 # Bowel Movements 2 0 Laboratory Laboratory Tests Test 03/25/17 14:58 White Blood Count 6.8 Red Blood Count 3.42 Hemoglobin 11.2 Hematocrit 31.2 Mean Corpuscular Volume 91.4 Mean Corpuscular Hemoglobin 32.9 Mean Corpuscular Hemoglobin 36.0 Concent Red Cell Distribution Width 14.6 Platelet Count 317 Mean Platelet Volume 8.6 Neutrophils (%) (Auto) 52.2 Lymphocytes (%) (Auto) 30.7 Monocytes (%) (Auto) 8.2 Eosinophils (%) (Auto) 7.9 Basophils (%) (Auto) 1.0 Neutrophils # (Auto) 3.6 Lymphocytes # (Auto) 2.1 Monocytes # (Auto) 0.6 Eosinophils # (Auto) 0.5 Basophils # (Auto) 0.1 CBC Comment AUTO DIFF Differential Total Cells 100 Counted Neutrophils % (Manual) 52 Band Neutrophils % 7 Lymphocytes % 22 Monocytes % 6 Eosinophils % 6 Basophils % 3 Neutrophils # (Manual) 4.3 Metamyelocytes 4 Differential Comment FINAL DIFF MANUAL Platelet Estimate NORMAL Platelet Morphology Comment NORMAL Prothrombin Time 11.9 Prothromb Time International 1.1 Ratio Sodium Level 135 Potassium Level 3.9 Chloride Level 101 Carbon Dioxide Level 27.3 Anion Gap 7 Blood Urea Nitrogen 3 Creatinine 0.62 Estimat Glomerular Filtration 134 Rate Random Glucose 106 Calcium Level 8.6 Phosphorus Level 3.6 Magnesium Level 2.3 Total Bilirubin 0.2 Aspartate Amino Transf 24 (AST/SGOT) Alanine Aminotransferase 27 (ALT/SGPT) Alkaline Phosphatase 114 Total Protein 6.3 Albumin 2.5 Amylase Level 40 Lipase 195 Imaging Last Impressions Hepatobiliary Scan Nuclear Medicine 03/25/17 0000 Signed Impressions: Service Date/Time: Saturday, March 25, 2017 08:40 - CONCLUSION: Delayed appearance to the gallbladder without evidence for cystic duct or common duct obstruction. Pranay Andrade MD FACR Abdomen Ultrasound 03/24/17 0000 Signed Impressions: Service Date/Time: Friday, March 24, 2017 13:39 - CONCLUSION: 1. Heterogeneous pancreas. Acute on chronic pancreatitis suspected on yesterday's CT. Both studies show mild dilatation of the pancreatic duct. 2. Presumed pseudocyst in the norberto hepatis on yesterday's CT is not clearly seen on today's ultrasound. 3. Stenotic main portal vein but not thrombosed. 4. Enlarged and heterogeneous liver but no focal hepatic lesion. 5. No gallstones or evidence of cholecystitis. Donnie Merrill MD Abdomen/Pelvis CT 03/23/17 1215 Signed Impressions: Service Date/Time: Thursday, March 23, 2017 14:19 - CONCLUSION: 1. Acute on chronic pancreatitis. 2. Multiloculated, new low density mass superior to the pancreatic head which is most likely a pseudocyst. There is mass effect and possible partial thrombosis on the portal vein. Donnie Merrill MD Physical Exam HEENT: Normocephalic; atraumatic; no jaundice. CHEST: CTA CARDIAC: RRR ABDOMEN: Soft, nondistended, mild abdominal tenderness; no hepatosplenomegaly; bowel sounds are present in all four quadrants. EXTREMITIES: No clubbing, cyanosis, or edema. SKIN: Normal; no rash; no jaundice. 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 Assessment and Plan Plan ASSESSMENT - Acute on chronic pancreatitis, pseudocyst. Abdomen/Pelvis CT 03/23/17--1. Acute on chronic pancreatitis. 2. Multiloculated, new low density mass superior to the pancreatic head which is most likely a pseudocyst. There is mass effect and possible partial thrombosis on the portal vein. Abdomen Ultrasound (03/24/17)--- -> 1. Heterogeneous pancreas. Acute on chronic pancreatitis suspected on yesterday's CT. Both studies show mild dilatation of the pancreatic duct. 2. Presumed pseudocyst in the norberto hepatis on yesterday's CT is not clearly seen on today's ultrasound. 3. Stenotic main portal vein but not thrombosed. 4. Enlarged and heterogeneous liver but no focal hepatic lesion. 5. No gallstones or evidence of cholecystitis. HIDA (03/25/17)----> Delayed appearance to the gallbladder without evidence for cystic duct or common duct obstruction. Lipase improving. It has now normalized- 195. Clinically pain has improved. Advance to full liquids. Of note, he had a EUS (12/10/16)---> irregular pancreatic head, developing pseudocyst at the tail of the pancreas- benign pancreatic ductal cells, histiocytes and eosinophilic granular debris, malignant cells are not identified. He now has pancreatic head pseudocyst. - Stenotic portal vein, but no thrombus noted on US. - Leukocytosis, improved. WBC 6.8. Zosyn - Hypertension, COPD, Hx seizures per attending PLAN: - Full liquids - NPO - IVF - Monitor labs - Supportive care - Further recommendations to follow based on results of above - May need repeat EUS at some point. - Patient seen and examined by and myself and this note is written on his behalf. Nelda Liu Mar 25, 2017 18:16
[2017-03-25 20:00] VITALS: BP 156/77; PULSE 71; RESP 20; TEMP 98.6; O2SAT 97
[2017-03-25] MEDS: MIRTAZAPINE 15 MG TAB PO SCH (21:37)
[2017-03-26] VITALS: BP 139/82; PULSE 68; RESP 18; TEMP 98; O2SAT 99
[2017-03-26] MEDS: MORPHINE SULFATE 4 MG/ML INJ IV PRN ×5 (01:19→14:46)
[2017-03-26] MEDS: LACTATED RINGER'S 1000 ML INJ 1,000 ML IV SCH ×2 (01:24→11:33)
[2017-03-26] MEDS: PIPERACIL-TAZO 4.5 GM PREMIX 100 ML IV SCH ×3 (01:24→11:33)
[2017-03-26 04:00] VITALS: BP 135/80; PULSE 68; RESP 18; TEMP 97.6; O2SAT 96
[2017-03-26] MEDS: HEPARIN SODIUM - SQ 10,000 UNITS/ML VIAL SQ SCH ×3 (05:25→22:27)
[2017-03-26 08:00] VITALS: BP 129/79; PULSE 65; RESP 20; TEMP 97.8; O2SAT 94
[2017-03-26] MEDS: DOCUSATE SODIUM 50 MG/SENNA 8.6 MG TAB PO SCH ×2 (08:31→20:07)
[2017-03-26] MEDS: levETIRAcetam 500 MG TAB PO SCH ×2 (08:32→20:07)
[2017-03-26] MEDS: PANTOPRAZOLE SOD 40 MG DELAYED RELEASE TAB PO SCH (08:32)
[2017-03-26] MEDS: BUDESONIDE-FORMOTEROL 160/4.5 MCG INHALER INH SCH ×2 (08:32→20:08)
[2017-03-26] MEDS: LISINOPRIL 20 MG TAB PO SCH (08:32)
[2017-03-26] MEDS: SODIUM CHLORIDE 0.9% FLUSH 10 ML FLUSH IV FLUSH SCH ×2 (08:32→20:08)
[2017-03-26] MEDS: BACLOFEN 10 MG TAB PO SCH ×3 (08:34→18:41)
[2017-03-26 09:20] LABS: AUTOMATED NEUTROPHIL # 3.2 TH/MM3 (1.8-7.7); BASOPHIL # 0.1 TH/MM3 (0-0.2); BASOPHIL % 1.2 % (0.0-2.0); EOSINOPHIL # 0.4 TH/MM3 (0-0.4); EOSINOPHIL % 6.4 % (0.0-4.0); HEMATOCRIT 32.2 % (39.0-51.0); LYMPH % 34.8 % (9.0-44.0); LYMPHOCYTE # 2.2 TH/MM3 (1.0-4.8); MEAN CELL VOLUME 93.2 FL (80.0-100.0); MEAN CORPUSCULAR HEMOGLOBIN 31.1 PG (27.0-34.0); MEAN CORPUSCULAR HGB CONC 33.4 % (32.0-36.0); MONO % 8.1 % (0.0-8.0); NEUT % 49.5 % (16.0-70.0); PLATELET COUNT 374 TH/MM3 (150-450); RED BLOOD COUNT 3.46 MIL/MM3 (4.50-5.90); RED CELL DISTRIBUTION WIDTH 14.3 % (11.6-17.2); WHITE BLOOD COUNT 6.5 TH/MM3 (4.0-11.0)
[2017-03-26 09:24] LABS: HEMO FLAGS AUTO DIFF
[2017-03-26 09:31] LABS: AMYLASE 36 U/L (25-115); ANION GAP 8 MEQ/L (5-15); BICARBONATE 29.2 MEQ/L (21.0-32.0); CHLORIDE 101 MEQ/L (98-107); GLOMERULAR FILTRATION RATE 134 ML/MIN (>89); MAGNESIUM 2.2 MG/DL (1.5-2.5); POTASSIUM 3.5 MEQ/L (3.5-5.1); SODIUM (NA) 138 MEQ/L (136-145)
[2017-03-26 10:02] LABS: BANDS 5 % (0-6); BASOPHILS 1 % (0-2); EOSINOPHILS 6 % (0-4); POLYS (SEG NEUTROPHILS) 56 % (16-70); WBC DIFF SAMPLE 100
[2017-03-26 10:03] LABS: PLATELET ESTIMATE SMEAR NORMAL (NORMAL); PLATELET MORPHOLOGY NORMAL (NORMAL); SCAN/DIFF FINAL DIFF MANUAL
[2017-03-26 10:15] LABS: ALKALINE PHOSPHATASE 108 U/L (45-117); TOTAL BILIRUBIN ADULT 0.2 MG/DL (0.2-1.0)
[2017-03-26 10:35] LABS: ALT (GPT) 28 U/L (12-78); AST (GOT) 19 U/L (15-37); BLOOD UREA NITROGEN 2 MG/DL (7-18)
[2017-03-26 12:47] VITALS: BP 119/68; PULSE 72; RESP 20; TEMP 97.8; O2SAT 95
[2017-03-26 16:31] VITALS: BP 119/82; PULSE 76; RESP 20; TEMP 98.2; O2SAT 96
--- NOTE | 2017-03-26 16:43 | HHI.GIFU ---
Subjective Remarks Resting in bed. Pain improved. Tolerating diet, requesting that his diet be advanced. Afebrile. Objective Vitals I&O Vital Signs Date Time Temp Pulse Resp B/P Pulse Ox O2 Delivery O2 Flow Rate FiO2 03/26/17 16:31 98.2 76 20 119/82 96 03/26/17 12:47 97.8 72 20 119/68 95 03/26/17 08:00 97.8 65 20 129/79 94 03/26/17 04:00 97.6 68 18 135/80 96 03/26/17 00:00 98.0 68 18 139/82 99 03/25/17 20:00 98.6 71 20 156/77 97 I/O 03/25/17 03/25/17 03/25/17 03/26/17 03/26/17 03/26/17 07:00 15:00 23:00 07:00 15:00 23:00 Intake Total 1033 ml 600 ml Output Total 1550 ml Balance 1033 ml -950 ml IV Total 1033 ml 600 ml Output Urine Total 1550 ml # Voids 4 # Bowel Movements 2 0 1 Laboratory Laboratory Tests Test 03/26/17 07:40 White Blood Count 6.5 Red Blood Count 3.46 Hemoglobin 10.8 Hematocrit 32.2 Mean Corpuscular Volume 93.2 Mean Corpuscular Hemoglobin 31.1 Mean Corpuscular Hemoglobin 33.4 Concent Red Cell Distribution Width 14.3 Platelet Count 374 Mean Platelet Volume 8.1 Neutrophils (%) (Auto) 49.5 Lymphocytes (%) (Auto) 34.8 Monocytes (%) (Auto) 8.1 Eosinophils (%) (Auto) 6.4 Basophils (%) (Auto) 1.2 Neutrophils # (Auto) 3.2 Lymphocytes # (Auto) 2.2 Monocytes # (Auto) 0.5 Eosinophils # (Auto) 0.4 Basophils # (Auto) 0.1 CBC Comment AUTO DIFF Differential Total Cells 100 Counted Neutrophils % (Manual) 56 Band Neutrophils % 5 Lymphocytes % 22 Monocytes % 10 Eosinophils % 6 Basophils % 1 Neutrophils # (Manual) 4.0 Differential Comment FINAL DIFF MANUAL Platelet Estimate NORMAL Platelet Morphology Comment NORMAL Red Cell Morphology Comment NORMAL Sodium Level 138 Potassium Level 3.5 Chloride Level 101 Carbon Dioxide Level 29.2 Anion Gap 8 Blood Urea Nitrogen 2 Creatinine 0.62 Estimat Glomerular Filtration 134 Rate Random Glucose 92 Calcium Level 8.5 Phosphorus Level 3.5 Magnesium Level 2.2 Total Bilirubin 0.2 Aspartate Amino Transf 19 (AST/SGOT) Alanine Aminotransferase 28 (ALT/SGPT) Alkaline Phosphatase 108 Total Protein 6.7 Albumin 2.6 Amylase Level 36 Lipase 134 Imaging Last Impressions Hepatobiliary Scan Nuclear Medicine 03/25/17 0000 Signed Impressions: Service Date/Time: Saturday, March 25, 2017 08:40 - CONCLUSION: Delayed appearance to the gallbladder without evidence for cystic duct or common duct obstruction. Pranay Andrade MD FACR Abdomen Ultrasound 03/24/17 0000 Signed Impressions: Service Date/Time: Friday, March 24, 2017 13:39 - CONCLUSION: 1. Heterogeneous pancreas. Acute on chronic pancreatitis suspected on yesterday's CT. Both studies show mild dilatation of the pancreatic duct. 2. Presumed pseudocyst in the norberto hepatis on yesterday's CT is not clearly seen on today's ultrasound. 3. Stenotic main portal vein but not thrombosed. 4. Enlarged and heterogeneous liver but no focal hepatic lesion. 5. No gallstones or evidence of cholecystitis. Donnie Merrill MD Abdomen/Pelvis CT 03/23/17 1215 Signed Impressions: Service Date/Time: Thursday, March 23, 2017 14:19 - CONCLUSION: 1. Acute on chronic pancreatitis. 2. Multiloculated, new low density mass superior to the pancreatic head which is most likely a pseudocyst. There is mass effect and possible partial thrombosis on the portal vein. Donnie Merrill MD Physical Exam HEENT: Normocephalic; atraumatic; no jaundice. CHEST: CTA CARDIAC: RRR ABDOMEN: Soft, nondistended, mild abdominal tenderness; no hepatosplenomegaly; bowel sounds are present in all four quadrants. EXTREMITIES: No clubbing, cyanosis, or edema. SKIN: Normal; no rash; no jaundice. 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 Assessment and Plan Plan ASSESSMENT - Acute on chronic pancreatitis, pseudocyst. Abdomen/Pelvis CT 03/23/17--1. Acute on chronic pancreatitis. 2. Multiloculated, new low density mass superior to the pancreatic head which is most likely a pseudocyst. There is mass effect and possible partial thrombosis on the portal vein. Abdomen Ultrasound (03/24/17)----> 1. Heterogeneous pancreas. Acute on chronic pancreatitis suspected on yesterday's CT. Both studies show mild dilatation of the pancreatic duct. 2. Presumed pseudocyst in the norberto hepatis on yesterday's CT is not clearly seen on today's ultrasound. 3. Stenotic main portal vein but not thrombosed. 4. Enlarged and heterogeneous liver but no focal hepatic lesion. 5. No gallstones or evidence of cholecystitis. HIDA (03/25/17)----> Delayed appearance to the gallbladder without evidence for cystic duct or common duct obstruction. Lipase Of note, he had a EUS (12/10/16)---> irregular pancreatic head, developing pseudocyst at the tail of the pancreas- benign pancreatic ductal cells, histiocytes and eosinophilic granular debris, malignant cells are not identified. He now has pancreatic head pseudocyst. Lipase has normalized, 134. LFT stable. Tolerating full liquids. D/W Dr. Bull pseudocyst- 2.7 x 4.3 x 3.3- suspected multiloculated pseudocyst. Afebrile, WBC normalized- cyst too small to drain at this time. Will repeat CT scan as outpatient to see if EUS is indicated. Advance diet to low fat diet. D/W patient importance of complete ETOH cessation. - Stenotic portal vein, but no thrombus noted on US. - Leukocytosis, improved. - Hypertension, COPD, Hx seizures per attending PLAN: - Low fat diet - PPI - Okay to d/c Zosyn from GI standpoint - If tolerates diet, okay to d/c home in am - Complete ETOH cessation- d/w patient - FU GIANCARLO 2 weeks - Will need repeat CT scan as outpatient to determine if EUS is needed- timing to be determined at outpatient followup. - Patient seen and examined by and myself and this note is written on his behalf. Nelda Liu Mar 26, 2017 16:43
--- NOTE | 2017-03-26 17:29 | HHI.PR ---
Subjective Remarks Patient says his pain is improved, tolerating clear liquid diet fine, asking to advance diet Objective Vital Signs Date Time Temp Pulse Resp B/P Pulse Ox O2 Delivery O2 Flow Rate FiO2 03/26/17 16:31 98.2 76 20 119/82 96 03/26/17 12:47 97.8 72 20 119/68 95 03/26/17 08:00 97.8 65 20 129/79 94 03/26/17 04:00 97.6 68 18 135/80 96 03/26/17 00:00 98.0 68 18 139/82 99 03/25/17 20:00 98.6 71 20 156/77 97 I/O 03/25/17 03/25/17 03/25/17 03/26/17 03/26/17 03/26/17 06:59 14:59 22:59 06:59 14:59 22:59 Intake Total 1033 ml 600 ml 1230 ml Output Total 1550 ml 1050 ml Balance 1033 ml -950 ml 180 ml Intake Oral 1230 ml IV Total 1033 ml 600 ml Output Urine Total 1550 ml 1050 ml # Voids 4 # Bowel Movements 2 0 2 Result Diagram: 03/26/17 0740 03/26/17 0740 Objective Remarks GENERAL: Resting comfortably in bed no acute distress CARDIOVASCULAR: Regular rate and rhythm without murmurs, gallops, or rubs. RESPIRATORY: Breath sounds equal and clear bilaterally. Unlabored breathing GASTROINTESTINAL: Abdomen soft, minimal diffuse tenderness to palpation, bowel sounds positive MUSCULOSKELETAL: No cyanosis, or edema. A/P Problem List: (1) Pancreatitis ICD Code: K85.90 (2) GERD (gastroesophageal reflux disease) ICD Code: K21.9 (3) Seizure disorder ICD Code: G40.909 (4) HTN (hypertension) ICD Code: I10 (5) COPD (chronic obstructive pulmonary disease) ICD Code: J44.9 (6) Tobacco abuse ICD Code: Z72.0 Assessment and Plan Acute on chronic pancreatitis: Multiloculated. A new low density mass with most likely a pseudocyst. Mass effect and possible partial thrombosis on the portal vein. GI consult, recommend endoscopic ultrasound outpatient for cyst. Patient is clinically improved, tolerating by mouth intake, advancing diet today , transitioning pain medicines to orals, adding on peripheral opiate antagonist to minimize constipation. HIDA scan unremarkable. Leukocytosis with elevated bands suspect secondary to pancreatitis: Normalized, stopping Zosyn as I do not feel an infectious processes at play, obtaining pro- calcitonin to help verify Hypertension, chronic: Continue home lisinopril. Hyponatremia: Resolved COPD: Continue home inhalers. Supplemental O2 as needed. History of seizures: Continue home Keppra. GI Prophylaxis: Protonix. DVT prophylaxis: SCDs/Heparin. Pranay Crews Hammad Mohammed MD Mar 26, 2017 17:29
[2017-03-26] MEDS: POLYETHYLENE GLYCOL 17 GM PKG PO SCH (18:40)
[2017-03-26] MEDS: METHYLNALTREXONE BROMIDE 12 MG/0.6 ML VIAL SQ SCH (18:40)
[2017-03-26] MEDS: traMADol/ACETAMINOPHEN 37.5/325 1 TAB PO PRN (20:07)
[2017-03-26] MEDS: MIRTAZAPINE 15 MG TAB PO SCH (20:07)
[2017-03-26 20:50] VITALS: BP 152/86; PULSE 69; RESP 17; TEMP 97.6; O2SAT 99
[2017-03-27] MEDS: LACTATED RINGER'S 1000 ML INJ 1,000 ML IV SCH ×2 (00:29→00:30)
[2017-03-27 00:40] VITALS: BP 145/80; PULSE 67; RESP 18; TEMP 98.1; O2SAT 98
[2017-03-27] MEDS: traMADol/ACETAMINOPHEN 37.5/325 1 TAB PO PRN ×3 (03:10→16:09)
[2017-03-27 04:45] VITALS: BP 152/95; PULSE 69; RESP 18; TEMP 97.5; O2SAT 97
[2017-03-27] MEDS: HEPARIN SODIUM - SQ 10,000 UNITS/ML VIAL SQ SCH ×3 (06:33→21:06)
[2017-03-27 08:00] VITALS: BP 165/88; PULSE 71; RESP 17; TEMP 97.8; O2SAT 98
[2017-03-27] MEDS: LISINOPRIL 20 MG TAB PO SCH (09:53)
[2017-03-27] MEDS: DOCUSATE SODIUM 50 MG/SENNA 8.6 MG TAB PO SCH ×2 (09:53→21:06)
[2017-03-27] MEDS: levETIRAcetam 500 MG TAB PO SCH ×2 (09:53→21:06)
[2017-03-27] MEDS: PANTOPRAZOLE SOD 40 MG DELAYED RELEASE TAB PO SCH (09:53)
[2017-03-27] MEDS: BACLOFEN 10 MG TAB PO SCH ×3 (09:53→18:14)
[2017-03-27] MEDS: SODIUM CHLORIDE 0.9% FLUSH 10 ML FLUSH IV FLUSH SCH ×2 (09:54→21:00)
[2017-03-27] MEDS: POLYETHYLENE GLYCOL 17 GM PKG PO SCH (09:54)
[2017-03-27] MEDS: BUDESONIDE-FORMOTEROL 160/4.5 MCG INHALER INH SCH ×2 (09:54→21:07)
[2017-03-27] MEDS: METHYLNALTREXONE BROMIDE 12 MG/0.6 ML VIAL SQ SCH (09:54)
[2017-03-27 10:56] LABS: AUTOMATED NEUTROPHIL # 3.3 TH/MM3 (1.8-7.7); BASOPHIL % 0.3 % (0.0-2.0); EOSINOPHIL # 0.3 TH/MM3 (0-0.4); EOSINOPHIL % 4.4 % (0.0-4.0); HEMATOCRIT 30.9 % (39.0-51.0); LYMPHOCYTE # 2.2 TH/MM3 (1.0-4.8); MEAN CELL VOLUME 92.5 FL (80.0-100.0); MEAN CORPUSCULAR HEMOGLOBIN 31.6 PG (27.0-34.0); MEAN CORPUSCULAR HGB CONC 34.2 % (32.0-36.0); MONO % 5.8 % (0.0-8.0); NEUT % 53.5 % (16.0-70.0); PLATELET COUNT 311 TH/MM3 (150-450); RED BLOOD COUNT 3.34 MIL/MM3 (4.50-5.90); RED CELL DISTRIBUTION WIDTH 14.3 % (11.6-17.2); WHITE BLOOD COUNT 6.1 TH/MM3 (4.0-11.0)
[2017-03-27 10:59] LABS: HEMO FLAGS AUTO DIFF
[2017-03-27 11:59] LABS: BANDS 5 % (0-6); EOSINOPHILS 4 % (0-4); METAMYELOCYTES 2 % (0-1); MYELOCYTES 3 % (0-0); POLYS (SEG NEUTROPHILS) 55 % (16-70); WBC DIFF SAMPLE 100
[2017-03-27 12:00] VITALS: BP 135/83; PULSE 78; RESP 17; TEMP 98.6; O2SAT 94
[2017-03-27 12:00] LABS: PLATELET ESTIMATE SMEAR NORMAL (NORMAL); PLATELET MORPHOLOGY NORMAL (NORMAL)
[2017-03-27 12:01] LABS: SCAN/DIFF FINAL DIFF MANUAL
[2017-03-27 16:00] VITALS: BP 129/68; PULSE 79; RESP 17; TEMP 98.7; O2SAT 93
--- NOTE | 2017-03-27 17:24 | HHI.DCPOC ---
Discharge Care Plan Diagnosis: (1) Pancreatitis (2) GERD (gastroesophageal reflux disease) (3) HTN (hypertension) (4) Seizure disorder (5) Tobacco abuse Goals to Promote Your Health * To prevent worsening of your condition and complications * To maintain your health at the optimal level Directions to Meet Your Goals Take your medications as prescribed Follow your dietary instruction Follow activity as directed Keep your appointments as scheduled Take your immunizations and boosters as scheduled If your symptoms worsen call your PCP, if no PCP go to Urgent Care Center or Emergency Room Smoking is Dangerous to Your Health. Avoid second hand smoke Call the 24-hour hour crisis hotline for domestic abuse at Deacon Frederick MD Mar 27, 2017 17:24
--- NOTE | 2017-03-27 17:26 | HHI.DS ---
Discharge Summary Admission Date Mar 23, 2017 at 15:45 Discharge Date: Mar 27, 2017 Admitting Diagnosis Acute on Chronic Pancreatitis (1) Pancreatitis ICD Code: K85.90 Diagnosis: Principal (2) Tobacco abuse ICD Code: Z72.0 Diagnosis: Secondary (3) GERD (gastroesophageal reflux disease) ICD Code: K21.9 Diagnosis: Secondary (4) Seizure disorder ICD Code: G40.909 Diagnosis: Secondary (5) HTN (hypertension) ICD Code: I10 Diagnosis: Secondary (6) COPD (chronic obstructive pulmonary disease) ICD Code: J44.9 Diagnosis: Secondary (7) Hypertension ICD Code: I10 Diagnosis: Secondary (8) Status post left hip replacement ICD Code: Z96.642 Procedures none Brief History - From Admission Written by Qiana Calvillo, acting as scribe for Dr. Crews on 03/23/17 at 17:26. Mr. Elam is a 57-year-old male with a known medical history of hypertension, seizure history, COPD, GERD and pancreatitis who presented to the ED with complaints of abdominal pain. Patient states that has had right sided abdominal pain for the past 5 days, worsening over the last three. States the pain is constant, with its worse being a 10/10 on pain scale, radiates to his back and middle abdomen. States no relieving factors, tried multiple NSAIDs with short term relief. Patient has not ate anything for 4 days except for occasional water. Complaints of associated fevers, chills, nausea and vomiting and "cannot keep anything down". Patient denies frequent alcohol consumption, states he only has a few beers a month. Admits to quitting cigarettes over the past month with the help of a nicotine patch. Does admit to using cocaine last evening to help and try to relieve the pain, with little effect. Last bowel movement was four days ago, denies any diarrhea or hematochezia. Patient takes an occasional omeprazole whenever he suffers from heartburn. P[facility] is [facility] and last saw him 1 month ago. Patient was recently admitted for pancreatitis 5 months ago and a left hip replacement 3 months ago. Last colonoscopy was 3 years ago and per patient it was unremarkable. CBC/BMP: 03/27/17 0939 03/26/17 0740 Significant Findings Laboratory Tests Test 03/25/17 03/26/17 03/27/17 14:58 07:40 09:39 Red Blood Count 3.42 MIL/MM3 3.46 MIL/MM3 3.34 MIL/MM3 (4.50-5.90) (4.50-5.90) (4.50-5.90) Hemoglobin 11.2 GM/DL 10.8 GM/DL 10.6 GM/DL (13.0-17.0) (13.0-17.0) (13.0-17.0) Hematocrit 31.2 % 32.2 % 30.9 % (39.0-51.0) (39.0-51.0) (39.0-51.0) Monocytes (%) (Auto) 8.2 % (0.0-8.0) 8.1 % (0.0-8.0) Eosinophils (%) (Auto) 7.9 % (0.0-4.0) 6.4 % (0.0-4.0) 4.4 % (0.0-4.0) Eosinophils # (Auto) 0.5 TH/MM3 (0-0.4) Band Neutrophils % 7 % (0-6) Eosinophils % 6 % (0-4) 6 % (0-4) Basophils % 3 % (0-2) Metamyelocytes 4 % (0-1) 2 % (0-1) Prothrombin Time 11.9 SEC (9.8-11.6) Sodium Level 135 MEQ/L (136-145) Blood Urea Nitrogen 3 MG/DL (7-18) 2 MG/DL (7-18) Total Protein 6.3 GM/DL (6.4-8.2) Albumin 2.5 GM/DL 2.6 GM/DL (3.4-5.0) (3.4-5.0) Monocytes % 10 % (0-8) Myelocytes 3 % (0-0) PE at Discharge GENERAL: resting comfortably, NAD CARDIOVASCULAR: Regular rate and rhythm without murmurs, gallops, or rubs. RESPIRATORY: Breath sounds equal and clear bilaterally. Unlabored breathing GASTROINTESTINAL: Abdomen soft, minimal TTP diffusely Hospital Course Patient was admitted, started on IV hydration and antibiotics for possible GI infection. It was clear that he had pancreatitis but also had a lesion suspicious for a pseudocyst. GI was involved, Abdomen Ultrasound (03/24/17)----> 1. Heterogeneous pancreas. Acute on chronic pancreatitis suspected on yesterday' s CT. Both studies show mild dilatation of the pancreatic duct. 2. Presumed pseudocyst in the norberto hepatis on yesterday's CT is not clearly seen on today 's ultrasound. 3. Stenotic main portal vein but not thrombosed. 4. Enlarged and heterogeneous liver but no focal hepatic lesion. 5. No gallstones or evidence of cholecystitis. HIDA (03/25/17)----> Delayed appearance to the gallbladder without evidence for cystic duct or common duct obstruction. Patient's clinical status had improved with conservative measures, antibiotics were discontinued and tolerated by mouth intake well including po pain meds. GI concluded that he can be followed up outpatient with an endoscopic ultrasound by them. Patient has met maximum benefit from hospitalization and is clinically stable for discharge. Pt Condition on Discharge: Fair Discharge Disposition: Discharge Home Discharge Time: > 30 minutes Discharge Instructions DIET: Follow Instructions for: Low Fat Diet Follow up Referrals: Gastroenterology - 2 Weeks @ [facility] New Medications: Hydrocodone-Acetaminophen (Hydrocodone-Acetaminophen) 7.5-325 mg Tab 1 TAB PO Q6H PRN PAIN SCALE 4 TO 10 #30 TAB Polyethylene Glycol 3350 Powder (Polyethylene Glycol 3350 Powder) 17 Gm Pow 17 GM PO DAILY Bowel Management #1 BOTTLE Continued Medications: Albuterol 8.5 GM Inh (Proair Hfa 8.5 GM Inh) 90 Mcg/Act Aer 2 PUFF INH Q6H 108 mcg/actuation PRN SHORTNESS OF BREATH #1 Ref 0 INHALER Baclofen (Baclofen) 10 Mg Tab 10 MG PO TID Muscle Spasm Ref 0 TAB Budesonide-Formoterol Inh (Symbicort Inh) 160-4.5 Mcg/Act Aero 2 PUFF INH Q12HR #1 Ref 0 INHALER Levetiracetam (Keppra) 500 Mg Tab 500 MG PO BID Control Seizures #60 Ref 0 TAB Lisinopril (Lisinopril) 40 Mg Tab 40 MG PO DAILY Blood Pressure Management #30 Ref 0 TAB Mirtazapine (Mirtazapine) 30 Mg Tab 30 MG PO HS Depression Control #30 Ref 0 TAB Omeprazole (Omeprazole) 40 Mg Cap 40 MG PO DAILY #30 Ref 0 CAP Discontinued Medications: Naproxen (Naproxen) 500 Mg Tab 500 MG PO BID Days 10 Ref 0 TAB Deacon Frederick MD Mar 27, 2017 17:26
[2017-03-27] MEDS ORDERED: POLY17S PO (17:31)
[2017-03-27] MEDS ORDERED: HYDR-3580 PO (17:31)
[2017-03-27] MEDS ORDERED: BACL10TA PO (17:41)
[2017-03-27] MEDS: ACETAMINOPHEN/HYDROcodone 325 MG/7.5 MG TAB PO PRN (18:14)
[2017-03-27 20:00] VITALS: BP 144/77; PULSE 70; RESP 20; TEMP 98.7; O2SAT 95
[2017-03-27] MEDS: MIRTAZAPINE 15 MG TAB PO SCH (21:06)
[2017-03-28] VITALS: BP 162/87; PULSE 64; RESP 20; TEMP 98.3; O2SAT 97
[2017-03-28] MEDS: ACETAMINOPHEN/HYDROcodone 325 MG/7.5 MG TAB PO PRN ×2 (00:08→05:52)
[2017-03-28] MEDS: LACTATED RINGER'S 1000 ML INJ 1,000 ML IV SCH (00:19)
[2017-03-28 04:00] VITALS: BP 137/79; PULSE 69; RESP 20; TEMP 97.6; O2SAT 96
[2017-03-28] MEDS: HEPARIN SODIUM - SQ 10,000 UNITS/ML VIAL SQ SCH (05:52)
[2017-03-28] MEDS: POLYETHYLENE GLYCOL 17 GM PKG PO SCH (08:16)
[2017-03-28] MEDS: METHYLNALTREXONE BROMIDE 12 MG/0.6 ML VIAL SQ SCH (08:18)
[2017-03-28] MEDS: DOCUSATE SODIUM 50 MG/SENNA 8.6 MG TAB PO SCH (08:19)
[2017-03-28] MEDS: PANTOPRAZOLE SOD 40 MG DELAYED RELEASE TAB PO SCH (08:19)
[2017-03-28] MEDS: levETIRAcetam 500 MG TAB PO SCH (08:19)
[2017-03-28] MEDS: LISINOPRIL 20 MG TAB PO SCH (08:20)
[2017-03-28] MEDS: BACLOFEN 10 MG TAB PO SCH (08:20)
[2017-03-28] MEDS: SODIUM CHLORIDE 0.9% FLUSH 10 ML FLUSH IV FLUSH SCH (08:21)
[2017-03-28] MEDS: BUDESONIDE-FORMOTEROL 160/4.5 MCG INHALER INH SCH (08:21)
== END 2017-03-28 09:07 | disposition home or self-care (01) | DRG 439 ==
LOC: NEPE 12:03 → NEDA 15:45 → N05B 17:28
PROVIDERS: ADMIT Family Medicine; ATTEND Family Medicine
DX: K85.90 Acute pancreatitis without necrosis or infection, unspecified (principal); E87.1 Hypo-osmolality and hyponatremia; I10 Essential (primary) hypertension; J44.9 Chronic obstructive pulmonary disease, unspecified; G40.909 Epilepsy, unspecified, not intractable, without status epilepticus; K21.9 Gastro-esophageal reflux disease without esophagitis; K86.1 Other chronic pancreatitis; Z96.642 Presence of left artificial hip joint; F17.210 Nicotine dependence, cigarettes, uncomplicated
CPT/HCPCS: 74177; 76700; 78226; 80053; 80076; 81001; 82150; 82948; 83036; 83690; 83735; 84100; 84145; 84439; 84443; 84478; 85007; 85025; 85027; 85610; 93005; 96361; 96374; 96375; A9537; J1644; J2212; J2270; J2405; J2543; J7030; J7120; Q9967